=== PATIENT | male | born 1955 | race Caucasian/White ===

== ENCOUNTER 2024-09-02 16:43 | Inpatient (IN) | payer MEDICARE, BC, SELFPAY ==
[2024-09-02] VITALS (10 sets, daily range): BP systolic 105–130; BP diastolic 60–80; BMI 22.7
--- NOTE | 2024-09-02 12:03 | ED.MUSCINJ ---
HPI-Injury
General
Chief Complaint: Fall
Source: patient
Exam Limitations: none
Time Seen by Provider: 09/02/24 11:57
History of Present Illness-Injury
Initial Injury comments:
68-year-old male presents via EMS from independent living facility after a fall. He states he tried to get out of bed and slipped and fell. He complains of right knee pain and upper leg pain. He is on Coumadin. No known head strike. He has been
falling frequently recently. He denies any preceding lightheadedness dizziness or chest pain. He feels as though at times his legs do not support his weight.
Phy Exam
Physical Exam
Physical Exam:
General: Well-appearing male no acute respiratory distress
HEENT: Normocephalic atraumatic no obvious scalp abrasion or hematoma
Heart: Regular rate and rhythm
Lungs: Clear no wheeze
Musculoskeletal exam: Right knee is tender anteriorly the right distal thigh is tender. Patient prefers to hold his hip in flexed position with his knee flexed.
Extremities: Edema noted to bilateral lower extremities
Skin: Evidence of breakdown over the right heel
Injury Course
Orders/Labs/Results
Orders:
Orders
09/02/24 12:02
CR Femur - Right Min 2 Vw Urgent
Comment:
Reason For Exam: fall, pain
CR Knee- Right 4 Or More View* Urgent
Comment:
Reason For Exam: fall, pain
09/02/24 12:03
CT Head W/o Iv Contrast Urgent
Comment:
Reason For Exam: fall
09/02/24 12:32
Complete Blood Count/With Diff Urgent
Comprehensive Metabolic Panel Urgent
Prothrombin Time Urgent
09/02/24 14:06
Urinalysis Reflex To Culture Urgent
Date Specimen was Collected: 09/02/24
Time Specimen was Collected: 13:52
09/02/24 14:19
CR Chest Portable - 1 View Urgent
Comment:
Reason For Exam: hypoxia
Reason Study Needs to be Portable: Unable to Transport
09/02/24 14:31
ABG [Arterial Blood Gas] Urgent
%Oxygen/Room Air: 70
Abnormal Lab Results
09/02/24
12:32
RBC 3.49 L 10^6/uL
(4.70-6.10)
Hgb 9.7 L g/dL
(13.0-18.0)
Hct 30.1 L %
(39.0-52.0)
MCHC 32.2 L g/dL
(33.0-37.0)
RDW 15.6 H %
(11.5-14.5)
Absolute Neuts (auto) 7.3 H 10^3/uL
(1.4-6.5)
Absolute Lymphs (auto) 0.5 L 10^3/uL
(1.2-3.4)
Absolute Monos (auto) 0.7 H 10^3/uL
(0.1-0.6)
Neutrophils % 84.3 H %
(42.2-75.2)
Lymphocytes % 6.2 L %
(20.5-51.1)
PT 72.7 H Sec
(11.4-14.6)
INR > 8.0 H*
Chloride 113 H mmol/L
(98-107)
Carbon Dioxide 18 L mmol/L
(22-30)
BUN 53 H mg/dl
(9-20)
Creatinine 1.8 H mg/dL
(0.7-1.3)
Total Bilirubin 1.9 H mg/dl
(0.2-1.3)
Alkaline Phosphatase 203 H U/L
(38-126)
09/02/24 12:32
09/02/24 12:32
MDM/Problems Addressed
Differential Diagnosis Includes:
Fall with frequent falls recently. Patient has right knee and leg pain. He is anticoagulated. CT of the head pending x-ray right femur and knee pending.
Will check labs including INR
*Critical Care Note
Total Time (30-74mins, 75-104mins- exclusive of procedures): Not Applicable
Update Note
Update Note:
Head CT negative x-ray right femur and knee negative. Called back into the room as there was measurable hypoxia noted. Patient was in no respiratory distress upon reassessment. After changing the oximeters this seemed to improve. Stat portable
x-ray was ordered which is negative. Discussed with emergency room attending saw the patient as well. INR is 8 creatinine is 1.8. Patient is generally weak and has been falling. Will admit to hospital for further evaluation
ED Attending Note
-
Portions of this chart may have been created with voice recognition software.� Occasional wrong word or��sound alike� substitutions may have occurred due to the inherent limitations of voice recognition software.
Discharge Plan
Departure
Patient Disposition: Admit
Date of Disposition: 09/02/24
Time of Disposition: 14:40
Presentation/result/management discussed w/ accepting MD/DO: Hospitalist
Discharge Problem:
Falls, BEBA (acute kidney injury)
Referrals:
UNKNOWN - PT DOES,NOT KNOW [Family Provider] -
Interventions
Interventions:
*Risk Screen - Suicide Last Done: 09/02/24 11:50
*General Assessment Last Done: 09/02/24 11:50
*Neglect/Abuse Screening Last Done: 09/02/24 11:50
*ED COVID-19 Vaccine History Last Done: 09/02/24 11:50
ED-Musculoskeletal Assessment Last Done: 09/02/24 12:39
ED- Neurological Assessment Last Done: 09/02/24 12:39
ED-Skin Assessment Last Done: 09/02/24 12:39
Discharge Date and Time
Print Language: ROMANIAN
[2024-09-02 12:45] LABS: % Basophils 0.6 % (0-2); % Eosinophils 0.5 % (0-6); % Immature Granulocytes 0.3 % (0-0.5); % Lymphocytes 6.2 % (20.5-51.1); % Monocytes 8.1 % (1.7-9.3); % Neutrophils 84.3 % (42.2-75.2); Absolute Basophils 0.1 10^3/uL (0-0.2); Absolute Lymphocytes 0.5 10^3/uL (1.2-3.4); Absolute Monocytes 0.7 10^3/uL (0.1-0.6); Absolute Neutrophils 7.3 10^3/uL (1.4-6.5); Hematocrit 30.1 % (39.0-52.0); Hemoglobin 9.7 g/dL (13.0-18.0); Mean Corp Hgb Conc. 32.2 g/dL (33.0-37.0); Mean Corpuscular Hgb 27.8 pg (27.0-31.0); Mean Corpuscular Volume 86.2 fL (80.0-94.0); Mean Platelet Volume 10.4 fL (7.4-10.4); Nucleated Red Blood Cells % 0 % (-); Platelet Count 186 10^3/uL (130-400); Red Blood Cell Count 3.49 10^6/uL (4.70-6.10); Red Cell Dist. Width 15.6 % (11.5-14.5); White Blood Cell Count 8.6 10^3/uL (4.8-10.8)
[2024-09-02 13:03] LABS: PT 72.7 Sec (11.4-14.6)
[2024-09-02 13:18] LABS: ALT (SGPT) 31 U/L (0-50); AST (SGOT) 50 U/L (17-59); Albumin 3.5 g/dl (3.5-5.0); Alkaline Phosphatase 203 U/L (38-126); Blood Urea Nitrogen 53 mg/dl (9-20); Calcium 9.4 mg/dl (8.4-10.2); Carbon Dioxide 18 mmol/L (22-30); Chloride 113 mmol/L (98-107); Estimated Creatinine Clearance 44 ml/min; Glucose 96 mg/dl (70-99); Potassium 4.9 mmol/L (3.5-5.1); Sodium 140 mmol/L (135-145); Total Bilirubin 1.9 mg/dl (0.2-1.3); Total Protein 6.5 g/dl (6.3-8.2); eGFR 39.99
[2024-09-02 13:31] LABS: INR > 8.0
[2024-09-02 14:39] LABS: B.E. -9.4 mmol/L; PCO2 31 mmHg (35-48); PO2 170 mmHg (83-108); pH 7.31 (7.35-7.45)
[2024-09-02 14:43] LABS: HCO3 15.6 mmol/L (21-28)
[2024-09-02 14:54] LABS: Urine Albumin 1+ (Neg - Trace); Urine Bilirubin Negative (Negative); Urine Character Clear (Clear); Urine Color Yellow; Urine Glucose Negative (Negative); Urine Ketone Negative (Negative); Urine Leukocyte Negative (Negative); Urine Nitrite Negative (Negative); Urine Occult Blood Negative (Negative); Urine Specific Gravity 1.015 (<1.030); Urine Urobilinogen Negative (Neg - 1+)
[2024-09-02 15:12] LABS: Urine Red Blood Cell 0-2 /HPF (0-2); Urine Squamous Cell 0-2 /LPF (Few)
[2024-09-02 15:13] LABS: Urine Bacteria Few (Negative); Urine White Cell 0-2 /HPF (0-5)
--- NOTE | 2024-09-02 16:00 | HPS.HSE ---
Addendum entered and electronically signed by Jennifer Nixon PA-C 09/02/24 17:27:
Notified by nursing that bladder scan showed greater than 400cc of urine in the bladder. In the setting of elevated creatinine and possible acute kidney injury will place Hardy catheter for urinary retention and start on Flomax.
Original Note:
Family Physician
-
Family Physician: NOT KNOW UNKNOWN - PT DOES
Chief Complaint
-
Weakness and Frequent Falls
History of Present Illness
Patient is a 68 y/o male past medical history of mechanical aortic valve replacement, pacemaker, hypertension, hyperlipidemia and suspected chronic heart failure who presents with weakness and frequent falls. Patient resides in an independent
living apartment at [facility]. He reports worsening ambulatory dysfunction to the point he is now using a walker but notes its does hold his weight resulting in 'slip and fall'. He denies any dizziness associated with these events. He reports
appetite has not been as good over the past few days. He denies vomiting, diarrhea or abdominal pain. He reports urinary dribbling which he states is chronic. He denies any changes in urine output.
Medical History
Past Medical History
Past Medical History: Reports Other
Additional Past Medical History:
Aortic Stenosis
Atrial Fibrillation
Permanent Pacemaker
Chronic Heart Failure
Essential Hypertension
Hyperlipidemia
Past Surgical History: Reports Other
Additional Past Surgical History:
Aortic Valve Replacement
Social History
Tobacco: Non-smoker
Living: Other (Independent Apartment at [facility])
Family History
Family History: Not pertinent
Allergies / Home Medications
Allergies reflects when Allergies were last updated in [employer].
Home Medications with original date entered in [employer]
Allergy/Medication List:
Allergies
Allergy/AdvReac Type Severity Reaction Status Date / Time
No Known Allergies Allergy Unverified 09/02/24 14:20
Home Medications
aspirin 81 mg tablet,delayed release 81 mg PO DAILY 09/02/24
atorvastatin 40 mg tablet 40 mg PO DAILY 09/02/24
digoxin 250 mcg (0.25 mg) tablet 250 mcg PO DAILY 09/02/24
furosemide 20 mg tablet 20 mg PO DAILY 09/02/24
ibuprofen 200 mg tablet 200 mg PO Q6HPRN PRN mild pain 09/02/24
lisinopril 40 mg tablet 40 mg PO DAILY 09/02/24
metoprolol succinate 100 mg tablet,extended release 24 hr 100 mg PO TID 09/02/24
spironolactone 25 mg tablet 25 mg PO DAILY 09/02/24
warfarin 5 mg tablet 2.5 mg PO MOFR 09/02/24
warfarin 5 mg tablet 5 mg PO SUTUWETHSA 09/02/24
Review of Systems
-
A 12 point ROS was completed and negative except as noted: Yes
Constitutional: Denies Fever or Chills
Respiratory: Denies Trouble Breathing
Cardiac: Denies Chest Pain or Palpitations
Abdomen/GI: Denies Abdominal Pain, Nausea, Vomiting or Diarrhea
: Denies Dysuria or Frequency
Physical Exam
Vital Signs
Vital Signs
Temp Pulse Resp BP Pulse Ox
98.4 F 60 14 114/70 99
09/02/24 11:50 09/02/24 14:15 09/02/24 14:15 09/02/24 14:11 09/02/24 12:45
Physical Exam
General: Comfortable and Conversant
HEENT: Anicteric and Moist mucous membranes
Respiratory: Clear and Non Labored Respirations
Cardiac: S1/S2, Regular Rhythm and Murmur (Mechanical Click)
GI: Soft and Non Tender
Rectal: Deferred by Provider
Genito-urinary: Clear Urine
Musculoskeletal: No Clubbing, No Cyanosis and Other (+1 pitting edema bilateral lower extremities)
Skin: Warm, Dry and Other (Posterior Right Ankle Wound which appears quite deep with visible tendon, appears clean without evidence of infection)
Neuro: Awake, Alert and Nonfocal/grossly intact
Psych: Calm
Laboratory Results
-
09/02/24 12:32
09/02/24 12:32
Laboratory Results
PT 72.7 Sec (11.4-14.6) H 09/02/24 12:32
INR > 8.0 H* 09/02/24 12:32
pH 7.31 (7.35-7.45) L 09/02/24 14:31
pCO2 31 mmHg (35-48) L 09/02/24 14:31
pO2 170 mmHg (83-108) H 09/02/24 14:31
HCO3 15.6 mmol/L (21-28) L* 09/02/24 14:31
Total Bilirubin 1.9 mg/dl (0.2-1.3) H 09/02/24 12:32
AST 50 U/L (17-59) 09/02/24 12:32
ALT 31 U/L (0-50) 09/02/24 12:32
Alkaline Phosphatase 203 U/L (38-126) H 09/02/24 12:32
Data Reviewed
-
Diagnostic Radiology: Report Reviewed by me
CT Scan: Report Reviewed by me
Lab Data: Labs Reviewed by me
Impression/Plan
-
HPI: 68-year-old male [facility] A-fib on Coumadin, status post pacemaker, who is from an independent living facility, presented with weakness and mechanical fall.
He apparently tried to get out of bed and slipped.
He complains of right knee pain and upper leg pain. No known head strike.
He has been falling frequently recently. He denies any preceding lightheadedness dizziness or chest pain. He feels as though at times his legs do not support his weight.
A/P:
# Weakness and mechanical fall
CT head, right knee and femur x-ray on admission were unrevealing
UA was checked on admission, was largely unrevealing
PT OT eval
# Mechanical Aortic Valve
# Paroxysmal Atrial Fibrillation
# Supratherapeutic INR on admission
INR greater than 8
Will give Vit-K 5 mg x 1 now
Hold further Coumadin, check daily INR
Continue digoxin, check dig level
Continue metoprolol with hold parameters
# BEBA versus CKD unclear stage
# Metabolic acidosis
Creatinine 1.8 on admission, no known baseline
Hold prior to admission lisinopril, Lasix, ibuprofen, Aldactone
Continue to monitor serum creatinine
# h/o pacemaker
Will ask Cardiology to interrogate
# Suspect chronic heart failure, unknown type
For now, hold prior to admission lisinopril, Lasix, Aldactone
Check daily weight
#Essential Hypertension
Continue metoprolol with hold parameters
Lisinopril on hold due to BEBA
#Hyperlipidemia
Continue atorvastatin
#Normocytic Anemia
No prior blood work available for comparison
Check iron studies, vitamin b12 and folate
#Posterior Right Ankle Wound
-Consult Wound Care
DVT prophylaxis: Holding prior to admission Coumadin, use SCD for now
Full code
--- NOTE | 2024-09-02 16:10 | CON.CAR ---
Addendum entered and electronically signed by dEe Dean MD 09/02/24 18:21:
68 yo male with PMH of mechanical AVR on warfarin, permanent A fib, h/o MDT PPM, chronic HF (suspected reduced EF) is admitted with falls, and supratherapeutic INR. No chest pain. Exam with irregular rhythm, +mechanical valve click, no edema. Tele:
A fib, Vpaced. INR >8.
He sees a analytical sciences director at [place].
He already received PO Vit K. Trend INR.
Falls. No arrhythmia on device check. PT/OT eval recommended.
Original Note:
Consultation
Consultation Request
Date/Time Consultation Requested: 09/02/24 1603
Date/Time Consultation Performed: 09/02/24 1610
Requesting Provider: Jennifer MARIA
Performing Provider: Janet SOL for Dr. Dean
Reason for Consultation: falls, elevated INR, cardiac history
Medical History
-
Chief Complaint: falls, weakness
History of Present Illness:
68 y/o male (cardiology patient of Dr. Ponce, [facility]) with hx mechanical AVR on warfarin, as well as aortic intervention per patient - he thinks about 22 years ago, pacemaker (Medtronic), permanent AFIB on warfarin, hx stroke, his thinks
CHF with reduced EF, but not clear on that, who is here for evaluation of falls and weakness. He reports 3 falls recently. He denies any light-headedness or dizziness or syncope. There is no CP or SOB. He just feels his legs get weak and falls. He
also reports where he lives doesn't have carpet. In ER, his INR >8.0. Fortunately, he denies any bleeding. I see a right calf wound. He tells me that has been there for some time now and he has not had it medically evaluated. He lives at independent
living. He is in no distress at the time of my assessment. Renal dysfunction and anemia are noted, but unknown baseline.
Past Medical History
Past Medical History: Arrhythmias, CHF (unclear, but patient thinks he has this dx), CVA, HTN, Hypercholesterolemia and Valvular Disease
Past Surgical History: Cardiac
Social History
Living: Other (independent living )
Family History
Family History: Reviewed & Not Pertinent
Allergies / Home Medications
Allergy/AdvReac Type Severity Reaction Status Date / Time
No Known Allergies Allergy Unverified 09/02/24 14:20
�Medication �Instructions �Recorded �Confirmed �Type
aspirin 81 mg tablet,delayed 81 mg PO DAILY 09/02/24 09/02/24 History
release
atorvastatin 40 mg tablet 40 mg PO DAILY 09/02/24 09/02/24 History
digoxin 250 mcg (0.25 mg) tablet 250 mcg PO DAILY 09/02/24 09/02/24 History
furosemide 20 mg tablet 20 mg PO DAILY 09/02/24 09/02/24 History
ibuprofen 200 mg tablet 200 mg PO Q6HPRN PRN mild pain 09/02/24 09/02/24 History
lisinopril 40 mg tablet 40 mg PO DAILY 09/02/24 09/02/24 History
metoprolol succinate 100 mg 100 mg PO TID 09/02/24 09/02/24 History
tablet,extended release 24 hr
spironolactone 25 mg tablet 25 mg PO DAILY 09/02/24 09/02/24 History
warfarin 5 mg tablet 2.5 mg PO MOFR 09/02/24 09/02/24 History
warfarin 5 mg tablet 5 mg PO SUTUWETHSA 09/02/24 09/02/24 History
Review of Systems
-
History Source: Patient and Other (and chart )
Skin: Other (wound)
Neurological: Weakness (and falls)
Physical Exam
Vital Signs
Temp Pulse Resp BP Pulse Ox
98.4 F 60 14 114/70 99
09/02/24 11:50 09/02/24 14:15 09/02/24 14:15 09/02/24 14:11 09/02/24 12:45
Lab Results
09/02/24 12:32
09/02/24 12:32
Physical Exam
General: Well Developed, Well Nourished and No Apparent Distress
HEENT: Normocephalic and Anicteric
Respiratory: Clear and Non Labored Respirations
Cardiac: Regular Rhythm and Other (mechanical heart sounds present)
Skin: Other (right calf wound)
Neuro: Awake, Alert and Oriented
Psych: Calm
Impression / Plan
-
Weakness, severe in that he has had falls:
-PT/OT
-management per primary
Mechanical Aortic Valve:
-on warfarin
-records requested from analytical sciences director
-echo is ordered
Supratherapeutic INR: significantly elevated
-does not appear to be actively bleeding
-follow INR
-tells me analytical sciences director follows INR/warfarin
-given vit K in ER
Right calf wound:
-severe
-management per primary
Pacemaker, Medtronic:
-interrogated in ER- per rep- permanent AFIB and 2 very short NSVT most recent July
-follow telemetry
Likely hx HFrEF:
-request records
-echo to be done
-not volume overloaded
Permanent AFIB:
-on rate control meds
-follow telemetry
-warfarin as above
Renal dysfunction:
-unknown baseline
Anemia:
-unknown baseline
Data Reviewed
-
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
Radiology: Report Reviewed by me (CXR: There is marked cardiomegaly but no evidence of decompensation)
Medical Tests (Nuc Med, Echo etc): Report Reviewed by me
Labs: Labs Reviewed by me
[2024-09-02 16:36] LABS: Iron 35 ug/dl (49-181)
[2024-09-02 16:46] LABS: Percent Saturation 11 % (20-50); Total Iron Binding Capacity 312 ug/dl (261-462)
[2024-09-02] MEDS: MEPHYTON 5 MG PO (16:47)
--- NOTE | 2024-09-02 16:50 | W.PN.UPDATE ---
Update Note
Progress Note Update
HPI: 68 y/o male past medical history of mechanical aortic valve replacement, pacemaker, hypertension, hyperlipidemia and suspected chronic heart failure who presented with weakness and frequent falls. Patient resides in an independent living
apartment at [facility]. He reports worsening ambulatory dysfunction to the point he is now using a walker but notes its does hold his weight resulting in 'slip and fall'. He denies any dizziness associated with these events. He reports appetite has
not been as good over the past few days. He denies vomiting, diarrhea or abdominal pain. He reports urinary dribbling which he states is chronic. He denies any changes in urine output.
A/P:
# Weakness and mechanical fall
CT head, right knee and femur x-ray on admission were unrevealing
UA was checked on admission, was largely unrevealing
PT OT eval
# Mechanical Aortic Valve
# Paroxysmal Atrial Fibrillation
# Supratherapeutic INR on admission
INR greater than 8
Vit-K 5 mg x 1 now
Hold further Coumadin, check daily INR
Continue digoxin, check dig level
Continue metoprolol with hold parameters
# BEBA versus CKD unclear stage
# Metabolic acidosis
Creatinine 1.8 on admission, no known baseline
Hold prior to admission lisinopril, Lasix, ibuprofen, Aldactone
Continue to monitor serum creatinine
# h/o pacemaker
Will ask Cardiology to interrogate
# Suspect chronic heart failure, unknown type
For now, hold prior to admission lisinopril, Lasix, Aldactone
Check daily weight
# Essential Hypertension
Continue metoprolol with hold parameters
Lisinopril on hold due to BEBA
# Hyperlipidemia
Continue atorvastatin
# Normocytic Anemia
No prior blood work available for comparison
Check iron studies, vitamin b12 and folate
# Posterior Right Ankle Wound
Consult Wound Care
DVT prophylaxis: Holding prior to admission Coumadin, use SCD for now
Full code
[2024-09-02 17:03] LABS: Digoxin 0.7 ng/ml (0.8-2.0)
[2024-09-02] MEDS: FLOMAX 0.4 MG PO (18:41)
[2024-09-02] MEDS: LIPITOR 40 MG PO (18:41)
[2024-09-02 19:01] LABS: Folate > 20.0 ng/ml (2.76-20); Vitamin B12 757 pg/ml (239-931)
[2024-09-02] MEDS: DESENEX/MITRAZOL/ZEASORB 1 APPLIC TOPICAL (20:26)
[2024-09-02] MEDS: FLUSH (NSS) 1 FLUSH IV (20:28)
[2024-09-02] MEDS: TOPROL XL PO (22:40)
[2024-09-02] MEDS: TYLENOL 650 MG PO (23:52)
[2024-09-03 03:32] VITALS: BP 111/51
[2024-09-03 05:25] VITALS: BMI 22.1
[2024-09-03 07:06] VITALS: BP 103/57
[2024-09-03] MEDS: DESENEX/MITRAZOL/ZEASORB 1 APPLIC TOPICAL ×2 (08:32→20:03)
[2024-09-03] MEDS: FLOMAX 0.4 MG PO (08:32)
[2024-09-03] MEDS: TOPROL XL PO ×2 (08:33→15:54)
[2024-09-03 08:57] LABS: Hematocrit 28.9 % (39.0-52.0); Hemoglobin 9.2 g/dL (13.0-18.0); Mean Corp Hgb Conc. 31.8 g/dL (33.0-37.0); Mean Corpuscular Hgb 27.4 pg (27.0-31.0); Mean Platelet Volume 10.8 fL (7.4-10.4); Platelet Count 165 10^3/uL (130-400); Red Blood Cell Count 3.36 10^6/uL (4.70-6.10); Red Cell Dist. Width 15.5 % (11.5-14.5); White Blood Cell Count 6.2 10^3/uL (4.8-10.8)
[2024-09-03 09:09] LABS: PT 28.6 Sec (11.4-14.6)
[2024-09-03 09:14] LABS: Blood Urea Nitrogen 47 mg/dl (9-20); Calcium 9.1 mg/dl (8.4-10.2); Carbon Dioxide 16 mmol/L (22-30); Chloride 114 mmol/L (98-107); Estimated Creatinine Clearance 51 ml/min; Glucose 96 mg/dl (70-99); Magnesium 1.9 mg/dl (1.6-2.3); Potassium 4.4 mmol/L (3.5-5.1); Sodium 141 mmol/L (135-145); eGFR 49.77
[2024-09-03] MEDS: LASIX 20 MG PO (09:18)
[2024-09-03] MEDS: ASPIR LOW (ENTERIC COATED) 81 MG PO (09:18)
--- NOTE | 2024-09-03 09:20 | W.PN.HOSP.TC ---
Addendum entered and electronically signed by Geri Griffiths MD 09/03/24 09:31:
INR today down to 2.7, will restart home Coumadin
Original Note:
Today's Communication/Plan
-
see A/P
Assessment / Plan
Assessment / Plan
HPI: 68 y/o male past medical history of mechanical aortic valve replacement, pacemaker, hypertension, hyperlipidemia and suspected chronic heart failure who presented with weakness and frequent falls. Patient resides in an independent living
apartment at [facility]. He reports worsening ambulatory dysfunction to the point he is now using a walker but notes its does hold his weight resulting in 'slip and fall'. He denies any dizziness associated with these events. He reports appetite has
not been as good over the past few days. He denies vomiting, diarrhea or abdominal pain. He reports urinary dribbling which he states is chronic. He denies any changes in urine output.
A/P:
# Weakness and mechanical fall
CT head, right knee and femur x-ray on admission were unrevealing
UA was checked on admission, was largely unrevealing
PT OT eval
# Mechanical Aortic Valve
# Paroxysmal Atrial Fibrillation
# Supratherapeutic INR on admission
INR greater than 8 on admission, s/p Vit-K 5 mg x 1
Hold further Coumadin, check daily INR
Continue digoxin, dig level 0.7
Continue metoprolol with hold parameters
# BEBA versus CKD unclear stage
# Metabolic acidosis
Creatinine 1.8 on admission -> 1.5 today; unknown baseline
Hold prior to admission lisinopril, Lasix, ibuprofen, Aldactone
Continue to monitor serum creatinine
# h/o pacemaker
Will ask Cardiology to interrogate
# Suspect chronic heart failure, unknown type
For now, hold prior to admission lisinopril, Lasix, Aldactone, lasix
Check echo
Check daily weight
# Essential Hypertension
Continue metoprolol with hold parameters
Lisinopril on hold due to BEBA
# Hyperlipidemia
Continue atorvastatin
# Normocytic Anemia
No prior blood work available for comparison
Check iron studies, vitamin b12 and folate
# Posterior Right Ankle Wound
Consult Wound Care
DVT prophylaxis: Holding prior to admission Coumadin, use SCD for now
Full code
PT Eval
DW RN
Anticipated Discharge: 24 - 48 hours
Subjective/Interval History
-
Date of Service: September 03, 2024
Objective Data
-
Labs:
Laboratory Results
09/03/24
08:14
WBC 6.2
Hgb 9.2 L
Hct 28.9 L
Plt Count 165
PT Pending
INR Pending
Sodium 141
Potassium 4.4
Chloride 114 H
Carbon Dioxide 16 L
BUN 47 H
Creatinine 1.5 H
Glucose 96
Calcium 9.1
Vital Signs:
Vital Signs
Temp Pulse Resp BP Pulse Ox
37.1 C 61 20 103/57 99
09/03/24 07:06 09/03/24 08:33 09/03/24 07:06 09/03/24 08:33 09/03/24 07:06
I&O
09/02/24 09/03/24 09/04/24
06:59 06:59 06:59
Intake Total 240 / 240
Output Total 625 / 625
Balance -385 / -385
Review of Systems
-
History Source: Patient
All other systems: Reviewed and negative
Physical Exam
-
General: Well Developed, Well Nourished, No Apparent Distress, Comfortable and Conversant; Negative Respiratory Distress
HEENT: Normocephalic, Atraumatic, Nose Appears Normal and Ears Appear Normal; Negative Oxygen
Respiratory: Clear to Auscultation and Non Labored Respirations; Negative Accessory Resp Muscle Use
Cardiac: Regular Rhythm and S1/S2
GI: Soft, Nontender, Nondistended and Normal Bowel Sounds
Skin: Other (see wound care note)
Neuro: Awake, Alert and Oriented
Psych: Calm and Intact Judgement/Insight
Data Reviewed
-
Labs: Labs Reviewed by me
--- NOTE | 2024-09-03 09:25 | W.PN.CD ---
Today's Communication / Plan
-
continue current medications
await op medical records for review
Impression / Plan
-
Presentation:
68 y/o male (cardiology patient of [facility]/[place]) with hx mechanical AVR on warfarin, as well as aortic intervention per patient - he thinks about 22 years ago, pacemaker (Medtronic), permanent AFIB on warfarin, hx stroke, his thinks
CHF with reduced EF, but not clear on that, who is here for evaluation of falls and weakness.
Weakness, severe in that he has had falls:
-PT/OT
-management per primary
Mechanical Aortic Valve:
-on warfarin, INR >8 on admission, received Vit K in ED
-now INR 2.7, resume warfarin
-goal INR is 2.5-3.5 (AVR and fib)
-records requested from heel breaster
Pacemaker, Medtronic:
-interrogated in ER- per rep- permanent AFIB and 2 very short NSVT most recent July
-follow telemetry
HFrEF:
-chronic
-Echo today showed DCM with an EF 35-30%, severe pHTN.
-unclear if this is worse from his baseline, request records
-BP limits further GDMT at this time
-he is diuresing gently on current po dose of diuretic, unclear if compliant
-will continue current medications(BB, MRA, ACEI)
-will review records to assess prior intolerances to Entresto or [id number] given this is a chronic issue.
-follow up with typical heel breaster
Permanent AFIB:
-on rate control meds
-follow telemetry
-warfarin as above
Renal dysfunction:
-improved 1.8-->1.5
-unknown baseline
Anemia:
-unknown baseline
Right calf wound:
-severe
-management per primary
TTE 4/1/25:
CONCLUSIONS
Left ventricle is mildly dilated. Left ventricular ejection fraction is 35-40%.
Hypokinesis of mid to apical inferior wall and mid to apical septal wall.
Stage II diastolic dysfunction suggestive of abnormal relaxation and increased
filling pressures.
Mechanical aortic valve replacement seen with a peak/mean gradient of
38/20mmHg.
Severe pulmonary hypertension.
No prior study available for comparison.
Physical Exam
Vital Signs/Labs
Vital Signs
Temp Pulse Resp BP Pulse Ox
98.7 F 60 20 121/57 99
09/03/24 07:06 09/03/24 09:18 09/03/24 07:06 09/03/24 09:18 09/03/24 07:06
09/02/24 09/03/24 09/04/24
06:59 06:59 06:59
Actual Weight 78.199 kg
09/03/24 08:14
09/03/24 08:14
PT 72.7 Sec (11.4-14.6) H 09/02/24 12:32
INR > 8.0 H* 09/02/24 12:32
Magnesium 1.9 mg/dl (1.6-2.3) 09/03/24 08:14
Digoxin 0.7 ng/ml (0.8-2.0) L 09/02/24 12:32
Physical Exam
Constitutional: No acute distress
Cardiovascular: Rhythm & rate is regular, Pedal edema is absent, Systolic murmur absent and Diastolic murmur absent
Respiratory: Respiratory effort normal, Lungs clear to auscul., Wheeze Absent, Crackles Absent and Rhonchi Absent
Neuro/Psych: AO x 3
Data Reviewed
-
Date of Service: September 03, 2024
Echo: Tracing Personally Visualized and interpreted (see note), Report Reviewed by me and Other
[2024-09-03 09:53] LABS: Hepatitis C Antibody Reactive (Negative)
[2024-09-03] MEDS: MIRALAX 17 GRAMS PO (10:32)
[2024-09-03] MEDS: SENOKOT-S 1 TABLET PO (10:32)
[2024-09-03] MEDS: COUMADIN 5 MG PO (10:33)
[2024-09-03 11:53] VITALS: BP 102/56
--- NOTE | 2024-09-03 12:16 | WOUNDNOTE ---
R ACHILLES WITH TENDON EXPOSED
--- NOTE | 2024-09-03 12:17 | WOUNDNOTE ---
L 2ND PLANTAR TOE
--- NOTE | 2024-09-03 12:20 | WOUNDNOTE ---
[facility] RN note: Patient admitted with acute kidney injury, recent falls.
See H&P for complete history.
PMH: Patient is a 68 y/o male past medical history of mechanical aortic valve replacement, pacemaker, hypertension, hyperlipidemia and suspected chronic heart failure who presents with weakness and frequent falls. Patient resides in an independent
living apartment at [facility].
Wound Location and type/assessment: Patient admitted with: weakness in legs and pain, s/p fall. Bruising on R hip, x rays of R leg negative for fracture. Patient confirmed he had been independent with walking using a cane up until recent fall. R
Achilles with full thickness ulcer, hudson dry slough and tendon exposed. Patient has difficulty moving R leg by self, he said its because of his past stroke. He does not recall how he got the wound on R Achilles, states was a small ulcer few days ago
and now much worse. Patient turned with minimal assist, sacrum and heels blanchable red.
Appetite: Good.
Pressure redistribution devices in place: On Accumax, encouraged turning while in bed. Pillow placed under calves. Air cushion placed under R lower leg and foot. Patient keeps leg bent in frog position, no pressure on Achilles.
Plan: Will order Santyl with local wound care. Discussed wound with Dr. Griffiths and aware that tendon is exposed, recommended surgical consult. Deferred to Dr. Griffiths appropriate surgical consult for R Achilles. Confirmed wound care with hospitalist and
updated nurse Lexi. Updated care plan and will follow as needed.
Note to case management of equipment requested for discharge: VN if home
Recommend follow up at wound care center upon discharge.
[2024-09-03 15:01] VITALS: BP 116/58
--- NOTE | 2024-09-03 16:20 | CM ---
Met with patient to obtain information for assessment. Patient stated that he lives alone at [facility] in Independent Living. He stated that he has been independent with his ADLs, personal care, dressing and bathing. He was using a walker however now
he mainly has been using his w/c as he does not feel sturdy standing up. Patient stated that he has very minimal family left. He stated that his main support is his aunt as she is the only living remaining relative. Patient denied that he has ever
had VN or been to a SNF. He stated that he does not feel that he currently is at the level of independence that he had. \\
Patient has a prescription plan and uses, the pharmacy at [facility].
His PCP is, not listed.
Plan: Case management will continue to follow and assist with discharge planning. Most likely SNF. Will f/u with patient for options.
[2024-09-03] MEDS: LIPITOR 40 MG PO (17:53)
[2024-09-03 19:27] VITALS: BP 100/51
[2024-09-03] MEDS: FLUSH (NSS) 1 FLUSH IV (20:03)
[2024-09-03] MEDS: TOPROL XL 100 MG PO (22:09)
--- NOTE | 2024-09-03 22:27 | CON.SURG ---
Surgical Consultation
-
Chief Complaint
-
Right Achilles wound
History of Present Illness
Patient is a 68 y/o male past medical history of mechanical aortic valve replacement, pacemaker, hypertension, hyperlipidemia and suspected chronic heart failure who presents with weakness and frequent falls. Patient resides in an independent
living apartment at [facility]. He reports worsening ambulatory dysfunction to the point he is now using a walker but notes its does hold his weight resulting in 'slip and fall'. He denies any dizziness associated with these events. He reports
appetite has not been as good over the past few days. He denies vomiting, diarrhea or abdominal pain. Podiatry has been consulted for a 4 week history of right posterior ankle wound with possible exposed Achilles tendon.
Medical History
Past Medical History
Past Medical History: Reports Other
Additional Past Medical History:
Aortic Stenosis
Atrial Fibrillation
Permanent Pacemaker
Chronic Heart Failure
Essential Hypertension
Hyperlipidemia
Past Surgical History: Reports Other
Additional Past Surgical History:
Aortic Valve Replacement
Social History
Tobacco: Non-smoker
Living: Other (Independent Apartment at [facility])
Family History
Family History: Not pertinent
Allergies / Home Medications
Allergies reflects when Allergies were last updated in [employer].
Home Medications with original date entered in [employer]
Allergy/Medication List:
Allergies
Allergy/AdvReac Type Severity Reaction Status Date / Time
No Known Allergies Allergy Unverified 09/02/24 14:20
Home Medications
aspirin 81 mg tablet,delayed release 81 mg PO DAILY 09/02/24
atorvastatin 40 mg tablet 40 mg PO DAILY 09/02/24
digoxin 250 mcg (0.25 mg) tablet 250 mcg PO DAILY 09/02/24
furosemide 20 mg tablet 20 mg PO DAILY 09/02/24
ibuprofen 200 mg tablet 200 mg PO Q6HPRN PRN mild pain 09/02/24
lisinopril 40 mg tablet 40 mg PO DAILY 09/02/24
metoprolol succinate 100 mg tablet,extended release 24 hr 100 mg PO TID 09/02/24
spironolactone 25 mg tablet 25 mg PO DAILY 09/02/24
warfarin 5 mg tablet 2.5 mg PO MOFR 09/02/24
warfarin 5 mg tablet 5 mg PO SUTUWETHSA 09/02/24
Review of Systems
-
A 12 point ROS was completed and negative except as noted: Yes
Constitutional: Denies Fever or Chills
Respiratory: Denies Trouble Breathing
Cardiac: Denies Chest Pain or Palpitations
Abdomen/GI: Denies Abdominal Pain, Nausea, Vomiting or Diarrhea
: Denies Dysuria or Frequency
Physical Exam
Vital Signs
Vital Signs
Temp Pulse Resp BP Pulse Ox
98.4 F 60 14 114/70 99
09/02/24 11:50 09/02/24 14:15 09/02/24 14:15 09/02/24 14:11 09/02/24 12:45
Physical Exam
General: Comfortable and Conversant
HEENT: Anicteric and Moist mucous membranes
Respiratory: Clear and Non Labored Respirations
Cardiac: S1/S2, Regular Rhythm and Murmur (Mechanical Click)
GI: Soft and Non Tender
Rectal: Deferred by Provider
Genito-urinary: Clear Urine
Musculoskeletal: No Clubbing, No Cyanosis and Other (+1 pitting edema bilateral lower extremities)
Skin: Warm, Dry and Other (Posterior Right Ankle Wound which appears quite deep with visible tendon, appears clean without evidence of infection)
Neuro: Awake, Alert and Nonfocal/grossly intact
Psych: Calm
RLE Exam
DP/PT pules nonpalpable, capillary refill > 3 seconds, sluggish
Right posterior ankle wound with exposed Achilles tendon and fibronecrotic wound base. No purulence, crepitus, or fluctuance
Laboratory Results
-
09/02/24 12:32
09/02/24 12:32
Laboratory Results
PT 72.7 Sec (11.4-14.6) H 09/02/24 12:32
INR > 8.0 H* 09/02/24 12:32
pH 7.31 (7.35-7.45) L 09/02/24 14:31
pCO2 31 mmHg (35-48) L 09/02/24 14:31
pO2 170 mmHg (83-108) H 09/02/24 14:31
HCO3 15.6 mmol/L (21-28) L* 09/02/24 14:31
Total Bilirubin 1.9 mg/dl (0.2-1.3) H 09/02/24 12:32
AST 50 U/L (17-59) 09/02/24 12:32
ALT 31 U/L (0-50) 09/02/24 12:32
Alkaline Phosphatase 203 U/L (38-126) H 09/02/24 12:32
Data Reviewed
-
Diagnostic Radiology: Report Reviewed by me
CT Scan: Report Reviewed by me
Lab Data: Labs Reviewed by me
Impression/Plan
68-year-old male presents with 4 week history of right posterior ankle wound with exposed Achilles tendon
-Patient seen and evaluated at bedside. Applied betadine DSD to right ankle
-Please obtain FLAKITA/PVR due to poor clinical vascular exam
-Please obtain MRI of right ankle to assess for deep infection
-Recommend nursing wound care daily with application of betadine, ABD, gauze, and lightly wrapped jolene wrap
-Strict right posterior heel offloading recommended
-Will continue to follow
[2024-09-03 23:55] VITALS: BP 119/58
--- NOTE | 2024-09-04 02:38 | PTCARENOTE ---
Patient with 8 beat run of V tach. Pt asymptomatic. VSS Mg added to am labs.
[2024-09-04 03:33] VITALS: BP 129/67
[2024-09-04 05:34] VITALS: BMI 22.1
[2024-09-04 06:00] VITALS: BMI 22.1
[2024-09-04 07:35] VITALS: BP 97/49
[2024-09-04 08:23] LABS: Hematocrit 30.5 % (39.0-52.0); Hemoglobin 9.7 g/dL (13.0-18.0); Mean Corp Hgb Conc. 31.8 g/dL (33.0-37.0); Mean Corpuscular Hgb 27.6 pg (27.0-31.0); Mean Corpuscular Volume 86.6 fL (80.0-94.0); Mean Platelet Volume 11.5 fL (7.4-10.4); Platelet Count 191 10^3/uL (130-400); Red Blood Cell Count 3.52 10^6/uL (4.70-6.10); Red Cell Dist. Width 15.4 % (11.5-14.5)
[2024-09-04 08:29] LABS: INR 1.85; PT 21.8 Sec (11.4-14.6)
--- NOTE | 2024-09-04 08:48 | W.PN.CD ---
Today's Communication / Plan
-
coumadin resumed
aldactone resumed
lisinopril resumed at 20mg (prior 40mg; can increase if Cr stable)
cont Toprol XL
he can follow up with his customer service representative teacher
please call us with additional questions
Impression / Plan
-
Presentation:
68 y/o male (cardiology patient of Farhat Arreguin/Dakota) with hx mechanical AVR on warfarin, as well as aortic intervention per patient - he thinks about 22 years ago, pacemaker (Medtronic), permanent AFIB on warfarin, hx stroke, his thinks
CHF with reduced EF, but not clear on that, who is here for evaluation of falls and weakness.
Weakness, severe in that he has had falls:
-PT/OT
-management per primary
Mechanical Aortic Valve:
-on warfarin, INR >8 on admission, received Vit K in ED
-coumadin has been resumed
-goal INR is 2.5-3.5 (AVR and fib)
-records requested from customer service representative teacher
Pacemaker, Medtronic:
-interrogated in ER- per rep- permanent AFIB and 2 very short NSVT most recent July
-follow telemetry
HFrEF:
-chronic
-Echo 09/03 showed DCM with an EF 35-30%, severe pHTN.
-unclear if this is worse from his baseline, requested records
-BP limits further GDMT at this time
-he is diuresing gently on current po dose of diuretic, unclear if compliant
-will continue current medications(BB, MRA, ACEI): lisinopril resumed at lower dose 20mg, so can trend BP
-follow up with typical customer service representative teacher
Permanent AFIB:
-on rate control meds
-follow telemetry
-warfarin as above
Renal dysfunction:
-improved 1.8-->1.5
-unknown baseline
Anemia:
-unknown baseline
Right calf wound:
-severe
-management per primary
TTE 09/03/24:
CONCLUSIONS
Left ventricle is mildly dilated. Left ventricular ejection fraction is 35-40%.
Hypokinesis of mid to apical inferior wall and mid to apical septal wall.
Stage II diastolic dysfunction suggestive of abnormal relaxation and increased
filling pressures.
Mechanical aortic valve replacement seen with a peak/mean gradient of
38/20mmHg.
Severe pulmonary hypertension.
No prior study available for comparison.
Physical Exam
Vital Signs/Labs
Vital Signs
Temp Pulse Resp BP Pulse Ox
98.9 F 61 20 129/67 94
09/04/24 03:33 09/04/24 03:33 09/04/24 03:33 09/04/24 03:33 09/04/24 03:33
09/03/24 09/04/24 09/05/24
06:59 06:59 06:59
Actual Weight 78.199 kg 78.16 kg
09/04/24 07:46
PT 21.8 Sec (11.4-14.6) H 09/04/24 07:46
INR 1.85 09/04/24 07:46
Magnesium 1.9 mg/dl (1.6-2.3) 09/03/24 08:14
Digoxin 0.7 ng/ml (0.8-2.0) L 09/02/24 12:32
Physical Exam
Constitutional: No acute distress and Comfortable
EENT: Moist mucous membranes
Cardiovascular: Pedal edema is absent, JVD pressure is normal, Rhythm/rate is irregular and Other (+mechanical valve click)
Respiratory: Respiratory effort normal
Neuro/Psych: AO x 3
Data Reviewed
-
Date of Service: September 04, 2024
EKG: Other (Tele: A fib, V paced, brief NSVT)
Echo: Report Reviewed by me
Labs: Labs Reviewed by me
[2024-09-04] MEDS: TOPROL XL PO ×3 (09:14→21:50)
[2024-09-04] MEDS: LANOXIN 250 MCG PO (09:18)
[2024-09-04] MEDS: FLOMAX 0.4 MG PO (09:18)
[2024-09-04] MEDS: SANTYL OINTMENT 1 APPLIC TOPICAL (09:18)
[2024-09-04] MEDS: ASPIR LOW (ENTERIC COATED) 81 MG PO (09:19)
[2024-09-04] MEDS: ZESTRIL 20 MG PO (09:25)
[2024-09-04] MEDS: ALDACTONE 25 MG PO (09:25)
[2024-09-04 09:26] LABS: Blood Urea Nitrogen 49 mg/dl (9-20); Calcium 9.1 mg/dl (8.4-10.2); Carbon Dioxide 20 mmol/L (22-30); Chloride 112 mmol/L (98-107); Estimated Creatinine Clearance 47 ml/min; Glucose 96 mg/dl (70-99); Magnesium 1.8 mg/dl (1.6-2.3); Potassium 4.7 mmol/L (3.5-5.1); Sodium 141 mmol/L (135-145); eGFR 46.06
[2024-09-04] MEDS: DESENEX/MITRAZOL/ZEASORB 1 APPLIC TOPICAL ×2 (09:27→20:47)
--- NOTE | 2024-09-04 09:28 | CM ---
Reviewed therapy notes, patient will need rehab prior to discharge. Placed a call to patient's aunt, Stephanie (per assessment yesterday, patient was having difficulty engaging and was not a good historian). Reviewed indication on behalf of therapy for
SNF. Patient's aunt stated that she would like referrals sent to: [facility] and [facility] as they are close to [facility]. Will send referrals. Patient's aunt understood that she can add facilities or change plans but referrals need to be made
early to confirm a bed for him to go when discharged. She expressed understanding.
Plan: Case management will continue to follow and assist with discharge planning. Patient will need SNF when stable.
--- NOTE | 2024-09-04 10:52 | W.PN.HOSP.TC ---
Addendum entered and electronically signed by Geri Griffiths MD 09/04/24 13:47:
# Permanent atrial fibrillation
Original Note:
Today's Communication/Plan
-
see A/P
Assessment / Plan
Assessment / Plan
HPI: 68 y/o male past medical history of mechanical aortic valve replacement, pacemaker, hypertension, hyperlipidemia and suspected chronic heart failure who presented with weakness and frequent falls. Patient resides in an independent living
apartment at [facility]. He reports worsening ambulatory dysfunction to the point he is now using a walker but notes its does hold his weight resulting in 'slip and fall'. He denies any dizziness associated with these events. He reports appetite has
not been as good over the past few days. He denies vomiting, diarrhea or abdominal pain. He reports urinary dribbling which he states is chronic. He denies any changes in urine output.
A/P:
# Weakness and mechanical fall
CT head, right knee and femur x-ray on admission were unrevealing
UA was checked on admission, was largely unrevealing
PT OT recc SNF
# Incidental finding of exposed R Achilles tendon
R ankle XR noted soft tissue defect posterior to the distal aspect of the Achilles tendon measuring 3.5 cm in craniocaudal dimension. No evidence of acute fracture, dislocation or osteomyelitis.
Appreciate surgery input
Check Arterial US and MRI R ankle
# h/o Mechanical Aortic Valve
# Paroxysmal Atrial Fibrillation
# Supratherapeutic INR on admission
INR greater than 8 on admission, s/p Vit-K 5 mg x 1
resumed Coumadin,
check daily INR
Continue digoxin, dig level 0.7
Continue metoprolol with hold parameters
# BEBA versus CKD unclear stage
# Metabolic acidosis
Creatinine 1.8 on admission -> 1.6 today; unknown baseline
Continue to monitor serum creatinine
# h/o pacemaker
PPM interrogation no arrhythmia noted
# Chronic systolic and diastolic heart failure
# Essential Hypertension
resumed home metoprolol, aldactone and Lasix (20mg, prior 40mg)
Echo: EF 35-40%. Hypokinesis of mid to apical inferior wall and mid to apical septal wall. Stage II diastolic dysfunction. Mechanical aortic valve replacement
Check daily weight
# Hyperlipidemia
Continue atorvastatin
# Normocytic Anemia
No prior blood work available for comparison
iron level low, although ferritin WNL at 173, can suggest mild iron def
vitamin b12 and folate WNL
# Posterior Right Ankle Wound
Consult Wound Care
DVT prophylaxis: resume GLASS WASHER Coumadin
Full code
PT recc SNF
Anticipated Discharge: 24 - 48 hours
Subjective/Interval History
-
Date of Service: September 04, 2024
Objective Data
-
Labs:
Laboratory Results
09/04/24
07:46
WBC 13.0 H
Hgb 9.7 L
Hct 30.5 L
Plt Count 191
PT 21.8 H
INR 1.85
Sodium 141
Potassium 4.7
Chloride 112 H
Carbon Dioxide 20 L
BUN 49 H
Creatinine 1.6 H
Glucose 96
Calcium 9.1
Vital Signs:
Vital Signs
Temp Pulse Resp BP Pulse Ox
36.8 C 61 20 100/45 97
09/04/24 07:35 09/04/24 09:18 09/04/24 07:35 09/04/24 09:14 09/04/24 07:35
I&O
09/03/24 09/04/24 09/05/24
06:59 06:59 06:59
Intake Total 240 / 240 840 / 840
Output Total 625 / 625 950 / 950
Balance -385 / -385 -110 / -110
Review of Systems
-
History Source: Patient
All other systems: Reviewed and negative
Physical Exam
-
General: Well Developed, Well Nourished, No Apparent Distress, Comfortable and Conversant; Negative Respiratory Distress
HEENT: Normocephalic, Atraumatic, Nose Appears Normal and Ears Appear Normal; Negative Oxygen
Respiratory: Clear to Auscultation and Non Labored Respirations; Negative Accessory Resp Muscle Use
Cardiac: Regular Rhythm and S1/S2
GI: Soft, Nontender, Nondistended and Normal Bowel Sounds
Skin: Other (see wound care note)
Neuro: Awake, Alert and Oriented
Psych: Calm and Intact Judgement/Insight (somewhat)
Data Reviewed
-
Diagnostic Radiology: Report Reviewed by me
Labs: Labs Reviewed by me
[2024-09-04 11:25] VITALS: BP 106/50
[2024-09-04] MEDS: COUMADIN 5 MG PO (11:30)
[2024-09-04] MEDS: COUMADIN 3 MG PO (11:31)
--- NOTE | 2024-09-04 12:48 | PN.CDI ---
CDI
- -
CDI:
Physician Documentation Request
Admit Date: 09/02/24 16:43
Dear Doctor Aye,
Clinical Indicators:
Patient admitted with weakness/mechanical fall.
Telemetry/EKG: Vpaced/Atrial Fibrillation
09/02 Cardiology consult,'Pacemaker, Medtronic:-interrogated in ER- per rep- permanent AFIB'
09/03 PN, 'Paroxysmal Atrial Fibrillation'
Due to potentially conflicting documentation, please clarify the type of atrial fibrillation:
Permanent atrial fibrillation - when a decision has been made to accept the presence of AF and there is no further attempt to restore or maintain sinus rhythm
Paroxysmal atrial fibrillation - terminates spontaneously or with intervention within 7 days of onset
Other - please specify
Use of terms such as suspected, likely, concern for, or probable (associated with a specific diagnosis that is being evaluated, monitored, or treated as if it exists) are acceptable and can be coded in the inpatient setting, when documented at the
time of discharge.
Thank you,
Isabel Calles RN BSN
CDI Specialist
available via tiger text
Please use your independent medical judgment in providing your response.
[2024-09-04 15:35] VITALS: BP 101/47
[2024-09-04] MEDS: LIPITOR 40 MG PO (17:33)
[2024-09-04 19:20] VITALS: BP 107/53
[2024-09-04] MEDS: TYLENOL 650 MG PO (20:44)
[2024-09-04 23:41] VITALS: BP 95/53
[2024-09-05] MEDS: TYLENOL 650 MG PO (03:28)
[2024-09-05 03:30] VITALS: BP 112/47
[2024-09-05 06:00] VITALS: BMI 22.1
[2024-09-05 06:07] LABS: INR 2.36; PT 26.3 Sec (11.4-14.6)
[2024-09-05 06:21] LABS: Blood Urea Nitrogen 49 mg/dl (9-20); Carbon Dioxide 16 mmol/L (22-30); Chloride 115 mmol/L (98-107); Estimated Creatinine Clearance 47 ml/min; Glucose 93 mg/dl (70-99); Sodium 140 mmol/L (135-145); eGFR 46.06
[2024-09-05 07:35] VITALS: BP 107/56
[2024-09-05] MEDS: ASPIR LOW (ENTERIC COATED) 81 MG PO (08:27)
[2024-09-05] MEDS: FLOMAX 0.4 MG PO (08:27)
[2024-09-05] MEDS: LASIX 20 MG PO (08:27)
[2024-09-05] MEDS: COUMADIN 5 MG PO (08:27)
[2024-09-05] MEDS: ALDACTONE 25 MG PO (08:27)
[2024-09-05] MEDS: ZESTRIL 20 MG PO (08:27)
[2024-09-05] MEDS: LANOXIN 250 MCG PO (08:27)
[2024-09-05] MEDS: TOPROL XL PO ×3 (08:29→21:13)
[2024-09-05] MEDS: DESENEX/MITRAZOL/ZEASORB 1 APPLIC TOPICAL ×2 (08:31→20:43)
--- NOTE | 2024-09-05 09:37 | CM ---
Addendum entered by JENELLE Guillermo 09/05/24 16:22:
Spoke with Stephanie (aunt) who came in to see patient. She expressed that [facility] is even closer and she would rather patient go there. She declined [facility] and [facility] as they are too far.
Placed a call to Teresa in admissions at [facility]. She stated that CM should call in the morning for bed availability. Patient is accepted but she is not sure of her discharges yet.
Spoke with Claudine in admissions at [facility] who stated that she does not have any bed availability right now and is unsure of when she will.
If Teresa unable to offer bed at [facility], CM will need to make additional referrals or discuss transfer to one of the accepting facilities.
No auth needed for transfer.
Spoke with patient's aunt about a w/c van as she stated that she would be unable to take patient to facility. She is agreeable to estimated cost.
Original Note:
Received confirmation from Claudine in admissions at [facility] that she can accept patient upon discharge. Placed a call to patient's Aunt, Stephanie, to update. She is agreeable as that facility is close. She stated that she will talk to patient today.
She stated that ideally she would like for him to be able to return home with VN when stable but understands that right now the indication is for SNF.
Plan: Case management will continue to follow and assist with discharge planning.
--- NOTE | 2024-09-05 09:50 | W.PN.HOSP.TC ---
Addendum entered and electronically signed by Geri Griffiths MD 09/05/24 14:00:
updated family (aunt Stephanie) on the phone
Original Note:
Today's Communication/Plan
-
see A/P
Assessment / Plan
Assessment / Plan
HPI: 68 y/o male past medical history of mechanical aortic valve replacement, pacemaker, hypertension, hyperlipidemia and suspected chronic heart failure who presented with weakness and frequent falls. Patient resides in an independent living
apartment at [facility]. He reports worsening ambulatory dysfunction to the point he is now using a walker but notes its does hold his weight resulting in 'slip and fall'. He denies any dizziness associated with these events. He reports appetite has
not been as good over the past few days. He denies vomiting, diarrhea or abdominal pain. He reports urinary dribbling which he states is chronic. He denies any changes in urine output.
A/P:
# Weakness and mechanical fall
CT head, right knee and femur x-ray on admission were unrevealing
UA was checked on admission, was largely unrevealing
PT OT recc SNF
# Incidental finding of exposed R Achilles tendon
R ankle XR noted soft tissue defect posterior to the distal aspect of the Achilles tendon measuring 3.5 cm in craniocaudal dimension. No evidence of acute fracture, dislocation or osteomyelitis.
Appreciate surgery input
MRI R ankle noted
Check Arterial US, and depending on result, may need vascular CS
# h/o Mechanical Aortic Valve
# Paroxysmal Atrial Fibrillation
# Supratherapeutic INR on admission
INR > 8 on admission, s/p Vit-K 5 mg x 1
resumed Coumadin,
check daily INR
Continue digoxin, dig level 0.7
Continue metoprolol with hold parameters
# Acute urinary retention on admission
Hardy removed 09/05, start TOV with continued bladder scan
# Likely CKD stage 3
# Metabolic acidosis
Creatinine 1.8 on admission -> 1.6 today; unknown baseline
Continue to monitor serum creatinine
# h/o pacemaker
PPM interrogation no arrhythmia noted
# Chronic systolic and diastolic heart failure
# Essential Hypertension
resumed home metoprolol, aldactone and Lasix (20mg, prior 40mg)
Echo: EF 35-40%. Hypokinesis of mid to apical inferior wall and mid to apical septal wall. Stage II diastolic dysfunction. Mechanical aortic valve replacement
Check daily weight
# Hyperlipidemia
Continue atorvastatin
# Normocytic Anemia
No prior blood work available for comparison
iron level low, although ferritin WNL at 173, can suggest mild iron def
vitamin b12 and folate WNL
DVT prophylaxis: QUALITY ASSURANCE ADVISOR Coumadin
Full code
PT recc SNF
DW RN
Anticipated Discharge: 24 - 48 hours
Subjective/Interval History
-
Date of Service: September 05, 2024
Objective Data
-
Labs:
Laboratory Results
09/05/24
05:48
PT 26.3 H
INR 2.36
Sodium 140
Potassium 5.0
Chloride 115 H
Carbon Dioxide 16 L
BUN 49 H
Creatinine 1.6 H
Glucose 93
Calcium 9.0
Vital Signs:
Vital Signs
Temp Pulse Resp BP Pulse Ox
36.8 C 63 20 107/56 98
09/05/24 07:35 09/05/24 08:27 09/05/24 07:35 09/05/24 07:35 09/05/24 07:35
I&O
09/04/24 09/05/24 09/06/24
06:59 06:59 06:59
Intake Total 840 / 840 480 / 480
Output Total 950 / 950 975 / 975
Balance -110 / -110 -495 / -495
Review of Systems
-
History Source: Patient
All other systems: Reviewed and negative
Physical Exam
-
General: Well Developed, Well Nourished, No Apparent Distress, Comfortable, Conversant and Appears Chronically Ill; Negative Respiratory Distress
HEENT: Normocephalic, Atraumatic, Nose Appears Normal and Ears Appear Normal; Negative Oxygen
Respiratory: Clear to Auscultation and Non Labored Respirations; Negative Accessory Resp Muscle Use
Cardiac: Regular Rhythm and S1/S2
GI: Soft, Nontender, Nondistended and Normal Bowel Sounds
Skin: Other (see wound care note)
Neuro: Awake, Alert and Oriented
Psych: Calm and Intact Judgement/Insight (somewhat)
Data Reviewed
-
Diagnostic Radiology: Report Reviewed by me
Labs: Labs Reviewed by me
[2024-09-05] MEDS: SANTYL OINTMENT 1 APPLIC TOPICAL (10:30)
--- NOTE | 2024-09-05 12:41 | PTCARENOTE ---
Patient voided 200ml of susie urine after mahoney was pulled this am.
[2024-09-05 15:51] VITALS: BP 103/56
[2024-09-05] MEDS: LIPITOR 40 MG PO (17:29)
[2024-09-05 21:12] VITALS: BP 88/50
[2024-09-05] MEDS: NSS 250 IV (22:04)
[2024-09-05 23:37] VITALS: BP 123/78
[2024-09-06] VITALS (7 sets, daily range): BP systolic 82–111; BP diastolic 41–81; PULSE 62–64; O2SAT 100; BMI 22.3
[2024-09-06] MEDS: TYLENOL 650 MG PO (02:54)
[2024-09-06 06:28] LABS: INR 3.57
[2024-09-06 06:48] LABS: Blood Urea Nitrogen 60 mg/dl (9-20); Calcium 8.7 mg/dl (8.4-10.2); Carbon Dioxide 15 mmol/L (22-30); Chloride 112 mmol/L (98-107); Estimated Creatinine Clearance 40 ml/min; Glucose 102 mg/dl (70-99); Potassium 4.6 mmol/L (3.5-5.1); Sodium 137 mmol/L (135-145); eGFR 37.48
[2024-09-06] MEDS: SANTYL OINTMENT 1 APPLIC TOPICAL (09:07)
[2024-09-06] MEDS: DESENEX/MITRAZOL/ZEASORB 1 APPLIC TOPICAL ×2 (09:10→20:51)
[2024-09-06] MEDS: ALDACTONE PO (09:21)
[2024-09-06] MEDS: LANOXIN 250 MCG PO (09:23)
[2024-09-06] MEDS: FLOMAX 0.4 MG PO (09:24)
--- NOTE | 2024-09-06 09:24 | W.PN.HOSP.TC ---
Addendum entered and electronically signed by Geri Griffiths MD 09/06/24 13:55:
# CKD 3 with rise creatinine only
Original Note:
Today's Communication/Plan
-
see A/P
Assessment / Plan
Assessment / Plan
HPI: 68 y/o male past medical history of mechanical aortic valve replacement, pacemaker, hypertension, hyperlipidemia and suspected chronic heart failure who presented with weakness and frequent falls. Patient resides in an independent living
apartment at [facility]. He reports worsening ambulatory dysfunction to the point he is now using a walker but notes its does hold his weight resulting in 'slip and fall'. He denies any dizziness associated with these events. He reports appetite has
not been as good over the past few days. He denies vomiting, diarrhea or abdominal pain. He reports urinary dribbling which he states is chronic. He denies any changes in urine output.
A/P:
# Weakness and mechanical fall
CT head, right knee and femur x-ray on admission were unrevealing
UA was checked on admission, was largely unrevealing
Check orthostatic VS
PT OT recc SNF
# Incidental finding of exposed R Achilles tendon
R ankle XR noted soft tissue defect posterior to the distal aspect of the Achilles tendon measuring 3.5 cm in craniocaudal dimension. No evidence of acute fracture, dislocation or osteomyelitis.
Appreciate surgery input. No indication for surgery currnetly.
MRI R ankle noted. BL Arterial US within normal limits.
# h/o Mechanical Aortic Valve
# Paroxysmal Atrial Fibrillation
# Supratherapeutic INR on admission
INR > 8 on admission, s/p Vit-K 5 mg x 1
resumed Coumadin,
check daily INR, goal 2.5 to 3.5
Continue digoxin, dig level 0.7
Continue metoprolol with hold parameters
# Acute urinary retention on admission
Hardy removed 09/05, started TOV with continued bladder scan
# Likely CKD stage 3
# Metabolic acidosis
Continue to monitor serum creatinine
# h/o pacemaker
PPM interrogation no arrhythmia noted
# Chronic systolic and diastolic heart failure
# Essential Hypertension
resumed home metoprolol, aldactone and Lasix (20mg, prior 40mg) with holding paramters
Echo: EF 35-40%. Hypokinesis of mid to apical inferior wall and mid to apical septal wall. Stage II diastolic dysfunction. Mechanical aortic valve replacement
Check daily weight
# hypotension noted 09/06
?overmedication with BP meds
Will give small NSS bolus 500 cc and check orthostatic VS
May need to readjust ALARM SIGNALER BP meds based on BP to avoid hypotension
# Hyperlipidemia
Continue atorvastatin
# Normocytic Anemia
No prior blood work available for comparison
iron level low, although ferritin WNL at 173, can suggest mild iron def
vitamin b12 and folate WNL
DVT prophylaxis: ALARM SIGNALER Coumadin
Full code
Dispo: PT recc SNF
DW RN
updated aunt Stephanie on the phone
total time spent 51 min
Anticipated Discharge: 24 - 48 hours
Subjective/Interval History
-
Date of Service: September 06, 2024
Objective Data
-
Labs:
Laboratory Results
09/06/24
05:59
PT 36.0 H
INR 3.57
Sodium 137
Potassium 4.6
Chloride 112 H
Carbon Dioxide 15 L
BUN 60 H
Creatinine 1.9 H
Glucose 102 H
Calcium 8.7
Vital Signs:
Vital Signs
Temp Pulse Resp BP Pulse Ox
36.8 C 61 18 82/44 94
09/06/24 07:40 09/06/24 07:40 09/06/24 07:40 09/06/24 07:40 09/06/24 07:40
I&O
09/05/24 09/06/24 09/07/24
06:59 06:59 06:59
Intake Total 480 / 480 1690 / 1690
Output Total 975 / 975 875 / 875
Balance -495 / -495 815 / 815
[2024-09-06] MEDS: ZESTRIL PO (09:25)
[2024-09-06] MEDS: ASPIR LOW (ENTERIC COATED) 81 MG PO (09:25)
[2024-09-06] MEDS: LASIX PO (09:25)
[2024-09-06] MEDS: TOPROL XL PO ×3 (09:26→22:00)
[2024-09-06] MEDS: NSS 250 IV (09:51)
[2024-09-06] MEDS: COUMADIN 2.5 MG PO (09:52)
--- NOTE | 2024-09-06 10:32 | CM ---
Addendum entered by Francisca Bautista 09/06/24 13:10:
Per Teresa, there will not be any available beds tomorrow.
[facility], may have a bed over the weekend. CM will call to check bed availability
Original Note:
Chart reviewed. Patient is being recommended for skilled rehab.
Spoke w/ patient's aunt, Stephanie, who shared she prefers [facility] instead of [facility]
Spoke w/ [facility] admissions. No bed today, poss bed tomorrow but will confirm w/ CM
Discussed w/ hospitalist, patient will remain today to stabilize blood pressure. Anticipate another day or 2 for d/c
Patient will transport via van at d/c
Plan: SNF when stable. CM to follow up w/ [facility] about bed tomorrow
--- NOTE | 2024-09-06 13:28 | PN.CDI ---
CDI
- -
CDI:
Physician Documentation Request
Admit Date: 09/02/24 16:43
Dear Doctor Aye,
Clinical Indicators:
Patient admitted with weakness/mechanical fall.
4/2 PN, 'BEBA versus CKD unclear stage'
4/4 PN, 'Likely CKD stage 3'
Cr/GFR trend:
09/05/24 09/06/24
05:48 05:59
Creatinine 1.6 H 1.9 H
eGFR 46.06 37.48
Please clarify which of the following accurately represents the patient's renal status:
BEBA on CKD 3
CKD 3 with rise creatinine only
Other, please specify
Criteria for BEBA*
1 Increase in serum creatinine by > or = to 0.3 mg/dL (> or = to 26.5 micromol/L) within 48 hours, OR
2 Increase in serum creatinine to > or = to 1.5 times baseline, which is known or presumed to have occurred within 7 days, OR
3 Urine volume < 0.5 nL/kg/hour for six hours
Stages of Chronic Kidney Disease*
Level Description GFR
G1 Normal or High >90
G2 Mildly decreased 60-89
G3a Mildly to moderately decreased 45-59
G3b Moderately to severely decreased 30-44
G4 Severely decreased 15-29
G5 Kidney failure <15
Use of terms such as suspected, likely, concern for, or probable (associated with a specific diagnosis that is being evaluated, monitored, or treated as if it exists) are acceptable and can be coded in the inpatient setting, when documented at the
time of discharge.
Thank you,
Isabel Calles RN BSN
CDI Specialist
available via tiger text
Please use your independent medical judgment in providing your response.
[2024-09-06] MEDS: LIPITOR 40 MG PO (18:09)
--- NOTE | 2024-09-07 05:36 | W.PN.UPDATE ---
Update Note
Progress Note Update
RN reports hemetest was ordered and this am was positive (last 2 neg). No actual blood visualized by nurse.
test was original ordered back on 09/02 when INr was >8. last INR 3.5. For repeat INR this am
[2024-09-07 06:00] VITALS: BMI 22.4
--- NOTE | 2024-09-07 06:09 | PTCARENOTE ---
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
[2024-09-07 06:20] LABS: % Basophils 0.3 % (0-2); % Eosinophils 0.4 % (0-6); % Immature Granulocytes 0.4 % (0-0.5); % Lymphocytes 3.8 % (20.5-51.1); % Monocytes 8.8 % (1.7-9.3); % Neutrophils 86.3 % (42.2-75.2); Absolute Eosinophils 0.1 10^3/uL (0-0.7); Absolute Immature Granulocytes 0.1 10^3/uL (0-0.05); Absolute Lymphocytes 0.5 10^3/uL (1.2-3.4); Absolute Monocytes 1.2 10^3/uL (0.1-0.6); Absolute Neutrophils 12.2 10^3/uL (1.4-6.5); Hematocrit 27.6 % (39.0-52.0); Hemoglobin 9.1 g/dL (13.0-18.0); Mean Corpuscular Hgb 27.3 pg (27.0-31.0); Mean Corpuscular Volume 82.9 fL (80.0-94.0); Mean Platelet Volume 10.9 fL (7.4-10.4); Nucleated Red Blood Cells % 0 % (-); Platelet Count 177 10^3/uL (130-400); Red Blood Cell Count 3.33 10^6/uL (4.70-6.10); Red Cell Dist. Width 15.7 % (11.5-14.5); White Blood Cell Count 14.1 10^3/uL (4.8-10.8)
[2024-09-07 06:28] LABS: INR 4.28; PT 40.6 Sec (11.4-14.6)
[2024-09-07 06:41] LABS: ALT (SGPT) 44 U/L (0-50); AST (SGOT) 81 U/L (17-59); Albumin 3.3 g/dl (3.5-5.0); Alkaline Phosphatase 204 U/L (38-126); Blood Urea Nitrogen 64 mg/dl (9-20); Calcium 8.9 mg/dl (8.4-10.2); Carbon Dioxide 15 mmol/L (22-30); Chloride 110 mmol/L (98-107); Direct Bilirubin 0.6 mg/dl (0.0-0.4); Estimated Creatinine Clearance 41 ml/min; Glucose 90 mg/dl (70-99); Potassium 4.6 mmol/L (3.5-5.1); Sodium 138 mmol/L (135-145); Total Bilirubin 1.7 mg/dl (0.2-1.3); Total Protein 6.1 g/dl (6.3-8.2); eGFR 37.48
[2024-09-07 07:20] VITALS: BP 109/59
[2024-09-07] MEDS: SANTYL OINTMENT TOPICAL (08:22)
[2024-09-07] MEDS: DESENEX/MITRAZOL/ZEASORB 1 APPLIC TOPICAL ×2 (08:23→20:49)
[2024-09-07] MEDS: FLOMAX 0.4 MG PO (08:23)
[2024-09-07] MEDS: TOPROL XL PO ×3 (08:28→22:00)
[2024-09-07] MEDS: LANOXIN 250 MCG PO (09:57)
[2024-09-07] MEDS: ZESTRIL 20 MG PO (10:01)
[2024-09-07] MEDS: ALDACTONE 25 MG PO (10:02)
--- NOTE | 2024-09-07 12:26 | CM ---
Addendum entered by JENELLE Guillermo 09/07/24 16:32:
Received return call from Deedee who stated that [facility] will have a bed for patient tomorrow. # For report [phone] # For fax [phone]
Will update family.
Original Note:
Spoke with attending who stated that patient will most likely be ready for discharge tomorrow. No beds are available over the weekend at either, [facility] or [facility] where patient's aunt stated would be the closest to his community.
[facility] and [facility] also offered acceptance. Placed a call to Deedee in admissions of both facilities. She stated that she will check to determine which facility may be able to take patient on a Monday.
Plan: Case management will continue to follow and assist with discharge planning. SNF on Monday if bed offered and medically cleared.
--- NOTE | 2024-09-07 13:52 | W.PN.HOSP.TC ---
Today's Communication/Plan
-
Awaiting SNF bed
Assessment / Plan
Assessment / Plan
68 y/o male past medical history of mechanical aortic valve replacement, pacemaker, hypertension, hyperlipidemia and suspected chronic heart failure who presented with weakness and frequent falls. Patient resides in an independent living apartment
at [facility]. He reports worsening ambulatory dysfunction to the point he is now using a walker but notes its does hold his weight resulting in 'slip and fall'. He denies any dizziness associated with these events. He reports appetite has not been
as good over the past few days. He denies vomiting, diarrhea or abdominal pain. He reports urinary dribbling which he states is chronic. He denies any changes in urine output.
A/P:
1. Weakness and mechanical fall
CT head, right knee and femur x-ray on admission were unrevealing
UA was checked on admission, was largely unrevealing
PT OT recc SNF
SNF bed pending
2. Incidental finding of exposed R Achilles tendon
R ankle XR noted soft tissue defect posterior to the distal aspect of the Achilles tendon measuring 3.5 cm in craniocaudal dimension.
No evidence of acute fracture, dislocation or osteomyelitis.
Appreciate surgery input. No indication for surgery currnetly.
MRI R ankle noted. BL Arterial US within normal limits.
3. h/o Mechanical Aortic Valve
4. Paroxysmal Atrial Fibrillation
5. Supratherapeutic INR on admission
INR > 8 on admission, s/p Vit-K 5 mg x 1
resumed Coumadin once INR < 4.0, today 4.28
check daily INR, goal 2.5 to 3.5
Continue digoxin, dig level 0.7
Continue metoprolol with hold parameters
6. Acute urinary retention on admission
Hardy removed /,
started TOV with continued bladder scan
7. Likely CKD stage 3
8. Metabolic acidosis
Continue to monitor serum creatinine
9. h/o pacemaker
PPM interrogation no arrhythmia noted
10. Chronic systolic and diastolic heart failure
11. Essential Hypertension
resumed home metoprolol, aldactone and Lasix (20mg, prior 40mg) with holding paramters
Echo:
EF 35-40%.
Hypokinesis of mid to apical inferior wall and mid to apical septal wall.
Stage II diastolic dysfunction.
Mechanical aortic valve replacement
Check daily weight
12. hypotension noted 09/06 - may have been from overmedication with BP meds
Gave small NSS bolus 500 cc
May need to readjust SHIRT TRIMMER BP meds based on BP to avoid hypotension
13. Hyperlipidemia
Continue atorvastatin
14. Normocytic Anemia
No prior blood work available for comparison
iron level low, although ferritin WNL at 173, can suggest mild iron def
vitamin b12 and folate WNL
DVT prophylaxis: SHIRT TRIMMER Coumadin
Full code
Dispo: PT recc SNF
Anticipated Discharge: 24 - 48 hours
Subjective/Interval History
-
Date of Service: September 07, 2024
No new complaints, but WBC is higher.
Objective Data
-
Labs:
Laboratory Results
09/07/24
05:43
WBC 14.1 H
Hgb 9.1 L
Hct 27.6 L
Plt Count 177
PT 40.6 H
INR 4.28
Sodium 138
Potassium 4.6
Chloride 110 H
Carbon Dioxide 15 L
BUN 64 H
Creatinine 1.9 H
Glucose 90
Calcium 8.9
Total Bilirubin 1.7 H
AST 81 H
ALT 44
Alkaline Phosphatase 204 H
Vital Signs:
Vital Signs
Temp Pulse Resp BP Pulse Ox
98.4 F 61 16 120/43 98
09/07/24 07:20 09/07/24 10:02 09/07/24 07:20 09/07/24 10:02 09/07/24 11:00
I&O
09/06/24 09/07/24 09/08/24
06:59 06:59 06:59
Intake Total 1690 / 1690 1020 / 1020
Output Total 875 / 875 375 / 375
Balance 815 / 815 645 / 645
Review of Systems
-
History Source: Patient
All other systems: Reviewed and negative
Physical Exam
-
General: Well Developed, Well Nourished, No Apparent Distress and Comfortable
HEENT: Normocephalic, Nose Appears Normal and Ears Appear Normal
Respiratory: Clear to Auscultation
Cardiac: Regular Rhythm and S1/S2
GI: Soft
Skin: Warm and Dry
Neuro: Awake and Alert
Psych: Calm
Data Reviewed
-
Labs: Labs Reviewed by me
[2024-09-07] MEDS: LASIX 20 MG PO (14:01)
[2024-09-07] MEDS: ASPIR LOW (ENTERIC COATED) 81 MG PO (14:01)
[2024-09-07 15:30] VITALS: BP 92/44
[2024-09-07] MEDS: LIPITOR 40 MG PO (18:44)
[2024-09-07 23:36] VITALS: BP 107/46
[2024-09-08 05:26] VITALS: BMI 22.1
[2024-09-08 06:09] LABS: Hematocrit 27.4 % (39.0-52.0); Hemoglobin 8.9 g/dL (13.0-18.0); Mean Corp Hgb Conc. 32.5 g/dL (33.0-37.0); Mean Corpuscular Hgb 27.1 pg (27.0-31.0); Mean Corpuscular Volume 83.3 fL (80.0-94.0); Platelet Count 195 10^3/uL (130-400); Red Blood Cell Count 3.29 10^6/uL (4.70-6.10); Red Cell Dist. Width 15.3 % (11.5-14.5); White Blood Cell Count 11.5 10^3/uL (4.8-10.8)
[2024-09-08 06:14] LABS: INR 4.65; PT 43.2 Sec (11.4-14.6)
[2024-09-08 06:44] LABS: Blood Urea Nitrogen 71 mg/dl (9-20); Calcium 8.9 mg/dl (8.4-10.2); Carbon Dioxide 17 mmol/L (22-30); Chloride 112 mmol/L (98-107); Estimated Creatinine Clearance 40 ml/min; Glucose 88 mg/dl (70-99); Potassium 4.6 mmol/L (3.5-5.1); Sodium 139 mmol/L (135-145); eGFR 37.48
[2024-09-08 07:15] VITALS: BP 110/54
[2024-09-08 07:40] VITALS: BP 110/54
[2024-09-08] MEDS: TOPROL XL PO ×3 (09:27→23:52)
[2024-09-08] MEDS: LASIX 20 MG PO (09:28)
[2024-09-08] MEDS: ZESTRIL 20 MG PO (09:28)
[2024-09-08] MEDS: FLOMAX 0.4 MG PO (09:28)
[2024-09-08] MEDS: ASPIR LOW (ENTERIC COATED) 81 MG PO (09:28)
[2024-09-08] MEDS: LANOXIN 250 MCG PO (09:29)
[2024-09-08] MEDS: ALDACTONE 25 MG PO (09:29)
[2024-09-08] MEDS: DESENEX/MITRAZOL/ZEASORB 1 APPLIC TOPICAL ×2 (09:29→20:48)
[2024-09-08] MEDS: SANTYL OINTMENT 1 APPLIC TOPICAL (09:30)
--- NOTE | 2024-09-08 11:16 | W.PN.HOSP.TC ---
Today's Communication/Plan
-
Doing well. Awaiting for SNF bed.
Assessment / Plan
Assessment / Plan
68 y/o male past medical history of:
mechanical aortic valve replacement,
pacemaker,
hypertension,
hyperlipidemia
suspected chronic heart failure
who presented with weakness and frequent falls. Patient resides in an independent living apartment at [facility]. He reports worsening ambulatory dysfunction to the point he is now using a walker but notes its does hold his weight resulting in 'slip
and fall'. He denies any dizziness associated with these events. He reports appetite has not been as good over the past few days. He denies vomiting, diarrhea or abdominal pain. He reports urinary dribbling which he states is chronic. He denies
any changes in urine output.
A/P:
1. Weakness and mechanical fall
CT head, right knee and femur x-ray on admission were unrevealing
UA was checked on admission, was largely unrevealing
PT OT recc SNF
SNF bed pending
2. Incidental finding of exposed R Achilles tendon
R ankle XR noted soft tissue defect posterior to the distal aspect of the Achilles tendon
measuring 3.5 cm in craniocaudal dimension.
No evidence of acute fracture, dislocation or osteomyelitis.
Appreciate surgery input. No indication for surgery currnetly.
MRI R ankle noted. BL Arterial US within normal limits.
3. h/o Mechanical Aortic Valve
4. Paroxysmal Atrial Fibrillation
5. Supratherapeutic INR on admission
INR > 8 on admission, s/p Vit-K 5 mg x 1
resumed Coumadin once INR < 4.0, today 4.65
check daily INR, goal 2.5 to 3.5
Continue digoxin, dig level 0.7
Continue metoprolol with hold parameters
6. Acute urinary retention on admission
Hardy removed /,
started TOV with continued bladder scan
7. Likely CKD stage 3
8. Metabolic acidosis
Continue to monitor serum creatinine
9. h/o pacemaker
PPM interrogation no arrhythmia noted
10. Chronic systolic and diastolic heart failure
11. Essential Hypertension
resumed home metoprolol, aldactone and Lasix (20mg, prior 40mg) with holding paramters
Echo:
EF 35-40%.
Hypokinesis of mid to apical inferior wall and mid to apical septal wall.
Stage II diastolic dysfunction.
Mechanical aortic valve replacement
Check daily weight
12. hypotension noted 09/06 - may have been from overmedication with BP meds
Gave small NSS bolus 500 cc
May need to readjust RECORDS MANAGEMENT SPECIALIST BP meds based on BP to avoid hypotension
13. Hyperlipidemia
Continue atorvastatin
14. Normocytic Anemia
No prior blood work available for comparison
iron level low, although ferritin WNL at 173, can suggest mild iron def
vitamin b12 and folate WNL
DVT prophylaxis: RECORDS MANAGEMENT SPECIALIST Coumadin
Full code
Dispo: PT recc SNF
Anticipated Discharge: 24 - 48 hours
Subjective/Interval History
-
Date of Service: September 08, 2024
Feels well. No complaints.
Objective Data
-
Labs:
Laboratory Results
09/08/24
04:47
WBC 11.5 H
Hgb 8.9 L
Hct 27.4 L
Plt Count 195
PT 43.2 H
INR 4.65
Sodium 139
Potassium 4.6
Chloride 112 H
Carbon Dioxide 17 L
BUN 71 H
Creatinine 1.9 H
Glucose 88
Calcium 8.9
Vital Signs:
Vital Signs
Temp Pulse Resp BP Pulse Ox
98.4 F 64 18 110/54 98
09/08/24 07:15 09/08/24 09:29 09/08/24 07:15 09/08/24 09:29 09/08/24 07:23
I&O
09/07/24 09/08/24 09/09/24
06:59 06:59 06:59
Intake Total 1020 / 1020 240 / 240
Output Total 375 / 375 500 / 500
Balance 645 / 645 -260 / -260
Review of Systems
-
History Source: Patient
All other systems: Reviewed and negative
Physical Exam
-
General: Well Developed, Well Nourished and No Apparent Distress
HEENT: Normocephalic, Nose Appears Normal and Ears Appear Normal
Respiratory: Clear to Auscultation
Cardiac: Regular Rhythm, S1/S2 and Murmur
GI: Soft, Nontender and Nondistended
Musculoskeletal: No Clubbing and No Cyanosis
Skin: Warm and Dry
Neuro: Awake, Alert and Oriented
Psych: Calm
Data Reviewed
-
Labs: Labs Reviewed by me
[2024-09-08 15:35] VITALS: BP 99/50
[2024-09-08] MEDS: LIPITOR 40 MG PO (16:58)
[2024-09-08 23:34] VITALS: BP 123/48
[2024-09-09 06:00] VITALS: BMI 22.0
[2024-09-09 06:05] LABS: Hematocrit 27.5 % (39.0-52.0); Hemoglobin 9.1 g/dL (13.0-18.0); Mean Corp Hgb Conc. 33.1 g/dL (33.0-37.0); Mean Corpuscular Hgb 27.2 pg (27.0-31.0); Mean Corpuscular Volume 82.3 fL (80.0-94.0); Mean Platelet Volume 10.6 fL (7.4-10.4); Platelet Count 197 10^3/uL (130-400); Red Blood Cell Count 3.34 10^6/uL (4.70-6.10); Red Cell Dist. Width 15.6 % (11.5-14.5); White Blood Cell Count 9.6 10^3/uL (4.8-10.8)
[2024-09-09 06:12] LABS: INR 4.58; PT 42.7 Sec (11.4-14.6)
[2024-09-09 06:33] LABS: Blood Urea Nitrogen 75 mg/dl (9-20); Carbon Dioxide 14 mmol/L (22-30); Chloride 113 mmol/L (98-107); Estimated Creatinine Clearance 40 ml/min; Glucose 110 mg/dl (70-99); Potassium 4.4 mmol/L (3.5-5.1); Sodium 140 mmol/L (135-145); eGFR 37.48
[2024-09-09 07:25] VITALS: BP 106/52
[2024-09-09] MEDS: LASIX 20 MG PO (08:56)
[2024-09-09] MEDS: ZESTRIL 20 MG PO (08:59)
[2024-09-09] MEDS: ASPIR LOW (ENTERIC COATED) 81 MG PO (08:59)
[2024-09-09] MEDS: ALDACTONE 25 MG PO (09:00)
[2024-09-09] MEDS: LANOXIN 250 MCG PO (09:00)
[2024-09-09] MEDS: TOPROL XL 100 MG PO (09:00)
[2024-09-09] MEDS: FLOMAX 0.4 MG PO (09:00)
[2024-09-09] MEDS: SANTYL OINTMENT 1 APPLIC TOPICAL (09:00)
[2024-09-09] MEDS: DESENEX/MITRAZOL/ZEASORB 1 APPLIC TOPICAL (09:01)
--- NOTE | 2024-09-09 09:23 | W.PN.HOSP.TC ---
Today's Communication/Plan
-
Discharge to SNF today
Assessment / Plan
Assessment / Plan
68 y/o male past medical history of:
mechanical aortic valve replacement,
pacemaker,
hypertension,
hyperlipidemia
suspected chronic heart failure
who presented with weakness and frequent falls. Patient resides in an independent living apartment at [facility]. He reports worsening ambulatory dysfunction to the point he is now using a walker but notes its does hold his weight resulting in 'slip
and fall'. He denies any dizziness associated with these events. He reports appetite has not been as good over the past few days. He denies vomiting, diarrhea or abdominal pain. He reports urinary dribbling which he states is chronic. He denies
any changes in urine output.
A/P:
1. Weakness and mechanical fall
CT head, right knee and femur x-ray on admission were unrevealing
UA was checked on admission, was largely unrevealing
PT OT recc SNF
Stable for discharge to SNF
2. Incidental finding of exposed R Achilles tendon
R ankle XR noted soft tissue defect posterior to the distal aspect of the Achilles tendon
measuring 3.5 cm in craniocaudal dimension.
No evidence of acute fracture, dislocation or osteomyelitis.
Appreciate surgery input. No indication for surgery currnetly.
MRI R ankle noted. BL Arterial US within normal limits.
Continue wound care
3. h/o Mechanical Aortic Valve
4. Paroxysmal Atrial Fibrillation
5. Supratherapeutic INR on admission
INR > 8 on admission, s/p Vit-K 5 mg x 1
resumed Coumadin once INR < 3.5, today 4.58
check daily INR, goal 2.5 to 3.5
Continue digoxin, dig level 0.7
Continue metoprolol with hold parameters
6. Acute urinary retention on admission
Hardy removed /,
TOV with continued bladder scan
Started on flomax - continue upon dc
7. Likely CKD stage 3
8. Metabolic acidosis
Continue to monitor serum creatinine
9. h/o pacemaker
PPM interrogation no arrhythmia noted
10. Chronic systolic and diastolic heart failure
11. Essential Hypertension
resumed home metoprolol, aldactone and Lasix (20mg, prior 40mg) with holding paramters
Echo:
EF 35-40%.
Hypokinesis of mid to apical inferior wall and mid to apical septal wall.
Stage II diastolic dysfunction.
Mechanical aortic valve replacement
Check daily weight
12. hypotension noted 09/06 - may have been from overmedication with BP meds
Gave small NSS bolus 500 cc
May need to readjust PATTERN CHANGER BP meds based on BP to avoid hypotension -lisinopril reduced to 20 mg daily
13. Hyperlipidemia
Continue atorvastatin
14. Normocytic Anemia
No prior blood work available for comparison
iron level low, although ferritin WNL at 173, can suggest mild iron def
vitamin b12 and folate WNL
15. Moderate ascites
Abd Ultrasound showing moderate ascites, unable to receive paracentesis secondary to INR of 4.58
Patient reports his abdomen is less distended today, he is not hypoxic, he is not short of breath
His weight's are downtrending
Recommend continuing Lasix, Aldactone, fluid restriction, and low-sodium diet upon discharge
DVT prophylaxis: PATTERN CHANGER Coumadin
Full code
Dispo: PT recc SNF
Physical Exam
General: No acute distress
HEENT: Normocephalic, Atraumatic, EOMI, MMM
Respiratory: Clear to Auscultation bilaterally
Cardiac: Normal S1/S2, Regular Rate and Rhythm
GI: Soft, Nontender, distended, Normal Bowel Sounds
Extremities: No Clubbing, Cyanosis, or Edema
Neuro: Nonfocal/Grossly Intact
Psych: Calm, Cooperative
Derm: No Visible lesions
Anticipated Discharge: Today
Subjective/Interval History
-
Date of Service: September 09, 2024
Denies shortness of breath. Reports his abdomen is less distended today. No fever, no vomiting.
Objective Data
-
Labs:
Laboratory Results
09/09/24
05:54
WBC 9.6
Hgb 9.1 L
Hct 27.5 L
Plt Count 197
PT 42.7 H
INR 4.58
Sodium 140
Potassium 4.4
Chloride 113 H
Carbon Dioxide 14 L*
BUN 75 H
Creatinine 1.9 H
Glucose 110 H
Calcium 9.0
Vital Signs:
Vital Signs
Temp Pulse Resp BP Pulse Ox
98.7 F 70 18 121/66 99
09/09/24 07:25 09/09/24 09:00 09/09/24 07:25 09/09/24 09:00 09/09/24 07:25
I&O
09/08/24 09/09/24 09/10/24
06:59 06:59 06:59
Intake Total 240 / 240 960 / 960
Output Total 500 / 500 1400 / 1400
Balance -260 / -260 -440 / -440
--- NOTE | 2024-09-09 09:30 | WOUNDNOTE ---
TOSHIA RN NOTE: Followed up with patient via nurse Gomez who just did wound care. [place], nurse asking for clarification regarding wound care. Discussed with Dr. Hubbard who had ordered Betadine and dry dressing, confirmed can
discontinue Betadine and continue Santyl and local wound care. Will update wound care orders and care plan. Will follow as needed.
[2024-09-09] MEDS: SODIUM BICARBONATE 1300 MG PO (10:11)
--- NOTE | 2024-09-09 10:59 | CM ---
Addendum entered by JENELLE Guillermo 09/09/24 11:58:
Placed a call to patient's aunt, Stephanie, who had multiple concerns regarding patient's discharge. Attending updated. She will reach out to her.
Original Note:
Spoke with Claudine in admissions at [facility] who confirmed bed availability for patient today. # For report [phone] and [phone]
Attending updated. Will await medical clearance and then will set up transportation. Admissions stated preference for 14:00 transport if possible.
Plan: Case management will continue to follow and assist with discharge planning. [facility] when cleared for discharge. Will update family.
[2024-09-09 11:22] VITALS: BP 101/51; PULSE 61; O2SAT 91
[2024-09-09 11:53] VITALS: BP 101/51; PULSE 61; O2SAT 91
--- NOTE | 2024-09-09 12:26 | W.DCSUMMARY ---
Discharge Summary
Discharge Data
Date of Admission: 09/02/24
Date of Discharge: 09/09/24
-
Pending Results: No
Hospital Course
Discharge diagnosis:
Weakness with mechanical fall
Subacute right Achilles wound
Supratherapeutic INR on admission
Mechanical aortic valve replacement
Permanent atrial fibrillation
Acute urinary retention on admission
Moderate hepatic cirrhosis with moderate abdominal ascites
History of hypertension, with soft blood pressure in the hospital
Stage III chronic kidney disease
Non-anion gap metabolic acidosis
Consults: Cardiology, podiatry
R ankle MRI:
Soft tissue wound involving the posterior region of the heel, extending to the Achilles tendon and resulting in thinning of the Achilles tendon. There is no evidence for rupture of the Achilles tendon.
Tendinosis of the distal Achilles tendon. Edema of the fat anterior to the Achilles tendon compatible with peritendinitis.
No evidence of a focal collection, with no findings to suggest an abscess.
Osteochondral defect involving the lateral talar dome.
Abd US:
1. MODERATE HEPATIC CIRRHOSIS.
2. Moderate abdominal ascites.
3. Cholelithiasis.
4. Mild splenomegaly.
5. Mild chronic bilateral renal disease.
Hospital course:
68-year-old male with a past medical history of mechanical aortic valve replacement, atrial fibrillation, hypertension, cirrhosis, and ascites who was admitted for weakness with mechanical fall. During his evaluation, he was noted to have a 4-week
history of right posterior ankle wound with exposed Achilles tendon. Patient was seen in conjunction with podiatry. Podiatry recommends strict right posterior heel offloading, and nursing wound care daily with application of betadine, ABD, gauze,
and lightly wrapped jolene wrap.
Patient is on Coumadin for his mechanical aortic valve and permanent atrial fibrillation. His INR was 8.0 upon admission. He received vitamin K in the ED. He was seen in conjunction with cardiology. Patient's pacemaker was interrogated, he has
permanent atrial fibrillation with 2 very short non-SVT most recently in July 2024. Patient was resumed on his Coumadin, and his INR was 4.58 on the day of discharge. He is to hold his Coumadin upon discharge. He can resume his Coumadin when
his INR is less than 3.5.
Patient has cirrhosis with ascites. He is maintained on furosemide 20 mg daily, as well as Aldactone 25 mg daily. Ultrasound does show moderate ascites. However, paracentesis cannot be performed unless his INR is less than 3.0. He denies
shortness of breath, denies dyspnea with activity. He was not hypoxic. He states that his abdominal distention is actually less on the day of discharge than previously. His weight was also downtrending. He can be discharged on his diuretics,
low-sodium diet, and fluid restriction.
Patient was also noted to have soft blood pressures in the hospital. His lisinopril was reduced from 40 mg daily to 20 mg daily.
Patient also had acute urinary retention, requiring Hardy placement. He was started on Flomax. His Hardy was removed, and he was able to void. He can continue Flomax upon discharge.
He also has stage III chronic kidney disease, and non-anion gap metabolic acidosis. He was started on sodium bicarb 1300 mg 3 times a day. He needs repeat BMP at the rehab. He can stop sodium bicarb once his CO2 is greater than 20.
Patient's multiple medical conditions have been optimized. He is discharged to short-term rehab. He needs daily INR checks, and BMP on 09/12/24 and 09/16/24. He can resume his Coumadin when his INR is less than 3.5. He can stop sodium bicarb once
his CO2 is greater than 20. He needs to follow-up with his primary care doctor 1 week after he leaves rehab.
Disposition: Short-term rehab
Discharge planning: Required 43 minutes
Discharge Plan
-
Patient Disposition: Skilled Nursing/SNF
Discharge Diagnosis/Procedures: Weakness, mechanical fall, mechanical aortic valve, supra-therapeutic INR, atrial fibrillation, ascites, urinary retention, chronic right foot wound
Condition: Fair
Diet: 2 Gram Sodium and Restrict fluids to 48 oz
Activity: As tolerated
Driving Restrictions: As prior to admission
Blood Work: Daily INR, BMP on 09/12/24, 09/16/24
Activity Restrictions/Additional Instructions:
Although you do have ascites/fluid in your belly, paracentesis was not able to be performed due to your elevated INR.
Continue taking your spironolactone, furosemide.
Please follow up with your PCP for your positive hepatitis C antibody finding.
Lisinopril was decreased to 20 mg daily.
Resume Coumadin when INR is less than 3.5.
Stop sodium bicarb when CO2 > 20.
Please avoid all [id number] NSAID medications such as ibuprofen, naproxen, Aleve, Motrin, Advil.
These medications will worsen your kidney function.
Follow-up with your PCP 1 week after you leave rehab.
Referrals:
UNKNOWN - PT DOES,NOT KNOW [Family Provider] - in less than 1 week
Prescriptions:
New
Santyl 250 unit/gram Ointment
1 applic topical DAILY Qty: 0 0RF
sodium bicarbonate 650 mg Tablet
1,300 mg PO TID Qty: 0 0RF
miconazole nitrate [Miconazorb AF] 2 % Powder
1 applic topical BID Qty: 0 0RF
tamsulosin 0.4 mg Capsule
0.4 mg PO DAILY Qty: 0 0RF
Continued
atorvastatin 40 mg Tablet
40 mg PO DAILY
metoprolol succinate 100 mg Tablet Extended Release 24 Hr
100 mg PO TID
digoxin 250 mcg (0.25 mg) Tablet
250 mcg PO DAILY
aspirin 81 mg Tablet,Delayed Release (Dr/Ec)
81 mg PO DAILY
spironolactone 25 mg Tablet
25 mg PO DAILY
furosemide 20 mg Tablet
20 mg PO DAILY
Changed
lisinopril 40 mg Tablet
20 mg PO DAILY Qty: 0 0RF
Held
warfarin 5 mg Tablet
2.5 mg PO MOFR
Hold Instructions: Resume when INR < 3.5
warfarin 5 mg Tablet
5 mg PO SUTUWETHSA
Hold Instructions: Resume when INR < 3.5
Discontinued
ibuprofen 200 mg Tablet
200 mg PO Q6HPRN PRN (Reason: mild pain)
Discharge Orders:
Discharge Patient (As Directed); Ordered 09/09/24
Ordered By: Chucho Smith
Discharge Date and Time
Discharge Date/Time: 09/09/24 15:42
Print Language: ICELANDIC
[2024-09-09 15:15] VITALS: BP 108/90
--- NOTE | 2024-09-10 07:20 | PTCARENOTE ---
EBENEZER Taylor was made aware of pt critical lab result of CO2-14 on 09/09 at 6.40am . Pt resting comfortably & asymptomatic.No new orders at the time noted. Report was provided to Day shift RN.
== END 2024-09-09 15:42 | DRG 292 ==
LOC: 4 EAST ACU 16:43
PROVIDERS: Internal Medicine; Nurse Practitioner Family; Physician Assistant; Physician Assistant Medical; ADMITTING PHYSICIAN Internal Medicine; ATTENDING PHYSICIAN Family Medicine; CONSULT PHYSICIAN Internal Medicine; EMERGENCY PHYSICIAN Emergency Medicine; OTHER PHYSICIAN Student in an Organized Health Care Education/Training Program
DX: I13.0 Hypertensive heart and chronic kidney disease with heart failure and stage 1 through stage 4 chronic kidney disease, or unspecified chronic kidney disease (principal); E87.20 Acidosis, unspecified; I48.21 Permanent atrial fibrillation; I50.42 Chronic combined systolic (congestive) and diastolic (congestive) heart failure; L97.312 Non-pressure chronic ulcer of right ankle with fat layer exposed; R79.1 Abnormal coagulation profile; R29.6 Repeated falls; E78.5 Hyperlipidemia, unspecified; R33.8 Other retention of urine; N18.30 Chronic kidney disease, stage 3 unspecified; D64.9 Anemia, unspecified; I35.0 Nonrheumatic aortic (valve) stenosis; W01.0XXA Fall on same level from slipping, tripping and stumbling without subsequent striking against object, initial encounter; Z95.2 Presence of prosthetic heart valve; Z95.0 Presence of cardiac pacemaker; Z79.82 Long term (current) use of aspirin; Z79.01 Long term (current) use of anticoagulants; Z79.899 Other long term (current) drug therapy
CPT/HCPCS: 51798; 70450; 71045; 73552; 73564; 73600; 73721; 76700; 76705; 80048; 80053; 80162; 81003; 81015; 82248; 82607; 82728; 82746; 82805; 83540; 83550; 83735; 85025; 85027; 85610; 86803; 87045; 87046; 87427; 93005; 93306; 93922; 93925; 97163; 97167; 97530; 97535; 99285

== ENCOUNTER 2024-09-13 13:33 | Inpatient (IN) | payer MEDICARE, BC, SELFPAY ==
[2024-09-13] VITALS (8 sets, daily range): BP systolic 85–100; BP diastolic 48–66; BMI 23.2
--- NOTE | 2024-09-13 10:53 | ED.GENMED ---
History of Present Illness
General
Chief Complaint: Abnormal Lab Value
Source: patient, records, ambulance crew and intermediate records
Exam Limitations: none
Time Seen by Provider: 09/13/24 10:45
Nursing documentation reviewed up to this point in time: agreed with
History of Present Illness
History of Present Illness:
68-year-old male with a past medical history of atrial fibrillation, pacemaker, aortic stenosis status post mechanical valve replacement on Coumadin, cirrhosis with chronic ascites who presents to the emergency room from [facility]
for evaluation of abnormal labs. Patient was notably admitted 09/02 until 09/09�was admitted for generalized weakness, was treated for right heel wound and seen by podiatry; he also had supratherapeutic INR that was treated with vitamin K�discharge
INR was 4.5. Patient says 'I do not know why I am here.' He says that he feels fine denies any pain including chest pain, abdominal pain, back pain. He denies feeling weak or dizzy. Denies feeling short of breath. Per EMS and intermediate
written report he had abnormal labs drawn 09/12/24�INR was supratherapeutic at 4.5 (this matches his discharge INR) and creatinine level was elevated at 2.5 (baseline 1.5). I reached out to intermediate staff to clarify history�they confirmed that
labs drawn today showed elevated creatinine level and he was sent for evaluation.
Review of Systems
Review of Systems
All Other Systems: ROS reviewed and negative except as documented in HPI and ROS
Constitutional: Denies fever
Respiratory: Denies trouble breathing
Cardiac: Denies chest pain
ABD/GI: Denies abdominal pain
: Denies flank pain
Musculoskeletal: Denies neck pain or back pain
Neurological: Denies dizzy or headache
Phy Exam
Physical Exam
Physical Exam:
General: Awake, alert, oriented x3; chronically ill-appearing
Head: Normocephalic, atraumatic
Eyes: Conjunctiva normal, sclera anicteric
Throat: Airway intact, handling secretions
Neck: Trachea midline, supple without meningismus
Lungs: Clear to auscultation bilaterally, no wheezing, rales, rhonchi
Heart: Regular rate and rhythm, loud systolic murmur
Abd: Soft, mildly distended with positive fluid wave; no tenderness to deep palpation
Neuro: No gross deficits
Extremities: He has right slightly greater than left edema in the legs; wound right heel with dressing in place
Scores
Heart Failure Risk
Heart Failure Risk Score: Not Applicable
Heart Score for Chest Pain Patients
STEMI patient?: Not applicable
Withdrawal Assessment of Alcohol
Withdrawal Assessment Completed?: Not applicable
Course
Orders/Labs/Results
Orders:
Orders
09/13/24 10:44
Electrocardiogram (*1) Urgent
Reason for Study: Other
Other Reason for Exam: Possible Sepsis
EKG- Treatment ONCE
09/13/24 10:48
Complete Blood Count/With Diff Urgent
Comprehensive Metabolic Panel Urgent
INR [Prothrombin Time] Urgent
09/13/24 11:45
0.9% Sodium Chloride 1000 ml [Nss] 1,000 ml IV 100 mls/hr
09/13/24 12:01
Urinalysis Reflex To Culture Urgent
Date Specimen was Collected: 09/13/24
Time Specimen was Collected: 11:32
Abnormal Lab Results
09/13/24
10:48
RBC 3.16 L 10^6/uL
(4.70-6.10)
Hgb 8.7 L g/dL
(13.0-18.0)
Hct 26.6 L %
(39.0-52.0)
MCHC 32.7 L g/dL
(33.0-37.0)
RDW 16.0 H %
(11.5-14.5)
MPV 10.6 H fL
(7.4-10.4)
Abs Immat Gran (auto) 0.1 H 10^3/uL
(0-0.05)
Absolute Neuts (auto) 7.1 H 10^3/uL
(1.4-6.5)
Absolute Lymphs (auto) 0.7 L 10^3/uL
(1.2-3.4)
Absolute Monos (auto) 0.7 H 10^3/uL
(0.1-0.6)
Immature Gran % 1.0 H %
(0-0.5)
Neutrophils % 80.4 H %
(42.2-75.2)
Lymphocytes % 8.1 L %
(20.5-51.1)
PT 40.4 H Sec
(11.4-14.6)
Chloride 116 H mmol/L
(98-107)
Carbon Dioxide 19 L mmol/L
(22-30)
BUN 110 H* mg/dl
(9-20)
Creatinine 2.4 H mg/dL
(0.7-1.3)
Glucose 102 H mg/dl
(70-99)
Alkaline Phosphatase 238 H U/L
(38-126)
Total Protein 5.6 L g/dl
(6.3-8.2)
Albumin 2.7 L g/dl
(3.5-5.0)
09/13/24 10:48
09/13/24 10:48
Vital Signs
Initial and Last Documented VS:
Initial Vital Signs
Temp Pulse Resp Pulse Ox
36.6 C 63 18 95
09/13/24 10:50 09/13/24 10:50 09/13/24 10:50 09/13/24 10:50
Last Documented Vital Signs
Temp Pulse Resp BP Pulse Ox
36.6 C 60 18 95/48 97
09/13/24 10:50 09/13/24 11:00 09/13/24 10:50 09/13/24 11:00 09/13/24 11:00
MDM/Problems Addressed
Differential Diagnosis Includes:
BEBA�differential can include dehydration/hypovolemia, ATN, interstitial nephritis, urinary retention with post renal injury
MDM/Problems Addressed:
68-year-old male presents for evaluation of abnormal labs�had recent admission, repeat blood work drawn yesterday showed BEBA. Vitals and exam as above. Send repeat lab work today. Check INR. Check EKG. Reassess after the above.
Labs reviewed: CBC shows stable anemia. CMP shows elevated BUN/creatinine to 110/2.4. Discharge values were 72/1.9 respectively. Will discuss with nephrology.
Discussed with nephrology: Reasonable to provide fluids and trend labs outpatient however on clinical reassessment patient mildly hypotensive. Going into the weekend, we will plan to admit for fluids and monitoring of vital signs, trend renal
function. Discussed case with hospitalist.
Chronic conditions affecting care:
A-fib and mechanical valve requiring Coumadin
*Pulse Oximetry
Patient hypoxic: no
*EKG
Interpreted by ED Provider?: Yes
Heart Rate: 61
Rhythm: ventricular paced
*Critical Care Note
Total Time (30-74mins, 75-104mins- exclusive of procedures): Not Applicable
Data Reviewed
Source: patient, records, ambulance crew, intermediate and intermediate records
Patient Management
Discussion with other providers: Hospitalist (Discussed with hospitalist), Uniform Maker (Discussed with nephrology) and [facility] staff (Spoke directly with intermediate staff)
Escalation/DeEscalation of care consider admission/obs:
Admission indicated
ED Attending Note
-
Portions of this chart may have been created with voice recognition software.� Occasional wrong word or��sound alike� substitutions may have occurred due to the inherent limitations of voice recognition software.
Discharge Plan
Departure
Patient Disposition: Admit
Date of Disposition: 09/13/24
Time of Disposition: 12:11
Admit to doctor: Aditya
Presentation/result/management discussed w/ accepting MD/DO: Hospitalist
Discharge Problem:
BEBA (acute kidney injury)
Prescriptions:
No Action
atorvastatin 40 mg Tablet
40 mg PO DAILY
metoprolol succinate 100 mg Tablet Extended Release 24 Hr
100 mg PO TID
digoxin 250 mcg (0.25 mg) Tablet
250 mcg PO DAILY
aspirin 81 mg Tablet,Delayed Release (Dr/Ec)
81 mg PO DAILY
spironolactone 25 mg Tablet
25 mg PO DAILY
warfarin 5 mg Tablet
2.5 mg PO MOFR
warfarin 5 mg Tablet
5 mg PO SUTUWETHSA
furosemide 20 mg Tablet
20 mg PO DAILY
Santyl 250 unit/gram Ointment
1 applic topical DAILY Qty: 0 0RF
sodium bicarbonate 650 mg Tablet
1,300 mg PO TID Qty: 0 0RF
miconazole nitrate [Miconazorb AF] 2 % Powder
1 applic topical BID Qty: 0 0RF
tamsulosin 0.4 mg Capsule
0.4 mg PO DAILY Qty: 0 0RF
lisinopril 40 mg Tablet
20 mg PO DAILY Qty: 0 0RF
Referrals:
Chele Hooper MD [Family Provider] -
Interventions
Interventions:
*Risk Screen - Suicide Last Done: 09/13/24 10:57
*General Assessment Last Done: 09/13/24 10:56
*Neglect/Abuse Screening Last Done: 09/13/24 10:57
Discharge Date and Time
Print Language: NEPALESE
[2024-09-13 11:08] LABS: % Basophils 0.8 % (0-2); % Eosinophils 1.6 % (0-6); % Lymphocytes 8.1 % (20.5-51.1); % Monocytes 8.1 % (1.7-9.3); % Neutrophils 80.4 % (42.2-75.2); Absolute Basophils 0.1 10^3/uL (0-0.2); Absolute Eosinophils 0.1 10^3/uL (0-0.7); Absolute Immature Granulocytes 0.1 10^3/uL (0-0.05); Absolute Lymphocytes 0.7 10^3/uL (1.2-3.4); Absolute Monocytes 0.7 10^3/uL (0.1-0.6); Absolute Neutrophils 7.1 10^3/uL (1.4-6.5); Hematocrit 26.6 % (39.0-52.0); Hemoglobin 8.7 g/dL (13.0-18.0); Mean Corp Hgb Conc. 32.7 g/dL (33.0-37.0); Mean Corpuscular Hgb 27.5 pg (27.0-31.0); Mean Corpuscular Volume 84.2 fL (80.0-94.0); Mean Platelet Volume 10.6 fL (7.4-10.4); Nucleated Red Blood Cells % 0 % (-); Platelet Count 252 10^3/uL (130-400); Red Blood Cell Count 3.16 10^6/uL (4.70-6.10); White Blood Cell Count 8.9 10^3/uL (4.8-10.8)
[2024-09-13 11:18] LABS: INR 4.24; PT 40.4 Sec (11.4-14.6)
[2024-09-13 11:23] LABS: ALT (SGPT) 40 U/L (0-50); AST (SGOT) 53 U/L (17-59); Albumin 2.7 g/dl (3.5-5.0); Alkaline Phosphatase 238 U/L (38-126); Blood Urea Nitrogen 110 mg/dl (9-20); Calcium 8.5 mg/dl (8.4-10.2); Carbon Dioxide 19 mmol/L (22-30); Chloride 116 mmol/L (98-107); Glucose 102 mg/dl (70-99); Potassium 5.1 mmol/L (3.5-5.1); Sodium 144 mmol/L (135-145); Total Bilirubin 1.1 mg/dl (0.2-1.3); Total Protein 5.6 g/dl (6.3-8.2); eGFR 28.32
[2024-09-13] MEDS: NSS 1000 IV (11:55)
[2024-09-13 12:13] LABS: Urine Albumin 1+ (Neg - Trace); Urine Bilirubin Negative (Negative); Urine Character Clear (Clear); Urine Color Yellow; Urine Glucose Negative (Negative); Urine Ketone Negative (Negative); Urine Leukocyte Negative (Negative); Urine Nitrite Negative (Negative); Urine Occult Blood 1+ (Negative); Urine Specific Gravity 1.015 (<1.030); Urine Urobilinogen Negative (Neg - 1+)
--- NOTE | 2024-09-13 12:14 | HPS.HSE ---
Family Physician
-
Family Physician: Chele Hooper
Chief Complaint
-
abn labs drawn as og 09/12/24
History of Present Illness
68M Res of [facility] HX Perm atrial fibrillation, pacemaker, aortic stenosis status post mechanical valve replacement on Coumadin, cirrhosis with chronic ascites who presents to the emergency room
- for evaluation of abnormal labs.
- was admitted 09/02 until 09/09 for generalized weakness, was treated for right heel wound and seen by podiatry and supratherapeutic INR that was treated with vitamin K�discharge INR was 4.5.
- Patient says 'I do not know why I am here.'
- denies any pain including chest pain, abdominal pain, back pain.
- denies feeling weak or dizzy. Denies feeling short of breath.
Per EMS and fpc written report he had abnormal labs drawn 09/12/24�INR was supratherapeutic at 4.5 (this matches his discharge INR) and creatinine level was elevated at 2.5 (baseline 1.5).
Medical History
Past Medical History
Past Medical History: Reports Other
Additional Past Medical History:
Aortic Stenosis
Atrial Fibrillation
Permanent Pacemaker
Chronic Heart Failure
Essential Hypertension
Hyperlipidemia
Past Surgical History: Reports Other
Additional Past Surgical History:
Aortic Valve Replacement
Social History
Tobacco: Non-smoker
Living: Other (Independent Apartment at [facility])
Family History
Family History: Not pertinent
Allergies / Home Medications
Allergies reflects when Allergies were last updated in [employer].
Home Medications with original date entered in [employer]
Allergy/Medication List:
Allergies
Allergy/AdvReac Type Severity Reaction Status Date / Time
No Known Allergies Allergy Unverified 09/02/24 14:20
Home Medications
aspirin 81 mg tablet,delayed release 81 mg PO DAILY 09/02/24
atorvastatin 40 mg tablet 40 mg PO DAILY 09/02/24
digoxin 250 mcg (0.25 mg) tablet 250 mcg PO DAILY 09/02/24
furosemide 20 mg tablet 20 mg PO DAILY 09/02/24
ibuprofen 200 mg tablet 200 mg PO Q6HPRN PRN mild pain 09/02/24
lisinopril 40 mg tablet 40 mg PO DAILY 09/02/24
metoprolol succinate 100 mg tablet,extended release 24 hr 100 mg PO TID 09/02/24
spironolactone 25 mg tablet 25 mg PO DAILY 09/02/24
warfarin 5 mg tablet 2.5 mg PO MOFR 09/02/24
warfarin 5 mg tablet 5 mg PO SUTUWETHSA 09/02/24
Review of Systems
-
Constitutional: Reports No Symptoms
EENT: Reports No Symptoms
Respiratory: Reports No Symptoms
Cardiac: Reports No Symptoms
Abdomen/GI: Reports No Symptoms
: Reports No Symptoms
Musculoskeletal: Reports No Symptoms
Skin: Reports No Symptoms
Neurological: Reports No Symptoms
Endocrine: Reports No Symptoms
Hematologic/Lymphatic: Reports No Symptoms
Psych: Reports No Symptoms
Physical Exam
Vital Signs
Vital Signs
Temp Pulse Resp BP Pulse Ox
97.8 F 60 18 95/48 97
09/13/24 10:50 09/13/24 11:00 09/13/24 10:50 09/13/24 11:00 09/13/24 11:00
Physical Exam
General: Comfortable, Conversant and Other (not orthopnic )
HEENT: Anicteric, Moist mucous membranes and Other (prominent neck veins on lying flat )
Respiratory: Clear and Non Labored Respirations
Cardiac: S1/S2, Regular Rhythm and Murmur (Mechanical Click)
GI: Soft and Non Tender
Rectal: Deferred by Provider
Genito-urinary: Clear Urine
Musculoskeletal: No Clubbing, No Cyanosis and Other (+1 pitting edema bilateral lower extremities)
Skin: Warm, Dry and Other (Posterior Right Ankle Wound which appears quite deep with visible tendon, appears clean without evidence of infection)
Neuro: Awake, Alert and Nonfocal/grossly intact
Psych: Calm
Laboratory Results
-
09/13/24 10:48
09/13/24 10:48
Laboratory Results
PT 40.4 Sec (11.4-14.6) H 09/13/24 10:48
INR 4.24 09/13/24 10:48
Total Bilirubin 1.1 mg/dl (0.2-1.3) 09/13/24 10:48
AST 53 U/L (17-59) 09/13/24 10:48
ALT 40 U/L (0-50) 09/13/24 10:48
Alkaline Phosphatase 238 U/L (38-126) H 09/13/24 10:48
Data Reviewed
-
Medical Tests (Nuc Med, Echo, EKG etc): Report Reviewed by me
Lab Data: Labs Reviewed by me
Old Records: Reviewed
Impression/Plan
-
Selected Entries
09/09/24
06:00 09/13/24
10:45 09/13/24
Temp 97.8 F
Pulse 63
Resp Rate 18
Blood pressure
SaO2 95
Oxygen Mode of Delivery Room air
Actual Weight 77.655 kg 82.7 kg Gained 5kg
09/13/24
11:00 09/13/24
11:00
Temp
Pulse
Resp Rate
Blood pressure 95/48
SaO2 97
Oxygen Mode of Delivery
Actual Weight
Laboratory Tests
09/08/24 09/09/24 09/13/24
04:47 05:54 10:48
WBC 8.9
Hgb 8.9 L 9.1 L 8.7 L
MCV 84.2
Plt Count 252 D
INR 4.24
Sodium 144
Potassium 5.1
Chloride 116 H
Carbon Dioxide 14 L* 19 L
BUN 75 H 110 H*
Creatinine 1.9 H 2.4 H
eGFR 37.48 28.32
Alkaline Phosphatase 238 H
Total Protein 5.6 L
Albumin 2.7 L
Urine Ketones NEG
Urine Nitrite (Reflex) NEG
Leukocyte Esterase Rfl NEG
Urine RBC Pending
Urine WBC (Reflex) Pending
Urine Albumin (Reflex) 1+
EKG
Ventricular-paced rhythm
ABNORMAL ECG
WHEN COMPARED WITH ECG OF 02-SEP-2024 16:27,
ELECTRONIC VENTRICULAR PACEMAKER HAS REPLACED ATRIAL FIBRILLATION
Confirmed by MD SAMSON, TOMÁS Brito ([id number]) on 09/13/2024 12:13:19 PM
09/03/24 TTE:
Left ventricle is mildly dilated. Left ventricular ejection fraction is 35-40%. Hypokinesis of mid to apical inferior wall and mid to apical septal wall.
Stage II diastolic dysfunction suggestive of abnormal relaxation and increased filling pressures.
Mechanical aortic valve replacement seen with a peak/mean gradient of 38/20mmHg.
pulmonary hypertension. No prior study available for comparison.
Last hospitalist admission:
Date of Admission: 09/02/24 - Date of Discharge: 09/09/24
Discharge diagnosis:
Weakness with mechanical fall
Subacute right Achilles wound
Supratherapeutic INR on admission
Mechanical aortic valve replacement
Permanent atrial fibrillation
Acute urinary retention on admission
Moderate hepatic cirrhosis with moderate abdominal ascites
History of hypertension, with soft blood pressure in the hospital
Stage III chronic kidney disease
Non-anion gap metabolic acidosis
ASSESSMENT & PLAN
Mild hypotension but gained 5 kg over last 4 days - Vol. overload due to CHF vs Facticous with weighing ?
BEBA- DDX: Cardiorenal syndrome vs. Hypovolemia due to overdiuresis Giving fluids
HX CKD with baseline Cr 1.9, eGFR hi 30s c/w stage 3B
C hr metabolic acidosis [place] to CKD
- Hold spironolactone, Lisinopril, Frusemide
- Check Dig level, till then Hold Digoxin
- c/w CENTER CONSULTANT Na HCO3 1300 mg tid
- Renal and CBC Card consult
HX Ch HFrEF with LVEF35- 40%. with Stage II diastolic dysfunction and severe pulmonary hypertension.
- Suspect HX chr mixed CHF
- Mechanical aortic valve replacement seen with a peak/mean gradient of 38/20mmHg.
- HX pacemaker
- Hold spironolactone, Lisinopril, Frusemide
- Check Dig level, till then Hold Digoxin
- Daily Wt and IOS
- CBC Card to evaulate
Gained 5 kg over last 4 days: Vol. overload due to CHF vs Facticous
- Hold any diretics for now till seen by Card and Renal
HX moderate ascites on last admission but cannot do paracentesis to INR 4s
Current INR of 4.2s
- Patient reports his abdomen is less distended today, he is not hypoxic, he is not short of breath
Over therapeutic INR
- for Mechanical AoVR and perm AF
- Chr warfarin MoFr for blood clot prevention
- On hold CENTER CONSULTANT
- No emergent indication for reversal of INR
- cont. to hold Warfarin
- Daily INR
- Goal INR 2.5 - 3. 5
Anemia of chr dz: stable
- Current Hgb 8.7
- Baseline Hgb hi 8s
- No evidence of active bleed
Hyperlipidemia
- c/ CENTER CONSULTANT atorvastatin
DVT Px: INR 4 on Warfarin
Code: Full
IMU
[2024-09-13 13:03] LABS: Urine Bacteria Few (Negative); Urine Red Blood Cell 0-2 /HPF (0-2); Urine Squamous Cell 0-2 /LPF (Few)
--- NOTE | 2024-09-13 13:27 | W.CON.NEPH ---
Consultation
-
Date/Time Consultation Requested: 09/13/2024 11 AM
Date/Time Consultation Performed: 09/13/2024 1 PM
Requesting Provider: Dr. Burgess
Performing Provider: Dr. Donahue
Reason for Consultation: BEBA
Medical History
-
Chief Complaint: BEBA
History of Present Illness:
This is a 68-year-old gentleman who resides at [facility] who has atrial fibrillation on digoxin therapy rate controlled, pacemaker, mechanical aortic valve replacement on anticoagulation with Coumadin therapy, cirrhosis with chronic
ascites. You sent to the emergency room because of abnormal laboratory values. He was recently in the hospital and discharged only 4 days ago. Admission at that time was for generalized weakness. Patient currently has no specific complaints. He
has some mild suprapubic pain. He denies any issues with appetite. Creatinine was noted to be 2.4 at the time of admission up from his baseline of 1.5-1.9. BUN was high at 110 with metabolic acidosis.
Past Medical History
Aortic Stenosis
Atrial Fibrillation
Permanent Pacemaker
Chronic Heart Failure
Essential Hypertension
Hyperlipidemia
ESLD
CKD 3B
Aortic Valve Replacement
Social History
Tobacco: Non-Smoker
Alcohol: None
Family History
Family History: Not Pertinent
Allergies / Home Medications
Allergy/AdvReac Type Severity Reaction Status Date / Time
No Known Allergies Allergy Unverified 09/02/24 14:20
�Medication �Instructions �Recorded �Confirmed �Type
aspirin 81 mg tablet,delayed 81 mg PO DAILY Blood Clot 09/02/24 09/13/24 History
release Prevention/Tx
atorvastatin 40 mg tablet 40 mg PO QPM High Cholesterol 09/02/24 09/13/24 History
digoxin 250 mcg (0.25 mg) tablet 250 mcg PO DAILY Heart 09/02/24 09/13/24 History
Disease/Condition
furosemide 20 mg tablet 20 mg PO DAILY Fluid 09/02/24 09/13/24 History
Retention/Swelling
metoprolol succinate 100 mg 100 mg PO BID Blood Pressure 09/02/24 09/13/24 History
tablet,extended release 24 hr
spironolactone 25 mg tablet 25 mg PO DAILY Fluid 09/02/24 09/13/24 History
Retention/Swelling
warfarin 5 mg tablet 2.5 mg PO MOFR@1800 Blood Clot 09/02/24 09/13/24 History
Prevention/Tx
warfarin 5 mg tablet 5 mg PO SUTUWETH@1800 Blood Clot 09/02/24 09/13/24 History
Prevention/Tx
sodium bicarbonate 650 mg tablet 1,300 mg (2 x 650 mg) PO TID #0 09/09/24 09/13/24 Rx
tabs
tamsulosin 0.4 mg capsule 0.4 mg PO DAILY #0 caps 09/09/24 09/13/24 Rx
acetaminophen 325 mg tablet 650 mg PO Q4HPRN PRN mild 09/13/24 09/13/24 History
pain/temp>101
acetaminophen 325 mg tablet 650 mg PO TID 09/13/24 09/13/24 History
doxycycline monohydrate 100 mg 100 mg PO BID 09/13/24 09/13/24 History
capsule
gabapentin 100 mg capsule 100 mg PO TID 09/13/24 09/13/24 History
lisinopril 20 mg tablet 20 mg PO DAILY 09/13/24 09/13/24 History
magnesium hydroxide 400 mg/5 mL 30 ml PO DAILYPRN PRN if no bm in 09/13/24 09/13/24 History
oral suspension (Milk of Magnesia) 3 days
miconazole nitrate 2 % topical 1 applic topical BID groin 09/13/24 09/13/24 History
powder (Miconazorb AF)
Review of Systems
-
Suprapubic discomfort
All other systems: Negative unless noted
Physical Exam
Vital Signs
Vital Signs
Temp Pulse Resp BP Pulse Ox
97.8 F 60 13 95/48 97
09/13/24 10:50 09/13/24 12:00 09/13/24 12:00 09/13/24 11:00 09/13/24 12:00
Lab Results
WBC 8.9 10^3/uL (4.8-10.8) 09/13/24 10:48
RBC 3.16 10^6/uL (4.70-6.10) L 09/13/24 10:48
Hgb 8.7 g/dL (13.0-18.0) L 09/13/24 10:48
Hct 26.6 % (39.0-52.0) L 09/13/24 10:48
Plt Count 252 10^3/uL (130-400) D 09/13/24 10:48
Sodium 144 mmol/L (135-145) 09/13/24 10:48
Potassium 5.1 mmol/L (3.5-5.1) 09/13/24 10:48
Chloride 116 mmol/L (98-107) H 09/13/24 10:48
Carbon Dioxide 19 mmol/L (22-30) L 09/13/24 10:48
BUN 110 mg/dl (9-20) H* 09/13/24 10:48
Creatinine 2.4 mg/dL (0.7-1.3) H 09/13/24 10:48
eGFR 28.32 09/13/24 10:48
Glucose 102 mg/dl (70-99) H 09/13/24 10:48
Calcium 8.5 mg/dl (8.4-10.2) 09/13/24 10:48
Albumin 2.7 g/dl (3.5-5.0) L 09/13/24 10:48
Physical Exam
Patient is awake alert oriented and in no distress. Mood and affect were pleasant, insight and judgment were fair at best. Pupils are equal round and reactive to light, extraocular movements are intact, sclera were anicteric. Hearing was normal,
ears and nose are intact. Oropharynx was clear. Neck was supple with trachea midline and no thyromegaly. Heart was regular rate and rhythm without rubs. Lower extremities without edema. Lungs were clear to auscultation bilaterally and with normal
excursion. Abdomen was soft, nontender, with normal active bowel sounds, and no hepatosplenomegaly. Skin was without rash and with normal turgor.
Data Reviewed
-
Ultrasound: Report Reviewed by me (Abdominal ultrasound 09/07/2024 moderate ascites right kidney 8.7 cm left kidney 10.9 cm no hydronephrosis cirrhotic liver)
Medical Tests (Nuc Med, Echo etc): Image Personally Visualized and interpreted (EKG 09/13/2024 by reading V paced rhythm) and Report Reviewed by me (Echocardiogram 09/03/2024 35% ejection fraction diastolic dysfunction)
Labs: Labs Reviewed by me
Old Records: Reviewed
Assessment/Plan
-
Assessment
Aortic Stenosis, AVR
Atrial Fibrillation
Permanent Pacemaker
HFrEF 35%
Essential Hypertension
Hyperlipidemia
BEBA
Azotemia
Plan
He is somewhat more hypotensive prior admission
I suspect fractional excretion of sodium will be low
Trial of IV fluids is warranted at this time
He is not on high O2 requirements
Hold diuretic therapy
Hold bicarbonate therapy. He is on high-dose bicarbonate with high sodium load
Follow BMP
Add midodrine and albumin if pressures remain low
--- NOTE | 2024-09-13 14:30 | CON.CAR ---
Addendum entered and electronically signed by Arnie Raygoza MD 09/13/24 17:07:
I saw and examined the patient.
The CONFIGURATOR's note was reviewed and I agree with the note.
Comment: 68 yo male with PMH of mechanical AVR on warfarin, permanent A fib, h/o MDT PPM, HFrEF just discharge on 09/09 for fall sent in from [place] for abnormal cr. He reports he is fatigued, has some chest tightness when taking a deep breath. He denies
sob or cp. He is worried nothing will get better. ON exam he looks chronically ill with cachexia and protuberant but soft abdomen. lungs cta, rrr, He has no significant le edema. ECG vpaced. BUN/CR 116/19, INR4.24 labs and exam point to
hypovolemia but wt is up for discharge. Nephrology following and replacing volume. He is mildly hypotensive if no improvement with fluid I would consider levophed given low ef. Will hold warfarin tonight as has been persistently at >4 and he has a
element of cirrhosis. Trend INR. Would consider paracentesis as his abdominal distension seems be causing symptoms.
Will follow
He sees a golf caddy at [place].
Falls. No arrhythmia on device check. PT/OT eval recommended.
Original Note:
Consultation
Consultation Request
Date/Time Consultation Requested: 09/13/24 1:30p
Date/Time Consultation Performed: 09/13/24 2:15p
Requesting Provider: Dr. Burgess
Performing Provider: EBENEZER Maza for Dr. Raygoza
Reason for Consultation: BEBA and overdiuresed
Medical History
-
Chief Complaint: weakness
History of Present Illness:
Mr. Cazares is a 68 y/o male (cardiology patient of Dr. Ponce, [place]) with mechanical AVR on warfarin, pacemaker (Medtronic), permanent AFIB on warfarin, CVA, HFrEF 35-40%, who is here for weakness. He is admitted to the hospitalist
service for BEBA and hypotension receiving IVF. He c/o feeling like he has to urinate frequency. He denies any SOB or other cardiac symptoms. INR is supratherapeutic at 4.24, he denies bleeding.
Past Medical History
Past Medical History: Other (as above)
Past Surgical History: Cardiac (mechanical AVR )
Social History
Tobacco: Non-Smoker
Living: Assisted Living ([facility])
Family History
Family History: Reviewed & Not Pertinent
Allergies / Home Medications
Allergy/AdvReac Type Severity Reaction Status Date / Time
No Known Allergies Allergy Unverified 09/02/24 14:20
�Medication �Instructions �Recorded �Confirmed �Type
aspirin 81 mg tablet,delayed 81 mg PO DAILY Blood Clot 09/02/24 09/13/24 History
release Prevention/Tx
atorvastatin 40 mg tablet 40 mg PO QPM High Cholesterol 09/02/24 09/13/24 History
digoxin 250 mcg (0.25 mg) tablet 250 mcg PO DAILY Heart 09/02/24 09/13/24 History
Disease/Condition
furosemide 20 mg tablet 20 mg PO DAILY Fluid 09/02/24 09/13/24 History
Retention/Swelling
metoprolol succinate 100 mg 100 mg PO BID Blood Pressure 09/02/24 09/13/24 History
tablet,extended release 24 hr
spironolactone 25 mg tablet 25 mg PO DAILY Fluid 09/02/24 09/13/24 History
Retention/Swelling
warfarin 5 mg tablet 2.5 mg PO MOFR@1800 Blood Clot 09/02/24 09/13/24 History
Prevention/Tx
warfarin 5 mg tablet 5 mg PO SUTUWETH@1800 Blood Clot 09/02/24 09/13/24 History
Prevention/Tx
sodium bicarbonate 650 mg tablet 1,300 mg (2 x 650 mg) PO TID #0 09/09/24 09/13/24 Rx
tabs
tamsulosin 0.4 mg capsule 0.4 mg PO DAILY #0 caps 09/09/24 09/13/24 Rx
acetaminophen 325 mg tablet 650 mg PO Q4HPRN PRN mild 09/13/24 09/13/24 History
pain/temp>101
acetaminophen 325 mg tablet 650 mg PO TID 09/13/24 09/13/24 History
doxycycline monohydrate 100 mg 100 mg PO BID 09/13/24 09/13/24 History
capsule
gabapentin 100 mg capsule 100 mg PO TID 09/13/24 09/13/24 History
lisinopril 20 mg tablet 20 mg PO DAILY 09/13/24 09/13/24 History
magnesium hydroxide 400 mg/5 mL 30 ml PO DAILYPRN PRN if no bm in 09/13/24 09/13/24 History
oral suspension (Milk of Magnesia) 3 days
miconazole nitrate 2 % topical 1 applic topical BID groin 09/13/24 09/13/24 History
powder (Miconazorb AF)
Review of Systems
-
History Source: Patient
All other systems: Negative unless noted
Physical Exam
Vital Signs
Temp Pulse Resp BP Pulse Ox
97.8 F 63 16 85/51 96
09/13/24 10:50 09/13/24 14:05 09/13/24 14:05 09/13/24 14:05 09/13/24 13:00
Lab Results
09/13/24 10:48
09/13/24 10:48
Physical Exam
General: Other (exhausted/weak/frail )
HEENT: Normocephalic
Respiratory: Clear and Non Labored Respirations
Cardiac: S1/S2 and Regular Rhythm
Breast: Deferred by me
GI: Soft, Non Distended and Normal Bowel Sounds
Rectal: Deferred by Provider
Genito-urinary: No Costovertebral Tender
Musculoskeletal: No Clubbing
Skin: Warm and Dry
Neuro: AO x 3
Psych: Calm
Impression / Plan
-
BEBA/overdiuresis - acute.
- holding diuresis.
- IV fluids.
- nephrology following.
Mechanical Aortic Valve - chronic, stable on echo 09/03/24.
- on warfarin, INR 4.24 on admission.
- goal INR is 2.5-3.5 (AVR and Afib).
- monitor INR daily.
Pacemaker - Medtronic.
- stable with normal function.
HFrEF - chronic.
- Echo 09/03/24 showed DCM with an EF 35-30%, severe pHTN.
- overdiuresis with BEBA and holding diuresis, IVF now.
- monitor daily weights.
- holding Lisinopril due to BEBA.
Permanent Afib - stable, rate controlled on meds.
- follow telemetry.
- Warfarin as above.
Data Reviewed
-
EKG: Tracing Personally Visualized and interpreted (V paced 61 bpm)
Medical Tests (Nuc Med, Echo etc): Report Reviewed by me (echo 09/03/24: EF 35-40%, hypokinesis of mid to apical inferior wall and mid to apical septal wall, stage II DD, mechanical AVR with peak/mean gradient 38/20 mmHg, severe PHTN, PASP 70 mmHg)
Labs: Labs Reviewed by me
Old Records: Reviewed
[2024-09-13 15:41] LABS: Digoxin 2.4 ng/ml (0.8-2.0)
[2024-09-13] MEDS: NEURONTIN 100 MG PO ×2 (18:11→22:18)
[2024-09-13] MEDS: LIPITOR 40 MG PO (18:11)
--- NOTE | 2024-09-13 19:27 | PTCARENOTE ---
Patient arrived to unit via bed, he is alert answers orientation questions appropriately but appears inconsistent with answering questions. He is 100% v paced, lungs clear but diminished in bases. Pulse ox 96% on room air, difficult to obtain signal
on hands due to dusky cool nail beds. Abdomen grossly distended with hypoactive bowel tones. Pt using urinal for clear yellow urine. Pt denies pain when asked but is restless in bed. Frequent repositioning provided. Patient tolerated feeding self
50% of dinner.
[2024-09-13] MEDS: DESENEX/MITRAZOL/ZEASORB 1 APPLIC TOPICAL (22:17)
[2024-09-13] MEDS: VIBRAMYCIN 100 MG PO (22:18)
[2024-09-14] VITALS (13 sets, daily range): BP systolic 94–118; BP diastolic 40–73; BMI 23.0
--- NOTE | 2024-09-14 | PTCARENOTE ---
Pt received at beginning of shift resting in bed. Placed on bedpan and had mod soft brown BM. Sacral foam dressing replaced d/t movement. VSS. SBP's 90's. 100% VPaced on CM rate 60's. Using urinal in bed. IVF's finished infusing x 1 bag. Abdomen
ascitic, distended, tympanic. Pt denies pain but with any movement pt continues to deny pain. Rest of assessment as documented. Maintained on Q2hr turns. Call moore remains within reach. Will continue to monitor.
[2024-09-14] MEDS: VIBRAMYCIN 100 MG PO ×2 (07:35→20:06)
[2024-09-14] MEDS: ASPIR LOW (ENTERIC COATED) 81 MG PO (07:35)
[2024-09-14] MEDS: DESENEX/MITRAZOL/ZEASORB 1 APPLIC TOPICAL ×2 (07:35→20:20)
[2024-09-14] MEDS: NEURONTIN 100 MG PO ×3 (07:35→20:06)
[2024-09-14 08:00] LABS: Hematocrit 27.2 % (39.0-52.0); Hemoglobin 8.8 g/dL (13.0-18.0); Mean Corp Hgb Conc. 32.4 g/dL (33.0-37.0); Mean Corpuscular Hgb 27.2 pg (27.0-31.0); Platelet Count 282 10^3/uL (130-400); Red Blood Cell Count 3.24 10^6/uL (4.70-6.10); Red Cell Dist. Width 15.9 % (11.5-14.5); White Blood Cell Count 9.3 10^3/uL (4.8-10.8)
[2024-09-14 08:01] LABS: INR 3.72; PT 36.5 Sec (11.4-14.6)
[2024-09-14 08:48] LABS: Blood Urea Nitrogen 106 mg/dl (9-20); Carbon Dioxide 15 mmol/L (22-30); Chloride 117 mmol/L (98-107); Estimated Creatinine Clearance 36 ml/min; Glucose 79 mg/dl (70-99); Potassium 5.4 mmol/L (3.5-5.1); Sodium 144 mmol/L (135-145); eGFR 31.43
--- NOTE | 2024-09-14 08:59 | W.PN.CD ---
Today's Communication / Plan
-
can give 1/2 dose warfarin tonight
consider paracentesis
volume management per nephrology
Impression / Plan
-
BEBA/?overdiuresis - his weight was up on arrival, +ascites, now received IV fluids and le edema present
-nephrology directing diuretics.
-difficult exam b/c lower half c/w vol ol and uppe 1/2 of body c/w cachexia
Mechanical Aortic Valve - chronic, stable on echo 09/03/24.
- on warfarin, INR 4.24 on admission now 3.7---goal is 2.5-3.5
-will give 1/2 regular dose of warfarin today
- goal INR is 2.5-3.5 (AVR and Afib).
- monitor INR daily.
Pacemaker - Medtronic.
- stable with normal function.
HFrEF - chronic.
- Echo 09/03/24 showed DCM with an EF 35-30%, severe pHTN.
- overdiuresis with BEBA and holding diuresis, IVF now.
- monitor daily weights.
- holding Lisinopril due to BEBA and hypotension.
Cirrhosis with Ascites
-ascites seems symptomatic consider paracentesis.
Permanent Afib - stable, rate controlled on meds.
- follow telemetry.
- Warfarin as above.
Physical Exam
Vital Signs/Labs
Vital Signs
Temp Pulse Resp BP Pulse Ox
97.9 F 63 18 94/56 100
09/14/24 07:00 09/14/24 04:00 09/14/24 04:00 09/14/24 04:00 09/14/24 04:00
09/13/24 09/14/24 09/15/24
06:59 06:59 06:59
Actual Weight 178 lb 12.718 oz
09/14/24 07:33
09/14/24 07:33
PT 36.5 Sec (11.4-14.6) H 09/14/24 07:33
INR 3.72 09/14/24 07:33
Digoxin 2.4 ng/ml (0.8-2.0) H 09/13/24 14:53
Physical Exam
Constitutional: No acute distress
Cardiovascular: Rhythm & rate is regular, JVD pressure is normal, Systolic murmur absent, Diastolic murmur absent and Pedal edema present (1+ pitting bl)
Respiratory: Respiratory effort normal, Lungs clear to auscul., Wheeze Absent, Crackles Absent and Rhonchi Absent
GI: Non tender and Distention present
Neuro/Psych: AO x 3
Data Reviewed
-
Date of Service: September 14, 2024
Medical Decision Making: Review of Case with other Provider (Dr Donahue ?volume status, Dr Turner consider paracentesis)
EKG: Other (tele is v pace with pvcs)
--- NOTE | 2024-09-14 11:32 | W.PN.HOSP.TC ---
Today's Communication/Plan
-
Lokelma x 1
Hold Coumadin
Abdominal ultrasound
Restart Toprol at lower dose
Trend creatinine
Nephrology recs
Assessment / Plan
Assessment / Plan
Acute hypoxic respiratory failure likely secondary to volume overload
-Abdominal distention due to suspected ascites also playing a role
-Check chest x-ray
-Currently on mid flow. Wean oxygen as tolerated
Ascites likely secondary to cirrhosis
-Abdominal ultrasound limited to assess for ascites
-Discussed with [facility] goal INR needs to be less than 3.5 for paracentesis
-Hold Coumadin for tonight
Chronic HFrEF and HFpEF
HX pacemaker
- Hold spironolactone, Lisinopril, Frusemide
- Check Dig level, till then Hold Digoxin
- Daily Wt and IOS
- CBC Card to evaulate
BEBA on CKD stage IIIb
Metabolic acidosis
Mild hyperkalemia
-Creatinine improving slightly from yesterday
-Diuretics and lisinopril held
-May need sodium bicarbonate after eval risk of volume overload
-Nephrology following
Paroxysmal atrial fibrillation
-Digoxin level elevated at 2.4. Hold digoxin.
-INR 3.7. Monitor daily.
-On beta-clive. Patient with soft blood pressure unclear if patient will be able to tolerate Toprol 100 mg twice daily.
-Can restart at a lower dose
Supratherapeutic INR in setting of cirrhosis
Mechanical aortic valve and paroxysmal atrial fibrillation
Chronic coagulopathy with Coumadin
- On hold MANAGER FIBER
- No emergent indication for reversal of INR
- cont. to hold Warfarin
- Daily INR
- Goal INR 2.5 - 3. 5
Anemia of chr dz: stable
- Current Hgb 8.7
- Baseline Hgb hi 8s
- No evidence of active bleed
Hyperlipidemia
- c/ MANAGER FIBER atorvastatin
exposed R Achilles tendon
DVT Px: INR at 3.7
Code: Full
Anticipated Discharge: > 48 hours
Subjective/Interval History
-
Date of Service: September 14, 2024
requiring increasing amount of oxygen -currently on 10L midflow
states of abd discomfort
Objective Data
-
Labs:
Laboratory Results
09/14/24
07:33
WBC 9.3
Hgb 8.8 L
Hct 27.2 L
Plt Count 282
PT 36.5 H
INR 3.72
Sodium 144
Potassium 5.4 H
Chloride 117 H
Carbon Dioxide 15 L
BUN 106 H*
Creatinine 2.2 H
Glucose 79
Calcium 9.0
Vital Signs:
Vital Signs
Temp Pulse Resp BP Pulse Ox
97.9 F 63 18 94/56 100
09/14/24 07:00 09/14/24 04:00 09/14/24 04:00 09/14/24 04:00 09/14/24 04:00
I&O
09/13/24 09/14/24 09/15/24
06:59 06:59 06:59
Intake Total 1720 / 1720
Output Total 650 / 650 500 / 500
Balance 1070 / 1070 -500 / -500
Physical Exam
-
General: Well Developed, Well Nourished, No Apparent Distress and Appears Chronically Ill
HEENT: Normocephalic, Atraumatic, Moist Mucous Membranes, Nose Appears Normal, Ears Appear Normal and Oxygen (midflow )
Respiratory: Decreased Breath Sounds
Cardiac: Regular Rhythm, S1/S2 and Murmur
GI: Soft, Nontender and Distended
Musculoskeletal: No Clubbing, No Cyanosis and Edema, Right Lower Extrem (R ankle covered in dressing )
Skin: Warm and Dry
Neuro: Awake, Alert and Oriented
Psych: Calm
Data Reviewed
-
Total Time Spent with Patient (in minutes): 55
--- NOTE | 2024-09-14 11:49 | W.PN.NEPH.PH ---
Today's Communication / Plan
-
Follow BMP
Assessment/Plan
-
Assessment
Aortic Stenosis, AVR
Atrial Fibrillation
Permanent Pacemaker
HFrEF 35%
Essential Hypertension
Hyperlipidemia
BEBA
Azotemia
Plan
Check urine studies
Trial of IV fluids with bicarbonate today
Hold diuretic therapy
Hold oral bicarbonate therapy
Allow INR to drift down for eventual paracentesis
IV albumin
-
-
Date of Service: September 14, 2024
CC / HPI / ROS
-
Chief Complaint:
BEBA
History of Present Illness:
BEBA/Cr lower at 2.2
BUN slightly better at 106
Potassium up to 5.4
Acidosis worse at 15
Hemoglobin low stable 8.8
Blood pressure remains low but stable
Review of Systems:
No shortness of breath or chest pain
No issues with urination
Labs
-
Labs:
WBC 9.3 10^3/uL (4.8-10.8) 09/14/24 07:33
RBC 3.24 10^6/uL (4.70-6.10) L 09/14/24 07:33
Hgb 8.8 g/dL (13.0-18.0) L 09/14/24 07:33
Hct 27.2 % (39.0-52.0) L 09/14/24 07:33
Plt Count 282 10^3/uL (130-400) 09/14/24 07:33
Sodium 144 mmol/L (135-145) 09/14/24 07:33
Potassium 5.4 mmol/L (3.5-5.1) H 09/14/24 07:33
Chloride 117 mmol/L (98-107) H 09/14/24 07:33
Carbon Dioxide 15 mmol/L (22-30) L 09/14/24 07:33
BUN 106 mg/dl (9-20) H* 09/14/24 07:33
Creatinine 2.2 mg/dL (0.7-1.3) H 09/14/24 07:33
eGFR 31.43 09/14/24 07:33
Glucose 79 mg/dl (70-99) 09/14/24 07:33
Calcium 9.0 mg/dl (8.4-10.2) 09/14/24 07:33
Albumin 2.7 g/dl (3.5-5.0) L 09/13/24 10:48
Physical Exam
-
Vital Signs:
Vital Signs
Temp Pulse Resp BP Pulse Ox
98 F 63 18 94/56 100
09/14/24 11:00 09/14/24 04:00 09/14/24 04:00 09/14/24 04:00 09/14/24 04:00
Cardiovascular:: Regular rate and rhythm
Respiratory:: Bilateral: Coarse
Lung Excursion:: Normal
Abdomen:: Distended, Nontender and Soft
Bowel Sounds:: Normal
Extremity Edema:: +2: Bilateral:
[2024-09-14] MEDS: LOKELMA 10 GRAM PO (12:11)
[2024-09-14] MEDS: SODIUM BICARBONATE 1150 MEQ IV (13:02)
[2024-09-14] MEDS: FLEXBUMIN 50 IV ×2 (13:02→20:07)
[2024-09-14] MEDS: LIPITOR 40 MG PO (17:32)
[2024-09-14] MEDS: DILAUDID 0.25 MG IV (20:04)
[2024-09-14] MEDS: FLUSH (NSS) 2 FLUSH IV (20:06)
[2024-09-14] MEDS: TOPROL XL 12.5 MG PO (20:06)
--- NOTE | 2024-09-14 20:13 | PTCARENOTE ---
Pt c/o pain 'below the belt.' Unable to rate pain. Agreeable to pain med. Has voided 600mls on day shift and has had 2 bm's since start of this shift. Diana SOL TT'd and made aware of pain and order entered for Dilaudid 0.25mg IV. Pt received pain
med as ordered. Currently resting comfortably. Call moore remains within reach. Will continue to monitor.
[2024-09-15] VITALS (15 sets, daily range): BP systolic 66–130; BP diastolic 36–74; BMI 23.8
[2024-09-15 03:53] LABS: % Basophils 0.8 % (0-2); % Eosinophils 1.4 % (0-6); % Immature Granulocytes 1.1 % (0-0.5); % Lymphocytes 7.7 % (20.5-51.1); % Monocytes 7.4 % (1.7-9.3); % Neutrophils 81.6 % (42.2-75.2); Absolute Basophils 0.1 10^3/uL (0-0.2); Absolute Eosinophils 0.1 10^3/uL (0-0.7); Absolute Immature Granulocytes 0.1 10^3/uL (0-0.05); Absolute Lymphocytes 0.7 10^3/uL (1.2-3.4); Absolute Monocytes 0.7 10^3/uL (0.1-0.6); Absolute Neutrophils 7.4 10^3/uL (1.4-6.5); Hematocrit 26.2 % (39.0-52.0); Hemoglobin 8.4 g/dL (13.0-18.0); Mean Corp Hgb Conc. 32.1 g/dL (33.0-37.0); Mean Corpuscular Hgb 26.7 pg (27.0-31.0); Mean Corpuscular Volume 83.2 fL (80.0-94.0); Mean Platelet Volume 10.2 fL (7.4-10.4); Nucleated Red Blood Cells % 0 % (-); Platelet Count 279 10^3/uL (130-400); Red Blood Cell Count 3.15 10^6/uL (4.70-6.10); Red Cell Dist. Width 16.1 % (11.5-14.5); White Blood Cell Count 9.1 10^3/uL (4.8-10.8)
[2024-09-15 03:57] LABS: INR 3.83; PT 37.3 Sec (11.4-14.6)
[2024-09-15 04:17] LABS: ALT (SGPT) 35 U/L (0-50); AST (SGOT) 48 U/L (17-59); Albumin 2.9 g/dl (3.5-5.0); Alkaline Phosphatase 249 U/L (38-126); Blood Urea Nitrogen 106 mg/dl (9-20); Carbon Dioxide 17 mmol/L (22-30); Chloride 114 mmol/L (98-107); Estimated Creatinine Clearance 38 ml/min; Glucose 87 mg/dl (70-99); Potassium 5.2 mmol/L (3.5-5.1); Sodium 143 mmol/L (135-145); Total Bilirubin 1.3 mg/dl (0.2-1.3); Total Protein 5.7 g/dl (6.3-8.2); eGFR 33.24
[2024-09-15] MEDS: FLEXBUMIN 50 IV (04:19)
[2024-09-15] MEDS: TOPROL XL 12.5 MG PO ×2 (08:24→20:21)
[2024-09-15] MEDS: VIBRAMYCIN 100 MG PO ×2 (08:25→20:21)
[2024-09-15] MEDS: NEURONTIN 100 MG PO ×3 (08:25→20:22)
[2024-09-15] MEDS: DESENEX/MITRAZOL/ZEASORB 1 APPLIC TOPICAL ×2 (08:25→20:22)
[2024-09-15] MEDS: ASPIR LOW (ENTERIC COATED) 81 MG PO (08:25)
--- NOTE | 2024-09-15 08:34 | W.PN.CD ---
Today's Communication / Plan
-
care as per nephrology
resume warfarin when indicated for goal INR 2.5-3.5
op follow up with typical cardiology team at [facility]
will sign off
Impression / Plan
-
BEBA/?overdiuresis - his weight was up on arrival, +ascites, now received IV fluids and le edema present
-nephrology directing diuretics.
-difficult exam b/c lower half c/w vol ol and upper 1/2 of body c/w cachexia
Mechanical Aortic Valve - chronic, stable on echo 09/03/24.
- on warfarin, INR 4.24 on admission now 3.8---goal is 2.5-3.5
-holding scooby to allow for paracentesis
- goal INR is 2.5-3.5 (AVR and Afib).
- monitor INR daily, resume warfarin when able.
Pacemaker - Medtronic.
- stable with normal function.
HFrEF - chronic.
- Echo 09/03/24 showed DCM with an EF 35-30%, severe pHTN.
- overdiuresis with BEBA and holding diuresis, IVF now.
- monitor daily weights.
- holding Lisinopril due to BEBA and hypotension.
-resume when ok with nephrology
Cirrhosis with Ascites
-ascites seems symptomatic consider paracentesis.
Permanent Afib - stable, rate controlled on meds.
- follow telemetry.
- Warfarin as above.
Subjective;
he is without complaint today
Physical Exam
Vital Signs/Labs
Vital Signs
Temp Pulse Resp BP Pulse Ox
98.3 F 63 20 109/59 96
09/15/24 03:00 09/15/24 08:24 09/15/24 04:00 09/15/24 08:24 09/15/24 04:00
09/14/24 09/15/24 09/16/24
06:59 06:59 06:59
Actual Weight 178 lb 12.718 oz 185 lb 3.013 oz
09/15/24 03:31
09/15/24 03:31
PT 37.3 Sec (11.4-14.6) H 09/15/24 03:31
INR 3.83 09/15/24 03:31
Digoxin 2.4 ng/ml (0.8-2.0) H 09/13/24 14:53
Physical Exam
Constitutional: No acute distress
Cardiovascular: Rhythm & rate is regular, JVD pressure is normal, Systolic murmur absent and Pedal edema present (1+b/l)
Respiratory: Respiratory effort normal, Lungs clear to auscul., Wheeze Absent, Crackles Absent and Rhonchi Absent
GI: Distention present (nt)
Data Reviewed
-
Date of Service: September 15, 2024
Medical Decision Making: Review of Case with other Provider (Dr Turner will sign off, warfarin when able )
--- NOTE | 2024-09-15 08:47 | CM ---
Initial assessment completed with pts aunt via phone.
Upon arrival to the pts room, pt is confused and unable to participate in assessment.
Pt was recently admitted to and transferred to [facility] on 09/09. Pt returns to wth BEBA, weight gain and resp failure, and CHF.
At baseline, pt lives at [facility] alone. Apartment is currently being held. Prior to hospitalizations and confusion, Per previous admission note, pt was using a wheelchair and self propelling more due to weakness, but was independent with ADLs.
Pt also has RW.
Aunt plans on pt dc to SNF, but would prefer him dc to [facility]. Referral was sent.
PCP; Chele Hooper
Pharm; [facility]
Plan; dc to SNF, prefers [facility] if bed available.
--- NOTE | 2024-09-15 09:54 | W.PN.NEPH.PH ---
Today's Communication / Plan
-
follow BMP
Assessment/Plan
-
Assessment
Aortic Stenosis, AVR
Atrial Fibrillation
Permanent Pacemaker
HFrEF 35%
Essential Hypertension
Hyperlipidemia
BEBA
Azotemia
Plan
Check urine studies
no IVF today
BP is somewhat improved
Hold diuretic therapy
Hold oral bicarbonate therapy
INR remains elevated. may need to consider vitK
-
-
Date of Service: September 15, 2024
CC / HPI / ROS
-
Chief Complaint:
BEBA
History of Present Illness:
BEBA/Cr lower at 2.1
BUN stable at 106
Potassium stable 5.2
Acidosis stable 17
INR still high 3.83
Blood pressure remains low but stable
Review of Systems:
No shortness of breath or chest pain
No issues with urination
no NC but laying supine
Labs
-
Labs:
WBC 9.1 10^3/uL (4.8-10.8) 09/15/24 03:31
RBC 3.15 10^6/uL (4.70-6.10) L 09/15/24 03:31
Hgb 8.4 g/dL (13.0-18.0) L 09/15/24 03:31
Hct 26.2 % (39.0-52.0) L 09/15/24 03:31
Plt Count 279 10^3/uL (130-400) 09/15/24 03:31
Sodium 143 mmol/L (135-145) 09/15/24 03:31
Potassium 5.2 mmol/L (3.5-5.1) H 09/15/24 03:31
Chloride 114 mmol/L (98-107) H 09/15/24 03:31
Carbon Dioxide 17 mmol/L (22-30) L 09/15/24 03:31
BUN 106 mg/dl (9-20) H* 09/15/24 03:31
Creatinine 2.1 mg/dL (0.7-1.3) H 09/15/24 03:31
eGFR 33.24 09/15/24 03:31
Glucose 87 mg/dl (70-99) 09/15/24 03:31
Calcium 9.0 mg/dl (8.4-10.2) 09/15/24 03:31
Albumin 2.9 g/dl (3.5-5.0) L 09/15/24 03:31
Physical Exam
-
Vital Signs:
Vital Signs
Temp Pulse Resp BP Pulse Ox
98.3 F 63 20 109/59 96
09/15/24 07:55 09/15/24 08:24 09/15/24 04:00 09/15/24 08:24 09/15/24 04:00
Cardiovascular:: Regular rate and rhythm
Respiratory:: Bilateral: Coarse
Lung Excursion:: Normal
Abdomen:: Nontender and Soft
Bowel Sounds:: Normal
Extremity Edema:: +1: Bilateral:
--- NOTE | 2024-09-15 12:05 | W.PN.HOSP.TC ---
Today's Communication/Plan
-
Hold coumadin
Para once INR drifts down
IVF held
wean o2
Assessment / Plan
Assessment / Plan
Acute hypoxic respiratory failure likely secondary to volume overload
-Abdominal distention due to suspected ascites also playing a role
-Chest x-ray with cardiomegaly. Pulmonary vascular rate top normal.
-Oxygen requirement downtrending to 2 L currently.
Ascites likely secondary to cirrhosis
-Abdominal ultrasound with moderate ascites persistent
-Discussed with [facility] goal INR needs to be less than 3.5 for paracentesis
-Hold Coumadin for tonight
Chronic HFrEF and HFpEF
HX pacemaker
- Hold spironolactone, Lisinopril, Frusemide
- Check Dig level was 2.4 on admission. repeat labs in am, till then Hold Digoxin
- Daily Wt and IOS
- CBC Card signed off
BEBA on CKD stage IIIb
Metabolic acidosis
Mild hyperkalemia
-Creatinine improving slightly from yesterday
-Diuretics and lisinopril held
-acidosis improving
-s/p lokelma
-Nephrology following
Paroxysmal atrial fibrillation
-Digoxin level elevated at 2.4. Hold digoxin.
-INR 3.8 Monitor daily.
-On beta-clive. Patient with soft blood pressure unclear if patient will be able to tolerate Toprol 100 mg twice daily.
-Can restart at a lower dose
Supratherapeutic INR in setting of cirrhosis
Mechanical aortic valve and paroxysmal atrial fibrillation
Chronic coagulopathy with Coumadin
- On hold TOBACCO DRUMMER
- No emergent indication for reversal of INR
- cont. to hold Warfarin
- Daily INR
- Goal INR 2.5 - 3. 5
Anemia of chr dz: stable
- Current Hgb 8.7
- Baseline Hgb hi 8s
- No evidence of active bleed
Hyperlipidemia
- c/ TOBACCO DRUMMER atorvastatin
exposed R Achilles tendon
DVT Px:INR supratherapeutic
Code: Full
Anticipated Discharge: > 48 hours
Subjective/Interval History
-
Date of Service: September 15, 2024
O2 requirement downtrending
States of abd discomfort
Objective Data
-
Labs:
Laboratory Results
09/15/24
03:31
WBC 9.1
Hgb 8.4 L
Hct 26.2 L
Plt Count 279
PT 37.3 H
INR 3.83
Sodium 143
Potassium 5.2 H
Chloride 114 H
Carbon Dioxide 17 L
BUN 106 H*
Creatinine 2.1 H
Glucose 87
Calcium 9.0
Total Bilirubin 1.3
AST 48
ALT 35
Alkaline Phosphatase 249 H
Vital Signs:
Vital Signs
Temp Pulse Resp BP Pulse Ox
98.3 F 63 20 109/59 96
09/15/24 07:55 09/15/24 08:24 09/15/24 04:00 09/15/24 08:24 09/15/24 04:00
I&O
09/14/24 09/15/24 09/16/24
06:59 06:59 06:59
Intake Total 1720 / 1720 1060 / 1060
Output Total 650 / 650 680 / 680 250 / 250
Balance 1070 / 1070 380 / 380 -250 / -250
Physical Exam
-
General: Well Developed, Well Nourished, No Apparent Distress and Appears Chronically Ill
HEENT: Normocephalic, Atraumatic, Moist Mucous Membranes, Nose Appears Normal, Ears Appear Normal and Oxygen (2L)
Respiratory: Decreased Breath Sounds
Cardiac: Regular Rhythm, S1/S2 and Murmur
GI: Soft, Nontender and Distended
Musculoskeletal: No Clubbing, No Cyanosis and Edema, Right Lower Extrem (R ankle covered in dressing )
Skin: Warm and Dry
Neuro: Awake, Alert and Oriented
Psych: Calm
Data Reviewed
-
Total Time Spent with Patient (in minutes): 58
[2024-09-15] MEDS: LIPITOR 40 MG PO (17:18)
--- NOTE | 2024-09-15 17:32 | PTCARENOTE ---
Assisted Pt to BSC with 2 assist and rolling walker. Pt was unable to straighten legs or bear weight on lower extremities; Maximum assist to slide to BSC from bed. Moderate BM x 1; With 3 person assist, helped Pt to chair from BSC and was able
to place lift device; Nancy used to get Pt back to bed after ~ 3 hours in chair. Will continue to monitor and assess.
[2024-09-15] MEDS: MELATONIN 5 MG PO (20:21)
[2024-09-16] VITALS (14 sets, daily range): BP systolic 87–112; BP diastolic 50–77; BMI 22.7
--- NOTE | 2024-09-16 00:42 | PTCARENOTE ---
Patient AAOx2, disoriented to time. Pt V-paced w/ PVCs on the monitor. Pt on RA SpO2 97%. Pt contracted at the knees with knees bent. Pt denies any pain at this time except for minimal discomfort due to abdominal distention. Administered HS
melatonin order to assist with sleep. Pt voiding using the urinal. Pt refusing oral care despite education and encouragement. Pt appears to be sleeping at this time. Call moore is within reach with bed alarm on.
[2024-09-16 06:08] LABS: % Basophils 0.7 % (0-2); % Eosinophils 1.5 % (0-6); % Immature Granulocytes 1.3 % (0-0.5); % Monocytes 7.4 % (1.7-9.3); % Neutrophils 79.1 % (42.2-75.2); Absolute Basophils 0.1 10^3/uL (0-0.2); Absolute Eosinophils 0.1 10^3/uL (0-0.7); Absolute Immature Granulocytes 0.1 10^3/uL (0-0.05); Absolute Lymphocytes 0.8 10^3/uL (1.2-3.4); Absolute Monocytes 0.6 10^3/uL (0.1-0.6); Absolute Neutrophils 6.5 10^3/uL (1.4-6.5); Hematocrit 25.5 % (39.0-52.0); Hemoglobin 8.3 g/dL (13.0-18.0); Mean Corp Hgb Conc. 32.5 g/dL (33.0-37.0); Mean Corpuscular Hgb 27.1 pg (27.0-31.0); Mean Corpuscular Volume 83.3 fL (80.0-94.0); Mean Platelet Volume 10.9 fL (7.4-10.4); Nucleated Red Blood Cells % 0 % (-); Platelet Count 284 10^3/uL (130-400); Red Blood Cell Count 3.06 10^6/uL (4.70-6.10); White Blood Cell Count 8.3 10^3/uL (4.8-10.8)
[2024-09-16 06:16] LABS: PT 36.4 Sec (11.4-14.6)
[2024-09-16 06:41] LABS: ALT (SGPT) 34 U/L (0-50); AST (SGOT) 45 U/L (17-59); Blood Urea Nitrogen 104 mg/dl (9-20); Chloride 115 mmol/L (98-107); Digoxin 1.8 ng/ml (0.8-2.0); Estimated Creatinine Clearance 39 ml/min; Glucose 96 mg/dl (70-99); Potassium 5.2 mmol/L (3.5-5.1); Sodium 143 mmol/L (135-145); Total Bilirubin 1.2 mg/dl (0.2-1.3); Total Protein 5.7 g/dl (6.3-8.2); eGFR 35.24
[2024-09-16 07:00] LABS: Albumin 3.1 g/dl (3.5-5.0); Alkaline Phosphatase 246 U/L (38-126); Calcium 9.1 mg/dl (8.4-10.2); Carbon Dioxide 17 mmol/L (22-30)
[2024-09-16] MEDS: ASPIR LOW (ENTERIC COATED) 81 MG PO (08:48)
[2024-09-16] MEDS: DESENEX/MITRAZOL/ZEASORB 1 APPLIC TOPICAL ×2 (08:48→21:03)
[2024-09-16] MEDS: TOPROL XL PO (08:49)
[2024-09-16] MEDS: VIBRAMYCIN 100 MG PO ×2 (08:50→21:02)
[2024-09-16] MEDS: NEURONTIN 100 MG PO ×3 (08:50→21:02)
--- NOTE | 2024-09-16 09:31 | WOUNDNOTE ---
L 2ND TOE TIP
--- NOTE | 2024-09-16 09:31 | WOUNDNOTE ---
L 2ND TOE TIP
--- NOTE | 2024-09-16 09:37 | WOUNDNOTE ---
[facility] RN note: Patient admitted with BEBA, CHF. Patient admitted from [facility].
See H&P for complete history.
PMH: pacer, CKD3b, a fib (Coumadin), R Achilles wound with necrotic tendon, CVA, aortic valve replacement, falls, cirrhosis, ambulation dysfunction.
Wound Location and type/assessment: Patient admitted with: R Achilles necrotic Achilles tendon, L 2nd toe tip black scabbed ulcer, abraded sacral skin with persistent blanchable red skin, bruises R flank, L thigh, R hip, L anterior ankle, groin
MASD. Patient has a stage 1 R lateral foot pressure injury. R lateral 5th MTH and L heel blanchable red. Scrotal redness with small bruise. 09/05/24 Arterial Doppler R FLAKITA 1.05, L FLAKITA 1.07, unable to obtain TBI's, multiphasic. Patient was seen by
aluminizer Dr. Santi Hubbard during recent admission.
Appetite: good.
Pressure redistribution devices in place: Centrella Max air bed. Air chair cushion.
Plan: R Achilles wound dressing and protective sacral shaped silicone border foam changed. Protective foam applied to heels. Silicone border foam maintained on R hip. Fanny care given by DARRELL Amaro. Patient turned to L semi side lying position with
help with DARRELL Oconnor and PCT/DARRELL Amaro using foam turning wedge and pillow. Heels off bed with air chair cushion. TruVue lits obtained. DARRELL Oconnor applied.
Dr. Morales was in and evaluated R Achilles wound. Confirm orders with hospitalist and discussed with DARRELL Oconnor.
Care plan to be updated and will follow as needed.
Note to case management of equipment requested for discharge: Air mattress at SNF if not already in place.
Recommend follow up at wound care center upon discharge.
--- NOTE | 2024-09-16 09:40 | WOUNDNOTE ---
[facility] RN note: Patient admitted with BEBA, CHF. Patient admitted from [facility].
See H&P for complete history.
PMH: pacer, CKD3b, a fib (Coumadin), R Achilles wound with necrotic tendon, CVA, aortic valve replacement, falls, cirrhosis, ambulation dysfunction.
Wound Location and type/assessment: Patient admitted with: R Achilles necrotic Achilles tendon, L 2nd toe tip black scabbed ulcer, abraded sacral skin with persistent blanchable red skin, bruises R flank, L thigh, R hip, L anterior ankle, groin
MASD. Patient has a stage 1 R lateral foot pressure injury. R lateral 5th MTH and L heel blanchable red. Scrotal redness with small bruise. Pedal pulses heard via portable Doppler. 09/05/24 Arterial Doppler R FLAKITA 1.05, L FLAKITA 1.07, unable to obtain
TBI's, multiphasic. Patient was seen by rn private duty Dr. Santi Hubbard during recent admission.
Appetite: good.
Pressure redistribution devices in place: Centrella Max air bed. Air chair cushion.
Plan: R Achilles wound dressing and protective sacral shaped silicone border foam changed. Protective foam applied to heels. Silicone border foam maintained on R hip. Fanny care given by DARRELL Amaro. Patient turned to L semi side lying position with
help with DARRELL Oconnor and PCT/DARRELL Amaro using foam turning wedge and pillow. Heels off bed with air chair cushion. TruVue lits obtained. DARRELL Oconnor applied.
Dr. Morales was in and evaluated R Achilles wound. Confirm orders with hospitalist and discussed with DARRELL Oconnor.
Care plan to be updated and will follow as needed.
Note to case management of equipment requested for discharge: Air mattress at SNF if not already in place.
Recommend follow up at wound care center upon discharge.
--- NOTE | 2024-09-16 10:38 | W.PN.NEPH.PH ---
Today's Communication / Plan
-
BMP/holding diuretics
Assessment/Plan
-
Assessment
Aortic Stenosis, AVR
Atrial Fibrillation
Permanent Pacemaker
HFrEF 35%
Essential Hypertension
Hyperlipidemia
BEBA
Azotemia
Liver cirrhosis
Plan
Baseline creatinine 1.9
Hold diuretic therapy
Hold oral bicarbonate therapy
Pending paracentesis once INR less than 3.5
Creatinine stable at 2
-
-
Date of Service: September 16, 2024
CC / HPI / ROS
-
Chief Complaint:
BEBA
History of Present Illness:
BEBA/Cr lower at 2.1
BUN stable at 106
Potassium stable 5.2
Acidosis stable 17
INR still high 3.83
Blood pressure remains low but stable
Review of Systems:
No shortness of breath or chest pain
No issues with urination
no NC but laying supine
Labs
-
Labs:
WBC 8.3 10^3/uL (4.8-10.8) 09/16/24 05:48
RBC 3.06 10^6/uL (4.70-6.10) L 09/16/24 05:48
Hgb 8.3 g/dL (13.0-18.0) L 09/16/24 05:48
Hct 25.5 % (39.0-52.0) L 09/16/24 05:48
Plt Count 284 10^3/uL (130-400) 09/16/24 05:48
Sodium 143 mmol/L (135-145) 09/16/24 05:48
Potassium 5.2 mmol/L (3.5-5.1) H 09/16/24 05:48
Chloride 115 mmol/L (98-107) H 09/16/24 05:48
Carbon Dioxide 17 mmol/L (22-30) L 09/16/24 05:48
BUN 104 mg/dl (9-20) H* 09/16/24 05:48
Creatinine 2.0 mg/dL (0.7-1.3) H 09/16/24 05:48
eGFR 35.24 09/16/24 05:48
Glucose 96 mg/dl (70-99) 09/16/24 05:48
Calcium 9.1 mg/dl (8.4-10.2) 09/16/24 05:48
Albumin 3.1 g/dl (3.5-5.0) L 09/16/24 05:48
Physical Exam
-
Vital Signs:
Vital Signs
Temp Pulse Resp BP Pulse Ox
97.9 F 60 21 98/62 95
09/16/24 07:58 09/16/24 09:01 09/16/24 09:01 09/16/24 08:49 09/16/24 09:05
Cardiovascular:: Regular rate and rhythm
Respiratory:: Bilateral: Coarse
Lung Excursion:: Normal
Abdomen:: Nontender and Soft
Bowel Sounds:: Normal
Extremity Edema:: +1: Bilateral:
--- NOTE | 2024-09-16 11:19 | W.PN.HOSP.TC ---
Today's Communication/Plan
-
Hold warfarin and trend INR
Hold diuretics
Optimistic for paracentesis 09/17
Trend BMP
Assessment / Plan
Assessment / Plan
#BEBA on CKD stage IIIb
#Metabolic acidosis
#Mild hyperkalemia
-Likely prerenal secondary to overdiuresis versus HRS type II
-Home regimen includes spironolactone and Lasix for history of ascites
-Baseline creatinine previously near 1.5; peak near 2.4 here; diuretics held
-Creatinine has since plateaued near 2.0; soft BP though no hypotension
-Was previously on oral bicarbonate therapy; held at nephrology's recommendation
-Continue to hold diuretics and trend BMP daily; no IVF for now, MAP goal >65
-Strict avoidance of nephrotoxins such as NSAIDs and iodinated contrast
-Follow-up urine studies
#Ascites
#Liver cirrhosis
-Patient has history of ascites with home regimen of Lasix and spironolactone
-Diuretics held as above due to BEBA on CKD; creatinine stabilized near 2.0
-Planning for paracentesis and fluid analysis once INR not supratherapeutic
-Follow-up ascites fluid studies
#Supratherapeutic INR
#S/P Mechanical AVR
-Presented with INR >4; INR goal 2.5-3.5 with mechanical valve
-Home regimen includes warfarin 5 mg except on when he gets 2.5 mg
-Home warfarin regimen held due to supratherapeutic INR; most recently 3.7
-Trend daily INR, plan for paracentesis when <3.5
#Permanent AF
-Home regimen includes metoprolol succinate, digoxin, and warfarin (INR 2.5-3.5)
-No known history of electrophysiologic interventions
-Holding warfarin as above
-Heart rate WNL here
#Chronic HFrEF
-Unclear etiology though does have history of hypertensive heart and kidney disease
-Most recent echocardiogram showed LVEF 35% with severe pHTN
-Home medications include beta-clive, ACEi, MRA, furosemide 20 mg daily
-No signs of clinically decompensated heart failure off diuretics
#Anemia of chronic disease
-Likely multifactorial and related to heart failure and liver disease
-Hemoglobin baseline likely near 9.0; hemoglobin here in the range of 8.3-8.7
-No signs of active bleeding at this time
#Dyslipidemia
-Home medications include high intensity atorvastatin nightly
-No known ASCVD history
#S/p PPM
-Unclear indication; no signs of pacemaker dysfunction
#Necrotic right heel wound
-Chronic and stable, wound care following for offloading interventions
-No signs of superimposed infection
-Trend CBC and temperature curve, monitor clinically
DVT prophylaxis: Supratherapeutic INR
Diet: Cholesterol-lowering
CODE STATUS: Full code
Disposition: PT consulted
Anticipated Discharge: > 48 hours
Subjective/Interval History
-
Date of Service: September 16, 2024
Seen and examined at the bedside. No acute events reported overnight. AFVSS
Renal function slightly improved, recent trend of creatinine 2.4�2.2�2.1�2.0.
Patient denies any new complaints as of this morning.
Objective Data
-
Labs:
Laboratory Results
09/16/24
05:48
WBC 8.3
Hgb 8.3 L
Hct 25.5 L
Plt Count 284
PT 36.4 H
INR 3.70
Sodium 143
Potassium 5.2 H
Chloride 115 H
Carbon Dioxide 17 L
BUN 104 H*
Creatinine 2.0 H
Glucose 96
Calcium 9.1
Total Bilirubin 1.2
AST 45
ALT 34
Alkaline Phosphatase 246 H
Vital Signs:
Vital Signs
Temp Pulse Resp BP Pulse Ox
97.9 F 60 21 98/62 95
09/16/24 07:58 09/16/24 09:01 09/16/24 09:01 09/16/24 08:49 09/16/24 09:05
I&O
09/15/24 09/16/24 09/17/24
06:59 06:59 06:59
Intake Total 1060 / 1060 1140 / 1140
Output Total 680 / 680 1700 / 1700
Balance 380 / 380 -560 / -560
Review of Systems
-
History Source: Patient
All other systems: Reviewed and negative
Physical Exam
-
General: Well Developed, No Apparent Distress and Comfortable
HEENT: Normocephalic, Atraumatic and Moist Mucous Membranes
Respiratory: Clear to Auscultation and Non Labored Respirations
Cardiac: S1/S2, Irregular Rhythm and Murmur; Negative Rub, JVD, Gallop or Tachycardic
GI: Soft, Nontender, Normal Bowel Sounds and Distended (Fluid wave, dull percussion)
Musculoskeletal: No Clubbing, No Cyanosis, No Edema and Other (Chronic right necrotic heel ulcer with exposed Achilles tendon. No fluctuance or purulence, no erythema)
Skin: Warm, Dry and Normal Turgor; Negative Rash or Jaundice
Neuro: AO x 3, Nonfocal/Grossly Intact and Central Nerve's Intact; Negative Tremors
Psych: Calm
--- NOTE | 2024-09-16 16:04 | PTCARENOTE ---
Patients legs are contracted, patient requiring max assist for moving in bed and transfers. PT consulted, discussed concerns for safety in chair with PT staff. Patient to be evaluated tomorrow.
[2024-09-16] MEDS: LIPITOR 40 MG PO (17:25)
[2024-09-16] MEDS: MELATONIN 5 MG PO (21:02)
[2024-09-16] MEDS: TOPROL XL 12.5 MG PO (21:03)
[2024-09-16] MEDS: TYLENOL 650 MG PO (22:56)
[2024-09-17] VITALS (15 sets, daily range): BP systolic 84–111; BP diastolic 53–76; PULSE 60; O2SAT 97; BMI 23.2
--- NOTE | 2024-09-17 01:39 | PTCARENOTE ---
Patient AAOx3, drowsy tonight. V-paced on the monitor. Remains on RA SpO2 97%. Pt continent of bowel and had smear BM using the bedpan as well as flatus. Pt expressed some mild pain and discomfort but is unable to rate the pain pt states his pain is
'below the belt' and feels 'full'. PRN Tylenol administered. Checked all wound dressings and they remain clean, dry, and intact. Pt has fiber filled boots on as well as pillows under b/l knees. Pt contracted at the knees. Pt tolerating frequent
turning and repositioning but is very rigid. Discussed PT consult and pt is understanding. Pt able to make needs known, call moore within reach.
[2024-09-17 05:32] LABS: % Eosinophils 1.2 % (0-6); % Lymphocytes 10.1 % (20.5-51.1); % Monocytes 9.7 % (1.7-9.3); Absolute Basophils 0.1 10^3/uL (0-0.2); Absolute Eosinophils 0.1 10^3/uL (0-0.7); Absolute Immature Granulocytes 0.1 10^3/uL (0-0.05); Absolute Lymphocytes 0.8 10^3/uL (1.2-3.4); Absolute Monocytes 0.8 10^3/uL (0.1-0.6); Absolute Neutrophils 6.3 10^3/uL (1.4-6.5); Hematocrit 24.6 % (39.0-52.0); Mean Corp Hgb Conc. 32.5 g/dL (33.0-37.0); Mean Corpuscular Hgb 27.1 pg (27.0-31.0); Mean Corpuscular Volume 83.4 fL (80.0-94.0); Mean Platelet Volume 10.8 fL (7.4-10.4); Nucleated Red Blood Cells % 0 % (-); Platelet Count 288 10^3/uL (130-400); Red Blood Cell Count 2.95 10^6/uL (4.70-6.10); White Blood Cell Count 8.2 10^3/uL (4.8-10.8)
[2024-09-17 05:41] LABS: INR 3.49; PT 34.8 Sec (11.4-14.6)
[2024-09-17 05:54] LABS: Blood Urea Nitrogen 99 mg/dl (9-20); Calcium 8.9 mg/dl (8.4-10.2); Carbon Dioxide 18 mmol/L (22-30); Chloride 114 mmol/L (98-107); Estimated Creatinine Clearance 43 ml/min; Glucose 96 mg/dl (70-99); Potassium 5.2 mmol/L (3.5-5.1); Sodium 143 mmol/L (135-145); eGFR 39.99
[2024-09-17] MEDS: SANTYL OINTMENT 1 APPLIC TOPICAL (08:30)
[2024-09-17] MEDS: TOPROL XL PO (08:30)
[2024-09-17] MEDS: NEURONTIN 100 MG PO ×3 (08:31→21:14)
[2024-09-17] MEDS: VIBRAMYCIN 100 MG PO ×2 (08:31→21:14)
[2024-09-17] MEDS: ASPIR LOW (ENTERIC COATED) 81 MG PO (08:31)
[2024-09-17] MEDS: DESENEX/MITRAZOL/ZEASORB 1 APPLIC TOPICAL ×2 (08:31→21:14)
--- NOTE | 2024-09-17 10:47 | W.PN.HOSP.TC ---
Addendum entered and electronically signed by Dimitri Morales DO 09/17/24 14:09:
Debora CDI: Stage I right lateral foot pressure injury, [employer] SAL[employer]
Original Note:
Today's Communication/Plan
-
Hold diuretics
Start midodrine and IV albumin
Paracentesis today
Trend BMP and INR
Assessment / Plan
Assessment / Plan
#BEBA on CKD stage IIIb
#Metabolic acidosis
#Mild hyperkalemia
-Likely prerenal secondary to overdiuresis versus HRS type II
-Home regimen includes spironolactone and Lasix for history of ascites
-Baseline creatinine previously near 1.5; peak near 2.4 here; diuretics held
-Creatinine has since plateaued near 2.0; soft BP though no hypotension
-Was previously on oral bicarbonate therapy; held at nephrology's recommendation
-Continue to hold diuretics and trend BMP daily; no IVF for now, MAP goal >65
-Strict avoidance of nephrotoxins such as NSAIDs and iodinated contrast
-Start midodrine 2.5 mg 3 times daily and IV albumin every 8 hours
-Follow-up urine studies and culture
#Ascites
#Liver cirrhosis
-Patient has history of ascites with home regimen of Lasix and spironolactone
-Diuretics held as above due to BEBA on CKD; creatinine stabilized near 2.0
-Planning for paracentesis and fluid analysis once INR at goal
-Follow-up ascites fluid studies
#Supratherapeutic INR
#S/P Mechanical AVR
-Presented with INR >4; INR goal 2.5-3.5 with mechanical valve
-Home regimen includes warfarin 5 mg except on when he gets 2.5 mg
-Home warfarin regimen held due to supratherapeutic INR; most recently 3.7
-Trend daily INR, plan for paracentesis when <3.5
-INR 3.49 this morning, will hold warfarin today and consider resuming on 09/18
#Permanent AF
-Home regimen includes metoprolol succinate, digoxin, and warfarin (INR 2.5-3.5)
-No known history of electrophysiologic interventions
-Holding warfarin as above
-Heart rate WNL here
#Chronic HFrEF
-Unclear etiology though does have history of hypertensive heart and kidney disease
-Most recent echocardiogram showed LVEF 35% with severe pHTN
-Home medications include beta-clive, ACEi, MRA, furosemide 20 mg daily
-No signs of clinically decompensated heart failure off diuretics
#Anemia of chronic disease
-Likely multifactorial and related to heart failure and liver disease
-Hemoglobin baseline likely near 9.0; hemoglobin here in the range of 8.3-8.7
-No signs of active bleeding at this time
#Dyslipidemia
-Home medications include high intensity atorvastatin nightly
-No known ASCVD history
#S/p PPM
-Unclear indication; no signs of pacemaker dysfunction
#Necrotic right heel wound
-Chronic and stable, wound care following for offloading interventions
-No signs of superimposed infection
-Trend CBC and temperature curve, monitor clinically
DVT prophylaxis: Therapeutic INR
Diet: Cholesterol-lowering
CODE STATUS: Full code
Disposition: PT consulted
Anticipated Discharge: > 48 hours
Subjective/Interval History
-
Date of Service: September 17, 2024
Seen and examined at bedside. No acute events reported overnight. AFVSS this morning with soft BP
INR improved and now within goal. Renal function improving creatinine down to 1.8
Patient denies any new complaints today
Objective Data
-
Labs:
Laboratory Results
09/17/24
05:15
WBC 8.2
Hgb 8.0 L
Hct 24.6 L
Plt Count 288
PT 34.8 H
INR 3.49
Sodium 143
Potassium 5.2 H
Chloride 114 H
Carbon Dioxide 18 L
BUN 99 H
Creatinine 1.8 H
Glucose 96
Calcium 8.9
Vital Signs:
Vital Signs
Temp Pulse Resp BP Pulse Ox
97.9 F 61 18 90/56 96
09/17/24 07:50 09/17/24 06:00 09/17/24 06:00 09/17/24 06:00 09/17/24 06:00
I&O
09/16/24 09/17/24 09/18/24
06:59 06:59 06:59
Intake Total 1140 / 1140 1020 / 1020
Output Total 1700 / 1700 800 / 800 100 / 100
Balance -560 / -560 220 / 220 -100 / -100
Review of Systems
-
History Source: Patient
All other systems: Reviewed and negative
Physical Exam
-
General: Well Developed, No Apparent Distress, Comfortable and Appears Chronically Ill
HEENT: Normocephalic, Atraumatic, Moist Mucous Membranes and Anicteric
Respiratory: Clear to Auscultation and Non Labored Respirations
Cardiac: S1/S2, Irregular Rhythm and Murmur; Negative Rub, JVD or Gallop
GI: Soft, Nontender, Normal Bowel Sounds and Distended (Moderately distended)
Musculoskeletal: No Clubbing, No Cyanosis and No Edema
Skin: Warm, Dry and Normal Turgor; Negative Rash
Neuro: AO x 3 and Nonfocal/Grossly Intact; Negative Tremors
Psych: Calm
Data Reviewed
-
Labs: Labs Reviewed by me, Discussed with Physician (Csr) and Discussed with Patient
--- NOTE | 2024-09-17 11:23 | W.PN.NEPH.PH ---
Today's Communication / Plan
-
Albumin and midodrine
Assessment/Plan
-
Assessment
Aortic Stenosis, AVR
Atrial Fibrillation
Permanent Pacemaker
HFrEF 35%
Essential Hypertension
Hyperlipidemia
BEBA
Azotemia
Liver cirrhosis
Plan
Baseline creatinine 1.9
Hold diuretic therapy
Pending paracentesis once INR less than 3.5
Creatinine stable at 2
Agree with albumin and midodrine with pending paracentesis
-
-
Date of Service: September 17, 2024
CC / HPI / ROS
-
Chief Complaint:
BEBA
History of Present Illness:
BEBA/Cr lower at 2.1
BUN stable at 106
Potassium stable 5.2
Acidosis stable 17
INR still high 3.83
Blood pressure remains low but stable
Review of Systems:
No shortness of breath or chest pain
No issues with urination
no NC but laying supine
Labs
-
Labs:
WBC 8.2 10^3/uL (4.8-10.8) 09/17/24 05:15
RBC 2.95 10^6/uL (4.70-6.10) L 09/17/24 05:15
Hgb 8.0 g/dL (13.0-18.0) L 09/17/24 05:15
Hct 24.6 % (39.0-52.0) L 09/17/24 05:15
Plt Count 288 10^3/uL (130-400) 09/17/24 05:15
Sodium 143 mmol/L (135-145) 09/17/24 05:15
Potassium 5.2 mmol/L (3.5-5.1) H 09/17/24 05:15
Chloride 114 mmol/L (98-107) H 09/17/24 05:15
Carbon Dioxide 18 mmol/L (22-30) L 09/17/24 05:15
BUN 99 mg/dl (9-20) H 09/17/24 05:15
Creatinine 1.8 mg/dL (0.7-1.3) H 09/17/24 05:15
eGFR 39.99 09/17/24 05:15
Glucose 96 mg/dl (70-99) 09/17/24 05:15
Calcium 8.9 mg/dl (8.4-10.2) 09/17/24 05:15
Albumin 3.1 g/dl (3.5-5.0) L 09/16/24 05:48
Physical Exam
-
Vital Signs:
Vital Signs
Temp Pulse Resp BP Pulse Ox
97.9 F 61 18 90/56 98
09/17/24 07:50 09/17/24 06:00 09/17/24 06:00 09/17/24 06:00 09/17/24 10:48
Cardiovascular:: Regular rate and rhythm
Respiratory:: Bilateral: Coarse
Lung Excursion:: Normal
Abdomen:: Nontender and Soft
Bowel Sounds:: Normal
Extremity Edema:: +1: Bilateral:
[2024-09-17] MEDS: ALBUMIN 5% 250 IV ×2 (11:40→13:31)
[2024-09-17] MEDS: ProAmatine 2.5 MG PO ×2 (11:40→17:35)
--- NOTE | 2024-09-17 12:38 | CM ---
CM following re:discharge planning.
Reviewed pt's chart, met with pt.
Per CM note, a plan is for pt to go to [facility] for a short term rehab. A referral to [facility] noted. No decision of accepting the pt made yet. Requested PT and OT evaluations.
PT and OT will evaluate the pt to determine a level of care at discharge.
D/C plan: [facility] when medically stable and recommended by PT/OT.
CM will follow with discharge plan updates as hospitalization progresses
--- NOTE | 2024-09-17 13:49 | PN.CDI ---
CDI
- -
CDI:
Physician Documentation Request
Admit Date: 09/13/24 13:33
Dear Doctor Andrew,
Patient admitted for BEBA
09/16 Wound Care Note: 'Patient has a stage 1 R lateral foot pressure injury.'
Physician documentation of the type and location of wounds is required for compliant documentation. Based on the above clinical findings and your assessment, please provide the following in your progress note:
1. Location of the ulcer/wound, including laterality.
2. Type (etiology) of ulcer/wound:
- Diabetic ulcer
- Arterial (ischemic) ulcer
- Traumatic wound
- Venous stasis ulcer
- Pressure (decubitus) ulcer
- Non-healing surgical wound
- Other
- Unable to determine
3. For a non-pressure ulcer, please indicate the depth/severity:
- Limited to the breakdown of skin
- With fat layer exposed
- With necrosis of muscle
- With necrosis of bone
- Other
- Unable to determine
4. If a pressure ulcer, please also include the stage* of the ulcer:
- Stage 1 - Skin intact, non-blanchable redness
- Stage 2 - Partial thickness loss of dermis, includes intact or open blister
- Stage 3 - Full thickness tissue not including bone, tendon or muscle
- Stage 4 - Full thickness tissue loss, including exposed bone, tendon or muscle
- Unstageable - Full thickness loss in which the base of the ulcer is covered by slough (yellow, hudson, mtz, green or brown) and/or eschar (hudson, brown or black) in the wound bed.
- Unable to determine
Use of terms such as suspected, likely, concern for, or probable (associated with a specific diagnosis that is being evaluated, monitored, or treated as if it exists) are acceptable and can be coded in the inpatient setting, when documented at the
time of discharge.
Thank you,
Agnes Arthur RN, BSN
CDI Specialist
Available via [facility] text
Please use your independent medical judgment in providing your response.
*Source: National Pressure Ulcer Advisory Panel (NPUAP)
[2024-09-17] MEDS: LIPITOR 40 MG PO (17:35)
--- NOTE | 2024-09-17 17:41 | PTCARENOTE ---
Rec'd pt this AM. Requires a lot of education regarding wound prevention. Resistant to turning but will allow it with much encouragement. PT also encouraged pt to move his legs to avoid contractures. BP marginal but responds well to midodrine. For
poss paracentesis tomorrow.
[2024-09-17] MEDS: TOPROL XL 12.5 MG PO (21:14)
[2024-09-17] MEDS: MELATONIN 5 MG PO (21:14)
[2024-09-18] VITALS (12 sets, daily range): BP systolic 94–116; BP diastolic 52–74; BMI 23.0
--- NOTE | 2024-09-18 00:18 | PTCARENOTE ---
Pt AAOx3, forgetful at times. V-paced on the monitor. Pt had a short period of apnea while sleeping SpO2 85%. Pt quickly recovered and remains on RA SpO2 97%. Full CHG bath and oral care done. Pt having frequent flatus and had 2 loose BM using the
bedpan. Pt slightly agitated when being turned but reeducated on the importance due to pressure ulcer prevention. Pt agreeable. Call moore within reach.
[2024-09-18 05:09] LABS: INR 3.12
[2024-09-18 05:10] LABS: % Basophils 0.7 % (0-2); % Eosinophils 2.2 % (0-6); % Immature Granulocytes 0.7 % (0-0.5); % Lymphocytes 9.1 % (20.5-51.1); % Monocytes 10.7 % (1.7-9.3); % Neutrophils 76.6 % (42.2-75.2); Absolute Basophils 0.1 10^3/uL (0-0.2); Absolute Eosinophils 0.2 10^3/uL (0-0.7); Absolute Immature Granulocytes 0.1 10^3/uL (0-0.05); Absolute Lymphocytes 0.8 10^3/uL (1.2-3.4); Absolute Monocytes 0.9 10^3/uL (0.1-0.6); Absolute Neutrophils 6.4 10^3/uL (1.4-6.5); Hematocrit 25.9 % (39.0-52.0); Hemoglobin 8.3 g/dL (13.0-18.0); Mean Corpuscular Hgb 26.9 pg (27.0-31.0); Mean Corpuscular Volume 83.8 fL (80.0-94.0); Mean Platelet Volume 10.3 fL (7.4-10.4); Nucleated Red Blood Cells % 0 % (-); Platelet Count 290 10^3/uL (130-400); Red Blood Cell Count 3.09 10^6/uL (4.70-6.10); Red Cell Dist. Width 16.1 % (11.5-14.5); White Blood Cell Count 8.3 10^3/uL (4.8-10.8)
[2024-09-18 05:13] LABS: ALT (SGPT) 38 U/L (0-50); AST (SGOT) 51 U/L (17-59); Albumin 2.9 g/dl (3.5-5.0); Alkaline Phosphatase 241 U/L (38-126); Blood Urea Nitrogen 88 mg/dl (9-20); Calcium 9.3 mg/dl (8.4-10.2); Carbon Dioxide 19 mmol/L (22-30); Chloride 115 mmol/L (98-107); Estimated Creatinine Clearance 46 ml/min; Glucose 94 mg/dl (70-99); Potassium 5.3 mmol/L (3.5-5.1); Sodium 144 mmol/L (135-145); Total Bilirubin 1.1 mg/dl (0.2-1.3); Total Protein 5.6 g/dl (6.3-8.2); eGFR 42.83
[2024-09-18] MEDS: SANTYL OINTMENT 1 APPLIC TOPICAL (09:25)
[2024-09-18] MEDS: NEURONTIN 100 MG PO ×3 (09:25→22:30)
[2024-09-18] MEDS: ProAmatine 2.5 MG PO (09:26)
[2024-09-18] MEDS: TOPROL XL PO (09:26)
[2024-09-18] MEDS: ASPIR LOW (ENTERIC COATED) 81 MG PO (09:27)
[2024-09-18] MEDS: DESENEX/MITRAZOL/ZEASORB 1 APPLIC TOPICAL ×2 (09:27→22:30)
[2024-09-18] MEDS: VIBRAMYCIN 100 MG PO ×2 (09:27→22:30)
[2024-09-18] MEDS: FLEXBUMIN 50 IV ×2 (09:29→17:08)
--- NOTE | 2024-09-18 10:10 | W.PN.NEPH.PH ---
Today's Communication / Plan
-
Increase midodrine to 5 mg
Assessment/Plan
-
Assessment
Aortic Stenosis, AVR
Atrial Fibrillation
Permanent Pacemaker
HFrEF 35%
Essential Hypertension
Hyperlipidemia
BEBA
Azotemia
Liver cirrhosis
Plan
Baseline creatinine 1.9
Hold diuretic therapy
Pending paracentesis once INR less than 3.5
Creatinine stable and improved
Agree with albumin and midodrine with pending paracentesis
Increase midodrine to 5 mg
-
-
Date of Service: September 18, 2024
CC / HPI / ROS
-
Chief Complaint:
BEBA
History of Present Illness:
BEBA/Cr improved
Potassium stable 5.2
Acidosis slight improvement
Review of Systems:
No shortness of breath or chest pain
No issues with urination
Labs
-
Labs:
WBC 8.3 10^3/uL (4.8-10.8) 09/18/24 04:32
RBC 3.09 10^6/uL (4.70-6.10) L 09/18/24 04:32
Hgb 8.3 g/dL (13.0-18.0) L 09/18/24 04:32
Hct 25.9 % (39.0-52.0) L 09/18/24 04:32
Plt Count 290 10^3/uL (130-400) 09/18/24 04:32
Sodium 144 mmol/L (135-145) 09/18/24 04:32
Potassium 5.3 mmol/L (3.5-5.1) H 09/18/24 04:32
Chloride 115 mmol/L (98-107) H 09/18/24 04:32
Carbon Dioxide 19 mmol/L (22-30) L 09/18/24 04:32
BUN 88 mg/dl (9-20) H 09/18/24 04:32
Creatinine 1.7 mg/dL (0.7-1.3) H 09/18/24 04:32
eGFR 42.83 09/18/24 04:32
Glucose 94 mg/dl (70-99) 09/18/24 04:32
Calcium 9.3 mg/dl (8.4-10.2) 09/18/24 04:32
Albumin 2.9 g/dl (3.5-5.0) L 09/18/24 04:32
Physical Exam
-
Vital Signs:
Vital Signs
Temp Pulse Resp BP Pulse Ox
98.5 F 55 21 102/52 97
09/18/24 08:03 09/18/24 09:26 09/18/24 06:00 09/18/24 09:26 09/18/24 06:00
Cardiovascular:: Regular rate and rhythm
Respiratory:: Bilateral: Coarse
Lung Excursion:: Normal
Abdomen:: Nontender and Soft
Bowel Sounds:: Normal
Extremity Edema:: +1: Bilateral:
--- NOTE | 2024-09-18 10:21 | W.PN.HOSP.TC ---
Today's Communication/Plan
-
Continue midodrine and albumin
Hold diuretics
Hold warfarin
Paracentesis when INR <3
Trend BMP and INR
Assessment / Plan
Assessment / Plan
#BEBA on CKD stage IIIb
#Metabolic acidosis
#Mild hyperkalemia
-Likely prerenal secondary to overdiuresis versus HRS-NAKI
-Home regimen includes spironolactone and Lasix for history of ascites
-Baseline creatinine previously near 1.5; peak near 2.4 here; diuretics held
-Creatinine has since plateaued near 2.0; soft BP though no hypotension
-Was previously on oral bicarbonate therapy; held at nephrology's recommendation
-As of morning 09/18 blood pressure 106/56 mmHg
Plan
-Continue to hold diuretics and trend BMP daily
-Encourage oral hydration, no IVF for now; MAP goal >65
-Strict avoidance of nephrotoxins such as NSAIDs and iodinated contrast
-Continue with midodrine 5 mg and IV albumin TID
#Ascites
#Liver cirrhosis
-Patient has history of ascites with home regimen of Lasix and spironolactone
-Diuretics held as above due to BEBA on CKD; creatinine stabilized near 2.0
-Planning for paracentesis and fluid analysis once INR at goal
-Continue doxycycline 100 mg twice daily for SBP prophylaxis
-Follow-up ascites fluid studies and cultures
#Supratherapeutic INR
#S/P Mechanical AVR
-Presented with INR >4; INR goal 2.5-3.5 with mechanical valve
-Home regimen includes warfarin 5 mg except on / when he gets 2.5 mg
-Home warfarin regimen held due to supratherapeutic INR; most recently 3.7
-Trend daily INR, plan for paracentesis when <3.5
-INR 3.12 this morning, will hold warfarin today
#Permanent AF
-Home regimen includes metoprolol succinate, digoxin, and warfarin (INR 2.5-3.5)
-No known history of electrophysiologic interventions
-Holding warfarin as above
-Heart rate WNL here
#Chronic HFrEF
-Unclear etiology though does have history of hypertensive heart and kidney disease
-Most recent echocardiogram showed LVEF 35% with severe pHTN
-Home medications include beta-clive, ACEi, MRA, furosemide 20 mg daily
-No signs of clinically decompensated heart failure off diuretics
#Anemia of chronic disease
-Likely multifactorial and related to heart failure and liver disease
-Hemoglobin baseline likely near 9.0; hemoglobin here in the range of 8.3-8.7
-No signs of active bleeding at this time
#Dyslipidemia
-Home medications include high intensity atorvastatin nightly
-No known ASCVD history
#S/p PPM
-Unclear indication; no signs of pacemaker dysfunction
#Necrotic right heel wound
-Chronic and stable, wound care following for offloading interventions
-No signs of superimposed infection
-Trend CBC and temperature curve, monitor clinically
DVT prophylaxis: Therapeutic INR
Diet: Cholesterol-lowering
CODE STATUS: Full code
Disposition: PT consulted
Anticipated Discharge: > 48 hours
Subjective/Interval History
-
Date of Service: September 18, 2024
Seen and examined at the bedside. No acute events reported overnight. AFVSS this morning. Blood pressure improved on midodrine and albumin
INR down to 3.15 today. Renal function slowly improving with creatinine down to 1.7. Hemoglobin stable, no leukocytosis
Denies any new complaints as of this morning
Objective Data
-
Labs:
Laboratory Results
09/18/24
04:32
WBC 8.3
Hgb 8.3 L
Hct 25.9 L
Plt Count 290
PT 32.0 H
INR 3.12
Sodium 144
Potassium 5.3 H
Chloride 115 H
Carbon Dioxide 19 L
BUN 88 H
Creatinine 1.7 H
Glucose 94
Calcium 9.3
Total Bilirubin 1.1
AST 51
ALT 38
Alkaline Phosphatase 241 H
Vital Signs:
Vital Signs
Temp Pulse Resp BP Pulse Ox
98.5 F 55 21 102/52 98
09/18/24 08:03 09/18/24 09:26 09/18/24 06:00 09/18/24 09:26 09/18/24 10:02
I&O
09/17/24 09/18/24 09/19/24
06:59 06:59 06:59
Intake Total 1020 / 1020 540 / 540
Output Total 800 / 800 600 / 600 200 / 200
Balance 220 / 220 -600 / -600 340 / 340
Review of Systems
-
History Source: Patient
All other systems: Reviewed and negative
Physical Exam
-
General: Well Developed, No Apparent Distress and Comfortable
HEENT: Normocephalic, Atraumatic, Moist Mucous Membranes and Anicteric
Respiratory: Clear to Auscultation and Non Labored Respirations
Cardiac: Regular Rhythm and S1/S2; Negative Murmur, Rub or Gallop
GI: Soft, Nontender, Normal Bowel Sounds and Distended (Mildly)
Musculoskeletal: No Clubbing, No Cyanosis and No Edema
Skin: Warm, Dry and Normal Turgor; Negative Rash
Neuro: AO x 3 and Nonfocal/Grossly Intact; Negative Tremors
Psych: Calm
Data Reviewed
-
Labs: Labs Reviewed by me, Discussed with Nurse and Discussed with Patient
[2024-09-18] MEDS: ProAmatine 5 MG PO ×2 (14:27→17:09)
[2024-09-18] MEDS: LIPITOR 40 MG PO (17:09)
[2024-09-18] MEDS: TOPROL XL 12.5 MG PO (22:30)
[2024-09-18] MEDS: MELATONIN 5 MG PO (22:30)
[2024-09-19] VITALS (29 sets, daily range): BP systolic 60–135; BP diastolic 46–79; PULSE 60; O2SAT 93; BMI 22.7
[2024-09-19] MEDS: FLEXBUMIN 50 IV ×3 (00:40→16:25)
[2024-09-19 05:50] LABS: INR 2.44
[2024-09-19 06:01] LABS: % Eosinophils 1.4 % (0-6); % Immature Granulocytes 0.7 % (0-0.5); % Lymphocytes 9.5 % (20.5-51.1); % Monocytes 10.8 % (1.7-9.3); % Neutrophils 76.6 % (42.2-75.2); Absolute Basophils 0.1 10^3/uL (0-0.2); Absolute Eosinophils 0.1 10^3/uL (0-0.7); Absolute Immature Granulocytes 0.1 10^3/uL (0-0.05); Absolute Lymphocytes 0.8 10^3/uL (1.2-3.4); Absolute Monocytes 0.9 10^3/uL (0.1-0.6); Absolute Neutrophils 6.7 10^3/uL (1.4-6.5); Hematocrit 24.9 % (39.0-52.0); Hemoglobin 7.9 g/dL (13.0-18.0); Mean Corp Hgb Conc. 31.7 g/dL (33.0-37.0); Mean Corpuscular Hgb 26.5 pg (27.0-31.0); Mean Corpuscular Volume 83.6 fL (80.0-94.0); Mean Platelet Volume 10.2 fL (7.4-10.4); Nucleated Red Blood Cells % 0 % (-); Platelet Count 299 10^3/uL (130-400); Red Blood Cell Count 2.98 10^6/uL (4.70-6.10); White Blood Cell Count 8.7 10^3/uL (4.8-10.8)
[2024-09-19 06:21] LABS: ALT (SGPT) 37 U/L (0-50); AST (SGOT) 54 U/L (17-59); Albumin 3.2 g/dl (3.5-5.0); Alkaline Phosphatase 242 U/L (38-126); Blood Urea Nitrogen 81 mg/dl (9-20); Calcium 9.3 mg/dl (8.4-10.2); Carbon Dioxide 18 mmol/L (22-30); Chloride 115 mmol/L (98-107); Estimated Creatinine Clearance 49 ml/min; Glucose 91 mg/dl (70-99); Potassium 5.2 mmol/L (3.5-5.1); Sodium 144 mmol/L (135-145); Total Bilirubin 1.5 mg/dl (0.2-1.3); eGFR 46.06
--- NOTE | 2024-09-19 06:36 | PTCARENOTE ---
Patient flat, withdrawn. RA- lungs slightly coarse at bases; desats to mid 80s briefly when asleep but able to recover on own. No BM; +flatus on bedpan. Voiding via urinal. Repositioned throughout the night as pt allowed. Sacral foam dressing &
right lateral foot dressing changed; refer to skin wound worklist. EHOB boots on w/ SCDs. Right Achilles wound dressing intact. V-paced on tele, BBB. Denies any pain. Swallowing w/o issues. Abd firm with ascites. Awaiting for INR to be < 3 for
paracentesis. Call moore and tray table within reach. Pt calls appropriately for assistance.
[2024-09-19] MEDS: ASPIR LOW (ENTERIC COATED) 81 MG PO (09:45)
[2024-09-19] MEDS: DESENEX/MITRAZOL/ZEASORB 1 APPLIC TOPICAL ×2 (09:46→20:34)
[2024-09-19] MEDS: NEURONTIN 100 MG PO ×3 (09:50→20:34)
[2024-09-19 09:51] LABS: Body Fluid Polymorphonuclear 63.3 %; Body Fluid WBC 518 /CUMM
[2024-09-19] MEDS: ProAmatine 5 MG PO ×3 (09:51→18:08)
[2024-09-19 09:52] LABS: Body Fluid Mononuclear 36.7 %; Body Fluid Second Tech CS
[2024-09-19] MEDS: SANTYL OINTMENT 1 APPLIC TOPICAL (09:53)
[2024-09-19] MEDS: TOPROL XL 12.5 MG PO ×2 (09:54→20:34)
[2024-09-19] MEDS: TYLENOL 650 MG PO (09:55)
[2024-09-19] MEDS: VIBRAMYCIN 100 MG PO ×2 (09:55→20:34)
[2024-09-19 10:04] LABS: Body Fluid Albumin 1.7 g/dl; Body Fluid Amylase 106 U/L; Body Fluid LDH 231 U/L; Body Fluid Protein 3.7 g/dl
--- NOTE | 2024-09-19 10:14 | W.PN.HOSP.TC ---
Today's Communication/Plan
-
Paracentesis, follow-up fluid studies
Resume warfarin this evening
Hold diuretics
Midodrine and IV albumin
Doxycycline SBP prophylaxis
Trend BMP and CBC
Assessment / Plan
Assessment / Plan
#BEBA on CKD stage IIIb
#Metabolic acidosis
#Mild hyperkalemia
-Likely prerenal secondary to overdiuresis versus HRS-NAKI
-Home regimen includes spironolactone and Lasix for history of ascites
-Baseline creatinine previously near 1.5; peak near 2.4 here; diuretics held
-Creatinine has since plateaued near 2.0; soft BP though no hypotension
-Was previously on oral bicarbonate therapy; held at nephrology's recommendation
-Blood pressure improved with albumin and midodrine; creatinine down to 1.6
Plan
-Continue to hold diuretics for now, trend BMP daily
-Encourage oral hydration, no IVF for now; MAP goal >65
-Strict avoidance of nephrotoxins such as NSAIDs and iodinated contrast
-Continue with midodrine 5 mg and IV albumin TID
#Ascites
#Liver cirrhosis
-Patient has history of ascites with home regimen of Lasix and spironolactone
-Diuretics held as above due to BEBA on CKD; creatinine stabilized near 2.0
-Planning for paracentesis and fluid analysis once INR at goal
-Continue doxycycline 100 mg twice daily for SBP prophylaxis
-Follow-up ascites fluid studies and cultures
#Supratherapeutic INR
#S/P Mechanical AVR
-Presented with INR >4; INR goal 2.5-3.5 with mechanical valve
-Home regimen includes warfarin 5 mg except on when he gets 2.5 mg
-Home warfarin regimen held due to supratherapeutic INR; most recently 3.7
-Trend daily INR, plan for paracentesis when <3.5; s/p paracentesis 09/19
-INR 2.44 this morning, resume 5 mg warfarin this evening
#Permanent AF
-Home regimen includes metoprolol succinate, digoxin, and warfarin (INR 2.5-3.5)
-No known history of electrophysiologic interventions
-Holding warfarin as above
-Heart rate WNL here
#Chronic HFrEF
-Unclear etiology though does have history of hypertensive heart and kidney disease
-Most recent echocardiogram showed LVEF 35% with severe pHTN
-Home medications include beta-clive, ACEi, MRA, furosemide 20 mg daily
-No signs of clinically decompensated heart failure off diuretics
#Anemia of chronic disease
-Likely multifactorial and related to heart failure and liver disease
-Hemoglobin baseline likely near 9.0; hemoglobin here in the range of 8.3-8.7
-No signs of active bleeding at this time
#Dyslipidemia
-Home medications include high intensity atorvastatin nightly
-No known ASCVD history
#S/p PPM
-Unclear indication; no signs of pacemaker dysfunction
#Necrotic right heel wound
-Chronic and stable, wound care following for offloading interventions
-No signs of superimposed infection
-Trend CBC and temperature curve, monitor clinically
DVT prophylaxis: Therapeutic INR
Diet: Cholesterol-lowering
CODE STATUS: Full code
Disposition: PT consulted
Anticipated Discharge: > 48 hours
Subjective/Interval History
-
Date of Service: September 19, 2024
Seen and examined at the bedside. No acute events reported overnight. AFVSS this morning
Renal function continues to improve with creatinine down to 1.6. Hemoglobin stable. INR 2.44
Denies any new complaints as of this morning
Objective Data
-
Labs:
Laboratory Results
09/19/24
05:14
WBC 8.7
Hgb 7.9 L
Hct 24.9 L
Plt Count 299
PT 27.0 H
INR 2.44
Sodium 144
Potassium 5.2 H
Chloride 115 H
Carbon Dioxide 18 L
BUN 81 H
Creatinine 1.6 H
Glucose 91
Calcium 9.3
Total Bilirubin 1.5 H
AST 54
ALT 37
Alkaline Phosphatase 242 H
Vital Signs:
Vital Signs
Temp Pulse Resp BP Pulse Ox
97.8 F 60 19 113/54 97
09/19/24 08:10 09/19/24 09:54 09/19/24 08:58 09/19/24 09:54 09/19/24 08:10
I&O
09/18/24 09/19/24 09/20/24
06:59 06:59 06:59
Intake Total 540 / 540
Output Total 600 / 600 1300 / 1300 100 / 100
Balance -600 / -600 -760 / -760 -100 / -100
Review of Systems
-
History Source: Patient
All other systems: Reviewed and negative
Physical Exam
-
General: Well Developed, No Apparent Distress and Comfortable
HEENT: Normocephalic, Atraumatic, Moist Mucous Membranes and Anicteric
Respiratory: Clear to Auscultation and Non Labored Respirations
Cardiac: Regular Rhythm, S1/S2 and Murmur; Negative Rub, JVD or Gallop
GI: Soft, Nontender, Normal Bowel Sounds and Distended (Mildly distended)
Musculoskeletal: No Clubbing, No Cyanosis and No Edema
Skin: Warm, Dry and Normal Turgor; Negative Rash
Neuro: AO x 3 and Nonfocal/Grossly Intact
Psych: Calm
Data Reviewed
-
Labs: Labs Reviewed by me, Discussed with Physician (IR) and Discussed with Patient
--- NOTE | 2024-09-19 11:04 | CM ---
CM following re:discharge planning.
Reviewed pt's chart, met with pt. CM met with pt's aunt and pt's cousin to update on discharge plan progress.
Per pt's aunt, a plan is for pt to go to [facility] for a short term rehab. A referral to [facility] noted. No decision of accepting the pt made yet.
PT and OT evaluations noted - SNF level of care recommended. CM faxed PT/OT notes to [facility] for a review.
D/C plan: [facility] when medically stable.
CM will follow to assist pt with discharge to [facility].
--- NOTE | 2024-09-19 12:32 | W.PN.NEPH.PH ---
Today's Communication / Plan
-
Albumin and midodrine continue
Assessment/Plan
-
Assessment
Aortic Stenosis, AVR
Atrial Fibrillation
Permanent Pacemaker
HFrEF 35%
Essential Hypertension
Hyperlipidemia
BEBA
Azotemia
Liver cirrhosis
Plan
Baseline creatinine 1.9
Hold diuretic therapy
Status post paracentesis 09/19= 3.3 L
Creatinine stable and improved
albumin and midodrine with pending paracentesis
-
-
Date of Service: September 19, 2024
CC / HPI / ROS
-
Chief Complaint:
BEBA
History of Present Illness:
BEBA/Cr improved
Status post paracentesis
Review of Systems:
No shortness of breath or chest pain
Nonoliguric
Labs
-
Labs:
WBC 8.7 10^3/uL (4.8-10.8) 09/19/24 05:14
RBC 2.98 10^6/uL (4.70-6.10) L 09/19/24 05:14
Hgb 7.9 g/dL (13.0-18.0) L 09/19/24 05:14
Hct 24.9 % (39.0-52.0) L 09/19/24 05:14
Plt Count 299 10^3/uL (130-400) 09/19/24 05:14
Sodium 144 mmol/L (135-145) 09/19/24 05:14
Potassium 5.2 mmol/L (3.5-5.1) H 09/19/24 05:14
Chloride 115 mmol/L (98-107) H 09/19/24 05:14
Carbon Dioxide 18 mmol/L (22-30) L 09/19/24 05:14
BUN 81 mg/dl (9-20) H 09/19/24 05:14
Creatinine 1.6 mg/dL (0.7-1.3) H 09/19/24 05:14
eGFR 46.06 09/19/24 05:14
Glucose 91 mg/dl (70-99) 09/19/24 05:14
Calcium 9.3 mg/dl (8.4-10.2) 09/19/24 05:14
Albumin 3.2 g/dl (3.5-5.0) L 09/19/24 05:14
Physical Exam
-
Vital Signs:
Vital Signs
Temp Pulse Resp BP Pulse Ox
97.7 F 60 19 113/54 97
09/19/24 11:24 09/19/24 09:54 09/19/24 08:58 09/19/24 09:54 09/19/24 08:10
Cardiovascular:: Regular rate and rhythm
Respiratory:: Bilateral: Coarse
Lung Excursion:: Normal
Abdomen:: Nontender and Soft
Bowel Sounds:: Normal
Extremity Edema:: +1: Bilateral:
--- NOTE | 2024-09-19 14:38 | WOUNDNOTE ---
WOC RN note: Aryan Roth re: recommend an air mattress at SNF. Patient is high risk for a pressure injury
[2024-09-19] MEDS: LR 500 IV (15:16)
--- NOTE | 2024-09-19 16:30 | PTCARENOTE ---
pt had paracentesis this am. pt c/o some abd discomfort upon return. abdome much less distended and softer. tylenol given with adequate pain relief. pt bp down to 70s systolic this afternoon as charted. hospitalist made aware. pt denies dizziness at
that time and is conversing appropriately. 500 ml lr bolus given with improvement in bp. most recent bp 107/64.
[2024-09-19] MEDS: LIPITOR 40 MG PO (18:08)
[2024-09-19] MEDS: COUMADIN 5 MG PO (18:08)
[2024-09-19] MEDS: MELATONIN 5 MG PO (20:34)
[2024-09-20] VITALS (13 sets, daily range): BP systolic 93–134; BP diastolic 55–67; BMI 21.9
[2024-09-20] MEDS: FLEXBUMIN 50 IV ×4 (00:42→23:11)
[2024-09-20 06:17] LABS: % Basophils 1.2 % (0-2); % Eosinophils 1.6 % (0-6); % Immature Granulocytes 0.5 % (0-0.5); % Monocytes 8.5 % (1.7-9.3); % Neutrophils 77.2 % (42.2-75.2); Absolute Basophils 0.1 10^3/uL (0-0.2); Absolute Eosinophils 0.2 10^3/uL (0-0.7); Absolute Immature Granulocytes 0.1 10^3/uL (0-0.05); Absolute Monocytes 0.8 10^3/uL (0.1-0.6); Absolute Neutrophils 7.3 10^3/uL (1.4-6.5); Hematocrit 25.9 % (39.0-52.0); Hemoglobin 8.2 g/dL (13.0-18.0); Mean Corp Hgb Conc. 31.7 g/dL (33.0-37.0); Mean Corpuscular Hgb 26.7 pg (27.0-31.0); Mean Corpuscular Volume 84.4 fL (80.0-94.0); Mean Platelet Volume 10.1 fL (7.4-10.4); Nucleated Red Blood Cells % 0 % (-); Platelet Count 290 10^3/uL (130-400); Red Blood Cell Count 3.07 10^6/uL (4.70-6.10); Red Cell Dist. Width 16.3 % (11.5-14.5); White Blood Cell Count 9.4 10^3/uL (4.8-10.8)
[2024-09-20 06:31] LABS: INR 2.39; PT 26.5 Sec (11.4-14.6)
[2024-09-20 06:57] LABS: ALT (SGPT) 32 U/L (0-50); AST (SGOT) 52 U/L (17-59); Albumin 3.3 g/dl (3.5-5.0); Alkaline Phosphatase 231 U/L (38-126); Blood Urea Nitrogen 73 mg/dl (9-20); Calcium 9.3 mg/dl (8.4-10.2); Carbon Dioxide 16 mmol/L (22-30); Chloride 116 mmol/L (98-107); Estimated Creatinine Clearance 50 ml/min; Glucose 85 mg/dl (70-99); Potassium 5.3 mmol/L (3.5-5.1); Sodium 142 mmol/L (135-145); Total Bilirubin 1.7 mg/dl (0.2-1.3); Total Protein 5.9 g/dl (6.3-8.2); eGFR 49.77
[2024-09-20] MEDS: ASPIR LOW (ENTERIC COATED) 81 MG PO (09:25)
[2024-09-20] MEDS: NEURONTIN 100 MG PO ×3 (09:25→21:31)
[2024-09-20] MEDS: VIBRAMYCIN 100 MG PO ×2 (09:25→21:31)
[2024-09-20] MEDS: ProAmatine 5 MG PO ×3 (09:25→17:53)
[2024-09-20] MEDS: TOPROL XL 12.5 MG PO ×2 (09:25→21:31)
[2024-09-20] MEDS: DESENEX/MITRAZOL/ZEASORB 1 APPLIC TOPICAL ×2 (09:25→21:30)
[2024-09-20] MEDS: SANTYL OINTMENT 1 APPLIC TOPICAL (09:26)
--- NOTE | 2024-09-20 11:28 | W.PN.HOSP.TC ---
Today's Communication/Plan
-
Hold diuretics -- appreciate nephrology recommendations in regard to resuming diuretics
Continue with midodrine and IV albumin
100 mg doxycycline twice daily
Follow ascites cultures
Warfarin 2.5 mg this evening
Trend INR
Trend BMP
Assessment / Plan
Assessment / Plan
#BEBA on CKD stage IIIb
#Metabolic acidosis
#Mild hyperkalemia
-Likely prerenal secondary to overdiuresis versus HRS-NAKI
-Home regimen includes spironolactone and Lasix for history of ascites
-Baseline creatinine previously near 1.5; peak near 2.4 here; diuretics held
-Creatinine has since plateaued near 2.0; soft BP though no hypotension
-Was previously on oral bicarbonate therapy; held at nephrology's recommendation
-Blood pressure improved with albumin and midodrine; creatinine down to 1.6
Plan
-Continue to hold diuretics for now, trend BMP daily
-Encourage oral hydration, no IVF for now; MAP goal >65
-Strict avoidance of nephrotoxins such as NSAIDs and iodinated contrast
-Continue with midodrine 5 mg and IV albumin TID
#Ascites with SBP
#Liver cirrhosis
-Patient has history of ascites with home regimen of Lasix and spironolactone
-Diuretics held as above due to BEBA on CKD; creatinine stabilized near 2.0
-Paracentesis with PMN count 328 consistent with SBP; culture pending
-Continue doxycycline 100 mg twice daily for SBP treatment
-Follow-up ascites cultures
-Trend CBC and temperature curve
#Supratherapeutic INR
#S/P Mechanical AVR
-Presented with INR >4; INR goal 2.5-3.5 with mechanical valve
-Home regimen includes warfarin 5 mg except on / when he gets 2.5 mg
-Home warfarin regimen held due to supratherapeutic INR; most recently 3.7
-Trend daily INR, plan for paracentesis when <3.5; s/p paracentesis 09/19
-INR 2.39 this morning, 2.5 mg warfarin for this evening
#Permanent AF
-Home regimen includes metoprolol succinate, digoxin, and warfarin (INR 2.5-3.5)
-No known history of electrophysiologic interventions
-Holding warfarin as above
-Heart rate WNL here
#Chronic HFrEF
-Unclear etiology though does have history of hypertensive heart and kidney disease
-Most recent echocardiogram showed LVEF 35% with severe pHTN
-Home medications include beta-clive, ACEi, MRA, furosemide 20 mg daily
-No signs of clinically decompensated heart failure off diuretics
#Anemia of chronic disease
-Likely multifactorial and related to heart failure and liver disease
-Hemoglobin baseline likely near 9.0; hemoglobin here in the range of 8.3-8.7
-No signs of active bleeding at this time
#Dyslipidemia
-Home medications include high intensity atorvastatin nightly
-No known ASCVD history
#S/p PPM
-Unclear indication; no signs of pacemaker dysfunction
#Necrotic right heel wound
-Chronic and stable, wound care following for offloading interventions
-No signs of superimposed infection
-Trend CBC and temperature curve, monitor clinically
DVT prophylaxis: Warfarin
Diet: Cholesterol-lowering
CODE STATUS: Full code
Disposition: [facility] when medically stable
Anticipated Discharge: > 48 hours
Subjective/Interval History
-
Date of Service: September 20, 2024
Seen and examined at the bedside. No acute events reported overnight. AFVSS this morning, systolic blood pressure mid 90s
Paracentesis yesterday with PMN count >250 consistent with SBP. Denies any abdomen pain or fevers today. States he feels tired
Denies any other new complaints as of this morning
Objective Data
-
Labs:
Laboratory Results
09/20/24
06:07
WBC 9.4
Hgb 8.2 L
Hct 25.9 L
Plt Count 290
PT 26.5 H
INR 2.39
Sodium 142
Potassium 5.3 H
Chloride 116 H
Carbon Dioxide 16 L
BUN 73 H
Creatinine 1.5 H
Glucose 85
Calcium 9.3
Total Bilirubin 1.7 H
AST 52
ALT 32
Alkaline Phosphatase 231 H
Vital Signs:
Vital Signs
Temp Pulse Resp BP Pulse Ox
97.7 F 60 18 109/65 96
09/20/24 07:35 09/20/24 08:00 09/20/24 08:00 09/20/24 08:00 09/20/24 08:00
I&O
09/19/24 09/20/24 09/21/24
06:59 06:59 06:59
Intake Total 540 / 540 1140 / 1140
Output Total 1300 / 1300 1225 / 1225 400 / 400
Balance -760 / -760 -85 / -85 -400 / -400
Review of Systems
-
History Source: Patient
All other systems: Reviewed and negative
Physical Exam
-
General: Well Developed, No Apparent Distress, Comfortable and Appears Chronically Ill
HEENT: Normocephalic, Atraumatic, Moist Mucous Membranes and Anicteric
Respiratory: Clear to Auscultation and Non Labored Respirations; Negative Accessory Resp Muscle Use
Cardiac: Regular Rhythm, S1/S2 and Murmur; Negative Rub or Gallop
GI: Soft, Nontender, Nondistended and Normal Bowel Sounds
Musculoskeletal: No Clubbing, No Cyanosis and No Edema
Skin: Warm, Dry and Normal Turgor; Negative Rash
Neuro: AO x 3 and Nonfocal/Grossly Intact; Negative Tremors
Psych: Calm
Data Reviewed
-
Labs: Labs Reviewed by me and Discussed with Physician (Gastroenterology)
--- NOTE | 2024-09-20 11:53 | W.PN.NEPH.PH ---
Today's Communication / Plan
-
resume po bicarb
Assessment/Plan
-
Assessment
Aortic Stenosis, AVR
Atrial Fibrillation
Permanent Pacemaker
HFrEF 35%
Essential Hypertension
Hyperlipidemia
BEBA
Azotemia
Liver cirrhosis
Status post paracentesis 09/19= 3.3 L
Plan
improving cr to 1.5
persistent mild hyperkalemia with met acidosis -resume po bicarb
on alb course
bps table on midodrine
Holding diuretic therapy-wts stable
d/w nursing
-
-
Date of Service: September 20, 2024
CC / HPI / ROS
-
Chief Complaint:
BEBA
History of Present Illness:
BEBA/Cr improved, cr down to 1.5
k 5.3, bicarb 16, hb 8.2 stable
Status post paracentesis 09/19
bp soft but stable
wt stable
Review of Systems:
No shortness of breath or chest pain
Nonoliguric
Labs
-
Labs:
WBC 9.4 10^3/uL (4.8-10.8) 09/20/24 06:07
RBC 3.07 10^6/uL (4.70-6.10) L 09/20/24 06:07
Hgb 8.2 g/dL (13.0-18.0) L 09/20/24 06:07
Hct 25.9 % (39.0-52.0) L 09/20/24 06:07
Plt Count 290 10^3/uL (130-400) 09/20/24 06:07
Sodium 142 mmol/L (135-145) 09/20/24 06:07
Potassium 5.3 mmol/L (3.5-5.1) H 09/20/24 06:07
Chloride 116 mmol/L (98-107) H 09/20/24 06:07
Carbon Dioxide 16 mmol/L (22-30) L 09/20/24 06:07
BUN 73 mg/dl (9-20) H 09/20/24 06:07
Creatinine 1.5 mg/dL (0.7-1.3) H 09/20/24 06:07
eGFR 49.77 09/20/24 06:07
Glucose 85 mg/dl (70-99) 09/20/24 06:07
Calcium 9.3 mg/dl (8.4-10.2) 09/20/24 06:07
Albumin 3.3 g/dl (3.5-5.0) L 09/20/24 06:07
Physical Exam
-
Vital Signs:
Vital Signs
Temp Pulse Resp BP Pulse Ox
97.7 F 60 18 109/65 96
09/20/24 07:35 09/20/24 08:00 09/20/24 08:00 09/20/24 08:00 09/20/24 08:00
Cardiovascular:: Regular rate and rhythm
Respiratory:: Bilateral: Wheeze (upper airway)
Lung Excursion:: Normal
Abdomen:: Distended, Nontender and Soft
Extremity Edema:: None: Bilateral: (right trace ankle)
Hardy Catheter: No
--- NOTE | 2024-09-20 14:18 | CM ---
Addendum entered by Mick Roth 09/20/24 15:49:
CM spoke to [facility] RN Kristel regarding pt's request and requested pt's clinical faxed to [facility] at [phone]. per Krisetl they will coordinate pt's care plan with pt's aunt.
Original Note:
CM following re:discharge planning.
Reviewed pt's chart, met with pt. CM met with pt's aunt and pt's cousin to update on discharge plan progress.
Per pt's aunt, a plan is for pt to go to [facility] for a short term rehab. A referral to [facility] noted. No decision of accepting the pt made yet.
Both pt and his family are aware that [facility] director dietetics department called this CM and pt's family to offer a bed.
Pt stated he does not want to go to either of those SNF and pt stated he wants to return back to [facility] independent apartment
PT and OT recommend use of mechanical lift for transfers, pt has bilateral knee flexion contractures.
CM discussed it in details with pt and his family. Pt insisted to return back to his apartment at [facility]. pt's aunt stated she spoke to [facility] sales training representative Franko [phone] regarding moving the pt to a personal care. CM left a message
to [facility] rep Abdul to discuss discharge plan options.
D/C plan: uncertain at this time: [facility] SNF/[facility] vs return back to [facility] personal care with / caregiver services.
CM will follow to assist pt with discharge plan updates as hospitalization progresses
[2024-09-20] MEDS: SODIUM BICARBONATE 1300 MG PO ×2 (16:35→21:33)
[2024-09-20] MEDS: LIPITOR 40 MG PO (17:53)
[2024-09-20] MEDS: COUMADIN 2.5 MG PO (17:53)
[2024-09-20] MEDS: MELATONIN 5 MG PO (21:30)
[2024-09-21] VITALS (12 sets, daily range): BP systolic 100–120; BP diastolic 62–71; BMI 22.0
--- NOTE | 2024-09-21 04:14 | PTCARENOTE ---
Assumed care of pt from [facility] RN. Pt aaox3, flat and withdrawn. Pt denies pain or discomfort. Pt is 95% on RA. V paced on monitor. CONNOR medications administered (see MAR). Vitals and assessment as documented. Pt resting in bed with call moore in
reach.
[2024-09-21 05:10] LABS: % Basophils 1.1 % (0-2); % Eosinophils 2.2 % (0-6); % Immature Granulocytes 0.4 % (0-0.5); % Lymphocytes 11.4 % (20.5-51.1); % Neutrophils 75.9 % (42.2-75.2); Absolute Basophils 0.1 10^3/uL (0-0.2); Absolute Eosinophils 0.2 10^3/uL (0-0.7); Absolute Lymphocytes 0.9 10^3/uL (1.2-3.4); Absolute Monocytes 0.7 10^3/uL (0.1-0.6); Absolute Neutrophils 6.2 10^3/uL (1.4-6.5); Hematocrit 23.7 % (39.0-52.0); Hemoglobin 7.6 g/dL (13.0-18.0); Mean Corp Hgb Conc. 32.1 g/dL (33.0-37.0); Mean Corpuscular Hgb 26.7 pg (27.0-31.0); Mean Corpuscular Volume 83.2 fL (80.0-94.0); Mean Platelet Volume 10.7 fL (7.4-10.4); Nucleated Red Blood Cells % 0 % (-); Platelet Count 279 10^3/uL (130-400); Red Blood Cell Count 2.85 10^6/uL (4.70-6.10); White Blood Cell Count 8.1 10^3/uL (4.8-10.8)
[2024-09-21 05:19] LABS: INR 2.56; PT 27.5 Sec (11.4-14.6)
[2024-09-21 05:41] LABS: ALT (SGPT) 29 U/L (0-50); AST (SGOT) 48 U/L (17-59); Albumin 3.5 g/dl (3.5-5.0); Alkaline Phosphatase 207 U/L (38-126); Blood Urea Nitrogen 67 mg/dl (9-20); Calcium 9.2 mg/dl (8.4-10.2); Carbon Dioxide 15 mmol/L (22-30); Chloride 114 mmol/L (98-107); Estimated Creatinine Clearance 54 ml/min; Glucose 97 mg/dl (70-99); Potassium 5.1 mmol/L (3.5-5.1); Sodium 141 mmol/L (135-145); Total Bilirubin 1.6 mg/dl (0.2-1.3); Total Protein 6.1 g/dl (6.3-8.2); eGFR 54.07
[2024-09-21] MEDS: STERILE WATER FOR INJECTION 10 ML IV (09:17)
[2024-09-21] MEDS: SANTYL OINTMENT 1 APPLIC TOPICAL (09:17)
[2024-09-21] MEDS: ROCEPHIN 1000 MG IV (09:17)
[2024-09-21] MEDS: ProAmatine 5 MG PO ×3 (09:17→17:22)
[2024-09-21] MEDS: SODIUM BICARBONATE 1300 MG PO ×3 (09:18→22:25)
[2024-09-21] MEDS: ASPIR LOW (ENTERIC COATED) 81 MG PO (09:18)
[2024-09-21] MEDS: NEURONTIN 100 MG PO ×3 (09:18→22:25)
[2024-09-21] MEDS: TOPROL XL 12.5 MG PO ×2 (09:18→22:26)
[2024-09-21] MEDS: DESENEX/MITRAZOL/ZEASORB 1 APPLIC TOPICAL ×2 (09:21→22:25)
[2024-09-21] MEDS: FLEXBUMIN 50 IV ×2 (09:27→17:20)
[2024-09-21] MEDS: VIBRAMYCIN PO (09:30)
--- NOTE | 2024-09-21 10:35 | W.PN.NEPH.PH ---
Today's Communication / Plan
-
resume lasix at d/c
Assessment/Plan
-
Assessment
Aortic Stenosis, AVR
Atrial Fibrillation
Permanent Pacemaker
HFrEF 35%
Essential Hypertension
Hyperlipidemia
BEBA
Azotemia
Liver cirrhosis
Status post paracentesis 09/19= 3.3 L
Plan
improving cr to 1.4
persistent mild hyperkalemia-better
met acidosis -back on po bicarb
on alb course per primary
bp stable on midodrine
Holding diuretic therapy-wts stable, resume at d/c
d/w pt
-
-
Date of Service: September 21, 2024
CC / HPI / ROS
-
Chief Complaint:
BEBA
History of Present Illness:
BEBA/Cr improved, cr down to 1.4
k 5.1 better, bicarb 15, hb7.6 low
Status post paracentesis 09/19
bp soft but stable
wt stable
Review of Systems:
No shortness of breath or chest pain
Nonoliguric
Labs
-
Labs:
WBC 8.1 10^3/uL (4.8-10.8) 09/21/24 04:42
RBC 2.85 10^6/uL (4.70-6.10) L 09/21/24 04:42
Hgb 7.6 g/dL (13.0-18.0) L 09/21/24 04:42
Hct 23.7 % (39.0-52.0) L 09/21/24 04:42
Plt Count 279 10^3/uL (130-400) 09/21/24 04:42
Sodium 141 mmol/L (135-145) 09/21/24 04:42
Potassium 5.1 mmol/L (3.5-5.1) 09/21/24 04:42
Chloride 114 mmol/L (98-107) H 09/21/24 04:42
Carbon Dioxide 15 mmol/L (22-30) L 09/21/24 04:42
BUN 67 mg/dl (9-20) H 09/21/24 04:42
Creatinine 1.4 mg/dL (0.7-1.3) H 09/21/24 04:42
eGFR 54.07 09/21/24 04:42
Glucose 97 mg/dl (70-99) 09/21/24 04:42
Calcium 9.2 mg/dl (8.4-10.2) 09/21/24 04:42
Albumin 3.5 g/dl (3.5-5.0) 09/21/24 04:42
Physical Exam
-
Vital Signs:
Vital Signs
Temp Pulse Resp BP Pulse Ox
97.8 F 60 20 102/66 96
09/21/24 07:35 09/21/24 09:18 09/21/24 04:00 09/21/24 09:18 09/21/24 04:07
Cardiovascular:: Regular rate and rhythm
Respiratory:: Bilateral: CTA (decreased)
Lung Excursion:: Normal
Abdomen:: Distended, Nontender and Soft
Extremity Edema:: None: Bilateral: (right trace ankle)
Hardy Catheter: No
--- NOTE | 2024-09-21 10:53 | W.PN.HOSP.TC ---
Today's Communication/Plan
-
Continue albumin and midodrine
Hold diuretics (resume Lasix at DC)
Hold KASIE inhibitor (hold until seen by OP cardiology)
Continue warfarin and trend INR
IV ceftriaxone for SBP
CBC and BMP daily
Assessment / Plan
Assessment / Plan
#BEBA on CKD stage IIIb
#Metabolic acidosis
#Mild hyperkalemia
-Likely prerenal secondary to overdiuresis versus HRS-NAKI
-Home regimen includes spironolactone and Lasix for history of ascites
-Baseline creatinine previously near 1.5; peak near 2.4 here; diuretics held
-Creatinine has since plateaued near 2.0; soft BP though no hypotension
-Was previously on oral bicarbonate therapy; held at nephrology's recommendation
-Blood pressure improved with albumin and midodrine; creatinine down to 1.6
Plan
-Continue to hold diuretics for now, trend BMP daily
-Plan to resume Lasix at discharge and hold Aldactone
-Encourage oral hydration, no IVF for now; MAP goal >65
-Strict avoidance of nephrotoxins such as NSAIDs and iodinated contrast
-Continue with midodrine 5 mg and IV albumin TID
-Continue with oral bicarbonate replacement
#Ascites with SBP
#Liver cirrhosis
-Patient has history of ascites with home regimen of Lasix and spironolactone
-Diuretics held as above due to BEBA on CKD; creatinine stabilized near 2.0
-Paracentesis with PMN count 328 consistent with SBP; culture pending
-Was on doxycycline; transition to IV ceftriaxone while inpatient
-Follow-up ascites cultures
-Trend CBC and temperature curve
#Supratherapeutic INR
#S/P Mechanical AVR
-Presented with INR >4; INR goal 2.5-3.5 with mechanical valve
-Home regimen includes warfarin 5 mg except on / when he gets 2.5 mg
-Home warfarin regimen held due to supratherapeutic INR; most recently 3.7
-Trend daily INR, plan for paracentesis when <3.5; s/p paracentesis 09/19
-INR 2.56 this morning, 2.5 mg warfarin for this evening
#Permanent AF
-Home regimen includes metoprolol succinate, digoxin, and warfarin (INR 2.5-3.5)
-No known history of electrophysiologic interventions
-Holding warfarin as above
-Heart rate WNL here
#Chronic HFrEF
-Unclear etiology though does have history of hypertensive heart and kidney disease
-Most recent echocardiogram showed LVEF 35% with severe pHTN
-Home medications include beta-clive, ACEi, MRA, furosemide 20 mg daily
-No signs of clinically decompensated heart failure off diuretics
#Anemia of chronic disease
-Likely multifactorial and related to heart failure and liver disease
-Hemoglobin baseline likely near 9.0; hemoglobin here in the range of 8.3-8.7
-No signs of active bleeding at this time
#Dyslipidemia
-Home medications include high intensity atorvastatin nightly
-No known ASCVD history
#S/p PPM
-Unclear indication; no signs of pacemaker dysfunction
#Necrotic right heel wound
-Chronic and stable, wound care following for offloading interventions
-No signs of superimposed infection
-Trend CBC and temperature curve, monitor clinically
DVT prophylaxis: Warfarin
Diet: Cholesterol-lowering
CODE STATUS: Full code
Disposition: [facility] when medically stable
Anticipated Discharge: 24 - 48 hours
Subjective/Interval History
-
Date of Service: September 21, 2024
Seen and examined at the bedside. No acute events reported overnight. AFVSS this morning
INR therapeutic at 2.56. Hemoglobin slightly down trended though patient denies bleeding. Renal function continuing to improve with creatinine 1.4
He denies any new complaints today. Questions when he can go to rehab
Objective Data
-
Labs:
Laboratory Results
04/19/25
04:42
WBC 8.1
Hgb 7.6 L
Hct 23.7 L
Plt Count 279
PT 27.5 H
INR 2.56
Sodium 141
Potassium 5.1
Chloride 114 H
Carbon Dioxide 15 L
BUN 67 H
Creatinine 1.4 H
Glucose 97
Calcium 9.2
Total Bilirubin 1.6 H
AST 48
ALT 29
Alkaline Phosphatase 207 H
Vital Signs:
Vital Signs
Temp Pulse Resp BP Pulse Ox
97.8 F 60 20 102/66 96
09/21/24 07:35 09/21/24 09:18 09/21/24 04:00 09/21/24 09:18 09/21/24 04:07
I&O
09/20/24 09/21/24 09/22/24
06:59 06:59 06:59
Intake Total 1140 / 1140 970 / 970
Output Total 1225 / 1225 1400 / 1400
Balance -85 / -85 -430 / -430
Review of Systems
-
History Source: Patient
All other systems: Reviewed and negative
Physical Exam
-
General: Well Developed, No Apparent Distress, Comfortable and Appears Chronically Ill
HEENT: Normocephalic, Atraumatic, Moist Mucous Membranes and Anicteric
Respiratory: Clear to Auscultation and Non Labored Respirations
Cardiac: S1/S2, Irregular Rhythm and Murmur; Negative Rub, JVD, Gallop or Tachycardic
GI: Soft, Nontender, Nondistended and Normal Bowel Sounds
Musculoskeletal: No Clubbing, No Cyanosis and No Edema
Skin: Warm, Dry and Normal Turgor; Negative Rash or Jaundice
Neuro: AO x 3 and Nonfocal/Grossly Intact; Negative Tremors
Psych: Calm
Data Reviewed
-
Labs: Labs Reviewed by me, Discussed with Physician (Nephrology) and Discussed with Patient
--- NOTE | 2024-09-21 13:51 | PTCARENOTE ---
Pt's assessment as documented. Aox3, flat and withdrawn. 100% vpaced on tele monitor. Medications administered as ordered. Vitals and care as documented. Ringing appropriately, call moore within reach.
[2024-09-21] MEDS: LIPITOR 40 MG PO (17:22)
[2024-09-21] MEDS: COUMADIN 2.5 MG PO (17:22)
[2024-09-21] MEDS: MELATONIN 5 MG PO (22:26)
[2024-09-22] VITALS (13 sets, daily range): BP systolic 101–137; BP diastolic 64–96; BMI 21.8
[2024-09-22] MEDS: FLEXBUMIN 50 IV ×4 (00:56→23:52)
[2024-09-22] MEDS: MELATONIN 3 MG PO (02:30)
--- NOTE | 2024-09-22 04:58 | PTCARENOTE ---
Assumed care of pt from carolina RAMÍREZ. Pt aaox3 and flat. V paced on monitor. 96% on RA. Pt c/o trouble sleeping. Notified TAM Stiles and received Rx for melatonin (see MAR). Pt resting in bed with call moore in reach.
[2024-09-22 06:19] LABS: % Basophils 1.3 % (0-2); % Eosinophils 1.7 % (0-6); % Immature Granulocytes 0.4 % (0-0.5); % Lymphocytes 11.8 % (20.5-51.1); % Monocytes 9.4 % (1.7-9.3); % Neutrophils 75.4 % (42.2-75.2); Absolute Basophils 0.1 10^3/uL (0-0.2); Absolute Eosinophils 0.1 10^3/uL (0-0.7); Absolute Lymphocytes 0.9 10^3/uL (1.2-3.4); Absolute Monocytes 0.7 10^3/uL (0.1-0.6); Absolute Neutrophils 5.7 10^3/uL (1.4-6.5); Hemoglobin 7.7 g/dL (13.0-18.0); Mean Corp Hgb Conc. 32.1 g/dL (33.0-37.0); Mean Corpuscular Hgb 26.6 pg (27.0-31.0); Mean Platelet Volume 10.8 fL (7.4-10.4); Nucleated Red Blood Cells % 0 % (-); Platelet Count 273 10^3/uL (130-400); Red Blood Cell Count 2.89 10^6/uL (4.70-6.10); Red Cell Dist. Width 16.3 % (11.5-14.5); White Blood Cell Count 7.6 10^3/uL (4.8-10.8)
[2024-09-22 06:24] LABS: INR 2.69; PT 28.6 Sec (11.4-14.6)
[2024-09-22 06:35] LABS: Blood Urea Nitrogen 65 mg/dl (9-20); Calcium 9.4 mg/dl (8.4-10.2); Carbon Dioxide 19 mmol/L (22-30); Chloride 114 mmol/L (98-107); Estimated Creatinine Clearance 53 ml/min; Glucose 90 mg/dl (70-99); Potassium 5.1 mmol/L (3.5-5.1); Sodium 142 mmol/L (135-145); eGFR 54.07
[2024-09-22] MEDS: ASPIR LOW (ENTERIC COATED) 81 MG PO (07:49)
[2024-09-22] MEDS: NEURONTIN 100 MG PO ×3 (07:50→20:12)
[2024-09-22] MEDS: ProAmatine 5 MG PO ×3 (07:50→17:19)
[2024-09-22] MEDS: TOPROL XL 12.5 MG PO ×2 (07:50→20:12)
[2024-09-22] MEDS: SODIUM BICARBONATE 1300 MG PO ×3 (07:52→20:12)
[2024-09-22] MEDS: SANTYL OINTMENT 1 APPLIC TOPICAL (07:52)
[2024-09-22] MEDS: DESENEX/MITRAZOL/ZEASORB 1 APPLIC TOPICAL ×2 (07:52→20:13)
--- NOTE | 2024-09-22 10:13 | W.PN.HOSP.TC ---
Today's Communication/Plan
-
Continue albumin and midodrine for today
Discontinue MRA and KASIE inhibitor
Resume Lasix at discharge
Trend INR on home warfarin
IV ceftriaxone -> ciprofloxacin at DC
Assessment / Plan
Assessment / Plan
#BEBA on CKD stage IIIb
#Metabolic acidosis
#Mild hyperkalemia
-Likely prerenal secondary to overdiuresis versus HRS-NAKI
-Home regimen includes spironolactone and Lasix for history of ascites
-Baseline creatinine previously near 1.5; peak near 2.4 here; diuretics held
-Creatinine has since plateaued near 2.0; soft BP though no hypotension
-Was previously on oral bicarbonate therapy; held at nephrology's recommendation
-Blood pressure improved with albumin and midodrine; creatinine down to 1.6
Plan
-Continue to hold diuretics for now, trend BMP daily
-Plan to resume Lasix at discharge and hold Aldactone/ACEi
-Encourage oral hydration, no IVF for now; MAP goal >65
-Strict avoidance of nephrotoxins such as NSAIDs and iodinated contrast
-Continue with midodrine 5 mg and IV albumin TID
-Continue with oral bicarbonate replacement
#Ascites with SBP
#Liver cirrhosis
-Patient has history of ascites with home regimen of Lasix and spironolactone
-Diuretics held as above due to BEBA on CKD; creatinine stabilized near 2.0
-Paracentesis with PMN count 328 consistent with SBP; culture pending
-Was on doxycycline; transition to IV ceftriaxone while inpatient
-Ascites fluid cultures negative; CBC and temperature curve stable
-Will transition to ciprofloxacin at discharge to complete 10 days of antibiotic
#Supratherapeutic INR
#S/P Mechanical AVR
-Presented with INR >4; INR goal 2.5-3.5 with mechanical valve
-Home regimen includes warfarin 5 mg except on / when he gets 2.5 mg
-Home warfarin regimen held due to supratherapeutic INR; most recently 3.7
-Trend daily INR, plan for paracentesis when <3.5; s/p paracentesis 09/19
-INR 2.56 this morning, 2.5 mg warfarin for this evening
#Permanent AF
-Home regimen includes metoprolol succinate, digoxin, and warfarin (INR 2.5-3.5)
-No known history of electrophysiologic interventions
-Holding warfarin as above
-Heart rate WNL here
#Chronic HFrEF
-Unclear etiology though does have history of hypertensive heart and kidney disease
-Most recent echocardiogram showed LVEF 35% with severe pHTN
-Home medications include beta-clive, ACEi, MRA, furosemide 20 mg daily
-No signs of clinically decompensated heart failure off diuretics
-Planning to resume Lasix, hold ACEi and MRA at discharge
#Anemia of chronic disease
-Likely multifactorial and related to heart failure and liver disease
-Hemoglobin baseline likely near 9.0; hemoglobin here in the range of 8.3-8.7
-No signs of active bleeding at this time
#Dyslipidemia
-Home medications include high intensity atorvastatin nightly
-No known ASCVD history
#S/p PPM
-Unclear indication; no signs of pacemaker dysfunction
#Necrotic right heel wound
-Chronic and stable, wound care following for offloading interventions
-No signs of superimposed infection
-Trend CBC and temperature curve, monitor clinically
DVT prophylaxis: Warfarin
Diet: Cholesterol-lowering
CODE STATUS: Full code
Disposition: [facility]
Anticipated Discharge: Within 24 hours
Subjective/Interval History
-
Date of Service: September 22, 2024
Seen and examined at the bedside. No acute events reported overnight. AFVSS this morning
Hemoglobin stable as is renal function. Denies any bleeding or other symptoms
States he feels well and would like to be discharged possible
Objective Data
-
Labs:
Laboratory Results
09/22/24
05:40
WBC 7.6
Hgb 7.7 L
Hct 24.0 L
Plt Count 273
PT 28.6 H
INR 2.69
Sodium 142
Potassium 5.1
Chloride 114 H
Carbon Dioxide 19 L
BUN 65 H
Creatinine 1.4 H
Glucose 90
Calcium 9.4
Vital Signs:
Vital Signs
Temp Pulse Resp BP Pulse Ox
98.0 F 61 15 103/66 93
09/22/24 02:12 09/22/24 07:50 09/22/24 06:00 09/22/24 07:50 09/22/24 08:26
I&O
09/21/24 09/22/24 09/23/24
06:59 06:59 06:59
Intake Total 970 / 970 720 / 720
Output Total 1400 / 1400 850 / 850
Balance -430 / -430 -130 / -130
Review of Systems
-
History Source: Patient
All other systems: Reviewed and negative
Physical Exam
-
General: Well Developed, No Apparent Distress and Appears Chronically Ill
HEENT: Normocephalic, Atraumatic and Moist Mucous Membranes
Respiratory: Clear to Auscultation and Non Labored Respirations
Cardiac: Regular Rhythm, S1/S2 and Murmur; Negative Rub or Gallop
GI: Soft, Nontender, Nondistended and Normal Bowel Sounds
Musculoskeletal: No Clubbing, No Cyanosis and No Edema
Skin: Warm, Dry and Normal Turgor; Negative Rash or Jaundice
Neuro: AO x 3, Nonfocal/Grossly Intact and Central Nerve's Intact; Negative Tremors
Psych: Calm
Data Reviewed
-
Labs: Labs Reviewed by me and Discussed with Patient
[2024-09-22] MEDS: STERILE WATER FOR INJECTION 10 ML IV (11:00)
[2024-09-22] MEDS: ROCEPHIN 1000 MG IV (11:00)
--- NOTE | 2024-09-22 11:07 | CM ---
Updated clinicals sent to [facility]
Plan: discharge to SNF pending bed availability
--- NOTE | 2024-09-22 12:12 | W.PN.NEPH.PH ---
Today's Communication / Plan
-
observe and follow labs
Assessment/Plan
-
Assessment
Aortic Stenosis, AVR
Atrial Fibrillation
Permanent Pacemaker
HFrEF 35%
Essential Hypertension
Hyperlipidemia
BEBA
Azotemia
Liver cirrhosis
Status post paracentesis 09/19= 3.3 L
Plan
stable cr at 1.4
met acidosis improving on po bicarb
on alb course per primary
bp stable on midodrine
Holding diuretic therapy-wts stable, resume lasix at d/c
cont to hold ACEI and ALdactone
d/w pt
-
-
Date of Service: September 22, 2024
CC / HPI / ROS
-
Chief Complaint:
BEBA
History of Present Illness:
BEBA/Cr improved, cr stable at 1.4
k 5.1 , bicarb 19 improving, hb7.7 stable
Status post paracentesis 09/19
bp soft but stable
wt stable
Review of Systems:
No shortness of breath or chest pain
Nonoliguric
Labs
-
Labs:
WBC 7.6 10^3/uL (4.8-10.8) 09/22/24 05:40
RBC 2.89 10^6/uL (4.70-6.10) L 09/22/24 05:40
Hgb 7.7 g/dL (13.0-18.0) L 09/22/24 05:40
Hct 24.0 % (39.0-52.0) L 09/22/24 05:40
Plt Count 273 10^3/uL (130-400) 09/22/24 05:40
Sodium 142 mmol/L (135-145) 09/22/24 05:40
Potassium 5.1 mmol/L (3.5-5.1) 09/22/24 05:40
Chloride 114 mmol/L (98-107) H 09/22/24 05:40
Carbon Dioxide 19 mmol/L (22-30) L 09/22/24 05:40
BUN 65 mg/dl (9-20) H 09/22/24 05:40
Creatinine 1.4 mg/dL (0.7-1.3) H 09/22/24 05:40
eGFR 54.07 09/22/24 05:40
Glucose 90 mg/dl (70-99) 09/22/24 05:40
Calcium 9.4 mg/dl (8.4-10.2) 09/22/24 05:40
Albumin 3.5 g/dl (3.5-5.0) 09/21/24 04:42
Physical Exam
-
Vital Signs:
Vital Signs
Temp Pulse Resp BP Pulse Ox
97.9 F 60 25 114/71 95
09/22/24 07:55 09/22/24 08:00 09/22/24 10:00 09/22/24 10:00 09/22/24 10:56
Cardiovascular:: Regular rate and rhythm
Respiratory:: Bilateral: CTA (decreased)
Lung Excursion:: Normal
Abdomen:: Distended, Nontender and Soft
Extremity Edema:: None: Bilateral: (right trace ankle)
Hardy Catheter: No
[2024-09-22] MEDS: LIPITOR 40 MG PO (17:19)
[2024-09-22] MEDS: COUMADIN 2.5 MG PO (17:19)
[2024-09-22] MEDS: MELATONIN 5 MG PO (20:12)
[2024-09-23] VITALS (18 sets, daily range): BP systolic 60–127; BP diastolic 55–97; PULSE 60–61; O2SAT 95; BMI 22.2
[2024-09-23 05:04] LABS: % Eosinophils 1.6 % (0-6); % Immature Granulocytes 0.4 % (0-0.5); % Lymphocytes 11.5 % (20.5-51.1); % Monocytes 8.9 % (1.7-9.3); % Neutrophils 76.6 % (42.2-75.2); Absolute Basophils 0.1 10^3/uL (0-0.2); Absolute Eosinophils 0.1 10^3/uL (0-0.7); Absolute Lymphocytes 0.9 10^3/uL (1.2-3.4); Absolute Monocytes 0.7 10^3/uL (0.1-0.6); Absolute Neutrophils 6.2 10^3/uL (1.4-6.5); Hematocrit 23.8 % (39.0-52.0); Hemoglobin 7.6 g/dL (13.0-18.0); Mean Corp Hgb Conc. 31.9 g/dL (33.0-37.0); Mean Corpuscular Hgb 26.7 pg (27.0-31.0); Mean Corpuscular Volume 83.5 fL (80.0-94.0); Nucleated Red Blood Cells % 0 % (-); Platelet Count 253 10^3/uL (130-400); Red Blood Cell Count 2.85 10^6/uL (4.70-6.10); Red Cell Dist. Width 16.3 % (11.5-14.5); White Blood Cell Count 8.1 10^3/uL (4.8-10.8)
--- NOTE | 2024-09-23 05:14 | PTCARENOTE ---
No acute events overnight. Patient withdrawn and flat. VSS.
[2024-09-23 05:26] LABS: INR 2.68; PT 28.5 Sec (11.4-14.6)
[2024-09-23 05:27] LABS: Blood Urea Nitrogen 64 mg/dl (9-20); Calcium 9.3 mg/dl (8.4-10.2); Carbon Dioxide 17 mmol/L (22-30); Chloride 112 mmol/L (98-107); Estimated Creatinine Clearance 50 ml/min; Glucose 90 mg/dl (70-99); Potassium 5.2 mmol/L (3.5-5.1); Sodium 142 mmol/L (135-145); eGFR 49.77
[2024-09-23] MEDS: ProAmatine 5 MG PO ×3 (09:17→16:41)
[2024-09-23] MEDS: SODIUM BICARBONATE 1300 MG PO ×3 (09:17→21:02)
[2024-09-23] MEDS: NEURONTIN 100 MG PO ×3 (09:18→21:02)
[2024-09-23] MEDS: STERILE WATER FOR INJECTION 10 ML IV (09:18)
[2024-09-23] MEDS: ASPIR LOW (ENTERIC COATED) 81 MG PO (09:18)
[2024-09-23] MEDS: TOPROL XL 12.5 MG PO ×2 (09:18→19:59)
[2024-09-23] MEDS: ROCEPHIN 1000 MG IV (09:18)
[2024-09-23] MEDS: SANTYL OINTMENT 1 APPLIC TOPICAL (09:18)
--- NOTE | 2024-09-23 09:22 | PTCARENOTE ---
Patient received from assistant casino shift manager. Patient resting comfortably in bed. AAO, VSS. No events noted overnight. No complaints of pain at this time. Continues on Room Air. No fluids through IV. Wound care done overnight. Patient for possible
discharge today to SNF if not tomorrow. Will be downgraded if not discharge. No testing scheduled at this time. Call moore in reach.
[2024-09-23] MEDS: DESENEX/MITRAZOL/ZEASORB 1 APPLIC TOPICAL ×2 (10:08→19:53)
--- NOTE | 2024-09-23 14:02 | W.PN.HOSP.TC ---
Today's Communication/Plan
-
IRAD for repeat para
coumadin
hold diuretics-restart lasix on dc
tx to tele
Assessment / Plan
Assessment / Plan
#BEBA on CKD stage IIIb
#Metabolic acidosis
#Mild hyperkalemia
-Likely prerenal secondary to overdiuresis versus HRS-NAKI
-Home regimen includes spironolactone and Lasix for history of ascites
-Baseline creatinine previously near 1.5; peak near 2.4 here; diuretics held
-soft BP though no hypotension
-Blood pressure improved with albumin and midodrine; creatinine down to 1.5
-Continue to hold diuretics for now, trend BMP daily
-Plan to resume Lasix at discharge and hold Aldactone/ACEi
-Encourage oral hydration, no IVF for now; MAP goal >65
-Strict avoidance of nephrotoxins such as NSAIDs and iodinated contrast
-Continue with midodrine 5 mg
-Continue with oral bicarbonate replacement
#Ascites with culture negative neutrocystic SBP
#Liver cirrhosis
-Patient has history of ascites with home regimen of Lasix and spironolactone
-Diuretics held as above due to BEBA on CKD; creatinine stabilized
-Paracentesis with PMN count 328 consistent with SBP; culture are negative
-Was on doxycycline; transition to IV ceftriaxone while inpatient
-Ascites fluid cultures negative; CBC and temperature curve stable
-Repeat tap if enough fluid to assess for resolution of SBP. Last para on 09/19.
#Supratherapeutic INR with home regimen
#S/P Mechanical AVR
-Presented with INR >4; INR goal 2.5-3.5 with mechanical valve
-Home regimen includes warfarin 5 mg except on / when he gets 2.5 mg
-Home warfarin regimen held due to supratherapeutic INR; most recently 3.7
-Trend daily INR, plan for paracentesis when <3.5; s/p paracentesis 09/19
-INR 2.68 this morning, 2.5 mg warfarin for this evening
#Permanent AF
-Home regimen includes metoprolol succinate, digoxin, and warfarin (INR 2.5-3.5)
-No known history of electrophysiologic interventions
-Heart rate WNL here-can Dc digoxin as was held since admission and HR well controlled so far.
#Chronic HFrEF
-Unclear etiology though does have history of hypertensive heart and kidney disease
-Most recent echocardiogram showed LVEF 35% with severe pHTN
-Home medications include beta-clive, ACEi, MRA, furosemide 20 mg daily
-No signs of clinically decompensated heart failure off diuretics
-Planning to resume Lasix, hold ACEi and MRA at discharge
#Anemia of chronic disease
-Likely multifactorial and related to heart failure and liver disease
-Hemoglobin baseline likely near 9.0; hemoglobin here in the range of 8.3-8.7
-No signs of active bleeding at this time
#Dyslipidemia
-Home medications include high intensity atorvastatin nightly
-No known ASCVD history
#S/p PPM
-Unclear indication; no signs of pacemaker dysfunction
#Necrotic right heel wound
-Chronic and stable, wound care following for offloading interventions
-No signs of superimposed infection
-Trend CBC and temperature curve, monitor clinically
DVT prophylaxis: Warfarin
Diet: Cholesterol-lowering
CODE STATUS: Full code
Disposition: [facility]
Anticipated Discharge: Within 24 hours
Subjective/Interval History
-
Date of Service: September 23, 2024
states feeling tired sitting in bed
Objective Data
-
Labs:
Laboratory Results
09/23/24
04:17
WBC 8.1
Hgb 7.6 L
Hct 23.8 L
Plt Count 253
PT 28.5 H
INR 2.68
Sodium 142
Potassium 5.2 H
Chloride 112 H
Carbon Dioxide 17 L
BUN 64 H
Creatinine 1.5 H
Glucose 90
Calcium 9.3
Vital Signs:
Vital Signs
Temp Pulse Resp BP Pulse Ox
98.3 F 60 19 125/63 96
09/23/24 11:24 09/23/24 13:37 09/23/24 12:06 09/23/24 13:37 09/23/24 11:34
I&O
09/22/24 09/23/24 09/24/24
06:59 06:59 06:59
Intake Total 720 / 720 1420 / 1420
Output Total 850 / 850 625 / 625
Balance -130 / -130 795 / 795
Physical Exam
-
General: Well Developed, No Apparent Distress and Appears Chronically Ill
HEENT: Normocephalic, Atraumatic and Moist Mucous Membranes
Respiratory: Clear to Auscultation and Non Labored Respirations
Cardiac: Regular Rhythm, S1/S2 and Murmur; Negative Rub or Gallop
GI: Soft, Nontender, Normal Bowel Sounds and Distended (chronic)
Musculoskeletal: No Clubbing, No Cyanosis and No Edema
Skin: Warm, Dry and Normal Turgor; Negative Rash or Jaundice
Neuro: Awake, AO x 3, Nonfocal/Grossly Intact and Central Nerve's Intact; Negative Tremors
Psych: Calm
Data Reviewed
-
Total Time Spent with Patient (in minutes): 55
--- NOTE | 2024-09-23 14:03 | W.PN.NEPH.PH ---
Today's Communication / Plan
-
ok for d/c
Assessment/Plan
-
Assessment
Aortic Stenosis, AVR
Atrial Fibrillation
Permanent Pacemaker
HFrEF 35%
Essential Hypertension
Hyperlipidemia
BEBA
Azotemia
Liver cirrhosis
Status post paracentesis 09/19= 3.3 L
Plan
cr slightly up at 1.5
met acidosis persists onhigh dose of po bicarb
on alb course per primary
bp stable on midodrine
resume lasix , no aldactone with high k
cont to hold ACEI
d/w pt
-
-
Date of Service: September 23, 2024
CC / HPI / ROS
-
Chief Complaint:
BEBA
History of Present Illness:
BEBA/Cr cr slightly up at 1.5
k 5.2 , bicarb 17 , hb7.6 stable
Status post paracentesis 09/19
bp soft but stable
wt stable
Review of Systems:
No shortness of breath or chest pain
Nonoliguric
Labs
-
Labs:
WBC 8.1 10^3/uL (4.8-10.8) 09/23/24 04:17
RBC 2.85 10^6/uL (4.70-6.10) L 09/23/24 04:17
Hgb 7.6 g/dL (13.0-18.0) L 09/23/24 04:17
Hct 23.8 % (39.0-52.0) L 09/23/24 04:17
Plt Count 253 10^3/uL (130-400) 09/23/24 04:17
Sodium 142 mmol/L (135-145) 09/23/24 04:17
Potassium 5.2 mmol/L (3.5-5.1) H 09/23/24 04:17
Chloride 112 mmol/L (98-107) H 09/23/24 04:17
Carbon Dioxide 17 mmol/L (22-30) L 09/23/24 04:17
BUN 64 mg/dl (9-20) H 09/23/24 04:17
Creatinine 1.5 mg/dL (0.7-1.3) H 09/23/24 04:17
eGFR 49.77 09/23/24 04:17
Glucose 90 mg/dl (70-99) 09/23/24 04:17
Calcium 9.3 mg/dl (8.4-10.2) 09/23/24 04:17
Albumin 3.5 g/dl (3.5-5.0) 09/21/24 04:42
Physical Exam
-
Vital Signs:
Vital Signs
Temp Pulse Resp BP Pulse Ox
98.3 F 60 19 125/63 96
09/23/24 11:24 09/23/24 13:37 09/23/24 12:06 09/23/24 13:37 09/23/24 11:34
Cardiovascular:: Regular rate and rhythm
Respiratory:: Bilateral: CTA (decreased)
Lung Excursion:: Normal
Abdomen:: Distended, Nontender and Soft
Extremity Edema:: None: Bilateral: (right trace ankle)
Hardy Catheter: No
--- NOTE | 2024-09-23 15:18 | CM ---
Addendum entered by Cande Guzman RN 09/23/24 15:46:
Seen by wound care nurse.
Original Note:
Patient from [facility] with Dx BEBA. Room air. Receiving IV Abx. PT/OT recommend skilled rehab. Per nurse assessment; forgetful.
Spoke with Teresa, [facility]; they are able to accept the patient tomorrow. Teresa wants to speak with CM tomorrow about the time of day they will be ready to receive the patient. The for report [phone], fax [phone].
Met with patient, patient's Aunt Stephanie and his cousin; patient and aunt agree to [facility] SNF tomorrow by ambulance. IMM completed.
Plan contact [facility] tomorrow about timing of d/c.
Plan [facility] SN[facility] tomorrow by ambulance.
[2024-09-23] MEDS: FLEXBUMIN 100 IV ×2 (16:36→18:03)
[2024-09-23] MEDS: LASIX 20 MG PO (16:40)
[2024-09-23] MEDS: LIPITOR 40 MG PO (16:40)
[2024-09-23] MEDS: COUMADIN 2.5 MG PO (16:42)
[2024-09-23 17:05] LABS: Body Fluid LDH 191 U/L; Body Fluid Protein 3.9 g/dl
[2024-09-23 17:57] LABS: Body Fluid Polymorphonuclear 56.9 %; Body Fluid WBC 558 /CUMM
[2024-09-23 17:58] LABS: Body Fluid Mononuclear 43.1 %
[2024-09-23 17:59] LABS: Body Fluid Second Tech CMC
[2024-09-23] MEDS: TOPROL XL PO (19:53)
[2024-09-23] MEDS: MELATONIN 5 MG PO (21:02)
[2024-09-24] VITALS (11 sets, daily range): BP systolic 93–121; BP diastolic 53–68
--- NOTE | 2024-09-24 04:02 | PTCARENOTE ---
Presents with flat affect. Reports urge to have BM, attempted on BPx2 but unable. Denies new complaints at this time. Call moore within reach.
[2024-09-24] MEDS: SANTYL OINTMENT 1 APPLIC TOPICAL (04:55)
[2024-09-24 05:21] LABS: % Basophils 1.2 % (0-2); % Eosinophils 1.4 % (0-6); % Immature Granulocytes 0.3 % (0-0.5); % Monocytes 10.3 % (1.7-9.3); % Neutrophils 76.8 % (42.2-75.2); Absolute Basophils 0.1 10^3/uL (0-0.2); Absolute Eosinophils 0.1 10^3/uL (0-0.7); Absolute Lymphocytes 0.9 10^3/uL (1.2-3.4); Absolute Monocytes 0.9 10^3/uL (0.1-0.6); Absolute Neutrophils 6.6 10^3/uL (1.4-6.5); Hematocrit 23.3 % (39.0-52.0); Hemoglobin 7.6 g/dL (13.0-18.0); Mean Corp Hgb Conc. 32.6 g/dL (33.0-37.0); Mean Corpuscular Hgb 27.1 pg (27.0-31.0); Mean Corpuscular Volume 83.2 fL (80.0-94.0); Mean Platelet Volume 11.1 fL (7.4-10.4); Nucleated Red Blood Cells % 0 % (-); Platelet Count 241 10^3/uL (130-400); Red Cell Dist. Width 16.3 % (11.5-14.5); White Blood Cell Count 8.6 10^3/uL (4.8-10.8)
[2024-09-24 05:35] LABS: INR 2.68; PT 28.5 Sec (11.4-14.6)
[2024-09-24 05:50] LABS: Blood Urea Nitrogen 61 mg/dl (9-20); Calcium 8.9 mg/dl (8.4-10.2); Carbon Dioxide 18 mmol/L (22-30); Chloride 111 mmol/L (98-107); Estimated Creatinine Clearance 46 ml/min; Glucose 93 mg/dl (70-99); Potassium 4.8 mmol/L (3.5-5.1); Sodium 141 mmol/L (135-145); eGFR 49.77
[2024-09-24] MEDS: SODIUM BICARBONATE 1300 MG PO ×3 (09:48→22:16)
[2024-09-24] MEDS: TOPROL XL PO (09:48)
[2024-09-24] MEDS: LASIX 20 MG PO (09:49)
[2024-09-24] MEDS: ROCEPHIN 1000 MG IV (09:49)
[2024-09-24] MEDS: ProAmatine 5 MG PO ×3 (09:49→17:09)
[2024-09-24] MEDS: NEURONTIN 100 MG PO ×3 (09:49→22:16)
[2024-09-24] MEDS: ASPIR LOW (ENTERIC COATED) 81 MG PO (09:49)
[2024-09-24] MEDS: STERILE WATER FOR INJECTION 10 ML IV (09:49)
[2024-09-24] MEDS: DESENEX/MITRAZOL/ZEASORB 1 APPLIC TOPICAL ×2 (09:49→19:57)
--- NOTE | 2024-09-24 10:03 | CON.ID ---
Consultation
-
Date/Time Consultation Requested: September 24, 2024 0807
Date/Time Consultation Performed: September 24, 2024 1000
Requesting Provider: Dr. Roderick Turner
Performing Provider: Dr. Paula Hankins
Reason for Consultation: SBP
Chief Complaint / Past History
Chief Complaint
Abnormal lab
History of Present Illness
68-year-old male with history of atrial fibrillation, mechanical aortic valve replacement, pacemaker placement, heart failure with reduced EF, CKD 3, right posterior ankle wound who presented to the hospital from rehab on September 13 due to BEBA on CKD.
He was recent hospitalized September 02 -September 09 after mechanical fall, INR 8, noted to 4-week history of right posterior ankle wound with exposed Achilles tendon, MRI negative for osteo/abscess, evaluated by podiatry who recommended conservative
management/wound care. He was then discharged to rehab, where he was was started on doxycycline for the ankle wound. Patient was sent back to the ER September 13 for abnormal labs with BEBA on CKD. Patient noted to be in acute hypoxic respiratory
failure due to CHF. Patient with enlarging ascites. Paracentesis delayed due to need for INR less than 3.5 for paracentesis. September 19, he underwent 3.35 L paracentesis, ascites fluid with 518 white blood cells, 63.3% polys, culture negative. on
September 21, the doxycycline was replaced with ceftriaxone. September 23 he had repeat paracentesis of 5.6 L yellow fluid, white count 558, 57% polys, culture pending. Today patient reports his abdominal discomfort has improved after paracentesis. He is
unsure about what caused the cirrhosis possibly alcohol. He denies IV drug use. Of note, hepatitis C antibody is reactive. 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 No history of paracentesis in the past until this admission. He denies
cough or shortness of breath. No fevers or chills. No recent weight loss. No nausea vomiting or diarrhea. No urinary symptoms. Positive lower extremity edema. Regarding the right posterior ankle wound, he states he noted a pinch on the back of
his ankle for which he wrapped his ankle with a bandage. However he used the wrong bandage and the skin came off. The wound never healed. It is getting better however.
Past History
Additional Past Medical History:
Hypertension
HLD
Cirrhosis
Ascites
Hep C Ab positive
Vinco fibrillation
Pacemaker placement
Aortic stenosis s/p mechanical aortic valve replacement
HFrEF
CKD 3
Chronic right posterior ankle wound
Allergy History:
No Known Allergies Allergy (Unverified 09/02/24 14:20)
Medications Reviewed: Yes
Current Antibiotics:
Doxycycline (September 13 -September 20)
Ceftriaxone day 3
Social History
Tobacco: Non-Smoker
Alcohol: Former
Drug: None
Personal:
Employment: Not Employed
Family History
Family History: Not Pertinent
Review of Systems
Review of Systems
General: Change in Appetite; Negative Fever or Chills
HEENT: Negative Sinus Problems, Headache or Pharyngitis
Cardiovascular: Edema; Negative Chest Pain or Dyspnea
Respiratory: Negative Dyspnea or Cough
Gasteroenterology: Negative Nausea, Vomiting or Diarrhea
Genital / Urological: Negative Dysuria or Flank Pain
Endocrine: Weakness
Skin / Hair / Nails: Negative Rash
Neurological: Negative Dizziness
All systems: All other systems were reviewed and were negative
Vital Signs
Temp Pulse Resp BP Pulse Ox
97.6 F 68 16 93/57 94
09/24/24 07:55 09/24/24 09:48 09/23/24 16:15 09/24/24 09:48 09/23/24 20:38
Physical Exam
Physical Exam
Constitutional: Chronically Ill and Cachetic
Head: Other (No frontal or max or sinus tenderness)
Eyes: No Conjunctival Hemorrhage and Sclera Anicteric
Oral: Poor Dentition
Cardiovascular: Irregular Rate, S1/S2, Murmur (Mechanical clicking) and Other (Left chest wall pacemaker pocket site no induration/erythema)
Pulmonary: Clear
Gastrointestinal: Soft, Non Tender, Distended (Mild) and Normal Bowel Sounds
Genito-Urinary: Negative CVA Tenderness
Extremities: Edema (Bilateral lower extremity)
Wound: Other (Right posterior ankle: 3.5 cm oval wound with light yellow brown base, no drainage, no surrounding erythema)
Neurological: AO x 3
Lab / Diagnostic Study Results
09/24/24 04:53
09/24/24 04:53
Abs Immat Gran (auto) 0.0 10^3/uL (0-0.05) 09/24/24 04:53
Absolute Neuts (auto) 6.6 10^3/uL (1.4-6.5) H 09/24/24 04:53
Absolute Lymphs (auto) 0.9 10^3/uL (1.2-3.4) L 09/24/24 04:53
Absolute Monos (auto) 0.9 10^3/uL (0.1-0.6) H 09/24/24 04:53
Absolute Basos (auto) 0.1 10^3/uL (0-0.2) 09/24/24 04:53
Immature Gran % 0.3 % (0-0.5) 09/24/24 04:53
Neutrophils % 76.8 % (42.2-75.2) H 09/24/24 04:53
Lymphocytes % 10.0 % (20.5-51.1) L 09/24/24 04:53
Monocytes % 10.3 % (1.7-9.3) H 09/24/24 04:53
Eosinophils % 1.4 % (0-6) 09/24/24 04:53
Basophils % 1.2 % (0-2) 09/24/24 04:53
PT 28.5 Sec (11.4-14.6) H 09/24/24 04:53
INR 2.68 09/24/24 04:53
Ur Squamous Epith Cells 0-2 /LPF (Few) 09/13/24 12:01
Microbiology Results
Micro:
09/23/24 15:44 Body Fluid Culture - Pending
Peritoneal Fluid Gram Stain - Preliminary
09/19/24 08:50 Body Fluid Culture - Final
Peritoneal Fluid No Growth After 72 Hours
Gram Stain - Final
09/13/24 18:00 MRSA Screen - Final
Nose No Methicillin Resistant Staphylococcus aureus isolated.
09/14/24 CXR: Cardiomegaly, unchanged. Pulmonary vascularity at least top normal.
09/14/24 ABD US: At least moderate volume ascites is seen as was noted on recent prior study. Small bilateral pleural effusions are apparently noted on real-time imaging, right greater than left.
09/04/24 Ankle ZAKIYA: Soft tissue wound involving the posterior region of the heel, extending to the Achilles tendon and resulting in thinning of the Achilles tendon. There is no evidence for rupture of the Achilles tendon. Tendinosis of the distal
Achilles tendon. Edema of the fat anterior to the Achilles tendon compatible with peritendinitis.
Assessment / Plan
# SBP
# cirrhosis
# HCV Ab reactive
- 09/19 ascites 327 polys, cx negative (pt on doxycycline at the time)
- 09/23 ascites 09/23 : 318 polys, cx pending
- The repeat ascites suggestive of SBP despite being on ceftriaxone (d3)
- Await ascites cx.
- Replace ceftriaxone with Zosyn for now.
- Check HCV PCR in am.
# Chronic right posterior ankle wound
- No signs of infection
-Continue wound care, off loading.
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
Hypertension
HLD
Cirrhosis
Ascites
Hep C Ab positive
Vinco fibrillation
Pacemaker placement
Aortic stenosis s/p mechanical aortic valve replacement
HFrEF
CKD 3
Chronic right posterior ankle wound
Care Review
Plan reviewed with: Physician (Dr. Turner)
--- NOTE | 2024-09-24 11:19 | PTCARENOTE ---
Patient received from weight shifter. Patient resting comfortably in bed. AAO, VSS. No events noted overnight. No complaints of pain at this time. Continues on Room Air. No fluids through IV. Wound care done overnight. Patient was supposed to
be discharged to SNF today but was cancelled and ID consulted, Mickyn started. No testing scheduled at this time. Call moore in reach.
--- NOTE | 2024-09-24 11:34 | W.PN.NEPH.PH ---
Today's Communication / Plan
-
observe
maintain lasix 20mg daily
Assessment/Plan
-
Assessment
Aortic Stenosis, AVR
Atrial Fibrillation
Permanent Pacemaker
HFrEF 35%
Essential Hypertension
Hyperlipidemia
BEBA
Azotemia
Liver cirrhosis
Status post paracentesis 09/19= 3.3 L
Plan
cr unchanged at 1.5, nonoliguric
hemodynamically labile
met acidosis persists on high dose of po bicarb
on alb course per primary
bp stable on midodrine
maintain lasix , no aldactone with high k
cont to hold ACEI
d/w pt
-
-
Date of Service: September 24, 2024
CC / HPI / ROS
-
Chief Complaint:
BEBA
History of Present Illness:
BEBA/Cr cr slightly up at 1.5
k 5.2 , bicarb 17 , hb7.6 stable
Status post paracentesis 09/19
bp soft but stable
wt stable
Review of Systems:
No shortness of breath or chest pain
Nonoliguric
Labs
-
Labs:
WBC 8.6 10^3/uL (4.8-10.8) 09/24/24 04:53
RBC 2.80 10^6/uL (4.70-6.10) L 09/24/24 04:53
Hgb 7.6 g/dL (13.0-18.0) L 09/24/24 04:53
Hct 23.3 % (39.0-52.0) L 09/24/24 04:53
Plt Count 241 10^3/uL (130-400) 09/24/24 04:53
Sodium 141 mmol/L (135-145) 09/24/24 04:53
Potassium 4.8 mmol/L (3.5-5.1) 09/24/24 04:53
Chloride 111 mmol/L (98-107) H 09/24/24 04:53
Carbon Dioxide 18 mmol/L (22-30) L 09/24/24 04:53
BUN 61 mg/dl (9-20) H 09/24/24 04:53
Creatinine 1.5 mg/dL (0.7-1.3) H 09/24/24 04:53
eGFR 49.77 09/24/24 04:53
Glucose 93 mg/dl (70-99) 09/24/24 04:53
Calcium 8.9 mg/dl (8.4-10.2) 09/24/24 04:53
Albumin 3.5 g/dl (3.5-5.0) 09/21/24 04:42
Physical Exam
-
Vital Signs:
Vital Signs
Temp Pulse Resp BP Pulse Ox
97.6 F 68 16 93/57 94
09/24/24 07:55 09/24/24 09:48 09/23/24 16:15 09/24/24 09:48 09/23/24 20:38
Cardiovascular:: Regular rate and rhythm
Respiratory:: Bilateral: CTA (decreased)
Lung Excursion:: Normal
Abdomen:: Distended, Nontender and Soft
Extremity Edema:: None: Bilateral: (right trace ankle)
Hardy Catheter: No
--- NOTE | 2024-09-24 11:56 | CM ---
Patient from [facility] with Dx BEBA, Ascites s/p paracentesis. Room air. Receiving IV Abx. PT/OT; requires assist of 2, recommend skilled rehab. Per nurse assessment; forgetful.
Message from Dr Turner; discharge cancelled today due to a finding after paracentesis yesterday of persistent SBP, with probable need for additional 48 hrs here. It is not determined when next paracentesis will be needed.
Spoke with Teresa, [facility]; provided update that discharge is cancelled for today, and patient may be ready for d/c in a few days. Teresa is aware that patient has had a paracentesis yesterday and it is not determined when next
paracentesis will be needed. Per Teresa, CM will need to call for bed availability when closer to d/c. The for report [phone], fax [phone].
Met with patient and spoke with patient's Aunt Stephanie by phone; provided update that discharge was cancelled today due to need to treat infection found on paracentesis and for observation. Patient did not seem to remember that nurse had already
explained this to him, and asked why he could not be treated at SNF. The patient's aunt understood and she is aware that CM will need to contact [facility] for an available bed when patient is ready for d/c. Stephanie shared that she is 87 yrs old
and still planning on coming in today to see the patient.
Plan [facility] SNF when medically ready and bed available.
[2024-09-24] MEDS: ZOSYN 50 IV ×3 (12:31→23:56)
[2024-09-24] MEDS: TOPROL XL 12.5 MG PO ×2 (12:50→20:00)
[2024-09-24] MEDS: MIRALAX 17 GRAMS PO (12:52)
--- NOTE | 2024-09-24 13:20 | W.PN.HOSP.TC ---
Today's Communication/Plan
-
Discharge canceled
Antibiotics broadened to Zosyn
Okay for telemetry
Status post albumin
Continue with Lasix 20 mg
Assessment / Plan
Assessment / Plan
#BEBA on CKD stage IIIb
#Metabolic acidosis
#Mild hyperkalemia
-Likely prerenal secondary to overdiuresis versus HRS-NAKI
-Baseline creatinine previously near 1.5; peak near 2.4 here;
-soft BP though no hypotension
-Blood pressure improved with albumin and midodrine; creatinine down to 1.5
-Restart on low-dose of Lasix 20 mg.
-Plan to hold Aldactone/ACEi
-Encourage oral hydration, no IVF for now;
-Strict avoidance of nephrotoxins such as NSAIDs and iodinated contrast
-Continue with midodrine 5 mg
-Continue with oral bicarbonate replacement
#Ascites with culture negative neutrocystic SBP
#Liver cirrhosis
-Patient has history of ascites with home regimen of Lasix and spironolactone
-Diuretics held as above due to BEBA on CKD; creatinine stabilized
-Was on doxycycline; transition to IV ceftriaxone after paracentesis on 09/19
-Ascites fluid cultures negative however patient was on doxycycline prior to paracentesis on 09/19
-Repeat abdominal paracentesis with 5600 cc fluid removed status post 50 Of albumin on 09/23. Cell count persistently elevated and positive for SBP. Fluid cultures in lab.
-Infectious disease consulted for persistent SBP. IV ceftriaxone discontinued and started on Zosyn.
#Supratherapeutic INR with home regimen
#S/P Mechanical AVR
-Presented with INR >4; INR goal 2.5-3.5 with mechanical valve
-Home regimen includes warfarin 5 mg except on / when he gets 2.5 mg
-Home warfarin regimen held due to supratherapeutic INR; most recently 3.7
-Trend daily INR, plan for paracentesis when <3.5; s/p paracentesis 09/19
-INR 2.68 this morning, 2.5 mg warfarin for this evening
#Permanent AF
-Home regimen includes metoprolol succinate, digoxin, and warfarin (INR 2.5-3.5)
-No known history of electrophysiologic interventions
- Continue to monitor on telemetry.
#Chronic HFrEF
-Unclear etiology though does have history of hypertensive heart and kidney disease
-Most recent echocardiogram showed LVEF 35% with severe pHTN
-Home medications include beta-clive, ACEi, MRA, furosemide 20 mg daily
-No signs of clinically decompensated heart failure off diuretics
-Planning to resume Lasix, hold ACEi and MRA at discharge
#Anemia of chronic disease
-Likely multifactorial and related to heart failure and liver disease
-Hemoglobin baseline likely near 9.0; hemoglobin here in the range of 8.3-8.7
-No signs of active bleeding at this time
#Dyslipidemia
-Home medications include high intensity atorvastatin nightly
-No known ASCVD history
#S/p PPM
-Unclear indication; no signs of pacemaker dysfunction
#Necrotic right heel wound
-Chronic and stable, wound care following for offloading interventions
-No signs of superimposed infection
-Trend CBC and temperature curve, monitor clinically
DVT prophylaxis: Warfarin
Diet: Cholesterol-lowering
CODE STATUS: Full code
Disposition: SNF once ready.
Discussed with infectious disease
Anticipated Discharge: > 48 hours
Subjective/Interval History
-
Date of Service: September 24, 2024
States of decreased abdominal distention
Objective Data
-
Labs:
Laboratory Results
09/24/24
04:53
WBC 8.6
Hgb 7.6 L
Hct 23.3 L
Plt Count 241
PT 28.5 H
INR 2.68
Sodium 141
Potassium 4.8
Chloride 111 H
Carbon Dioxide 18 L
BUN 61 H
Creatinine 1.5 H
Glucose 93
Calcium 8.9
Vital Signs:
Vital Signs
Temp Pulse Resp BP Pulse Ox
97.6 F 61 16 109/61 94
09/24/24 07:55 09/24/24 12:50 09/23/24 16:15 09/24/24 12:50 09/23/24 20:38
I&O
09/23/24 09/24/24 09/25/24
06:59 06:59 06:59
Intake Total 1420 / 1420
Output Total 625 / 625 470 / 470 250 / 250
Balance 795 / 795 -470 / -470 -250 / -250
Physical Exam
-
General: Well Developed, No Apparent Distress and Appears Chronically Ill
HEENT: Normocephalic, Atraumatic and Moist Mucous Membranes
Respiratory: Clear to Auscultation and Non Labored Respirations
Cardiac: Regular Rhythm, S1/S2 and Murmur; Negative Rub or Gallop
GI: Soft, Nontender, Nondistended and Normal Bowel Sounds
Musculoskeletal: No Clubbing, No Cyanosis and No Edema
Skin: Warm, Dry and Normal Turgor; Negative Rash or Jaundice
Neuro: Awake, AO x 3, Nonfocal/Grossly Intact and Central Nerve's Intact; Negative Tremors
Psych: Calm
[2024-09-24 13:34] LABS: Magnesium 1.8 mg/dl (1.6-2.3); Phosphorus 3.7 mg/dl (2.5-4.5)
--- NOTE | 2024-09-24 14:39 | PTCARENOTE ---
Attempted to call report, receiving RN just stepped off the floor. Waiting for return phone call.
--- NOTE | 2024-09-24 15:45 | PTCARENOTE ---
Report called to [facility].
[2024-09-24] MEDS: MAGNESIUM SULFATE 50 IV (15:59)
--- NOTE | 2024-09-24 16:36 | PTCARENOTE ---
Patient transported to . Magnesium repletion on standby for duration of transfer.
[2024-09-24] MEDS: COUMADIN 2.5 MG PO (17:09)
[2024-09-24] MEDS: LIPITOR 40 MG PO (17:10)
[2024-09-24] MEDS: SENOKOT-S 1 TABLET PO (20:00)
[2024-09-24] MEDS: FLUSH (NSS) 1 FLUSH IV (20:03)
[2024-09-24] MEDS: MELATONIN 5 MG PO (22:17)
[2024-09-24] MEDS: FLUSH (NSS) 2 FLUSH IV (23:57)
[2024-09-25] VITALS (8 sets, daily range): BP systolic 93–108; BP diastolic 45–59; PULSE 61; BMI 20.8
[2024-09-25] MEDS: TYLENOL 650 MG PO (00:57)
[2024-09-25] MEDS: FLUSH (NSS) 2 FLUSH IV (05:54)
[2024-09-25] MEDS: ZOSYN 50 IV ×4 (05:54→23:14)
[2024-09-25 06:44] LABS: % Basophils 1.4 % (0-2); % Eosinophils 0.9 % (0-6); % Immature Granulocytes 0.4 % (0-0.5); % Lymphocytes 11.6 % (20.5-51.1); % Neutrophils 73.7 % (42.2-75.2); Absolute Basophils 0.1 10^3/uL (0-0.2); Absolute Eosinophils 0.1 10^3/uL (0-0.7); Absolute Lymphocytes 0.9 10^3/uL (1.2-3.4); Absolute Monocytes 0.9 10^3/uL (0.1-0.6); Absolute Neutrophils 5.8 10^3/uL (1.4-6.5); Hematocrit 23.6 % (39.0-52.0); Hemoglobin 7.7 g/dL (13.0-18.0); Mean Corp Hgb Conc. 32.6 g/dL (33.0-37.0); Mean Corpuscular Hgb 27.1 pg (27.0-31.0); Mean Corpuscular Volume 83.1 fL (80.0-94.0); Mean Platelet Volume 10.9 fL (7.4-10.4); Nucleated Red Blood Cells % 0 % (-); Platelet Count 225 10^3/uL (130-400); Red Blood Cell Count 2.84 10^6/uL (4.70-6.10); Red Cell Dist. Width 16.1 % (11.5-14.5); White Blood Cell Count 7.8 10^3/uL (4.8-10.8)
[2024-09-25 06:47] LABS: INR 2.77; PT 29.2 Sec (11.4-14.6)
[2024-09-25 08:06] LABS: Blood Urea Nitrogen 56 mg/dl (9-20); Calcium 9.1 mg/dl (8.4-10.2); Carbon Dioxide 21 mmol/L (22-30); Chloride 108 mmol/L (98-107); Estimated Creatinine Clearance 45 ml/min; Glucose 98 mg/dl (70-99); Potassium 4.8 mmol/L (3.5-5.1); Sodium 140 mmol/L (135-145); eGFR 46.06
[2024-09-25] MEDS: LASIX 20 MG PO (08:42)
[2024-09-25] MEDS: ProAmatine 5 MG PO ×3 (08:42→17:40)
[2024-09-25] MEDS: TOPROL XL 12.5 MG PO (08:42)
[2024-09-25] MEDS: ASPIR LOW (ENTERIC COATED) 81 MG PO (08:42)
[2024-09-25] MEDS: NEURONTIN 100 MG PO ×3 (08:43→20:49)
[2024-09-25] MEDS: SANTYL OINTMENT 1 APPLIC TOPICAL (08:48)
[2024-09-25] MEDS: SODIUM BICARBONATE 1300 MG PO ×3 (08:51→20:50)
[2024-09-25] MEDS: DESENEX/MITRAZOL/ZEASORB 1 APPLIC TOPICAL ×2 (08:52→20:49)
--- NOTE | 2024-09-25 11:48 | W.PN.HOSP.TC ---
Today's Communication/Plan
-
IV zosyn
await ID recs
PT/OT
SNF on discharge
Assessment / Plan
Assessment / Plan
#Ascites with culture negative neutrocystic SBP
#Liver cirrhosis
-Patient has history of ascites with home regimen of Lasix and spironolactone
-Was on doxycycline; transition to IV ceftriaxone after paracentesis on 09/19
-Ascites fluid cultures negative however patient was on doxycycline prior to paracentesis on 09/19
-Repeat abdominal paracentesis with 5600 cc fluid removed status post 50g Of albumin on 09/23. Cell count persistently elevated and positive for SBP. Fluid cultures in lab and negative x 48h.
- IV ceftriaxone discontinued and started on Zosyn.
-Infectious disease following
#BEBA on CKD stage IIIb
#Metabolic acidosis
#Mild hyperkalemia
-Likely prerenal secondary to overdiuresis versus HRS-NAKI
-Baseline creatinine previously near 1.5; peak near 2.4 here;
-soft BP though no hypotension
-Blood pressure improved with albumin and midodrine; creatinine down to 1.6
-Restart on low-dose of Lasix 20 mg.
-Plan to hold Aldactone/ACEi
-Encourage oral hydration, no IVF for now;
-Strict avoidance of nephrotoxins such as NSAIDs and iodinated contrast
-Continue with midodrine 5 mg
-Continue with oral bicarbonate replacement
#Supratherapeutic INR with home regimen
#S/P Mechanical AVR
-Presented with INR >4; INR goal 2.5-3.5 with mechanical valve
-Home regimen includes warfarin 5 mg except on when he gets 2.5 mg
-Home warfarin regimen held due to supratherapeutic INR; most recently 3.7
-Trend daily INR, plan for paracentesis when <3.5; s/p paracentesis 09/19
-INR 2.77 this morning, 2.5 mg warfarin for this evening PROBABLY new dose regimen.
#Permanent AF
-Home regimen includes metoprolol succinate, digoxin, and warfarin (INR 2.5-3.5)
-No known history of electrophysiologic interventions
- Continue to monitor on telemetry.
#Chronic HFrEF
-Unclear etiology though does have history of hypertensive heart and kidney disease
-Most recent echocardiogram showed LVEF 35% with severe pHTN
-Home medications include beta-clive, ACEi, MRA, furosemide 20 mg daily
-No signs of clinically decompensated heart failure off diuretics
-Planning to resume Lasix, hold ACEi and MRA at discharge
#Anemia of chronic disease
-Likely multifactorial and related to heart failure and liver disease
-Hemoglobin baseline likely near 9.0; hemoglobin here in the range of 8.3-8.7
-No signs of active bleeding at this time
#Dyslipidemia
-Home medications include high intensity atorvastatin nightly
-No known ASCVD history
#S/p PPM
-Unclear indication; no signs of pacemaker dysfunction
#Necrotic right heel wound
-Chronic and stable, wound care following for offloading interventions
-No signs of superimposed infection
-Trend CBC and temperature curve, monitor clinically
DVT prophylaxis: Warfarin
Diet: Cholesterol-lowering
CODE STATUS: Full code
Disposition: SNF once ready.
Anticipated Discharge: 24 - 48 hours
Subjective/Interval History
-
Date of Service: September 25, 2024
states he is bored
denies abd pain
Objective Data
-
Labs:
Laboratory Results
09/25/24
06:17
WBC 7.8
Hgb 7.7 L
Hct 23.6 L
Plt Count 225
PT 29.2 H
INR 2.77
Sodium 140
Potassium 4.8
Chloride 108 H
Carbon Dioxide 21 L
BUN 56 H
Creatinine 1.6 H
Glucose 98
Calcium 9.1
Vital Signs:
Vital Signs
Temp Pulse Resp BP Pulse Ox
97.4 F 61 18 102/55 96
09/25/24 07:30 09/25/24 08:42 09/25/24 07:30 09/25/24 08:42 09/25/24 07:30
I&O
09/24/24 09/25/24 09/26/24
06:59 06:59 06:59
Intake Total 400 / 400
Output Total 470 / 470 1250 / 1250
Balance -470 / -470 -850 / -850
Physical Exam
-
General: Well Developed, No Apparent Distress and Appears Chronically Ill
HEENT: Normocephalic, Atraumatic and Moist Mucous Membranes
Respiratory: Clear to Auscultation and Non Labored Respirations
Cardiac: Regular Rhythm, S1/S2 and Murmur; Negative Rub or Gallop
GI: Soft, Nontender, Nondistended and Normal Bowel Sounds
Musculoskeletal: No Clubbing, No Cyanosis and No Edema
Skin: Warm, Dry and Normal Turgor; Negative Rash or Jaundice
Neuro: Awake, AO x 3, Nonfocal/Grossly Intact and Central Nerve's Intact; Negative Tremors
Psych: Calm
--- NOTE | 2024-09-25 13:31 | W.PN.ID1 ---
Date of Service
Date of Service: September 25, 2024
Today's Communication
At time of dc, transition to Augmentin 875mg po bid through 09/30.
Assessment / Plan
# SBP
# cirrhosis
- 09/19 ascites 327 polys, cx negative (pt on doxycycline at the time)
- 09/23 ascites 09/23 : 318 polys, cx pending
- The repeat ascites suggestive of SBP despite being on ceftriaxone (d3)
- Repeat ascites cx neg x 48h
- Continue Zosyn (d2)
- At time of dc, transition to Augmentin 875mg po bid through 09/30.
# HCV Ab reactive
- HCV PCR pending
# Chronic right posterior ankle wound
- No signs of infection
-Continue wound care, off loading.
# Conditions [employer]
Hypertension
HLD
Cirrhosis
Ascites
Hep C Ab positive
[place] fibrillation
Pacemaker placement
Aortic stenosis s/p mechanical aortic valve replacement
HFrEF
CKD 3
Chronic right posterior ankle wound
Chief Complaint
-: Other (SBP)
Subjective / Review of Systems
No complaints. No abd pain.
Vital Signs / Physical Exam
Vital Signs
Vital Signs
Temp Pulse Resp BP Pulse Ox
98.7 F 61 20 97/45 96
09/25/24 11:55 09/25/24 11:55 09/25/24 11:55 09/25/24 11:55 09/25/24 11:55
Physical Exam
Constitutional: No Acute Distress and Comfortable
Cardiovascular: Irregular Rate and S1/S2
Gastrointestinal: Soft, Non Tender and Distended (mild)
Extremities: Negative Edema
Neurological: AO x 3
Objective Data
Lab Data
Lab Results
09/25/24 06:17
09/25/24 06:17
PT 29.2 Sec (11.4-14.6) H 09/25/24 06:17
INR 2.77 09/25/24 06:17
Estimated Creat Clear 45 ml/min 09/25/24 06:17
Total Bilirubin 1.6 mg/dl (0.2-1.3) H 09/21/24 04:42
AST 48 U/L (17-59) 09/21/24 04:42
ALT 29 U/L (0-50) 09/21/24 04:42
Alkaline Phosphatase 207 U/L (38-126) H 09/21/24 04:42
Most recent labs reviewed.
Micro Results:
09/23/24 15:44 Body Fluid Culture - Preliminary
Peritoneal Fluid No Growth After 48 Hours
Gram Stain - Preliminary
09/19/24 08:50 Body Fluid Culture - Final
Peritoneal Fluid No Growth After 72 Hours
Gram Stain - Final
09/13/24 18:00 MRSA Screen - Final
Nose No Methicillin Resistant Staphylococcus aureus isolated.
09/14/24 CXR: Cardiomegaly, unchanged. Pulmonary vascularity at least top normal.
09/14/24 ABD US: At least moderate volume ascites is seen as was noted on recent prior study. Small bilateral pleural effusions are apparently noted on real-time imaging, right greater than left.
09/04/24 Ankle ZAKIYA: Soft tissue wound involving the posterior region of the heel, extending to the Achilles tendon and resulting in thinning of the Achilles tendon. There is no evidence for rupture of the Achilles tendon. Tendinosis of the distal
Achilles tendon. Edema of the fat anterior to the Achilles tendon compatible with peritendinitis.
Care Review
Plan reviewed with: Physician (Dr. Turner)
--- NOTE | 2024-09-25 14:14 | CM ---
Spoke with attending who stated that patient is not medically cleared for transfer today. Placed a call to Teresa at [facility] to determine if bed will be available tomorrow. Teresa stated that this morning, patient's caregivers came to tour and
stated that patient intends to be jail not SNF. She stated that she does not have any exterminator care beds available and they would also have to go through the application process. Attending updated. Will get more SNF options from patient and
discuss SNF vrs LTC.
Plan: Case management will continue to follow and assist with discharge planning. Patient needs SNF but may not be able to discharge. Will need to get facility options that can accomodate LTC.
--- NOTE | 2024-09-25 14:40 | WOUNDNOTE ---
L 2ND TOE TIP
--- NOTE | 2024-09-25 15:06 | W.PN.NEPH.PH ---
Today's Communication / Plan
-
Signed off
Assessment/Plan
-
Assessment
Aortic Stenosis, AVR
Atrial Fibrillation
Permanent Pacemaker
HFrEF 35%
Essential Hypertension
Hyperlipidemia
BEBA
Azotemia
Liver cirrhosis
Status post paracentesis 09/19= 3.3 L
Plan
cr unchanged at 1.5, nonoliguric
hemodynamically labile
met acidosis persists on high dose of po bicarb
on alb course per primary
bp stable on midodrine
maintain lasix , potassium stable Aldactone as indicated
cont to hold ACEI
Renal function has been stable I will sign off please call if needed
-
-
Date of Service: September 25, 2024
CC / HPI / ROS
-
Chief Complaint:
BEBA
History of Present Illness:
BEBA/Cr cr slightly up at 1.5
Stable renal function
bp soft but stable
wt stable
Review of Systems:
No shortness of breath or chest pain
Nonoliguric
Labs
-
Labs:
WBC 7.8 10^3/uL (4.8-10.8) 09/25/24 06:17
RBC 2.84 10^6/uL (4.70-6.10) L 09/25/24 06:17
Hgb 7.7 g/dL (13.0-18.0) L 09/25/24 06:17
Hct 23.6 % (39.0-52.0) L 09/25/24 06:17
Plt Count 225 10^3/uL (130-400) 09/25/24 06:17
Sodium 140 mmol/L (135-145) 09/25/24 06:17
Potassium 4.8 mmol/L (3.5-5.1) 09/25/24 06:17
Chloride 108 mmol/L (98-107) H 09/25/24 06:17
Carbon Dioxide 21 mmol/L (22-30) L 09/25/24 06:17
BUN 56 mg/dl (9-20) H 09/25/24 06:17
Creatinine 1.6 mg/dL (0.7-1.3) H 09/25/24 06:17
eGFR 46.06 09/25/24 06:17
Glucose 98 mg/dl (70-99) 09/25/24 06:17
Calcium 9.1 mg/dl (8.4-10.2) 09/25/24 06:17
Phosphorus 3.7 mg/dl (2.5-4.5) 09/24/24 04:53
Albumin 3.5 g/dl (3.5-5.0) 09/21/24 04:42
Physical Exam
-
Vital Signs:
Vital Signs
Temp Pulse Resp BP Pulse Ox
98.7 F 61 20 97/45 96
09/25/24 11:55 09/25/24 11:55 09/25/24 11:55 09/25/24 11:55 09/25/24 11:55
Cardiovascular:: Regular rate and rhythm
Respiratory:: Bilateral: CTA (decreased)
Lung Excursion:: Normal
Abdomen:: Distended, Nontender and Soft
Extremity Edema:: None: Bilateral: (right trace ankle)
Hardy Catheter: No
--- NOTE | 2024-09-25 15:26 | WOUNDNOTE ---
[facility] RN note: Patient's sacrum dull red and intact. Skin on heels intact. R Achilles wound appears the same, dry necrotic. Scant yellow drainage. R Achilles dressing changed. Protective foam applied to heels. Sacral foam applied. Waffle air overlay
and patient turned to L semi side lying position with help from PCT Aimee. TruVue lite boot reapplied to LLE and reapplied open to RLE per patient request. Bariatric air chair cushion applied under heels/boots. [place] texted update including R
Achilles wound picture to Dr. Turner re: R Achilles tendon remain dry necrotic; defer to hospitalist if podiatry and/or vascular consult indicted if he's a candidate for more aggressive care. Hospitalist approved minor changes in wound care. Care
plan and discharge instructions updated. Discussed with DARRELL Rosales.
[2024-09-25] MEDS: LIPITOR 40 MG PO (17:41)
[2024-09-25] MEDS: COUMADIN 2.5 MG PO (17:41)
[2024-09-25] MEDS: MELATONIN 5 MG PO (20:50)
[2024-09-25] MEDS: TOPROL XL PO (20:53)
[2024-09-26] VITALS (7 sets, daily range): BP systolic 89–110; BP diastolic 52–62; BMI 20.7
[2024-09-26] MEDS: ZOSYN 50 IV ×4 (05:19→23:11)
--- NOTE | 2024-09-26 06:27 | DOWNTIME ---
There was a [employer] Client Associate Account Manager Downtime on 09/26/2024 from 0200 to 09/27/2023 at 0318 . Downtime documentation of patient's care, including medication administrations, has been reconciled in the electronic record per guidelines. Refer to the
patient's paper chart under the miscellaneous tab to see printed paper medication records and downtime forms.
[2024-09-26 08:06] LABS: INR 3.14; PT 32.6 Sec (11.4-14.6)
[2024-09-26 08:19] LABS: Blood Urea Nitrogen 53 mg/dl (9-20); Carbon Dioxide 24 mmol/L (22-30); Chloride 106 mmol/L (98-107); Estimated Creatinine Clearance 40 ml/min; Glucose 77 mg/dl (70-99); Potassium 4.5 mmol/L (3.5-5.1); Sodium 139 mmol/L (135-145); eGFR 39.99
[2024-09-26 08:33] LABS: % Basophils 1.5 % (0-2); % Eosinophils 2.9 % (0-6); % Immature Granulocytes 0.4 % (0-0.5); % Lymphocytes 13.1 % (20.5-51.1); % Monocytes 10.2 % (1.7-9.3); % Neutrophils 71.9 % (42.2-75.2); Absolute Basophils 0.1 10^3/uL (0-0.2); Absolute Eosinophils 0.2 10^3/uL (0-0.7); Absolute Lymphocytes 0.9 10^3/uL (1.2-3.4); Absolute Monocytes 0.7 10^3/uL (0.1-0.6); Absolute Neutrophils 4.9 10^3/uL (1.4-6.5); Hematocrit 25.5 % (39.0-52.0); Mean Corp Hgb Conc. 31.4 g/dL (33.0-37.0); Mean Corpuscular Hgb 26.1 pg (27.0-31.0); Mean Corpuscular Volume 83.1 fL (80.0-94.0); Mean Platelet Volume 11.4 fL (7.4-10.4); Nucleated Red Blood Cells % 0 % (-); Platelet Count 253 10^3/uL (130-400); Red Blood Cell Count 3.07 10^6/uL (4.70-6.10); Red Cell Dist. Width 16.5 % (11.5-14.5); White Blood Cell Count 6.8 10^3/uL (4.8-10.8)
[2024-09-26] MEDS: SODIUM BICARBONATE 1300 MG PO ×3 (09:23→20:21)
[2024-09-26] MEDS: TOPROL XL PO (09:23)
[2024-09-26] MEDS: ASPIR LOW (ENTERIC COATED) 81 MG PO (09:23)
[2024-09-26] MEDS: ProAmatine 5 MG PO ×3 (09:24→17:42)
[2024-09-26] MEDS: SANTYL OINTMENT 1 APPLIC TOPICAL (09:24)
[2024-09-26] MEDS: LASIX 20 MG PO (09:24)
[2024-09-26] MEDS: NEURONTIN 100 MG PO ×3 (09:25→20:22)
[2024-09-26] MEDS: DESENEX/MITRAZOL/ZEASORB 1 APPLIC TOPICAL ×2 (09:28→20:21)
--- NOTE | 2024-09-26 09:43 | W.PN.ID1 ---
Date of Service
Date of Service: September 26, 2024
Today's Communication
- Continue Zosyn (d3)
- At time of dc, transition to Augmentin 875mg po bid through 09/30.
Assessment / Plan
# SBP
# cirrhosis
- 09/19 ascites 327 polys, cx negative (pt on doxycycline at the time)
- 09/23 ascites 09/23 : 318 polys, cx pending
- The repeat ascites suggestive of SBP despite being on ceftriaxone (d3)
- Repeat ascites cx neg x 48h
- Continue Zosyn (d3)
- At time of dc, transition to Augmentin 875mg po bid through 09/30.
# HCV Ab reactive
- HCV PCR pending
# Chronic right posterior ankle wound
- No signs of infection
-Continue wound care, off loading.
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
Hypertension
HLD
Cirrhosis
Ascites
Hep C Ab positive
[place] fibrillation
Pacemaker placement
Aortic stenosis s/p mechanical aortic valve replacement
HFrEF
CKD 3
Chronic right posterior ankle wound
Chief Complaint
-: Other (SBP)
Subjective / Review of Systems
No new complaints.
Vital Signs / Physical Exam
Vital Signs
Vital Signs
Temp Pulse Resp BP Pulse Ox
97.3 F 62 16 99/60 99
09/26/24 07:40 09/26/24 09:23 09/26/24 07:40 09/26/24 09:23 09/26/24 07:40
Physical Exam
Constitutional: No Acute Distress and Comfortable
Cardiovascular: Irregular Rate and S1/S2
Gastrointestinal: Soft, Non Tender and Distended (mild)
Extremities: Negative Edema
Neurological: AO x 3
Objective Data
Lab Data
Lab Results
09/26/24 06:36
09/26/24 06:36
PT 32.6 Sec (11.4-14.6) H 09/26/24 06:36
INR 3.14 09/26/24 06:36
Estimated Creat Clear 40 ml/min 09/26/24 06:36
Total Bilirubin 1.6 mg/dl (0.2-1.3) H 09/21/24 04:42
AST 48 U/L (17-59) 09/21/24 04:42
ALT 29 U/L (0-50) 09/21/24 04:42
Alkaline Phosphatase 207 U/L (38-126) H 09/21/24 04:42
Most recent labs reviewed.
Micro Results:
09/23/24 15:44 Body Fluid Culture - Preliminary
Peritoneal Fluid No Growth After 48 Hours
Gram Stain - Preliminary
09/19/24 08:50 Body Fluid Culture - Final
Peritoneal Fluid No Growth After 72 Hours
Gram Stain - Final
09/13/24 18:00 MRSA Screen - Final
Nose No Methicillin Resistant Staphylococcus aureus isolated.
09/14/24 CXR: Cardiomegaly, unchanged. Pulmonary vascularity at least top normal.
09/14/24 ABD US: At least moderate volume ascites is seen as was noted on recent prior study. Small bilateral pleural effusions are apparently noted on real-time imaging, right greater than left.
09/04/24 Ankle ZAKIYA: Soft tissue wound involving the posterior region of the heel, extending to the Achilles tendon and resulting in thinning of the Achilles tendon. There is no evidence for rupture of the Achilles tendon. Tendinosis of the distal
Achilles tendon. Edema of the fat anterior to the Achilles tendon compatible with peritendinitis.
--- NOTE | 2024-09-26 10:44 | CM ---
Late entry note) 09/26/23
Received a call from Teresa in admissions at [facility] who stated that earlier in the day, staff from [facility] came in to tour facility and advised Production Boring Machine Operator, per Teresa, that they felt that patient will most likely be half-way. As
this is the case, Admissions is denying bed. director strategic account management stated that prior to even considering admission at this time, patient's family would need to assist with a financial application prior to any consideration of offering a bed when they
have one.
This was relayed to patient's aunt Stephanie who denied that the family is working with [facility] and stated that the goal was always for short term rehab. Placed a call back to Teresa who stated that per the [facility] relayed that patient's family signed patient on with their services.
Spoke with Stephanie who stated that is not the case. Regardless, [facility] is no longer an option for family. Patient medically stable for discharge. Will need to look for alternate placement.
Plan: Case management will continue to follow and assist with discharge planning. SNF.
--- NOTE | 2024-09-26 12:05 | W.PN.HOSP.TC ---
Today's Communication/Plan
-
Await placement
Po antibiotics on discharge
Assessment / Plan
Assessment / Plan
# Spontaneous bacterial peritonitis
#Liver cirrhosis
-Patient has history of ascites with home regimen of Lasix and spironolactone
-Was on doxycycline; transition to IV ceftriaxone after paracentesis on 09/19
-Ascites fluid cultures negative however patient was on doxycycline prior to paracentesis on 09/19
-Repeat abdominal paracentesis with 5600 cc fluid removed status post 50g Of albumin on 09/23. Cell count persistently elevated and positive for SBP. Fluid cultures in lab and negative x 48h.
- IV ceftriaxone discontinued and started on Zosyn. Plan to switch to Augmentin on discharge
-Infectious disease following
#BEBA on CKD stage IIIb
#Metabolic acidosis
#Mild hyperkalemia
-Likely prerenal secondary to overdiuresis versus HRS-NAKI
-Baseline creatinine previously near 1.5; peak near 2.4 here;
-soft BP though no hypotension
-Blood pressure improved with albumin and midodrine;
-Restart on low-dose of Lasix 20 mg.
-Plan to hold Aldactone/ACEi
-Encourage oral hydration, no IVF for now;
-Strict avoidance of nephrotoxins such as NSAIDs and iodinated contrast
-Continue with midodrine 5 mg
-Continue with oral bicarbonate replacement
#Supratherapeutic INR with home regimen
#S/P Mechanical AVR
-Presented with INR >4; INR goal 2.5-3.5 with mechanical valve
-Home regimen includes warfarin 5 mg except on / when he gets 2.5 mg
-Home warfarin regimen held due to supratherapeutic INR; most recently 3.7
-Trend daily INR, plan for paracentesis when <3.5; s/p paracentesis 09/19
-INR 3.1 this morning, 2.5 mg warfarin for this evening PROBABLY new dose regimen.
#Permanent AF
-Home regimen includes metoprolol succinate, digoxin, and warfarin (INR 2.5-3.5)
- Continue with metoprolol with hold parameters
- Continue to monitor on telemetry.
#Chronic HFrEF
-Unclear etiology though does have history of hypertensive heart and kidney disease
-Most recent echocardiogram showed LVEF 35% with severe pHTN
-Home medications include beta-clive, ACEi, MRA, furosemide 20 mg daily
-No signs of clinically decompensated heart failure off diuretics
-Planning to resume Lasix, hold ACEi and MRA at discharge
#Anemia of chronic disease
-Likely multifactorial and related to heart failure and liver disease
-Hemoglobin baseline likely near 9.0; hemoglobin here in the range of 8.3-8.7
-No signs of active bleeding at this time
#Dyslipidemia
-Home medications include high intensity atorvastatin nightly
-No known ASCVD history
#S/p PPM
-Unclear indication; no signs of pacemaker dysfunction
#Necrotic right heel wound
-Chronic and stable, wound care following for offloading interventions
-No signs of superimposed infection
-Trend CBC and temperature curve, monitor clinically
DVT prophylaxis: Warfarin
Diet: Cholesterol-lowering
CODE STATUS: Full code
Disposition: Medically stable for discharge. Case management aware.
Anticipated Discharge: Today
Subjective/Interval History
-
Date of Service: September 26, 2024
denies abd pain
states he is bored
Objective Data
-
Labs:
Laboratory Results
09/26/24
06:36
WBC 6.8
Hgb 8.0 L
Hct 25.5 L
Plt Count 253
PT 32.6 H
INR 3.14
Sodium 139
Potassium 4.5
Chloride 106
Carbon Dioxide 24
BUN 53 H
Creatinine 1.8 H
Glucose 77
Calcium 9.0
Vital Signs:
Vital Signs
Temp Pulse Resp BP Pulse Ox
97.4 F 61 18 89/57 100
09/26/24 11:05 09/26/24 11:05 09/26/24 11:05 09/26/24 11:05 09/26/24 11:05
I&O
09/25/24 09/26/24 09/27/24
06:59 06:59 06:59
Intake Total 400 / 400 820 / 820
Output Total 1250 / 1250 1250 / 1250
Balance -850 / -850 -430 / -430
Physical Exam
-
General: Well Developed, No Apparent Distress and Appears Chronically Ill
HEENT: Normocephalic, Atraumatic and Moist Mucous Membranes
Respiratory: Clear to Auscultation and Non Labored Respirations
Cardiac: Regular Rhythm, S1/S2 and Murmur; Negative Rub or Gallop
GI: Soft, Nontender, Nondistended and Normal Bowel Sounds
Musculoskeletal: No Clubbing, No Cyanosis and No Edema
Skin: Warm, Dry and Normal Turgor; Negative Rash or Jaundice
Neuro: Awake, AO x 3, Nonfocal/Grossly Intact and Central Nerve's Intact; Negative Tremors
Psych: Calm
--- NOTE | 2024-09-26 14:09 | CM ---
Addendum entered by JENELLE Guillermo 09/26/24 16:44:
Received call back from Janet in admissions at [facility] who reviewed referral and stated that she will consider accepting patient, however, family needs to complete a financial application prior to admission. She emailed the application, will provide
this to family to complete.
Original Note:
Spoke with patient's aunt and cousin who were at bedside. They stated that as [facility] does not have a bed for patient they would like referrals sent to, [facility] and [facility] SNFs.
Referrals sent. Will await determinations.
Plan: Case management will continue to follow and assist with discharge planning. SNF when bed is found.
[2024-09-26] MEDS: COUMADIN 2.5 MG PO (17:41)
[2024-09-26] MEDS: LIPITOR 40 MG PO (17:42)
[2024-09-26 19:09] LABS: HCV Quant by NAAT IU/mL Not Detected; HCV Quant by NAAT Interp Not Detected (Not Detected); HCV Quant by NAAT Log IU/mL Not Detected log IU/mL
[2024-09-26] MEDS: MELATONIN 5 MG PO (20:22)
[2024-09-26] MEDS: TOPROL XL 12.5 MG PO (20:24)
[2024-09-27 03:38] VITALS: BP 116/60
[2024-09-27] MEDS: ZOSYN 50 IV ×3 (05:24→17:39)
[2024-09-27 05:29] VITALS: BMI 21.6
[2024-09-27] MEDS: SANTYL OINTMENT 1 APPLIC TOPICAL (05:33)
[2024-09-27 07:28] LABS: % Basophils 1.5 % (0-2); % Eosinophils 2.8 % (0-6); % Immature Granulocytes 0.4 % (0-0.5); % Lymphocytes 11.9 % (20.5-51.1); % Monocytes 10.9 % (1.7-9.3); % Neutrophils 72.5 % (42.2-75.2); Absolute Basophils 0.1 10^3/uL (0-0.2); Absolute Eosinophils 0.2 10^3/uL (0-0.7); Absolute Lymphocytes 0.9 10^3/uL (1.2-3.4); Absolute Monocytes 0.8 10^3/uL (0.1-0.6); Absolute Neutrophils 5.5 10^3/uL (1.4-6.5); Hematocrit 25.4 % (39.0-52.0); Hemoglobin 8.2 g/dL (13.0-18.0); Mean Corp Hgb Conc. 32.3 g/dL (33.0-37.0); Mean Corpuscular Hgb 26.8 pg (27.0-31.0); Mean Platelet Volume 11.1 fL (7.4-10.4); Nucleated Red Blood Cells % 0 % (-); Platelet Count 265 10^3/uL (130-400); Red Blood Cell Count 3.06 10^6/uL (4.70-6.10); Red Cell Dist. Width 16.2 % (11.5-14.5); White Blood Cell Count 7.5 10^3/uL (4.8-10.8)
[2024-09-27 07:37] LABS: INR 3.24; PT 33.4 Sec (11.4-14.6)
[2024-09-27 07:52] LABS: Blood Urea Nitrogen 50 mg/dl (9-20); Calcium 8.9 mg/dl (8.4-10.2); Carbon Dioxide 23 mmol/L (22-30); Chloride 106 mmol/L (98-107); Estimated Creatinine Clearance 39 ml/min; Glucose 85 mg/dl (70-99); Potassium 4.4 mmol/L (3.5-5.1); Sodium 139 mmol/L (135-145); eGFR 37.48
[2024-09-27 07:55] VITALS: BP 106/61
[2024-09-27] MEDS: TOPROL XL 12.5 MG PO (08:47)
[2024-09-27] MEDS: SODIUM BICARBONATE 1300 MG PO ×2 (08:47→17:36)
[2024-09-27] MEDS: NEURONTIN 100 MG PO ×2 (08:47→17:38)
[2024-09-27] MEDS: ProAmatine 5 MG PO ×3 (08:48→17:38)
[2024-09-27] MEDS: LASIX PO (08:48)
[2024-09-27] MEDS: ASPIR LOW (ENTERIC COATED) 81 MG PO (08:48)
[2024-09-27 11:05] VITALS: BP 118/47
[2024-09-27] MEDS: DESENEX/MITRAZOL/ZEASORB 1 APPLIC TOPICAL (11:26)
--- NOTE | 2024-09-27 12:25 | W.PN.HOSP.TC ---
Today's Communication/Plan
-
awaiting placement
trend cr/inr
oob/chair
pt/ot
Assessment / Plan
Assessment / Plan
# Spontaneous bacterial peritonitis
#Liver cirrhosis
-Patient has history of ascites with home regimen of Lasix and spironolactone
-Was on doxycycline; transition to IV ceftriaxone after paracentesis on 09/19
-Ascites fluid cultures negative however patient was on doxycycline prior to paracentesis on 09/19
-Repeat abdominal paracentesis with 5600 cc fluid removed status post 50g Of albumin on 09/23. Cell count persistently elevated and positive for SBP. Fluid cultures in lab and negative x 48h.
- IV ceftriaxone discontinued and started on Zosyn. Plan to switch to Augmentin on discharge through 09/30.
-Infectious disease following
#BEBA on CKD stage IIIb
#Metabolic acidosis
#Mild hyperkalemia
-Likely prerenal secondary to overdiuresis versus HRS-NAKI
-Baseline creatinine previously near 1.5; peak near 2.4 here;
-soft BP though no hypotension
-Blood pressure improved with albumin and midodrine;
-Restart on low-dose of Lasix 20 mg. Held for today.
-Plan to DC Aldactone/ACEi
-Encourage oral hydration, no IVF for now;
-Strict avoidance of nephrotoxins such as NSAIDs and iodinated contrast
-Continue with midodrine 5 mg
-Continue with oral bicarbonate replacement
#Supratherapeutic INR with home regimen
#S/P Mechanical AVR
-Presented with INR >4; INR goal 2.5-3.5 with mechanical valve
-Home regimen includes warfarin 5 mg except on when he gets 2.5 mg
-Home warfarin regimen held due to supratherapeutic INR; most recently 3.7
-Trend daily INR, plan for paracentesis when <3.5; s/p paracentesis 09/19
-INR 3.2 this morning, 2.5 mg warfarin for this evening PROBABLY new dose regimen.
#Permanent AF
-Home regimen includes metoprolol succinate, digoxin, and warfarin (INR 2.5-3.5)
- Continue with metoprolol with hold parameters
- Continue to monitor on telemetry.
#Chronic HFrEF
-Most recent echocardiogram showed LVEF 35% with severe pHTN
-Home medications include beta-clive, ACEi, MRA, furosemide 20 mg daily
-Planning to resume Lasix, hold ACEi and MRA at discharge
#Anemia of chronic disease
-Likely multifactorial and related to heart failure and liver disease
-Hemoglobin baseline likely near 9.0; hemoglobin here in the range of 8.3-8.7
-No signs of active bleeding at this time
#Dyslipidemia
-Home medications include high intensity atorvastatin nightly
#S/p PPM
-Unclear indication; no signs of pacemaker dysfunction
#Necrotic right heel wound
-Chronic and stable, wound care following for offloading interventions
-No signs of superimposed infection
-Trend CBC and temperature curve, monitor clinically
DVT prophylaxis: Warfarin
Diet: Cholesterol-lowering
CODE STATUS: Full code
Disposition: Medically stable for discharge. Case management aware. Possibility of [facility] placement
Anticipated Discharge: Today
Subjective/Interval History
-
Date of Service: September 27, 2024
wt in bed scale-unclear of accuracy on daily basis
denies abd pain
Objective Data
-
Labs:
Laboratory Results
09/27/24
06:34
WBC 7.5
Hgb 8.2 L
Hct 25.4 L
Plt Count 265
PT 33.4 H
INR 3.24
Sodium 139
Potassium 4.4
Chloride 106
Carbon Dioxide 23
BUN 50 H
Creatinine 1.9 H
Glucose 85
Calcium 8.9
Vital Signs:
Vital Signs
Temp Pulse Resp BP Pulse Ox
97.6 F 61 16 115/60 99
09/27/24 11:05 09/27/24 11:05 09/27/24 11:05 09/27/24 12:08 09/27/24 11:05
I&O
09/26/24 09/27/24 09/28/24
06:59 06:59 06:59
Intake Total 820 / 820 340 / 340 240 / 240
Output Total 1250 / 1250 600 / 600 125 / 125
Balance -430 / -430 -260 / -260 115 / 115
--- NOTE | 2024-09-27 13:28 | CM ---
Addendum entered by JENELLE Guillermo 09/27/24 16:37:
[facility] agreed to take patient. Attending updated.
Patient's aunt and cousin agreeable.
#For report [phone] fax# [phone]
IMM reviewed with aunt. She is agreeable. It is on chart.
Addendum entered by JENELLE Guillermo 09/27/24 14:01:
Spoke with Stephanie who reviewed application and declined to complete it. As this was the case, she was agreeable to referrals being made to [facility] and [facility] as long as they don't ask for application.
Deedee from admissions will review and provide determination.
Original Note:
Spoke with patient's aunt Stephanie who stated that she will be agreeable to completing the financial application. Called Janet in admissions at [facility] who confirmed bed availability upon completion of application.
Plan: Case management will continue to follow and assist with discharge planning. Patient's family hopeful for [facility].
[2024-09-27 15:05] VITALS: BP 116/54; PULSE 68
[2024-09-27 15:24] VITALS: BP 110/53
--- NOTE | 2024-09-27 16:54 | W.DCSUMMARY ---
Discharge Summary
Discharge Data
Date of Admission: 09/13/24
Date of Discharge: 09/27/24
-
Pending Results: No
Hospital Course
68-year-old male past medical history of decompensated liver cirrhosis, mechanical aortic valve, permanent atrial fibrillation, chronic HFrEF, anemia of chronic disease, CKD, hyperlipidemia, pacemaker implantation, necrotic right heel wound who is
presenting with shortness of breath. Patient was found to be in volume overload. Cardiology and nephrology was consulted. Patient with elevated creatinine. Patient also with abdominal distention however patient INR was elevated on admission.
Once INR downtrended less than 3.5 patient underwent paracentesis. Initial paracentesis was found to be SBP positive. Fluid culture was negative however patient was on doxycycline prior to arrival to the hospital. Infectious disease was
consulted. Patient underwent repeat paracentesis for 5600 cc of fluid was removed and patient was persistently having SBP even with while on ceftriaxone. ID switched antibiotics to Zosyn. Patient fluid culture remain negative. Plan to switch to
Augmentin on discharge. Patient creatinine stabilized to some extent. Patient metoprolol dose was decreased. Digoxin was discontinued. Patient INR down trended and was restarted on Coumadin with a new regimen of 2.5 mg daily which can further be
adjusted based on INR level. Goal INR 2.5-3.5. Patient was restarted on Lasix 20 mg daily. Aldactone was discontinued. Patient was also recommended to undergo blood work primary doctor. Patient was eval by physical and Occupational Therapy will
be discharged to residential facility.
Discharge Plan
-
Patient Disposition: Usp/SNF
Discharge Diagnosis/Procedures: BEBA on CKD 3
HRS�non-BEBA
Spontaneous bacterial peritonitis
Metabolic acidosis
Chronic HFrEF
Permanent AF on warfarin
Mechanical AVR on warfarin
Supratherapeutic INR
Condition: Fair
Diet: No added salt and Restrict fluids to 64 oz
Activity: As tolerated
Driving Restrictions: Not until seen by your Dr
Bathing Restrictions: None
Blood Work: Repeat BMP and CBC and INR 3 to 5 days after discharge from hospital
Other Services: PT and OT
Activity Restrictions/Additional Instructions:
Wound Care Instructions
R Achilles wound-clean with Vashe wound cleanser, Santyl ointment, Xeroform gauze, silicone border foam, change daily and prn drainage.
L 2nd toe tip-clean with saline, no sting barrier wipe daily, cover with gauze daily prn protection.
R lateral foot stage 1-silicone border foam dressing, change q 3 days and prn loosened dressing.
Elevate heels off bed with soft heel relief boots as tolerated (i.e. TruVue lite); bariatric air chair cushion under heels/feet, boots.
Air mattress
Turning schedule
Pressure redistributing chair cushion (i.e. Air chair cushion, Roho).
Follow up with wound critical care nurse specialist, care assistant (i.e. Dr. Tico Hubbard) or at wound care center call for an appointment.
Instructions: Diet for adults with cirrhosis
Referrals:
Chele Hooper MD [Family Provider] -
Chino Shane DO [Active] - (If GI referral needed)
Arnie Raygoza MD [Active] - in two to three weeks (If cardiology referral needed)
Additional Discharge Medication Instructions: Start metoprolol succinate 12.5 mg twice daily
Start midodrine 5 mg 3 times daily
Resume Lasix 20 mg daily
Stop lisinopril and spironolactone
Stop digoxin until follow-up with social work professor
Stop tamsulosin
Prescriptions:
New
midodrine 5 mg Tablet
5 mg PO TID@0800,1300,1800 30 Days Qty: 90 0RF
metoprolol succinate 25 mg Tablet Extended Release 24 Hr
12.5 mg PO BID 30 Days Qty: 30 0RF
amoxicillin-pot clavulanate 875-125 mg tablet
1 tab PO BID Qty: 7 0RF
Continued
atorvastatin 40 mg Tablet
40 mg PO QPM
aspirin 81 mg Tablet,Delayed Release (Dr/Ec)
81 mg PO DAILY
furosemide 20 mg Tablet
20 mg PO DAILY
sodium bicarbonate 650 mg Tablet
1,300 mg PO TID Qty: 0 0RF
acetaminophen 325 mg Tablet
650 mg PO Q4HPRN PRN (Reason: mild pain/temp>101)
magnesium hydroxide [Milk of Magnesia] 400 mg/5 mL Suspension
30 ml PO DAILYPRN PRN (Reason: if no bm in 3 days)
gabapentin 100 mg Capsule
100 mg PO TID
miconazole nitrate [Miconazorb AF] 2 % powder
1 applic topical BID
Changed
warfarin 5 mg Tablet
2.5 mg PO QPM Qty: 0 0RF
Discontinued
metoprolol succinate 100 mg Tablet Extended Release 24 Hr
100 mg PO BID
digoxin 250 mcg (0.25 mg) Tablet
250 mcg PO DAILY
spironolactone 25 mg Tablet
25 mg PO DAILY
warfarin 5 mg Tablet
5 mg PO SUTUWETH@1800
tamsulosin 0.4 mg Capsule
0.4 mg PO DAILY Qty: 0 0RF
acetaminophen 325 mg Tablet
650 mg PO TID
lisinopril 20 mg Tablet
20 mg PO DAILY
doxycycline monohydrate 100 mg Capsule
100 mg PO BID
Discharge Orders:
Discharge Patient (As Directed); Ordered 09/27/24
Ordered By: Roderick Turner
Discharge Date and Time
Print Language: ANGUILLAN
[2024-09-27] MEDS: LIPITOR 40 MG PO (17:38)
[2024-09-27] MEDS: COUMADIN 2.5 MG PO (17:38)
== END 2024-09-27 19:53 | DRG 682 ==
LOC: 4 EAST ACU 13:33
PROVIDERS: Internal Medicine; Nurse Practitioner Family; Radiology Vascular & Interventional Radiology; ADMITTING PHYSICIAN Internal Medicine; ATTENDING PHYSICIAN Hospitalist; CONSULT PHYSICIAN Internal Medicine Cardiovascular Disease; CONSULT PHYSICIAN Internal Medicine Infectious Disease; CONSULT PHYSICIAN Specialist; EMERGENCY PHYSICIAN Emergency Medicine; FAMILY PHYSICIAN Family Medicine
PROC: 0W9G3ZZ Drainage of Peritoneal Cavity, Percutaneous Approach (ICD-10-PCS; 2024-09-19)
DX: N17.9 Acute kidney failure, unspecified (principal); J96.01 Acute respiratory failure with hypoxia; K65.2 Spontaneous bacterial peritonitis; I13.0 Hypertensive heart and chronic kidney disease with heart failure and stage 1 through stage 4 chronic kidney disease, or unspecified chronic kidney disease; I50.22 Chronic systolic (congestive) heart failure; I48.21 Permanent atrial fibrillation; R18.8 Other ascites; E87.20 Acidosis, unspecified; R64 Cachexia; N18.32 Chronic kidney disease, stage 3b; K74.60 Unspecified cirrhosis of liver; I27.20 Pulmonary hypertension, unspecified; D63.1 Anemia in chronic kidney disease; E78.00 Pure hypercholesterolemia, unspecified; E87.5 Hyperkalemia; L89.891 Pressure ulcer of other site, stage 1; I35.0 Nonrheumatic aortic (valve) stenosis; Z95.0 Presence of cardiac pacemaker; Z95.2 Presence of prosthetic heart valve; Z79.899 Other long term (current) drug therapy; Z79.01 Long term (current) use of anticoagulants; Z79.82 Long term (current) use of aspirin; Z86.73 Personal history of transient ischemic attack (TIA), and cerebral infarction without residual deficits; Z68.20 Body mass index [BMI] 20.0-20.9, adult
CPT/HCPCS: 49083; 71045; 76705; 80048; 80053; 80162; 81003; 81015; 82042; 82150; 83615; 83735; 84100; 84157; 85025; 85027; 85610; 87015; 87070; 87205; 87522; 89051; 93005; 96360; 96361; 97163; 97167; 97530; 97535; 99284; P9045; P9047

== ENCOUNTER → 2024-10-07 12:13 | Outpatient (REF) | payer MEDICARE, BC, SELFPAY ==
[2024-10-07 12:44] VITALS: BP 120/90; BP_SYST 63
[2024-10-07 12:56] VITALS: BP 117/64
[2024-10-07 15:16] LABS: Body Fluid Mononuclear 61.9 %; Body Fluid Polymorphonuclear 38.1 %; Body Fluid WBC 197 /CUMM
[2024-10-07 15:32] LABS: Body Fluid Second Tech DW
== END ==
LOC: RADI 12:13
PROVIDERS: ATTENDING PHYSICIAN Internal Medicine
DX: R18.8 Other ascites (principal)
CPT/HCPCS: 49083; 89051

== ENCOUNTER 2024-10-29 20:13 | Inpatient (IN) | payer MEDICARE, BC, SELFPAY ==
[2024-10-29 16:32] VITALS: BP 118/79
[2024-10-29 16:35] VITALS: BP 118/79
[2024-10-29 16:40] VITALS: BMI 28.0
[2024-10-29 17:01] VITALS: BP 123/70
[2024-10-29 17:14] LABS: % Basophils 0.2 % (0-2); % Eosinophils 0.1 % (0-6); % Immature Granulocytes 0.5 % (0-0.5); % Lymphocytes 3.3 % (20.5-51.1); % Monocytes 6.3 % (1.7-9.3); % Neutrophils 89.6 % (42.2-75.2); Absolute Immature Granulocytes 0.1 10^3/uL (0-0.05); Absolute Lymphocytes 0.4 10^3/uL (1.2-3.4); Absolute Monocytes 0.7 10^3/uL (0.1-0.6); Absolute Neutrophils 10.6 10^3/uL (1.4-6.5); Hematocrit 29.6 % (39.0-52.0); Hemoglobin 9.5 g/dL (13.0-18.0); Mean Corp Hgb Conc. 32.1 g/dL (33.0-37.0); Mean Corpuscular Hgb 26.5 pg (27.0-31.0); Mean Corpuscular Volume 82.7 fL (80.0-94.0); Nucleated Red Blood Cells % 0 % (-); Platelet Count 240 10^3/uL (130-400); Red Blood Cell Count 3.58 10^6/uL (4.70-6.10); Red Cell Dist. Width 19.4 % (11.5-14.5); White Blood Cell Count 11.8 10^3/uL (4.8-10.8)
--- NOTE | 2024-10-29 17:22 | ED.GENMED ---
History of Present Illness
General
Chief Complaint: Abdominal Pain
Source: patient
Exam Limitations: none
Time Seen by Provider: 10/29/24 17:07
Nursing documentation reviewed up to this point in time: agreed with
History of Present Illness
History of Present Illness:
Patient with history of liver cirrhosis, recently treated for SBP along with paracentesis, presents to ED from rehab facility secondary to worsening lower leg weakness along with need for recurrent paracentesis. Patient denies fever or chills.
Denies abdominal pain. Denies nausea or vomiting. Denies change in bowel habits. Denies coughing. Denies loss of appetite. Patient does also report ongoing lower back pain, especially when trying to walk. Denies urinary or bowel incontinence.
Denies new trauma.
Review of Systems
Review of Systems
Allergies reviewed?: Yes
All Other Systems: ROS reviewed and negative except as documented in HPI and ROS
Constitutional: Reports no symptoms; Denies fever
Respiratory: Reports no symptoms; Denies trouble breathing
Cardiac: Reports no symptoms; Denies chest pain
ABD/GI: Reports other (abdominal distention); Denies vomiting or diarrhea
Musculoskeletal: Reports back pain
Skin: Reports no symptoms
Neurological: Reports no symptoms
Phy Exam
Physical Exam
Physical Exam:
Physical Exam
General: no apparent distress, not acutely ill. afebrile
Head: nc/at. eomi
Neck: supple. no meningeal signs.
Heart: s1/s2 regular rate and rhythm
Lungs: no acute respiratory distress.
Abdomen: normal bowel sounds. not tender. distention noted
Neuro: alert and oriented x 3. no focal neurological deficits
Skin: no rash
Psychiatric: well kept. interactive and cooperative
Extremities: no edema. no calf tenderness.
Course
Orders/Labs/Results
Orders:
Orders
10/29/24 Dinner
Potassium, 2 Gram
At Your Request: Limited Participation
Does patient need a safe tray?: No
Low Potassium: Sodium, 2 Gram
10/29/24 16:59
CMP [Comprehensive Metabolic Panel] Urgent
Complete Blood Count/With Diff Urgent
10/29/24 17:45
Bladder Scan- Treatment ONCE
10/29/24 17:48
Hardy Placement- Treatment ONCE
Reason for insertion: Acute Retention
10/29/24 18:22
Urinalysis Reflex To Culture Urgent
Date Specimen was Collected: 10/29/24
Time Specimen was Collected: 18:20
Urine Creatinine Urgent
Date Specimen was Collected: 10/29/24
Time Specimen was Collected: 18:20
Comment: ADD ON
Urine Microscopic Reflex Cult Urgent
Urine Sodium Urgent
Date Specimen was Collected: 10/29/24
Time Specimen was Collected: 18:20
Comment: ADD ON
Urine Culture Urgent
LYNN Source: U
Specimen Description:
Date Specimen was Collected: 10/29/24
Time Specimen was Collected: 18:20
10/29/24 19:09
CT Abd/pel Without Iv Or Oral Urgent
Comment:
Reason For Exam: lower abdominal pain with urinary retention
10/29/24 19:45
Sodium Zirconium Cyclosilicate [Lokelma] 10 gram PO NOW STA
10/29/24 19:46
NEPHROLOGY CONSULT Routine
Consulting Provider: Mike Antonio
Was physician already notified: Yes
Reason for consult: Renal failure
10/29/24 19:51
PT/INR [Prothrombin Time] Stat
PTT Stat
10/29/24 19:52
Cefepime HCl [Maxipime] 1,000 mg IV NOW STA
10/29/24 19:54
Admit/Transfer Patient As Directed
Co-Sign Provider:
Level of Care: Inpatient admission
Assign to:: Medical/Surgical
Physician / Group: eleazar
Diagnosis: acute renal failure
Reason for Hospitalization: acute renal failure
Expected length of stay greater than two midnights?: Yes
ELOS- Estimated Length of Stay in days: 2
I certify the patient meets the requirements for IP care: Yes
PRN Pain Medication Management As Directed
May give lesser potent ordered pain med per pt: Yes
preference::
Protocol:: Medication orders for pain may be administered in a
manner that supports deferring to patient preference
when the pt is:
- Requesting an ordered lesser potent pain medication.
Least to most potent pain medications are defined
as: acetaminophen < NSAID < tramadol < opioids
(morphine, oxycodone, hydromorphone).
- Requesting a lesser dose of the same medication IF
ORDERED.
- Requesting a less intrusive route of administration
if both routes are prescribed by the provider (PO <
IV).
10/29/24 19:55
Code Status As Directed
Resuscitation Status: Do not resuscitate
Reached after discussion with pt or family/Healthcare POA: Yes
DNR Bracelet Application ONCE
10/29/24 19:56
Sterile Water [Sterile Water For Injection] 10 ml IV NOW STA
10/29/24 21:16
Acetaminophen [Tylenol] 650 mg PO Q6HPRN PRN
Bisacodyl [Dulcolax] 10 mg RECTAL DAILYPRN PRN
HYDROmorphone [Dilaudid] 0.5 mg IV Q4HPRN PRN
Ondansetron Injectable [Zofran] 4 mg IV Q6HPRN PRN
Phosphate Enema [Fleet Phosphate Enema-Adult] 118 ml RECTAL DAILYPRN PRN
10/29/24 21:16
GASTROINTESTINAL CONSULT Routine
Consulting Provider: Karina Smith
Was physician already notified: Yes
Reason for consult: recurrent ascites, renal failure
IRAD CONSULT Routine
Consulting Provider: Ede Chandra
Was physician already notified: Yes
Procedure being ordered, including laterality if applicable: paracentesis
Acknowledgement that appropriate orders are entered: Yes
Body Fluid Albumin Routine
Fluid Source: Peritoneal (Ascites)
Date Specimen was Collected: 11/01/24
Time Specimen was Collected: 10:35
Body Fluid Cell Count Routine
What is the Body Fluid: peritoneal fluid
Date Specimen was Collected: 11/01/24
Time Specimen was Collected: 10:35
Comment: post procedure
Body Fluid LDH Routine
Fluid Source: Peritoneal (Ascites)
Date Specimen was Collected: 11/01/24
Time Specimen was Collected: 10:35
Body Fluid Protein Routine
Fluid Source: Peritoneal (Ascites)
Date Specimen was Collected: 11/01/24
Time Specimen was Collected: 10:35
Fluid Culture with Gram Stain Routine
LYNN Source: Peritoneal Fluid
Specimen Description:
Date Specimen was Collected: 11/01/24
Time Specimen was Collected: 10:35
Comment: Post Procedure
Activity As Directed
Activity Level: With Assistance
Pneumatic Compression Sleeves As Directed
Type: Knee high
Vital Signs As Directed
Frequency: Per unit guidelines
IRAD Cytology Routine
Date Specimen was Collected: 11/01/24
Time Specimen was Collected: 10:35
Source: Peritoneal Fluid
Clinical Impression: SBP
Submitting Physician: Aris Meraz
DX Deep Vein Thrombosis Video Routine
10/29/24 22:00
Sodium Bicarbonate 1,300 mg PO TID
10/30/24 06:37
Basic Metabolic Panel IN AM
Complete Blood Count/No Diff IN AM
Magnesium IN AM
Prothrombin Time IN AM
10/30/24 08:00
Aspirin Low Dose EC [Aspir Low (Enteric Coated)] 81 mg PO DAILY
Midodrine [ProAmatine] 5 mg PO TID@0800,1300,1800
10/30/24 18:00
Atorvastatin [Lipitor] 40 mg PO QPM
10/30/24 20:00
Cefepime HCl [Maxipime] 1,000 mg IV Q24H
Abnormal Lab Results
10/29/24 10/29/24
16:59 18:22
WBC 11.8 H 10^3/uL
(4.8-10.8)
RBC 3.58 L 10^6/uL
(4.70-6.10)
Hgb 9.5 L g/dL
(13.0-18.0)
Hct 29.6 L %
(39.0-52.0)
MCH 26.5 L pg
(27.0-31.0)
MCHC 32.1 L g/dL
(33.0-37.0)
RDW 19.4 H %
(11.5-14.5)
Abs Immat Gran (auto) 0.1 H 10^3/uL
(0-0.05)
Absolute Neuts (auto) 10.6 H 10^3/uL
(1.4-6.5)
Absolute Lymphs (auto) 0.4 L 10^3/uL
(1.2-3.4)
Absolute Monos (auto) 0.7 H 10^3/uL
(0.1-0.6)
Neutrophils % 89.6 H %
(42.2-75.2)
Lymphocytes % 3.3 L %
(20.5-51.1)
Sodium 133 L mmol/L
(135-145)
Potassium 5.8 H mmol/L
(3.5-5.1)
Carbon Dioxide 21 L mmol/L
(22-30)
BUN 127 H* mg/dl
(9-20)
Creatinine 5.6 H* mg/dL
(0.7-1.3)
Glucose 118 H mg/dl
(70-99)
Total Bilirubin 1.7 H mg/dl
(0.2-1.3)
Alkaline Phosphatase 197 H U/L
(38-126)
Albumin 3.4 L g/dl
(3.5-5.0)
Ur Occult Blood Reflex 4+ A
(Negative)
Urine Bilirubin 1+ A
(Negative)
Leukocyte Esterase Rfl 3+ A
(Negative)
Urine RBC 3-6 A /HPF
(0-2)
Urine WBC (Reflex) 80-90 A /HPF
(0-5)
Urine Bacteria (Reflex) Many A
(Negative)
Urine Sodium < 5 L mmol/L
(30-90)
Urine Albumin (Reflex) 2+ A
(Neg - Trace)
10/29/24 16:59
10/29/24 16:59
Vital Signs
Initial and Last Documented VS:
Initial Vital Signs
Temp Pulse Resp BP Pulse Ox
96.9 F L 70 16 118/79 92
10/29/24 16:32 10/29/24 16:32 10/29/24 16:32 10/29/24 16:32 10/29/24 16:32
Last Documented Vital Signs
Temp Pulse Resp BP Pulse Ox
97.8 F 62 25 118/69 91
11/01/24 10:59 11/01/24 10:59 11/01/24 10:59 11/01/24 10:59 11/01/24 10:59
MDM/Problems Addressed
MDM/Problems Addressed:
Acute renal failure on chronic renal insufficiency noted. Bladder scan reveals significant retention of urine, requiring Hardy catheter placement in ED. Urinalysis suggestive of UTI. Patient will be started on IV antibiotics and admitted for
further evaluation or treatment, including paracentesis, as there is significant abdominal distention, recurrent.
, urology, notified via [employer]. Requests CT abd/pel
*Critical Care Note
Total Time (30-74mins, 75-104mins- exclusive of procedures): Not Applicable
ED Attending Note
-
Portions of this chart may have been created with voice recognition software.� Occasional wrong word or��sound alike� substitutions may have occurred due to the inherent limitations of voice recognition software.
Discharge Plan
Departure
Patient Disposition: Admit
Date of Disposition: 10/29/24
Time of Disposition: 19:10
Presentation/result/management discussed w/ accepting MD/DO: Hospitalist
Discharge Problem:
Acute renal failure superimposed on chronic kidney disease, Urinary retention, Ascites
Interventions
Interventions:
*Risk Screen - Suicide Last Done: 10/29/24 16:46
*General Assessment Last Done: 10/29/24 16:46
*Neglect/Abuse Screening Last Done: 10/29/24 16:46
*ED- Fall Risk Assessment Last Done: 10/29/24 16:46
*ED COVID-19 Vaccine History Last Done: 10/29/24 16:46
*Nursing Disposition Last Done: 10/29/24 21:12
GP-Shelqi-Jjpqfcrcil Assessment Last Done: 10/29/24 16:46
Discharge Date and Time
Discharge Date/Time: 10/29/24 21:14
[2024-10-29 17:33] LABS: ALT (SGPT) 25 U/L (0-50); AST (SGOT) 47 U/L (17-59); Albumin 3.4 g/dl (3.5-5.0); Alkaline Phosphatase 197 U/L (38-126); Calcium 8.9 mg/dl (8.4-10.2); Carbon Dioxide 21 mmol/L (22-30); Chloride 99 mmol/L (98-107); Estimated Creatinine Clearance 14 ml/min; Glucose 118 mg/dl (70-99); Potassium 5.8 mmol/L (3.5-5.1); Sodium 133 mmol/L (135-145); Total Bilirubin 1.7 mg/dl (0.2-1.3); Total Protein 6.4 g/dl (6.3-8.2); eGFR 10.24
[2024-10-29 17:42] LABS: Blood Urea Nitrogen 127 mg/dl (9-20)
[2024-10-29 18:32] LABS: Urine Albumin 2+ (Neg - Trace); Urine Bilirubin 1+ (Negative); Urine Character Cloudy (Clear); Urine Color Yellow; Urine Glucose Negative (Negative); Urine Ketone Negative (Negative); Urine Leukocyte 3+ (Negative); Urine Nitrite Negative (Negative); Urine Occult Blood 4+ (Negative); Urine Urobilinogen 1+ (Neg - 1+)
[2024-10-29 18:38] LABS: Urine Squamous Cell 0-2 /LPF (Few)
[2024-10-29 18:39] LABS: Urine Bacteria Many (Negative); Urine White Cell 80-90 /HPF (0-5)
[2024-10-29 19:00] VITALS: BP 119/65
--- NOTE | 2024-10-29 19:30 | HPS.HSE ---
Family Physician
-
Family Physician: Miguel A Samuels
Chief Complaint
-
Abdominal discomfort
History of Present Illness
This is a 68-year-old male with past medical history significant for mechanical aortic valve replacement, atrial fibrillation, cirrhosis with 2 recurrent large-volume ascites and history of SBP, CHF with reduced EF, chronic anemia, CKD with baseline
creatinine of around 1.8, status post pacemaker placement and a necrotic right heel who presents to the emergency department for abdominal discomfort. Patient came in from [facility] with complaints of abdominal fullness. He has frequent
paracenteses with last paracentesis 8 days ago. He denies any fevers or chills. He reports increased weakness in his lower extremities. He denies any nausea or vomiting. Denies diarrhea. He denies any loss of appetite. Reports compliance with
his medications and denies constipation.
Patient was recently admitted to the hospital with decompensated liver cirrhosis and volume overload. He underwent diagnostic and therapeutic paracentesis after improvement in INR was found to have SBP. He was treated for SBP initially with
ceftriaxone but had persistently SBP positive ascites and was ultimately switched to Zosyn and completed a course of Augmentin after discharge. Medication changes where decreased dose of metoprolol, discontinuation of digoxin and discontinuation of
Aldactone. Patient was restarted on Lasix 20 mg daily prior to discharge.
On arrival in the ED he had a bladder scan that was showing this of 100 cc urinary retention. When a urinary catheter was placed only 300 cc came out and not much has been coming out since then.
He had a blood pressure of 183/78 pulse of 70 he was satting 95% on room air. Temperature was 96.9.
UA was markedly positive.
He had a white count of 11.8 hemoglobin and platelets were unchanged from prior. His potassium was 5.8. BUN/creatinine were 127 and 5.6 respectively with baseline creatinine of 1.9. LFTs were essentially normal and unchanged from prior.
Medical History
Past Medical History
Past Medical History: Reports Other
Additional Past Medical History:
Aortic Stenosis
Atrial Fibrillation
Permanent Pacemaker
Chronic Heart Failure
Essential Hypertension
Hyperlipidemia
Past Surgical History: Reports Other
Additional Past Surgical History:
Aortic Valve Replacement
Social History
Tobacco: Non-smoker
Living: Other (Independent Apartment at [facility])
Family History
Family History: Not pertinent
Allergies / Home Medications
Allergies reflects when Allergies were last updated in [employer].
Home Medications with original date entered in [employer]
Allergy/Medication List:
Allergies
Allergy/AdvReac Type Severity Reaction Status Date / Time
No Known Allergies Allergy Verified 10/29/24 16:40
Home Medications
aspirin 81 mg tablet,delayed release 81 mg PO DAILY Blood Clot Prevention/Tx 09/02/24
atorvastatin 40 mg tablet 40 mg PO QPM High Cholesterol 09/02/24
furosemide 20 mg tablet 20 mg PO DAILY Fluid Retention/Swelling 09/02/24
sodium bicarbonate 650 mg tablet 1,300 mg (2 x 650 mg) PO TID #0 tabs 09/09/24
acetaminophen 325 mg tablet 650 mg PO Q6HPRN PRN mild pain/temp>101 09/13/24
gabapentin 100 mg capsule 100 mg PO TID Pain 09/13/24
magnesium hydroxide 400 mg/5 mL oral suspension (Milk of Magnesia) 30 ml PO DAILYPRN PRN if no bm in 3 days 09/13/24
miconazole nitrate 2 % topical powder (Miconazorb AF) 1 applic topical BID groin 09/13/24
midodrine 5 mg tablet 5 mg PO TID@0800,1300,1800 hypotension 1 month #90 tabs 09/22/24
bisacodyl 10 mg rectal suppository (Dulcolax (bisacodyl)) 10 mg NM DAILYPRN PRN IF NO BM AFTR MOM 10/29/24
collagenase clostridium histo. 250 unit/gram topical ointment (Santyl) 1 applic topical DAILY RIGHT ACHILIES 10/29/24
metoprolol succinate 25 mg tablet,extended release 24 hr 12.5 mg PO DAILY Heart Failure 10/29/24
sodium phosphates 19 gram-7 gram/118 mL enema (Fleet Enema) 118 ml NM DAILYPRN PRN IF NO BM AFTR DULCOLAX 10/29/24
warfarin 5 mg tablet 5 mg PO HS Blood Clot Prevention/Tx 10/29/24
Review of Systems
-
Constitutional: Reports No Symptoms
EENT: Reports No Symptoms
Respiratory: Reports No Symptoms
Cardiac: Reports No Symptoms
Abdomen/GI: Reports Other (Abdominal distention and fullness)
: Reports No Symptoms
Musculoskeletal: Reports No Symptoms
Skin: Reports No Symptoms
Neurological: Reports No Symptoms
Endocrine: Reports No Symptoms
Hematologic/Lymphatic: Reports No Symptoms
Psych: Reports No Symptoms
Physical Exam
Vital Signs
Vital Signs
Temp Pulse Resp BP Pulse Ox
96.9 F L 70 16 123/70 94
10/29/24 16:32 10/29/24 16:32 10/29/24 16:32 10/29/24 17:01 10/29/24 17:16
Physical Exam
General: Conversant and Appears Chronically Ill
HEENT: Anicteric, Moist mucous membranes and Atraumatic
Respiratory: Clear and Non Labored Respirations
Cardiac: S1/S2, Regular Rhythm and Murmur (Mechanical Click)
GI: Soft, Non Tender, Distended and Other (NABS)
Rectal: Deferred by Provider
Genito-urinary: Turbid Urine
Musculoskeletal: No Clubbing, No Cyanosis and Other (+1 pitting edema bilateral lower extremities)
Skin: Warm, Dry and Other (Posterior Right Ankle Wound which appears quite deep with visible tendon, appears clean without evidence of infection)
Neuro: Awake, Alert and Nonfocal/grossly intact
Psych: Calm
Laboratory Results
-
10/29/24 16:59
10/29/24 16:59
Laboratory Results
Total Bilirubin 1.7 mg/dl (0.2-1.3) H 10/29/24 16:59
AST 47 U/L (17-59) 10/29/24 16:59
ALT 25 U/L (0-50) 10/29/24 16:59
Alkaline Phosphatase 197 U/L (38-126) H 10/29/24 16:59
Data Reviewed
-
Lab Data: Labs Reviewed by me
Impression/Plan
-
IMPRESSION:
Mr. Child is a 68-year-old with past medical history of decompensated cirrhosis with large volume ascites, CHF with preserved EF, mechanical aortic valve on anticoagulation, permanent atrial fibrillation comes into the emergency department with
abdominal fullness and found to have acute renal failure. Bladder scan showed 700 cc Mahoney catheter was placed with removal of 300 cc. Imaging is pending. Overall patient appears hypervolemic with edema and ascites however he may be
intravascularly dry. I do not think this is postrenal azotemia given the lack of significant output after Mahoney placement. Suspect either a ureteral obstruction, ATN or hepatorenal.
PLAN:
1. BEBA - HRS vs ATN or possible obstruction. Hemoglobing stable. No evidence of blood loss. No acute volume loss.
- admit to med/surg
- send for FENA
- will start cefepime for presumed SBP/UTI
- stop diuretics for now
- hold metoprolol
- if FENA positive, consider terlipressin
- i/o, weights
- acid base ok, K 5.8, given 1 dose lokelma
- avoid nephrotoxins
- nephrology consult
- possible retention, CT pending, urology consulted from ED. maintain mahoney for now
2. ASCITES - Recurrent large volume ascites, taps almost weekly. Likely will need another tap
- IR consult for diagnostic tap to rule out infection and sbp
- will need albumin repletion for large volume para
- IV cefepime for now given prior abx use
- continue midodrine
3. AFIB - rate controlled
- coumadin 5 hs, goal inr 2.5, holding coumadin tonight check inr in am
- holding metoprolol for possible acute HRS
4. CHF - total body volume o/d
- holding lasix
5. UTI - + u/a, recent hospitalizations and liver failure, high risk
- urine cultures sent
- cefepime now
DVT PPX - on coumadin
Code Status - DNR
[2024-10-29] MEDS: LOKELMA 10 GRAM PO (20:27)
[2024-10-29] MEDS: MAXIPIME 1000 MG IV (20:31)
[2024-10-29] MEDS: STERILE WATER FOR INJECTION 10 ML IV (20:31)
[2024-10-29 21:12] LABS: Urine Sodium < 5 mmol/L (30-90)
[2024-10-29 21:45] VITALS: BP 119/74; BMI 27.5
[2024-10-29] MEDS: FLEXBUMIN 100 IV (22:05)
[2024-10-29] MEDS: FLEXBUMIN 50 IV (22:07)
[2024-10-29] MEDS: SODIUM BICARBONATE 1300 MG PO (22:08)
[2024-10-29 22:31] VITALS: BMI 27.5
[2024-10-29 23:00] VITALS: BP 140/73
[2024-10-30 01:03] LABS: INR 4.55; PT 42.5 Sec (11.4-14.6)
[2024-10-30 01:04] LABS: APTT 59.3 Sec (23.4-35.0)
[2024-10-30 03:00] VITALS: BP 117/69
[2024-10-30 05:40] VITALS: BMI 27.4
[2024-10-30 07:25] LABS: INR 4.79; PT 44.2 Sec (11.4-14.6)
[2024-10-30 07:26] LABS: Hematocrit 26.6 % (39.0-52.0); Hemoglobin 8.6 g/dL (13.0-18.0); Mean Corp Hgb Conc. 32.3 g/dL (33.0-37.0); Mean Corpuscular Hgb 26.2 pg (27.0-31.0); Mean Corpuscular Volume 81.1 fL (80.0-94.0); Mean Platelet Volume 10.6 fL (7.4-10.4); Platelet Count 224 10^3/uL (130-400); Red Blood Cell Count 3.28 10^6/uL (4.70-6.10); White Blood Cell Count 11.1 10^3/uL (4.8-10.8)
[2024-10-30 08:00] VITALS: BP 141/82
[2024-10-30 08:25] LABS: Calcium 9.1 mg/dl (8.4-10.2); Carbon Dioxide 19 mmol/L (22-30); Chloride 100 mmol/L (98-107); Estimated Creatinine Clearance 14 ml/min; Glucose 96 mg/dl (70-99); Potassium 5.6 mmol/L (3.5-5.1); Sodium 133 mmol/L (135-145); eGFR 10.24
[2024-10-30 08:49] LABS: Blood Urea Nitrogen 129 mg/dl (9-20)
[2024-10-30] MEDS: DESENEX/MITRAZOL/ZEASORB 1 APPLIC TOPICAL ×2 (09:19→19:51)
[2024-10-30] MEDS: SODIUM BICARBONATE 1300 MG PO ×3 (09:19→21:01)
[2024-10-30] MEDS: ProAmatine 5 MG PO ×3 (09:19→17:48)
[2024-10-30] MEDS: ASPIR LOW (ENTERIC COATED) 81 MG PO (09:19)
[2024-10-30] MEDS: FLUSH (NSS) 1 FLUSH IV ×2 (09:20→17:51)
--- NOTE | 2024-10-30 10:00 | WOUNDNOTE ---
L PLANTAR FOOT/2ND TOE TIP
--- NOTE | 2024-10-30 10:01 | WOUNDNOTE ---
SACRAL/COCCYX/LOWER BACK
--- NOTE | 2024-10-30 10:05 | WOUNDNOTE ---
[facility] RN note: Patient admitted with acute renal failure. Patient admitted from [facility].
See H&P for complete history.
PMH: from H+P 'mechanical aortic valve replacement, atrial fibrillation, cirrhosis with 2 recurrent large-volume ascites and history of SBP, CHF with reduced EF, chronic anemia, CKD'
Wound Location and type/assessment: Patient admitted with: stage 2 sacral pressure injury along with MASD. Bruises on back. R Achilles full thickness wound to necrotic tendon with mild local erythema. +Pedal pulses heard via portable Doppler. R
heel blanchable red with small darker red area. R lateral foot stage 1 pressure injury vs DTI. 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 Perianal MASD. +Ascites.
Appetite: generally poor.
Pressure redistribution devices in place: [employer] Accumax. Foot Waffle boots. Patient immobile and knees bend, legs in frog like position.
Plan: R Achilles dressing changed. Silicone border foam dressing applied to sacrum after chrissy care (patient incontinent of soft brown stool). Waffle air overlay applied and patient turned with help from DARRELL Crow. Silicone border foam applied to R
lateral foot. Dr. Messina was in during visit and updated re: necrotic R Achilles wound, showed wound picture to hospitalist. Hospitalist approved local skin/wound care. Discussed with DARRELL Crow.
Care plan to be updated and will follow as needed.
Note to case management of equipment requested for discharge: Air mattress at SNF if not already in place.
Recommend follow up at wound care center upon discharge.
--- NOTE | 2024-10-30 10:18 | CON.GI ---
Addendum entered and electronically signed by Irma Schmitt DO 10/30/24 16:22:
The patient was seen and examined by me independently in collaboration with the nurse practitioner.
Past medical history/social history/medications/allergies/family history reviewed.
Lab data and imaging data reviewed.
Mike Cazares is a 68-year-old male with recent admission for SBP, imaging findings of cirrhosis, with fluid analysis most consistent with cardiac cirrhosis with course complicated by BEBA, Afib, HFrEF, anemia of chronic disease, who returns
with similar presentation of worsening lower extremity edema and abdominal distention. He is on Coumadin and awaiting on paracentesis due to elevated INR. Additionally, has findings of possible choledocholithiasis on CAT scan. Hx of Cirrhosis in
several aunts who were heavy drinkers. No prior EGD or Colonoscopy.
#Cirrhosis
#BEBA on CKD concern for HRS vs. cardiorenal syndrome
#Hx SBP w/ recurrent ascites
#HFrEF
#Dilated CBD, c/f choledocho
#Anemia
#Altered Mental Status
Prior fluid studies suspicious for cardiac ascites, though, some inconsistences on the various taps performed. Once able to perform Paracentesis, need to analyze fluid studies to determine etiology of ascites as well as r/o recurrent SBP. He was not
on prophylaxis following initial episode during recent hospitalization.
If recurrent SBP, needs 1.5 mg/kg albumim on day 1 and 1 mg/kg on day 2. Limit paracentesis to <3.5 L given c/f SBP and worsening kidney function. Antibiotics pending paracentesis.
Cirrhosis-- platelets normal. Per prior HCV studies, appears to have had exposure to HCV with spontaneous clearance. Recommend repeating and checking hepatitis B studies as well. Discuss need for ongoing surveillance for HCC q6 months with US or MRI
and AFP. Needs variceal screening, Hgb stable and no evidence of bleeding, chronically anemic, can be performed as outpatient if hgb remains stable. He has an appointment with Dr. Shane next week. I emphasized the importance of making this
appointment as well as follow-up with the other specialists he is seeing.
BEBA on CKD
Possible cardiorenal vs. HRS? Nephrology following. Hold nephrotoxic agents. Albumin given. He is on midodrine. Await AM labs, consider starting Octreotide in the AM. Will defer treatment to nephrology.
Dilated CBD-- possible choledocholithiasis. He has some tenderness on exam, no rebound or guarding. He is quite distended, nonperitonitic. Suspect discomfort is more from ascites rather than biliary obstruction. Recommend MRCP to further assess.
Altered Mental Status-- unclear baseline, he is somewhat altered but answers questions appropriately. Unclear if hepatic enpephalopathy as this could also be uremic vs. infection. Hold off on lactulose given c/f SBP, but low threshold to start if
SBP ruled out, kidney function improving and still appears altered.
Discussed at plan of care with patient and family at bedside.
Original Note:
Consultation
-
Date/Time Consultation Requested: 10/29/242114
Date/Time Consultation Performed: 10/30/24 1015
Requesting Provider: thierno Markham MD
Performing Provider: EBENEZER Titus, Karina Smith MD
Reason for Consultation: cirrhosis
Medical History
Chief Complaint / HPI
Chief Complaint: abdominal pain
History of Present Illness:
Pt is a 68yo with hx mechanical AVR on coumadin, afib, HFrEF(echo in September with EF 35-40%), , cirrhosis with ascites, anemia of chronic disease, CKD, hyperlipidemia, pacer, necrotic heal wound with admission in September with shortness of breath and
volume overload. He complete paracentesis with noted + SBP. SAAG on fluid noted with 1.5 and high protein more c/w congestive etiology. During admission patient was managed by cardiology, renal and ID and not seen by GI. Pt was due follow
up with GI in November but now presents for recurrent admission with abdominal pain. CT on admission with continued large volume ascites, small to moderate right and small left effusion, anasarca, hepatic cirrhosis, cholelithiasis and concern for
choledocholithiasis. Labs on return with WBC 11,800, hbg 9.5, platelets 240, INR 4.55(in setting of chronic Coumadin use), Na 133, K 5.8, BUN 127, creat 5.6, bili 1,7, AT 47, ALT 25, alk phos 197, albumin 3.4.
In review with patient he denies history of liver problems but admits to family hx cirrhosis in several aunts with prior ETOH use. He denies hx prior GI bleeding or encephalopathy in past. He admits to abdominal pain and pressures with
distention but denies dysphagia, GERD, nausea, vomiting, diarrhea, constipation or rectal bleeding. He denies history of EGD or colonoscopy in past.
Past Medical History
Past Medical History: Hypercholesterolemia and Other (decompensated cirrhosis with ascites, AOCD, necrotic heal wound )
Past Surgical History: Cardiac (pacer)
Social History
Tobacco: Non-Smoker
Alcohol: Occasional
Drug: None
Living: Alf
Employment: Retired
Family History
Family History: Other (family hx aunts with cirrhosis of liver with prior ETOH use )
Allergies / Home Medications
Allergy/AdvReac Type Severity Reaction Status Date / Time
No Known Allergies Allergy Verified 10/29/24 16:40
�Medication �Instructions �Recorded
aspirin 81 mg tablet,delayed 81 mg PO DAILY Blood Clot 09/02/24
release Prevention/Tx
atorvastatin 40 mg tablet 40 mg PO QPM High Cholesterol 09/02/24
furosemide 20 mg tablet 20 mg PO DAILY Fluid 09/02/24
Retention/Swelling
sodium bicarbonate 650 mg tablet 1,300 mg (2 x 650 mg) PO TID #0 09/09/24
tabs
acetaminophen 325 mg tablet 650 mg PO Q6HPRN PRN mild 09/13/24
pain/temp>101
gabapentin 100 mg capsule 100 mg PO TID Pain 09/13/24
magnesium hydroxide 400 mg/5 mL 30 ml PO DAILYPRN PRN if no bm in 09/13/24
oral suspension (Milk of Magnesia) 3 days
miconazole nitrate 2 % topical 1 applic topical BID groin 09/13/24
powder (Miconazorb AF)
midodrine 5 mg tablet 5 mg PO TID@0800,1300,1800 09/22/24
hypotension 1 month #90 tabs
bisacodyl 10 mg rectal suppository 10 mg [place] DAILYPRN PRN IF NO BM 10/29/24
(Dulcolax (bisacodyl)) AFTR MOM
collagenase clostridium histo. 250 1 applic topical DAILY RIGHT 10/29/24
unit/gram topical ointment (Santyl) ACHILIES
metoprolol succinate 25 mg 12.5 mg PO DAILY Heart Failure 10/29/24
tablet,extended release 24 hr
sodium phosphates 19 gram-7 118 ml [place] DAILYPRN PRN IF NO BM 10/29/24
gram/118 mL enema (Fleet Enema) AFTR DULCOLAX
warfarin 5 mg tablet 5 mg PO HS Blood Clot Prevention/Tx 10/29/24
Review of Systems
-
History Source: Patient
Constitutional: Reports Weight Gain (with fluid overload )
EENT: Reports No Symptoms
Respiratory: Reports No Symptoms
Cardiac: Reports No Symptoms
Abdomen/GI: Reports Abdominal Pain
: Reports Other (decreased urination)
Musculoskeletal: Reports No Symptoms
Skin: Reports No Symptoms
Neurological: Reports Weakness
Endocrine: Reports No Symptoms
Hematologic/Lymphatic: Reports No Symptoms
Vital Signs
Temp Pulse Resp BP Pulse Ox
97.9 F 89 18 141/82 95
10/30/24 08:00 10/30/24 09:19 10/30/24 08:00 10/30/24 09:19 10/30/24 09:11
Physical Exam
Exam
General: Other (chronic ill appearing )
HEENT: Normocephalic and Anicteric
Respiratory: Clear
Cardiac: Regular Rhythm
GI: Tender (mild with pressure ) and Distended
Musculoskeletal: No Clubbing and No Cyanosis
Skin: Warm and Dry
Neuro: Awake, Alert and AO x 3
Psych: Calm
Results
WBC 11.1 10^3/uL (4.8-10.8) H 10/30/24 06:37
Hgb 8.6 g/dL (13.0-18.0) L 10/30/24 06:37
Hct 26.6 % (39.0-52.0) L 10/30/24 06:37
MCV 81.1 fL (80.0-94.0) 10/30/24 06:37
Plt Count 224 10^3/uL (130-400) 10/30/24 06:37
Absolute Neuts (auto) 10.6 10^3/uL (1.4-6.5) H 10/29/24 16:59
PT 44.2 Sec (11.4-14.6) H 10/30/24 06:37
INR 4.79 10/30/24 06:37
APTT 59.3 Sec (23.4-35.0) H 10/30/24 00:19
Sodium 133 mmol/L (135-145) L 10/30/24 06:37
Potassium 5.6 mmol/L (3.5-5.1) H 10/30/24 06:37
Chloride 100 mmol/L (98-107) 10/30/24 06:37
Carbon Dioxide 19 mmol/L (22-30) L 10/30/24 06:37
BUN 129 mg/dl (9-20) H* 10/30/24 06:37
Creatinine 5.6 mg/dL (0.7-1.3) H* 10/30/24 06:37
Calcium 9.1 mg/dl (8.4-10.2) 10/30/24 06:37
Total Bilirubin 1.7 mg/dl (0.2-1.3) H 10/29/24 16:59
AST 47 U/L (17-59) 10/29/24 16:59
ALT 25 U/L (0-50) 10/29/24 16:59
Alkaline Phosphatase 197 U/L (38-126) H 10/29/24 16:59
Diagnostic Image Results:
10/29/24 CT Abd/pel Without Iv Or Oral
Large volume abdominopelvic ascites.
Small to moderate right and small left pleural effusions.
Diffuse anasarca.
Hepatic cirrhosis.
Cholelithiasis. Small calcification in the region of the distal common bile duct suspicious for choledocholithiasis. However, no significant bile duct dilatation.
Other chronic findings, as detailed above.
10/07/24- para 5000ml (WBC 197, PMN, 38.1), 09/23 para 5600ml (WBC 558, PMN 56.9), 09/19 para 3350(WBC 518, PMN63.3)
US abdomen
1. MODERATE HEPATIC CIRRHOSIS.
2. Moderate abdominal ascites.
3. Cholelithiasis.
4. Mild splenomegaly.
5. Mild chronic bilateral renal disease.
Prior GI Procedures:
EGD: none
Colonoscopy: none
Assessment / Plan
-
Pt is a 68yo with hx mechanical AVR on coumadin, afib, HFrEF(echo in September with EF 35-40%), cirrhosis with ascites, anemia of chronic disease, CKD, hyperlipidemia, pacer, necrotic heal wound with admission in September with shortness of breath and
volume overload. He complete paracentesis with noted + SBP. SAAG on fluid noted with 1.5 and high protein more c/w congestive etiology. During admission patient was managed by cardiology, renal and ID and not seen by GI. Pt was due follow
up with GI in November but now presents for recurrent admission with abdominal pain. CT on admission with continued large volume ascites, small to moderate right and small left effusion, anasarca, hepatic cirrhosis, cholelithiasis and concern for
choledocholithiasis. Labs on return with WBC 11,800, hbg 9.5, platelets 240, INR 4.55(in setting of chronic Coumadin use), Na 133, K 5.8, BUN 127, creat 5.6, bili 1,7, AT 47, ALT 25, alk phos 197, albumin 3.4.In review with patient he denies
history of liver problems but admits to family hx cirrhosis in several aunts with prior ETOH use. He denies hx prior GI bleeding or encephalopathy in past. He denies history of EGD or colonoscopy in past.
-ascites
-noted hepatic cirrhosis on imaging
-acute on chronic renal disease on admission
-gallstones with possible choledocholithiasis on CT
-admission in September with SBP, volume overload
-HFrEF echo September Ef 35-40%
-AVR/afib on Coumadin with elevated INR on admission
-anemia
-hyperkalemia
-+ UA on admission
other med problems:
-hep C + reactive with neg RNA
-AOCD
-hyperlipidemia
-pacer
-HTN with recent hypotension on Midodrine
-hyperlipidemia
-DNR
PLAN:
etiology of ascites related to congestive process with decreased EF, SAAG on fluid during prior admission noted with 1.5 and high protein on prior tap, vs multi factorial with noted cirrhosis on imaging
for paracentesis when INR improves - per IR unable to do today as INR 4.79
for repeat cell counts with protein, albumin, cytology etc to eval for recurrent SBP- pt was not on prophylaxis prior to admission
will review imaging with Dr. Smith with possible choledocholithiasis - may need MRCP if patient able to lay flat for testing - may need to wait til after para
appreciate renal input with worsening renal function to review with family as pt with some forgetfulness in exam
reviewed with Dr. Messina for card eval with hx congestive failure and management of coumadin
cont renal diet
consider eventual EGD for variceal screening and serology work up pending
limited with meld calculation with current BEBA and elevated INR with coumadin use
Pt is scheduled 11/[address] Shaen as new patient for GI eval
-
-
Thank you for consultation and allowing me to participate in the patient's care. Please call the flotation tender GI physician during the after hours with any questions or concerns.
--- NOTE | 2024-10-30 10:41 | W.CON.NEPH ---
Consultation
-
Date/Time Consultation Requested: 10/29/241945
Date/Time Consultation Performed: 10/30/24 1045
Requesting Provider: Lachelle Markham MD
Performing Provider: Anju Singleton
Reason for Consultation: BEBA and hyperkalemia
Medical History
-
Chief Complaint: Abd discomfort
History of Present Illness:
This is a 68-year-old gentleman who resides at [facility] who has atrial fibrillation on digoxin therapy rate controlled, pacemaker, mechanical aortic valve replacement on anticoagulation with Coumadin therapy, cirrhosis with chronic
ascites., CHF with reduced EF, chronic anemia, CKD3b baseline cr 1.4-1.9, who recurrent admits at , last one in September for sob with vol overload and noted SBP Received antibiotics. He was sent on Minitran, serum bicarbonate and Lasix 20 mg daily.
Since the discharge he had paracentesis on 07 October of 5 L. he was sent to the emergency room yesterday with abdominal discomfort with likely need of paracentesis. He is unable to get paracentesis scheduled quick enough and noted to have
generalized weakness mainly in his lower extremities. No nausea or vomiting. Reports compliance with his diet. Denies any dysuria. His creatinine was elevated at 5.6, BUN of 127, potassium 5.8 in ER. Received Lokelma potassium only down to 5.6
today without any change in the kidney function. Hardy catheter was placed in the ER record at 50 cc of urine output. Is a not very good historian, most of the history is obtained through the chart and the family at bedside.
Past Medical History
Aortic Stenosis
Atrial Fibrillation
Permanent Pacemaker
Chronic Heart Failure
Essential Hypertension
Hyperlipidemia
ESLD
CKD 3B
Aortic Valve Replacement
Past Surgical History: Other (Aortic Valve Replacement)
Social History
Tobacco: Non-Smoker
Alcohol: None
Living: Other ( Independent living)
Family History
Family History: Not Pertinent
Allergies / Home Medications
Allergy/AdvReac Type Severity Reaction Status Date / Time
No Known Allergies Allergy Verified 10/29/24 16:40
�Medication �Instructions �Recorded �Confirmed �Type
aspirin 81 mg tablet,delayed 81 mg PO DAILY Blood Clot 09/02/24 10/29/24 History
release Prevention/Tx
atorvastatin 40 mg tablet 40 mg PO QPM High Cholesterol 09/02/24 10/29/24 History
furosemide 20 mg tablet 20 mg PO DAILY Fluid 09/02/24 10/29/24 History
Retention/Swelling
sodium bicarbonate 650 mg tablet 1,300 mg (2 x 650 mg) PO TID #0 09/09/24 10/29/24 Rx
tabs
acetaminophen 325 mg tablet 650 mg PO Q6HPRN PRN mild 09/13/24 10/29/24 History
pain/temp>101
gabapentin 100 mg capsule 100 mg PO TID Pain 09/13/24 10/29/24 History
magnesium hydroxide 400 mg/5 mL 30 ml PO DAILYPRN PRN if no bm in 09/13/24 10/29/24 History
oral suspension (Milk of Magnesia) 3 days
miconazole nitrate 2 % topical 1 applic topical BID groin 09/13/24 10/29/24 History
powder (Miconazorb AF)
midodrine 5 mg tablet 5 mg PO TID@0800,1300,1800 09/22/24 10/29/24 Rx
hypotension 1 month #90 tabs
bisacodyl 10 mg rectal suppository 10 mg [place] DAILYPRN PRN IF NO BM 10/29/24 10/29/24 History
(Dulcolax (bisacodyl)) AFTR MOM
collagenase clostridium histo. 250 1 applic topical DAILY RIGHT 10/29/24 10/29/24 History
unit/gram topical ointment (Santyl) ACHILIES
metoprolol succinate 25 mg 12.5 mg PO DAILY Heart Failure 10/29/24 10/29/24 History
tablet,extended release 24 hr
sodium phosphates 19 gram-7 118 ml [place] DAILYPRN PRN IF NO BM 10/29/24 10/29/24 History
gram/118 mL enema (Fleet Enema) AFTR DULCOLAX
warfarin 5 mg tablet 5 mg PO HS Blood Clot Prevention/Tx 10/29/24 10/29/24 History
Review of Systems
-
All other systems: Negative unless noted
Physical Exam
Vital Signs
Vital Signs
Temp Pulse Resp BP Pulse Ox
97.9 F 89 18 141/82 95
10/30/24 08:00 10/30/24 09:19 10/30/24 08:00 10/30/24 09:19 10/30/24 09:11
Lab Results
WBC 11.1 10^3/uL (4.8-10.8) H 10/30/24 06:37
RBC 3.28 10^6/uL (4.70-6.10) L 10/30/24 06:37
Hgb 8.6 g/dL (13.0-18.0) L 10/30/24 06:37
Hct 26.6 % (39.0-52.0) L 10/30/24 06:37
Plt Count 224 10^3/uL (130-400) 10/30/24 06:37
Sodium 133 mmol/L (135-145) L 10/30/24 06:37
Potassium 5.6 mmol/L (3.5-5.1) H 10/30/24 06:37
Chloride 100 mmol/L (98-107) 10/30/24 06:37
Carbon Dioxide 19 mmol/L (22-30) L 10/30/24 06:37
BUN 129 mg/dl (9-20) H* 10/30/24 06:37
Creatinine 5.6 mg/dL (0.7-1.3) H* 10/30/24 06:37
eGFR 10.24 10/30/24 06:37
Glucose 96 mg/dl (70-99) 10/30/24 06:37
Calcium 9.1 mg/dl (8.4-10.2) 10/30/24 06:37
Albumin 3.4 g/dl (3.5-5.0) L 10/29/24 16:59
Physical Exam
General: Awake, Alert, No Distress and Nontoxic
HEENT: EOMI, Anicteric and Facial Symmetry
Respiratory: Normal Excursion, Nonlabored Respirations and Other ( decreased breath sounds at bases)
Cardiac: S1/S2 and Regular Rate/Rhythm
Breast: Deferred by me
Abdomen: Other ( firm, tense ascites)
Musculoskeletal: No Cyanosis and Edema (3+)
Skin: No Rash
Neuro: Nonfocal/Grossly Intact
Psych: Appropriate and Other ( poor insight and judgment )
Assessment/Plan
-
Assessment:
BEBA with [id number] cr 1.8
Azotemia
Hyperkalemia
Aortic Stenosis h/o AVR
Atrial Fibrillation
Permanent Pacemaker
HFrEF 35-40% and DD
Essential Hypertension
Hyperlipidemia
Liver cirrhosis
Status post paracentesis
Dilated CBD, c/f choledocho
Anemia
Plan:
A/w abd discomfort and has large ascites need to have para but INR high
BEBA-significantly worse from last admission
UA UTI sample, urine sodium is less than 5 suggest predominantly prerenal in the form of cardiorenal versus HRS, started albumin course
Noted from GI consider octreotide
No bleeding noted-has significant azotemia
Mild hyperkalemia continue lokelma course, low k diet, Holding diuretics
No emergent need of dialysis however at higher risk in next 24-48 hours
This was reviewed with the patient and the family, patient wants to proceed if needed
However I have concerns regarding his tolerability of dialysis especially with the low EF and cirrhosis And we will not be able to maintain his volume status, there will be further decrease in the quality of life
This was reviewed briefly with the family and patient-I'm not very sure they understand
Blood pressures are soft but stable on midodrine
met acidosis stable on on high dose of po bicarb
antibiotics for suspicion of SBP, await INR to improve to have paracentesis
Follow-up H&H
overall prognosis poor
DNR
Discussed with the patient and family at bedside
Discussed with the nursing and GI
[2024-10-30 11:15] VITALS: BMI 27.4
[2024-10-30 11:50] VITALS: BMI 27.4
[2024-10-30 16:09] VITALS: BP 119/66
--- NOTE | 2024-10-30 16:16 | DOWNTIME ---
There was a [employer] Downtime on 10/30/2024 from 1230 to 10/30/2024 at 1550. Downtime documentation of patient's care, including medication administrations, has been reconciled in the electronic record per guidelines. Refer to the
patient's paper chart under the miscellaneous tab to see printed paper medication records and downtime forms.
--- NOTE | 2024-10-30 16:33 | PTCARENOTE ---
Pt awake and alert; oriented x3 but forgetful; very weak; tires easily. KRISHNAMURTHY slowly; moves legs minimally d/t edema. Pt does not want q 2 hr turns- reinforced importance of frequent repositioninig. VSS. Pt has generalized anasarca. On room air-
pulse ox 94%, pt with (+) orthopnea. Abd obese/ascites; gaudencio PO; appetite poor. Hardy P/I small amts susie urine with sediment. Resting quietly at present. Will continue to monitor.
--- NOTE | 2024-10-30 17:44 | CM ---
Met with patient's aunt. Patient was recently discharged and went to [facility]. Patient's aunt stated that she is doing well there. They are not holding the bed. Family would like for patient to go to [facility] instead of back to [place]
as it is closer to their house. Will make referral.
Plan: Case management will continue to follow and assist with discharge planning. SNF family hopeful for [facility].
[2024-10-30] MEDS: FLEXBUMIN 50 IV (17:49)
[2024-10-30] MEDS: LIPITOR 40 MG PO (17:49)
[2024-10-30] MEDS: LOKELMA 10 GRAM PO (17:49)
--- NOTE | 2024-10-30 18:05 | W.PN.HOSP.TC ---
Today's Communication/Plan
-
hold coumadin
will need paracentesis once safe to proceed
Cardio consult
follow labs
Assessment / Plan
Assessment / Plan
1. BEBA - HRS vs ATN or possible obstruction. Hemoglobin stable. No evidence of blood loss. No acute volume loss.
- admit to med/surg
- send for FENA
- will start cefepime for presumed SBP/UTI
- stop diuretics for now
- hold metoprolol
- if FENA positive, consider terlipressin
- i/o, weights
- acid base ok, K 5.8, was given 1 dose lokelma
- avoid nephrotoxins
- nephrology consult
input from Dr. Richards appreciated, she is concerned about ability to tolerate dialysis
on 09/27 BUN/Creat was 50/1.9, on 10/29 was 127/5.6
- possible retention, CT: Large volume abdominopelvic ascites.
Small to moderate right and small left pleural effusions.
Diffuse anasarca.
Hepatic cirrhosis.
Cholelithiasis. Small calcification in the region of the distal common bile duct suspicious for choledocholithiasis. However, no significant bile duct dilatation.
Other chronic findings, as detailed above, urology consulted from ED. maintain mahoney for now
2. ASCITES - Recurrent large volume ascites, taps almost weekly. Likely will need another tap
- IR consult for diagnostic tap to rule out infection and sbp, unable to do today, due to elevated INR
- will need albumin repletion for large volume para
- IV cefepime for now given prior abx use
- continue midodrine
3. AFIB - rate controlled
- coumadin 5 hs, goal inr 2.5, holding coumadin tonight check inr in am
- holding metoprolol for possible acute HRS
4. CHF - total body volume o/d
- holding lasix
HFrEF EF 35-40%
5. UTI - + u/a, recent hospitalizations and liver failure, high risk
- urine cultures sent
- cefepime now
6. supratherapeutic INR
coumadin on hold. May need FFP if need to do paracentesis, await cardio input
7. Rt achilles wound
wound care consulted
DVT PPX - on coumadin
reviewed with Dr. Richards
Recent hospitalization 09/13- and prior to that 09/02-09/09/24
Code Status - DNR
Anticipated Discharge: > 48 hours
Subjective/Interval History
-
Date of Service: October 30, 2024
looks ill
Objective Data
-
Labs:
Laboratory Results
10/30/24
06:37
WBC 11.1 H
Hgb 8.6 L
Hct 26.6 L
Plt Count 224
PT 44.2 H
INR 4.79
Sodium 133 L
Potassium 5.6 H
Chloride 100
Carbon Dioxide 19 L
BUN 129 H*
Creatinine 5.6 H*
Glucose 96
Calcium 9.1
Vital Signs:
Vital Signs
Temp Pulse Resp BP Pulse Ox
98.1 F 65 20 119/66 94
10/30/24 16:09 10/30/24 17:48 10/30/24 16:09 10/30/24 17:48 10/30/24 16:09
I&O
10/29/24 10/30/24 10/31/24
06:59 06:59 06:59
Intake Total 240 / 240
Output Total 250 / 250
Balance -10 / -10
Review of Systems
-
History Source: Physician and Coordinated Provider
Constitutional: Denies Fever
Respiratory: Reports No Symptoms
Cardiac: Reports No Symptoms; Denies Chest Pain
Abdomen/GI: Reports Bloated
Musculoskeletal: Reports Edema
Physical Exam
-
General: Well Developed, Well Nourished and Appears Chronically Ill
HEENT: Normocephalic, Atraumatic and Moist Mucous Membranes
Respiratory: Rales (bibasilar rales on shallow respirations)
Cardiac: S1/S2, Irregular Rhythm, Murmur (/6 ) and Other (mechanical AV )
GI: Soft, Distended and Other (ascites); Negative Normal Bowel Sounds
Musculoskeletal: Other (posterior rt ankle wound with visible tendon)
[2024-10-30] MEDS: MAXIPIME 1000 MG IV (19:51)
[2024-10-30] MEDS: STERILE WATER FOR INJECTION 10 ML IV (19:51)
[2024-10-30] MEDS: DILAUDID 0.5 MG IV (21:39)
[2024-10-30 23:09] VITALS: BP 125/72
[2024-10-31] VITALS (9 sets, daily range): BP systolic 117–140; BP diastolic 63–78; PULSE 67; BMI 27.8
[2024-10-31] MEDS: FLEXBUMIN 50 IV ×2 (00:59→09:51)
[2024-10-31] MEDS: LOKELMA 10 GRAM PO ×3 (06:08→17:59)
[2024-10-31] MEDS: DILAUDID 0.5 MG IV (06:08)
[2024-10-31 07:51] LABS: % Basophils 0.1 % (0-2); % Eosinophils 0.1 % (0-6); % Immature Granulocytes 0.9 % (0-0.5); % Lymphocytes 5.1 % (20.5-51.1); % Monocytes 11.4 % (1.7-9.3); % Neutrophils 82.4 % (42.2-75.2); Absolute Immature Granulocytes 0.1 10^3/uL (0-0.05); Absolute Lymphocytes 0.8 10^3/uL (1.2-3.4); Absolute Monocytes 1.7 10^3/uL (0.1-0.6); Absolute Neutrophils 12.1 10^3/uL (1.4-6.5); Hematocrit 27.1 % (39.0-52.0); Hemoglobin 8.8 g/dL (13.0-18.0); Mean Corp Hgb Conc. 32.5 g/dL (33.0-37.0); Mean Corpuscular Hgb 26.4 pg (27.0-31.0); Mean Corpuscular Volume 81.4 fL (80.0-94.0); Mean Platelet Volume 10.5 fL (7.4-10.4); Nucleated Red Blood Cells % 0.1 % (-); Platelet Count 232 10^3/uL (130-400); Red Blood Cell Count 3.33 10^6/uL (4.70-6.10); Red Cell Dist. Width 18.7 % (11.5-14.5); White Blood Cell Count 14.7 10^3/uL (4.8-10.8)
[2024-10-31 07:56] LABS: Ammonia < 9 umol/L (9-30)
[2024-10-31 07:58] LABS: INR 4.91; PT 45.7 Sec (11.4-14.6)
[2024-10-31] MEDS: DESENEX/MITRAZOL/ZEASORB 1 APPLIC TOPICAL ×2 (08:10→20:14)
[2024-10-31] MEDS: ASPIR LOW (ENTERIC COATED) 81 MG PO (08:14)
[2024-10-31] MEDS: SODIUM BICARBONATE 1300 MG PO ×3 (08:15→21:30)
[2024-10-31] MEDS: ProAmatine 5 MG PO ×2 (08:15→18:03)
--- NOTE | 2024-10-31 08:42 | CON.CAR ---
Addendum entered and electronically signed by Arnie Raygoza MD 10/31/24 10:50:
68 yo male with PMH of mechanical AVR on warfarin, permanent A fib, h/o MDT PPM, HFrEF with recent hospitalization for BEBA and hypovolemia with BEBA and ascites in 09/27/24 with repeat paracentesis as op on 10/07/2024 for 5L who represents with
anasarca, ascitis and BEBA. We are asked to comment on anticoagulation management given INR is elevated and rising, but must be <3 for paracentesis. He is not able to participate in interview due to mental status. He is awake but doesn't answer
questions, he had increase respiratory effort, decreased bs b/l , rrr, s1s2, 1/6 myranda. He had a distended but soft abdomen and 1+ pitting edema bl. On labs, he has BUN 142 Cr 5.3 with k of 5.3. He has an INR of 4.91rising from 4.5 to 4.79 now
4.91.
Overall, he has multiorgan system failure. Last admission ascites present in the setting of hypovolemia, now it is present with BEBA and hypervolemia. CRS vs HRS all in consideration. Albumen given. Nephrology and GI following. UOP is low, he is
at high risk for need HD, but unclear he would tolerate it well. In regard to anticoagulation. I d/w PA from IR and will not do para with just FFP, so will need to given IV Vit K to get INR down to <3. Hopefully after paracentesis, INR will also
improve. There is no low risk scenarion given acute on chronic kidney liver and heart failure. Will hold BB to avoid hypotn. No other GDMT indicated at this time. His rate is controlled even off BB. Nephrology managing volume status.
Plans discussed with Dr Messina and Flores Camacho STRAW BALER from GI.
Overall prognosis is poor. High risk for frequent rehospitalization if care plan doesnt change given 3 inpatient stays in the last 3 months. He would be a candidate for Hospice.
He sees a branding specialist at [facility]
Original Note:
Consultation
Consultation Request
Date/Time Consultation Requested: 10/30/24 5:55p
Date/Time Consultation Performed: 10/31/24 8a
Requesting Provider: Dr. Messina
Performing Provider: EBENEZER Maza for Dr. Raygoza
Reason for Consultation: management of reversal of Warfarin
Medical History
-
Chief Complaint: ascites, leg weakness
History of Present Illness:
Mr. Cazares is a 68 y/o male (cardiology patient of [facility]) with mechanical AVR on Warfarin, pacemaker (Medtronic), permanent AFib on Warfarin, CVA, HFrEF 35-40%, and liver cirrhosis/ESLD with frequent paracentesis (h/o
SBP), who presents for ascites and leg weakness. He is admitted to the hospitalist service for BEBA, urinary retention, UTI and ESLD. We are consulted for management of reversal of Warfarin, in the setting of ESLD and rising INR despite holding
Warfarin.
Past Medical History
Past Medical History: Other (as above)
Past Surgical History: Cardiac (mechanical AVR)
Social History
Tobacco: Non-Smoker
Alcohol: None
Living: Assisted Living ([facility])
Family History
Family History: Reviewed & Not Pertinent
Allergies / Home Medications
Allergy/AdvReac Type Severity Reaction Status Date / Time
No Known Allergies Allergy Verified 10/29/24 16:40
�Medication �Instructions �Recorded �Confirmed �Type
aspirin 81 mg tablet,delayed 81 mg PO DAILY Blood Clot 09/02/24 10/29/24 History
release Prevention/Tx
atorvastatin 40 mg tablet 40 mg PO QPM High Cholesterol 09/02/24 10/29/24 History
furosemide 20 mg tablet 20 mg PO DAILY Fluid 09/02/24 10/29/24 History
Retention/Swelling
sodium bicarbonate 650 mg tablet 1,300 mg (2 x 650 mg) PO TID #0 09/09/24 10/29/24 Rx
tabs
acetaminophen 325 mg tablet 650 mg PO Q6HPRN PRN mild 09/13/24 10/29/24 History
pain/temp>101
gabapentin 100 mg capsule 100 mg PO TID Pain 09/13/24 10/29/24 History
magnesium hydroxide 400 mg/5 mL 30 ml PO DAILYPRN PRN if no bm in 09/13/24 10/29/24 History
oral suspension (Milk of Magnesia) 3 days
miconazole nitrate 2 % topical 1 applic topical BID groin 09/13/24 10/29/24 History
powder (Miconazorb AF)
midodrine 5 mg tablet 5 mg PO TID@0800,1300,1800 09/22/24 10/29/24 Rx
hypotension 1 month #90 tabs
bisacodyl 10 mg rectal suppository 10 mg VT DAILYPRN PRN IF NO BM 10/29/24 10/29/24 History
(Dulcolax (bisacodyl)) AFTR MOM
collagenase clostridium histo. 250 1 applic topical DAILY RIGHT 10/29/24 10/29/24 History
unit/gram topical ointment (Santyl) ACHILIES
metoprolol succinate 25 mg 12.5 mg PO DAILY Heart Failure 10/29/24 10/29/24 History
tablet,extended release 24 hr
sodium phosphates 19 gram-7 118 ml VT DAILYPRN PRN IF NO BM 10/29/24 10/29/24 History
gram/118 mL enema (Fleet Enema) AFTR DULCOLAX
warfarin 5 mg tablet 5 mg PO HS Blood Clot Prevention/Tx 10/29/24 10/29/24 History
Review of Systems
-
History Source: Patient
All other systems: Negative unless noted
Physical Exam
Vital Signs
Temp Pulse Resp BP Pulse Ox
98.0 F 62 16 122/63 98
10/31/24 08:00 10/31/24 08:15 10/31/24 08:00 10/31/24 08:15 10/31/24 08:00
Lab Results
10/31/24 06:58
Physical Exam
General: Other (chronically ill appearing)
HEENT: Normocephalic and Moist Mucous Membranes
Respiratory: Accessory Resp Muscle Use (mild with diminished bibasilar breath sounds)
Cardiac: S1/S2, Irregular Rhythm and Other (metallic click)
Breast: Deferred by me
GI: Non Tender and Distended
Rectal: Deferred by Provider
Genito-urinary: No Costovertebral Tender
Musculoskeletal: No Clubbing, No Cyanosis and No Edema
Skin: Warm and Dry
Neuro: Awake, Alert and Oriented (x2 (time, person))
Psych: Calm
Impression / Plan
-
Mechanical Aortic Valve - stable on echo 09/03/24.
- on chronic Warfarin, INR 4.55 on admission.
- goal INR is 2.5-3.5 (AVR and Afib).
- INR rising despite holding Warfarin in the setting of ESLD with ascites needing paracentesis.
- continue to hold Warfarin and give Vitamin K today since he requires paracentesis, monitor INR.
Permanent Afib - stable, rate controlled.
- agree with holding Metoprolol given concern for HRS.
- not on telemetry.
- Warfarin as above.
BEBA - acute.
- nephrology following.
- creatinine on admit 5.6.
- holding diuretics.
ESLD/ascites - recurrent ascites requiring paracentesis.
- unable to perform paracentesis with INR 4.91 today, given Vitamin K and monitor closely.
- per hospitalist, GI and IRAD.
Pacemaker - Medtronic.
- stable with normal function.
HFrEF - chronic.
- Echo 09/03/24 showed DCM with an EF 35-30%, severe pHTN.
- difficult situation with BEBA and ESLD with ascites, concern for HRS.
- nephrology following, consider HD.
Data Reviewed
-
EKG: Other (no EKG ordered)
Medical Tests (Nuc Med, Echo etc): Report Reviewed by me (Echo 09/03/24 showed DCM with an EF 35-30%, severe pHTN.)
Labs: Labs Reviewed by me
Old Records: Reviewed
--- NOTE | 2024-10-31 09:42 | CM ---
Patient seen at [facility] on . Patient stated that he was doing about the same and still living with the same people. Per chart review, referral to joana and [facility]. PRATIK will continue to follow for discharge planning needs.
Plan; return to snf; pending bed availability
[2024-10-31 09:44] LABS: ALT (SGPT) 29 U/L (0-50); AST (SGOT) 54 U/L (17-59); Albumin 3.5 g/dl (3.5-5.0); Alkaline Phosphatase 177 U/L (38-126); Carbon Dioxide 23 mmol/L (22-30); Chloride 98 mmol/L (98-107); Glucose 86 mg/dl (70-99); Potassium 5.3 mmol/L (3.5-5.1); Sodium 136 mmol/L (135-145); Total Bilirubin 1.9 mg/dl (0.2-1.3); Total Protein 6.2 g/dl (6.3-8.2)
[2024-10-31 10:22] LABS: Blood Urea Nitrogen 142 mg/dl (9-20); Estimated Creatinine Clearance 15 ml/min; eGFR 10.94
[2024-10-31] MEDS: AQUAMEPHYTON 50.5 MG IV (10:44)
--- NOTE | 2024-10-31 10:50 | W.PN.NEPH.PH ---
Today's Communication / Plan
-
await family to come at 1pm
Assessment/Plan
-
Assessment:
BEBA with [id number] cr 1.8
Azotemia
Hyperkalemia
Aortic Stenosis h/o AVR
Atrial Fibrillation
Permanent Pacemaker
HFrEF 35-40% and DD
Essential Hypertension
Hyperlipidemia
Liver cirrhosis
Status post paracentesis
Dilated CBD, c/f choledocho
Anemia
Plan:
A/w abd discomfort and has large ascites need to have para but INR high
BEBA-significantly worse from last admission and worsening azotemia too
UA UTI sample, urine sodium is less than 5 suggest predominantly prerenal in the form of cardiorenal versus HRS, cont albumin course
cr no sig change and oliguric with mahoney
Mild hyperkalemia continue lokelma course, low k diet, Holding diuretics
likely need HD however he is poor candidate with MODS and clinical fraility with high mortality risk
This was reviewed with Renay(listed on contacts) in detail
Specially concerns regarding his tolerability of dialysis with the low EF and cirrhosis and will not be successful in maintaining volume status
more over with burden of HD there will be further decrease in the quality of life
really think comfortcare is appropriate, family to come at 1pm today to visit him and make decision then
Blood pressures are soft but stable on midodrine
met acidosis improving on on high dose of po bicarb
antibiotics for suspicion of SBP, await INR to improve to have paracentesis
Follow-up H&H
DNR
Discussed with the nursing and GI
-
-
Date of Service: October 31, 2024
CC / HPI / ROS
-
Chief Complaint:
BEBA with CKD
History of Present Illness:
cr only slightly better at 5.3
k better at 5.3. met acidosis is better at 23
worsening azotemia 142
INR still high 4.9
Review of Systems:
confused and unable to provide history
oliguric with mahoney
Labs
-
Labs:
WBC 14.7 10^3/uL (4.8-10.8) H 10/31/24 06:58
RBC 3.33 10^6/uL (4.70-6.10) L 10/31/24 06:58
Hgb 8.8 g/dL (13.0-18.0) L 10/31/24 06:58
Hct 27.1 % (39.0-52.0) L 10/31/24 06:58
Plt Count 232 10^3/uL (130-400) 10/31/24 06:58
Sodium 136 mmol/L (135-145) 10/31/24 07:35
Potassium 5.3 mmol/L (3.5-5.1) H 10/31/24 07:35
Chloride 98 mmol/L (98-107) 10/31/24 07:35
Carbon Dioxide 23 mmol/L (22-30) 10/31/24 07:35
BUN 142 mg/dl (9-20) H* 10/31/24 07:35
Creatinine 5.3 mg/dL (0.7-1.3) H* 10/31/24 07:35
eGFR 10.94 10/31/24 07:35
Glucose 86 mg/dl (70-99) 10/31/24 07:35
Calcium 9.0 mg/dl (8.4-10.2) 10/31/24 07:35
Albumin 3.5 g/dl (3.5-5.0) 10/31/24 07:35
Physical Exam
-
Vital Signs:
Vital Signs
Temp Pulse Resp BP Pulse Ox
98.0 F 64 18 123/77 97
10/31/24 08:00 10/31/24 09:45 10/31/24 09:45 10/31/24 09:45 10/31/24 09:45
Cardiovascular:: Regular rate and rhythm
Respiratory:: Bilateral: CTA (decreased)
Lung Excursion:: Normal
Abdomen:: Distended, Nontender and Soft
Extremity Edema:: +3: Bilateral:
Mahoney Catheter: Yes
--- NOTE | 2024-10-31 11:00 | W.PN.GI.CBS2 ---
Addendum entered and electronically signed by Karina Gibbs Do, MD 10/31/24 14:13:
I saw and examined the patient.
The HEADRIG SAWYER's note was reviewed and I agree with the note.
Comment: Case d/w pt's family (aunt, cousin) and POA cousin via phone along with Dr Messina and Dr Rene. Patient's current status discussed with cirrhosis renal and heart failure. Recommend hospice which everyone was agreeable to. All questions
answered. Total time spent today over 55mins. Please call for questions. GI will sign off
Original Note:
Today's Communication / Plan
-
concern for multiple organ decompensation with Acute on chronic BEBA, underlying cirrhosis with ascites, HF etc.
Pt also noted with possible CBD stone and continued ascites
he also had rising INR 4.9 today
I discussed with Dr. Siddharth Richards and Dr Raygoza
IV vitamin K given this am per review with cardiology -- will repeat INR later today to see if any further vitamin K needed
Unable to do para with high INR- per review with IR and unable to do para with FFP infusion
pt currently with increased dyspnea at rest-- and with increased ascites limited with ability to do MRI
I also reviewed with Dr. Meza unable to EUS with high INR and multiple medical issues
I spoke with cousin Bruce on contact list- with concern for multiple medical issues-along with pt confusion and inability to make medical decisions today - family will be in later today and further review for goals of care
reviewed with nursing staff
cont abx for possible Stone and possible SBP with recent SBP
ok for clear diet
cont albumin/midodrine treatment per renal for worsening renal function
pending course -- OP follow up for continued cirrhosis work up
pt remains critically ill with multiple organ decompensation
currently remains DNR
Pt is scheduled 11/[address] Shane as new patient for GI eval
Assessment / Plan
-
Pt is a 68yo with hx mechanical AVR on coumadin, afib, HFrEF(echo in September with EF 35-40%), cirrhosis with ascites, anemia of chronic disease, CKD, hyperlipidemia, pacer, necrotic heal wound with admission in September with shortness of breath and
volume overload. He complete paracentesis with noted + SBP. SAAG on fluid noted with 1.5 and high protein more c/w congestive etiology. During admission patient was managed by cardiology, renal and ID and not seen by GI. Pt was due follow
up with GI in November but now presents for recurrent admission with abdominal pain. CT on admission with continued large volume ascites, small to moderate right and small left effusion, anasarca, hepatic cirrhosis, cholelithiasis and concern for
choledocholithiasis. Labs on return with WBC 11,800, hbg 9.5, platelets 240, INR 4.55(in setting of chronic Coumadin use), Na 133, K 5.8, BUN 127, creat 5.6, bili 1,7, AT 47, ALT 25, alk phos 197, albumin 3.4.In review with patient he denies
history of liver problems but admits to family hx cirrhosis in several aunts with prior ETOH use. He denies hx prior GI bleeding or encephalopathy in past. He denies history of EGD or colonoscopy in past.
-ascites
-noted hepatic cirrhosis on imaging
-acute on chronic renal disease on admission
-gallstones with possible choledocholithiasis on CT
-admission in September with SBP, volume overload
-HFrEF echo September Ef 35-40%
-AVR/afib on Coumadin with elevated INR on admission
-anemia
-alterned mental status
-hyperkalemia
-+ UA on admission
other med problems:
-hep C + reactive with neg RNA
-AOCD
-hyperlipidemia
-pacer
-HTN with recent hypotension on Midodrine
-hyperlipidemia
-+MRSA
-DNR
PLAN:
concern for multiple organ decompensation with Acute on chronic BEBA, underlying cirrhosis with ascites, HF etc.
Pt also noted with possible CBD stone and continued ascites
he also had rising INR 4.9 today
I discussed with Dr. Siddharth Richards and Dr Raygoza
IV vitamin K given this am per review with cardiology -- will repeat INR later today to see if any further vitamin K needed
Unable to do para with high INR- per review with IR and unable to do para with FFP infusion
pt currently with increased dyspnea at rest-- and with increased ascites limited with ability to do MRI
I also reviewed with Dr. Meza unable to EUS with high INR and multiple medical issues
I spoke with cousin Bruce on contact list- with concern for multiple medical issues-along with pt confusion and inability to make medical decisions today - family will be in later today and further review for goals of care
reviewed with nursing staff
cont abx for possible Stone and possible SBP with recent SBP
ok for clear diet
cont albumin/midodrine treatment per renal for worsening renal function
pending course -- OP follow up for continued cirrhosis work up
pt remains critically ill with multiple organ decompensation
currently remains DNR
Pt is scheduled 11/[address] Shane as new patient for GI eval
Subjective
Subjective
Date of Service: October 31, 2024
clear diet no stools
Objective
Data Reviewed
Laboratory Data:
Laboratory Results
10/31/24 06:58
10/31/24 07:35
Laboratory Results
PT 45.7 Sec (11.4-14.6) H 10/31/24 07:35
INR 4.91 10/31/24 07:35
APTT 59.3 Sec (23.4-35.0) H 10/30/24 00:19
Magnesium 2.0 mg/dl (1.6-2.3) 10/30/24 06:37
Total Bilirubin 1.9 mg/dl (0.2-1.3) H 10/31/24 07:35
AST 54 U/L (17-59) 10/31/24 07:35
ALT 29 U/L (0-50) 10/31/24 07:35
Alkaline Phosphatase 177 U/L (38-126) H 10/31/24 07:35
Vital Signs and I&O:
Vital Signs
Temp Pulse Resp BP Pulse Ox
98.0 F 64 18 123/77 97
10/31/24 08:00 10/31/24 09:45 10/31/24 09:45 10/31/24 09:45 10/31/24 09:45
I&O
10/30/24 10/31/24 11/01/24
06:59 06:59 06:59
Intake Total 240 / 240 760 / 760
Output Total 250 / 250 400 / 400
Balance -10 / -10 360 / 360
Physical Exam
Physical Exam
HEENT: Anicteric and Moist mucous membranes
Cardiology: Normal Sinus Rhythm
Pulmonary: Other (decreased bases with shortness of breath at rest )
GI: Soft, Distended and Tender
Extremities: No Edema
Neuro: Other (confused )
--- NOTE | 2024-10-31 12:06 | PN.CDI ---
CDI
- -
CDI:
Physician Documentation Request
Admit Date: 10/29/24 20:13
Dear Doctor Siddharth,
Please review the following and provide your response in the progress notes.
Clinical Indicators:
- Wound care note indicates:
- Stage 2 sacrum pressure injury, POA
- Stage 1 Right lateral foot pressure injury, POA
Physician documentation of the type and location of wounds is required for compliant documentation. Based on the above clinical findings and your assessment, please provide the following in your progress note:
1. Location of the ulcer/wound, including laterality.
2. Type (etiology) of ulcer/wound:
- Diabetic ulcer
- Arterial (ischemic) ulcer
- Venous stasis ulcer
- Pressure (decubitus) ulcer
- Other
Use of terms such as suspected, likely, concern for, or probable (associated with a specific diagnosis that is being evaluated, monitored, or treated as if it exists) are acceptable and can be coded in the inpatient setting, when documented at the
time of discharge.
Thank you,
Shweta Hodge RN
CDI Specialist
Please use your independent medical judgment in providing your response.
*Source: National Pressure Ulcer Advisory Panel (NPUAP)
[2024-10-31] MEDS: ProAmatine PO (13:49)
--- NOTE | 2024-10-31 14:55 | W.PN.UPDATE ---
Update Note
Progress Note Update
Family meeting held today with primary and GI team
d/w family about critical condition, aware of poor prognosis
decision made to keep him comfortable , hospice consulted
will s/o, call with ?s
--- NOTE | 2024-10-31 15:37 | HOSPNOTE ---
Met with patient and family to discuss hospice and the philosophy. The patient would like to think things over this evening and we will meet again in the am. Attending aware.
--- NOTE | 2024-10-31 15:53 | W.PN.HOSP.TC ---
Today's Communication/Plan
-
Vit K
repeat labs
poor prognosis
long discussion on GOC
Assessment / Plan
Assessment / Plan
1. BEBA - HRS vs ATN or possible obstruction. Hemoglobin stable. No evidence of blood loss. No acute volume loss.
- admit to med/surg
- send for FENA
- will start cefepime for presumed SBP/UTI
- stop diuretics for now
- hold metoprolol
- if FENA positive, consider terlipressin
- i/o, weights
- acid base ok, K 5.8, was given 1 dose lokelma-->5.6-->5.3
- avoid nephrotoxins
- nephrology consult
input from Dr. Richards appreciated, she is concerned about ability to tolerate dialysis
on 09/27 BUN/Creat was 50/1.9, on 10/29 was 127/5.6, 10/31 142/5.3
Hyperkalemia
will follow for now
- possible retention, CT: Large volume abdominopelvic ascites.
Small to moderate right and small left pleural effusions.
Diffuse anasarca.
Hepatic cirrhosis.
Cholelithiasis. Small calcification in the region of the distal common bile duct suspicious for choledocholithiasis. However, no significant bile duct dilatation.
Other chronic findings, as detailed above, urology consulted from ED. maintain mahoney for now
2. ASCITES - Recurrent large volume ascites, taps almost weekly. Likely will need another tap. 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
- IR consult for diagnostic tap to rule out infection and sbp, unable to do due to elevated INR. IV Vit K ordered by GI, will recheck INR in AM. Discussed giving FFP, IRAD requests reversal of supratherapeutic INR prior to paracentesis
- will need albumin repletion for large volume para
- IV cefepime for now given prior abx use
- continue midodrine
3. AFIB - rate controlled
- coumadin 5 hs, goal inr 2.5, holding coumadin follow inr in am
- holding metoprolol for possible acute HRS
3a. Hx of Mechanical aortic Valve Replacement
4. CHF - total body volume o/d
- holding lasix
HFrEF EF 35-40%
5. UTI - + u/a, recent hospitalizations and liver failure, high risk
- urine cultures sent
- cefepime now
6. supratherapeutic INR
coumadin on hold. May need FFP if need to do paracentesis, await cardio input
7. Rt achilles wound
wound care consulted
DVT PPX - on coumadin
reviewed with Dr. Richards
Recent hospitalization 09/13- and prior to that 09/02-09/09/24
Met with family for [facility] meeting today, Aunt Stephanie, cousin Terrance and on speaker phone Terrance High with Drs. Smith and Blanca in conference room. Explained situation extensively. They voiced their understanding, then went back and reviewed with patient,
he wants to think about it.
Unfortunately options are limited with massive ascites, acute on chronic renal failure
Code Status - DNR
time spent today 75 minutes
Anticipated Discharge: > 48 hours
Subjective/Interval History
-
Date of Service: October 31, 2024
Obviously weak
Objective Data
-
Labs:
Laboratory Results
10/31/24 10/31/24 10/31/24
06:58 07:35 16:00
WBC 14.7 H
Hgb 8.8 L
Hct 27.1 L
Plt Count 232
PT 45.7 H Cancelled
INR 4.91 Cancelled
Sodium 136
Potassium 5.3 H
Chloride 98
Carbon Dioxide 23
BUN 142 H*
Creatinine 5.3 H*
Glucose 86
Calcium 9.0
Total Bilirubin 1.9 H
AST 54
ALT 29
Alkaline Phosphatase 177 H
Vital Signs:
Vital Signs
Temp Pulse Resp BP Pulse Ox
97.8 F 70 16 142/76 92
10/31/24 11:37 10/31/24 13:49 10/31/24 11:37 10/31/24 13:49 10/31/24 11:37
I&O
10/30/24 10/31/24 11/01/24
06:59 06:59 06:59
Intake Total 240 / 240 760 / 760
Output Total 250 / 250 400 / 400
Balance -10 / -10 360 / 360
Review of Systems
-
History Source: Physician and Coordinated Provider
Constitutional: Denies Fever
Respiratory: Reports No Symptoms
Cardiac: Reports No Symptoms; Denies Chest Pain
Abdomen/GI: Reports Bloated
Musculoskeletal: Reports Edema
Physical Exam
-
General: Well Developed, Well Nourished and Appears Chronically Ill
HEENT: Normocephalic, Atraumatic and Moist Mucous Membranes
Respiratory: Rales (bibasilar rales on shallow respirations)
Cardiac: S1/S2, Irregular Rhythm, Murmur (3/6 ) and Other (mechanical AV )
GI: Soft, Distended and Other (ascites); Negative Normal Bowel Sounds
Musculoskeletal: Edema, Left Upper Extrem, Edema, Right Lower Extrem, Edema, Left Lower Extrem and Other (posterior rt ankle wound with visible tendon)
--- NOTE | 2024-10-31 16:25 | PTCARENOTE ---
Received Pt this am AAOx1-2. Pt with flat affect an confusion. NPO this am. Pt given Albumin infusion as order. PT 45.7 INR-4.91 Pt given IV infusion of Vitamin K as ordered. Positive MRSA in Nose. Made patient comfortable. Cont to assess patient
status. Report called to 4 Kyle RN and patient transferred to room 430.
[2024-10-31] MEDS: LIPITOR 40 MG PO (17:59)
[2024-10-31] MEDS: MAXIPIME 1000 MG IV (20:15)
[2024-10-31] MEDS: STERILE WATER FOR INJECTION 10 ML IV (20:17)
[2024-11-01] MEDS: LOKELMA 10 GRAM PO ×2 (05:03→14:15)
[2024-11-01 06:00] VITALS: BMI 27.6
[2024-11-01 07:00] VITALS: BP 151/69
[2024-11-01 07:08] LABS: Hematocrit 27.1 % (39.0-52.0); Hemoglobin 8.8 g/dL (13.0-18.0); Mean Corp Hgb Conc. 32.5 g/dL (33.0-37.0); Mean Corpuscular Hgb 26.2 pg (27.0-31.0); Mean Corpuscular Volume 80.7 fL (80.0-94.0); Mean Platelet Volume 10.2 fL (7.4-10.4); Platelet Count 233 10^3/uL (130-400); Red Blood Cell Count 3.36 10^6/uL (4.70-6.10)
[2024-11-01 07:16] LABS: INR 2.29; PT 25.7 Sec (11.4-14.6)
[2024-11-01 08:00] LABS: ALT (SGPT) 40 U/L (0-50); AST (SGOT) 73 U/L (17-59); Albumin 3.3 g/dl (3.5-5.0); Alkaline Phosphatase 192 U/L (38-126); Calcium 8.9 mg/dl (8.4-10.2); Carbon Dioxide 19 mmol/L (22-30); Chloride 101 mmol/L (98-107); Glucose 73 mg/dl (70-99); Potassium 4.9 mmol/L (3.5-5.1); Sodium 136 mmol/L (135-145); Total Bilirubin 2.6 mg/dl (0.2-1.3)
[2024-11-01 08:24] LABS: Blood Urea Nitrogen 154 mg/dl (9-20); Estimated Creatinine Clearance 15 ml/min
--- NOTE | 2024-11-01 09:13 | W.PN.GI.CBS2 ---
Addendum entered and electronically signed by Lana Mosley MD 11/01/24 15:43:
I saw and examined the patient.
The MITTEN SEWER's note was reviewed and I agree with the note.
Comment: He had paracentesis today and 10 L was drained and currently receiving albumin replacement therapy. Ascites likely multifactorial from acute on chronic BEBA, CHF and cirrhosis. Cirrhosis could be cardiogenic versus secondary to MASH/MAFLD.
Reviewed input from renal and agree that he is appropriate for hospice care and unclear if patient is able to make his own decision and may need his POA help. Continue to tap as needed and given his recent h/o SBP agree with antibiotics till the
cell count and cultures are back. CT shows gallstones and a questionable small CBD stone there is no evidence of ductal dilatation and his LFTs are only minimally elevated not consistent with biliary obstruction and he currently has no abdominal
pain. Will hold on EUS or ERCP since he is currently asymptomatic from it and doubt that it is causing obstruction. GI will sign off and will be available as needed
Addendum entered and electronically signed by EBENEZER Márquez 11/01/24 11:25:
para completed for 10 liter will give albumin replacement per protocol- sent message to renal to update
Original Note:
Today's Communication / Plan
-
concern for multiple organ decompensation with Acute on chronic BEBA, underlying cirrhosis with ascites, HF etc.
Pt also noted with possible CBD stone and continued ascites
family meeting noted-- pt was not ready for hospice/comfort per review with Dr. Messina and family 10/31
INR down to 2.29 today (s/p vitamin K 10/31)-- I reviewed with IR for proceeding with para
Pt will need MRCP to eval for stone-- can consider after para pending ability to lay flat
cont to follow INR and LFT's with some rise during admission
I reviewed with Dr. Meza 10/31 unable to EUS with high INR and multiple medical issues
cont abx for possible Stone and possible SBP with recent SBP
will allow renal diet
cont albumin dosing /midodrine treatment per renal for worsening renal function
pending course -- OP follow up for continued cirrhosis work up
pt remains critically ill with multiple organ decompensation
currently remains DNR
reviewed again with Dr. Messina and Dr. Raygoza this am
Pt is scheduled 11/[address] Shane as new patient for GI eval may need reschedule pending discharge date
Assessment / Plan
-
Pt is a 68yo with hx mechanical AVR on coumadin, afib, HFrEF(echo in September with EF 35-40%), cirrhosis with ascites, anemia of chronic disease, CKD, hyperlipidemia, pacer, necrotic heal wound with admission in September with shortness of breath and
volume overload. He complete paracentesis with noted + SBP. SAAG on fluid noted with 1.5 and high protein more c/w congestive etiology. During admission patient was managed by cardiology, renal and ID and not seen by GI. Pt was due follow
up with GI in November but now presents for recurrent admission with abdominal pain. CT on admission with continued large volume ascites, small to moderate right and small left effusion, anasarca, hepatic cirrhosis, cholelithiasis and concern for
choledocholithiasis. Labs on return with WBC 11,800, hbg 9.5, platelets 240, INR 4.55(in setting of chronic Coumadin use), Na 133, K 5.8, BUN 127, creat 5.6, bili 1,7, AT 47, ALT 25, alk phos 197, albumin 3.4.In review with patient he denies
history of liver problems but admits to family hx cirrhosis in several aunts with prior ETOH use. He denies hx prior GI bleeding or encephalopathy in past. He denies history of EGD or colonoscopy in past.
-ascites
-noted hepatic cirrhosis on imaging- rise in LFT's during admission
-acute on chronic renal disease on admission
-gallstones with possible choledocholithiasis on CT
-admission in September with SBP, volume overload
-HFrEF echo September Ef 35-40%
-AVR/afib on Coumadin with elevated INR on admission
-anemia
-altered mental status
-hyperkalemia-improving
-+ UA on admission
other med problems:
-hep C + reactive with neg RNA
-AOCD
-hyperlipidemia
-pacer
-HTN with recent hypotension on Midodrine
-hyperlipidemia
-+MRSA
-DNR
PLAN:
concern for multiple organ decompensation with Acute on chronic BEBA, underlying cirrhosis with ascites, HF etc.
Pt also noted with possible CBD stone and continued ascites
family meeting noted-- pt was not ready for hospice/comfort per review with Dr. Messina and family 10/31
INR down to 2.29 today (s/p vitamin K 10/31)-- I reviewed with IR for proceeding with para
Pt will need MRCP to eval for stone-- can consider after para pending ability to lay flat
cont to follow INR and LFT's with some rise during admission
I reviewed with Dr. Meza 10/31 unable to EUS with high INR and multiple medical issues
cont abx for possible Stone and possible SBP with recent SBP
will allow renal diet
cont albumin dosing /midodrine treatment per renal for worsening renal function
pending course -- OP follow up for continued cirrhosis work up
pt remains critically ill with multiple organ decompensation
currently remains DNR
Pt is scheduled 11/[address] Shane as new patient for GI eval may need reschedule pending discharge date
Subjective
Subjective
Date of Service: November 01, 2024
on clear diet, 10/30 stool, some one word responses but still with some forgetfulness flat affect
Objective
Data Reviewed
Laboratory Data:
Laboratory Results
11/01/24 06:40
11/01/24 06:40
Laboratory Results
PT 25.7 Sec (11.4-14.6) H 11/01/24 06:40
INR 2.29 D 11/01/24 06:40
APTT 59.3 Sec (23.4-35.0) H 10/30/24 00:19
Magnesium 2.0 mg/dl (1.6-2.3) 10/30/24 06:37
Total Bilirubin 2.6 mg/dl (0.2-1.3) H 11/01/24 06:40
AST 73 U/L (17-59) H 11/01/24 06:40
ALT 40 U/L (0-50) 11/01/24 06:40
Alkaline Phosphatase 192 U/L (38-126) H 11/01/24 06:40
Vital Signs and I&O:
Vital Signs
Temp Pulse Resp BP Pulse Ox
97.4 F 67 24 124/73 93
10/31/24 23:25 10/31/24 23:25 10/31/24 23:25 10/31/24 23:25 10/31/24 23:25
I&O
10/31/24 11/01/24 11/02/24
06:59 06:59 06:59
Intake Total 760 / 760 820 / 820
Output Total 400 / 400 675 / 675
Balance 360 / 360 145 / 145
Physical Exam
Physical Exam
HEENT: Anicteric and Moist mucous membranes
Cardiology: Normal Sinus Rhythm
Pulmonary: Clear
GI: Soft, Distended and Tender (minimal )
Extremities: Edema
Neuro: Other (forgetful, one word responses, flat affect )
[2024-11-01] MEDS: DESENEX/MITRAZOL/ZEASORB 1 APPLIC TOPICAL (09:45)
[2024-11-01] MEDS: SODIUM BICARBONATE 1300 MG PO ×2 (09:45→16:17)
[2024-11-01] MEDS: ASPIR LOW (ENTERIC COATED) 81 MG PO (09:45)
[2024-11-01] MEDS: ProAmatine 5 MG PO ×2 (09:45→14:15)
--- NOTE | 2024-11-01 10:22 | W.PN.CD ---
Today's Communication / Plan
-
hold warfarin
c discussions on going
Impression / Plan
-
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
Mechanical Aortic Valve - stable on echo 09/03/24.
- on chronic Warfarin, INR now down to 2.29 after 1 mg Vit K given need for paracentesis
- ultimate goal INR is 2.5-3.5 (AVR and Afib), but watch trend as may need additional procedures for GI evaluation
Permanent Afib - stable, rate controlled.
- agree with holding Metoprolol given concern for HRS.
- Warfarin as above.
BEBA - acute.
- nephrology following.
- he is not MATERIALS RECYCLER candidate
ESLD/ascites - recurrent ascites requiring paracentesis.
-GI following, now s/p paracentesis and CBD w/u
Pacemaker - [employer].
- stable with normal function.
HFrEF - chronic.
- Echo 09/03/24 showed DCM with an EF 35-30%, severe pHTN.
- difficult situation with BEBA and ESLD with ascites, concern for HRS.
- nephrology following, consider HD.
Overall prognosis is poor. High risk for frequent rehospitalization. He is a reasonable candidate for hopsitce
Subjective: awake but not really able to interact, states feel better after paracentesis
Physical Exam
Vital Signs/Labs
Vital Signs
Temp Pulse Resp BP Pulse Ox
97.4 F 61 18 151/69 95
11/01/24 07:00 11/01/24 07:00 11/01/24 07:00 11/01/24 07:00 11/01/24 07:00
10/31/24 11/01/24 11/02/24
06:59 06:59 06:59
Actual Weight 216 lb 4 oz 214 lb 8 oz
11/01/24 06:40
11/01/24 06:40
PT 25.7 Sec (11.4-14.6) H 11/01/24 06:40
INR 2.29 D 11/01/24 06:40
APTT 59.3 Sec (23.4-35.0) H 10/30/24 00:19
Magnesium 2.0 mg/dl (1.6-2.3) 10/30/24 06:37
Physical Exam
Constitutional: No acute distress
Cardiovascular: Rhythm & rate is regular and Pedal edema present
Respiratory: Respiratory effort normal, Lungs clear to auscul., Crackles Absent, Rhonchi Absent and Labored respirations
Neuro/Psych: Alert
Data Reviewed
-
Date of Service: November 01, 2024
[2024-11-01 10:59] VITALS: BP 118/69; BP_SYST 62
[2024-11-01 11:08] LABS: Body Fluid Mononuclear 24.7 %; Body Fluid Polymorphonuclear 75.3 %; Body Fluid WBC 130 /CUMM
[2024-11-01 11:17] LABS: Body Fluid Second Tech AMA
[2024-11-01 11:32] LABS: Body Fluid Albumin 1.7 g/dl; Body Fluid Amylase 110 U/L; Body Fluid LDH 152 U/L; Body Fluid Protein 3.5 g/dl
--- NOTE | 2024-11-01 13:09 | CM ---
Addendum entered by Deedee Randle 11/01/24 14:04:
Chart reviewed and patient and family possibly agreeable to hospice options referral and referral sent to [facility].
Original Note:
sr. social media & mobile manager reviewed patient's chart and met with patient and patient was admitted from [facility] and plan is for patient to return to [facility] when stable, patient's family asked about [facility] and case picker spoke
with admissions at [facility] however there are no beds available today, family asking for a referral to [facility]. Referral sent.
Plan; sr. social media & mobile manager reached out to [facility] for possible bed for patient at [facility] tomorrow.
[2024-11-01] MEDS: FLEXBUMIN 50 IV (13:27)
--- NOTE | 2024-11-01 13:53 | HOSPNOTE ---
Patient will be admitted inpatient hospice. Patient is agitated and will require inpatient hospice. Attending and CM aware. Admissions was called to begin hospice chart. Family is in agreement.
--- NOTE | 2024-11-01 14:03 | W.PN.NEPH.PH ---
Today's Communication / Plan
-
Hospice strongly recommended
Assessment/Plan
-
Assessment:
BEBA with [id number] cr 1.8
Azotemia
Hyperkalemia
Aortic Stenosis h/o AVR
Atrial Fibrillation
Permanent Pacemaker
HFrEF 35-40% and DD
Essential Hypertension
Hyperlipidemia
Liver cirrhosis
Status post paracentesis
Dilated CBD, c/f choledocho
Anemia
Plan:
A/w abd discomfort and has large ascites need to have para but INR high
BEBA-significantly worse from last admission and worsening azotemia too
UA UTI sample, urine sodium is less than 5 suggest predominantly prerenal in the form of cardiorenal versus HRS, cont albumin course
cr no sig change and oliguric with mahoney
I discussed with his aunt at bedside at length about classes being in the only option at this time as he was able to get his paracentesis today which removed 10 L.
In that setting dialysis would not be effective and this of fluid would continue to accumulate in the setting of both heart failure and Liver cirrhosis
Patient is anasarcic with 3+ pitting edema up to his thigh.
He is not a dialysis candidate
Unfortunately hospice is her only option at this time and this was discussed with the hospice team.
Based on my assessment the patient is unable to make his own decisions therefore needs a POA consent.
-
-
Date of Service: November 01, 2024
CC / HPI / ROS
-
Chief Complaint:
BEBA with CKD
History of Present Illness:
cr only slightly better at 5.3
k better at 5.3. met acidosis is better at 23
worsening azotemia 142
INR still high 4.9
Review of Systems:
confused and unable to provide history
oliguric with mahoney
Labs
-
Labs:
WBC 13.0 10^3/uL (4.8-10.8) H 11/01/24 06:40
RBC 3.36 10^6/uL (4.70-6.10) L 11/01/24 06:40
Hgb 8.8 g/dL (13.0-18.0) L 11/01/24 06:40
Hct 27.1 % (39.0-52.0) L 11/01/24 06:40
Plt Count 233 10^3/uL (130-400) 11/01/24 06:40
Sodium 136 mmol/L (135-145) 11/01/24 06:40
Potassium 4.9 mmol/L (3.5-5.1) 11/01/24 06:40
Chloride 101 mmol/L (98-107) 11/01/24 06:40
Carbon Dioxide 19 mmol/L (22-30) L 11/01/24 06:40
BUN 154 mg/dl (9-20) H* 11/01/24 06:40
Creatinine 5.2 mg/dL (0.7-1.3) H* 11/01/24 06:40
eGFR 11.20 11/01/24 06:40
Glucose 73 mg/dl (70-99) 11/01/24 06:40
Calcium 8.9 mg/dl (8.4-10.2) 11/01/24 06:40
Albumin 3.3 g/dl (3.5-5.0) L 11/01/24 06:40
Physical Exam
-
Vital Signs:
Vital Signs
Temp Pulse Resp BP Pulse Ox
97.8 F 62 25 118/69 91
11/01/24 10:59 11/01/24 10:59 11/01/24 10:59 11/01/24 10:59 11/01/24 10:59
Cardiovascular:: Regular rate and rhythm
Respiratory:: Bilateral: Coarse and Bilateral: Rales
Lung Excursion:: Normal
Abdomen:: Distended, Nontender and Soft
Extremity Edema:: +3: Bilateral:
Mahoney Catheter: Yes
Other Findings::
anasarca
[2024-11-01] MEDS: FLEXBUMIN 100 IV ×2 (14:16→16:18)
[2024-11-01 15:25] VITALS: BP 99/48
--- NOTE | 2024-11-01 16:29 | W.PN.HOSP.TC ---
Addendum entered and electronically signed by Francisco J Messina MD 11/01/24 17:01:
Pt with toxic metabolic encephalopathy from multiorgan failure
Original Note:
Today's Communication/Plan
-
dc to be admitted to Hospice
Assessment / Plan
Assessment / Plan
1. BEBA - HRS vs ATN or possible obstruction. Hemoglobin stable. No evidence of blood loss. No acute volume loss.
- admit to med/surg
- will start cefepime for presumed SBP/UTI
- stop diuretics for now
- hold metoprolol
- if FENA positive, consider terlipressin
- i/o, weights
- acid base ok, K 5.8, was given 1 dose lokelma-->5.6-->5.3
- avoid nephrotoxins
- nephrology consult
input from Dr. Richards appreciated, she is concerned about ability to tolerate dialysis
on 09/27 BUN/Creat was 50/1.9, on 10/29 was 127/5.6, 10/31 142/5.3
Pt is obviously failing. He is Hospice appropriate. Met with nephrology, Cardio today and both confirmed obvious decline and poor prognosis with recommendation to transition to Hospice. Then met with Tara ([employer]) who in turn met
with family. Family now in agreement, Tara will contact POA and he will now be transitioned to Hospice. Paracentesis performed today with drainage of 10 liters of fluid
Hyperkalemia
will follow for now
- possible retention, CT: Large volume abdominopelvic ascites.
Small to moderate right and small left pleural effusions.
Diffuse anasarca.
Hepatic cirrhosis.
Cholelithiasis. Small calcification in the region of the distal common bile duct suspicious for choledocholithiasis. However, no significant bile duct dilatation.
Other chronic findings, as detailed above, urology consulted from ED. maintain mahoney for now
2. ASCITES - Recurrent large volume ascites, taps almost weekly. Likely will need another tap. 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
- IR consult for diagnostic tap to rule out infection and sbp, unable to do due to elevated INR. IV Vit K ordered by GI, will recheck INR in AM. Discussed giving FFP, IRAD requests reversal of supratherapeutic INR prior to paracentesis
- will need albumin repletion for large volume para
- IV cefepime for now given prior abx use
- continue midodrine
3. AFIB - rate controlled
- coumadin 5 hs, goal inr 2.5, holding coumadin follow inr in am
- holding metoprolol for possible acute HRS
3a. Hx of Mechanical aortic Valve Replacement
4. CHF - total body volume o/d
- holding lasix
HFrEF EF 35-40%
5. UTI - + u/a, recent hospitalizations and liver failure, high risk
- urine cultures sent
- cefepime now
6. supratherapeutic INR
coumadin on hold. May need FFP if need to do paracentesis, await cardio input
7. Rt achilles wound
wound care consulted
8. multiple pressure wounds, present on admission
[facility] RN note: Patient admitted with acute renal failure. Patient admitted from [facility]
See H&P for complete history.
PMH: from H+P 'mechanical aortic valve replacement, atrial fibrillation, cirrhosis with 2 recurrent large-volume ascites and history of SBP, CHF with reduced EF, chronic anemia, CKD'
Wound Location and type/assessment: Patient admitted with: stage 2 sacral pressure injury along with MASD. Bruises on back. R Achilles full thickness wound to necrotic tendon with mild local erythema. +Pedal pulses heard via portable Doppler. R
heel blanchable red with small darker red area. R lateral foot stage 1 pressure injury vs DTI. 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 Perianal MASD. +Ascites.
Appetite: generally poor.
Pressure redistribution devices in place: rag & bone Accumax. Foot Waffle boots. Patient immobile and knees bend, legs in frog like position.
Plan: R Achilles dressing changed. Silicone border foam dressing applied to sacrum after chrissy care (patient incontinent of soft brown stool). Waffle air overlay applied and patient turned with help from DARRELL Crow. Silicone border foam applied to R
lateral foot. Dr. Messina was in during visit and updated re: necrotic R Achilles wound, showed wound picture to hospitalist. Hospitalist approved local skin/wound care. Discussed with DARRELL Crow.
Care plan to be updated and will follow as needed.
Note to case management of equipment requested for discharge: Air mattress at SNF if not already in place.
Recommend follow up at wound care center upon discharge.
DVT PPX - on coumadin
Recent hospitalization 09/13- and prior to that 09/02-09/09/24
Met with family for GO meeting 10/31, Aunt Stephanie, mark Carlos and on speaker phone Terrance High with Drs. Smith and Blanca in conference room. Explained situation extensively. They voiced their understanding, then went back and reviewed with patient,
he wants to think about it.
Unfortunately options are limited with massive ascites, acute on chronic renal failure. Met with Aunt Stephanie and mark Carlos again today and they are aware of planned transition to Hospice
Decision has been made to dc from acute care and proceed with Hospice
Code Status - DNR
More than 30 minutes spent in discharge including
Final examination of the patient
Summarizing hospital stay
Instructions for continuing care to all relevant caregivers
Preparation of discharge records, prescriptions, and referral forms
Total time spent (in minutes): 60
Anticipated Discharge: Today
Subjective/Interval History
-
Date of Service: November 01, 2024
Pt obviously very weak, poorly responsive
Objective Data
-
Labs:
Laboratory Results
11/01/24
06:40
WBC 13.0 H
Hgb 8.8 L
Hct 27.1 L
Plt Count 233
PT 25.7 H
INR 2.29 D
Sodium 136
Potassium 4.9
Chloride 101
Carbon Dioxide 19 L
BUN 154 H*
Creatinine 5.2 H*
Glucose 73
Calcium 8.9
Total Bilirubin 2.6 H
AST 73 H
ALT 40
Alkaline Phosphatase 192 H
Vital Signs:
Vital Signs
Temp Pulse Resp BP Pulse Ox
97.3 F 60 19 99/48 96
11/01/24 15:25 11/01/24 15:25 11/01/24 15:25 11/01/24 15:25 11/01/24 15:25
I&O
10/31/24 11/01/24 11/02/24
06:59 06:59 06:59
Intake Total 760 / 760 820 / 820
Output Total 400 / 400 675 / 675
Balance 360 / 360 145 / 145
Review of Systems
-
History Source: Physician and Coordinated Provider
Constitutional: Denies Fever
Respiratory: Reports No Symptoms
Cardiac: Reports No Symptoms; Denies Chest Pain
Abdomen/GI: Reports Bloated
Musculoskeletal: Reports Edema
Physical Exam
-
General: Well Developed, Well Nourished, Appears Chronically Ill and Other (poorly responsive)
HEENT: Normocephalic, Atraumatic and Moist Mucous Membranes
Respiratory: Clear to Auscultation
Cardiac: S1/S2, Irregular Rhythm and Murmur
GI: Soft, Distended and Other (ascites seen prior to paracentesis); Negative Normal Bowel Sounds
Musculoskeletal: Edema, Left Upper Extrem, Edema, Right Lower Extrem, Edema, Left Lower Extrem and Other (posterior rt ankle wound with visible tendon)
--- NOTE | 2024-11-01 16:53 | W.DS.TRANS ---
DC Summary - Dobie Worker
-
Discharge Instructions:
Discharge Diagnosis/Procedures End Stage Liver, Acute on chronic Renal Failure
Diet Grind all food
Additional Activity bedrest
Driving Restrictions No driving
Bathing Restrictions None
Other Services Hospice
Instructions:
Stand-Alone Forms:
Changes to Home Medications: Yes
Discharge Medications:
Home Medication Changes
all meds to be stopped and he will be placed on Hospice
Pending Results: No
--- NOTE | 2024-11-01 18:07 | PTCARENOTE ---
Albumin infusion completed. Dressing changed per MD order. Incontinence care provided. Hardy wipes completed. No pain or discomfort noted. Report given to DARRELL Rivers. Patient transferred to [facility] for in patient hospice
== END 2024-11-01 18:00 | disposition hospice, inpatient (51) | DRG 441 ==
LOC: 4 WEST ACU 20:13
PROVIDERS: Nurse Practitioner Adult Health; Radiology Vascular & Interventional Radiology; ADMITTING PHYSICIAN Internal Medicine; ATTENDING PHYSICIAN Internal Medicine; CONSULT PHYSICIAN Internal Medicine Gastroenterology; EMERGENCY PHYSICIAN Emergency Medicine; FAMILY PHYSICIAN Internal Medicine; OTHER PHYSICIAN Internal Medicine; OTHER PHYSICIAN Internal Medicine Cardiovascular Disease
PROC: 0W9G3ZZ Drainage of Peritoneal Cavity, Percutaneous Approach (ICD-10-PCS; 2024-11-01)
DX: K72.10 Chronic hepatic failure without coma (principal); G92.8 Other toxic encephalopathy; N17.9 Acute kidney failure, unspecified; I48.21 Permanent atrial fibrillation; N39.0 Urinary tract infection, site not specified; R18.8 Other ascites; I50.42 Chronic combined systolic (congestive) and diastolic (congestive) heart failure; Z66 Do not resuscitate; K74.60 Unspecified cirrhosis of liver; D63.1 Anemia in chronic kidney disease; N18.32 Chronic kidney disease, stage 3b; E87.5 Hyperkalemia; K80.20 Calculus of gallbladder without cholecystitis without obstruction; Z79.01 Long term (current) use of anticoagulants; Z95.2 Presence of prosthetic heart valve; I27.20 Pulmonary hypertension, unspecified
CPT/HCPCS: 88305; 49083; 51702; 51798; 74176; 80048; 80053; 81003; 81015; 82042; 82140; 82150; 82570; 83615; 83735; 84157; 84300; 85025; 85027; 85610; 85730; 87015; 87070; 87086; 87147; 87205; 88112; 89051; 96374; 97163; 97167; 97530; 99285; P9047

== ENCOUNTER 2024-11-01 18:00 | Inpatient (IN) | payer OTHER, SELFPAY ==
--- NOTE | 2024-11-01 17:09 | W.PN.HOSP.TC ---
Today's Communication/Plan
-
admit to Hospice
Assessment / Plan
Assessment / Plan
1. BEBA - HRS vs ATN or possible obstruction. Hemoglobin stable. No evidence of blood loss. No acute volume loss.
- admit to med/surg
- will start cefepime for presumed SBP/UTI
- stop diuretics for now
- hold metoprolol
- if FENA positive, consider terlipressin
- i/o, weights
- acid base ok, K 5.8, was given 1 dose lokelma-->5.6-->5.3
- avoid nephrotoxins
- nephrology consult
input from Dr. Richards appreciated, she is concerned about ability to tolerate dialysis
on 09/27 BUN/Creat was 50/1.9, on 10/29 was 127/5.6, 10/31 142/5.3
Pt is obviously failing. He is Hospice appropriate. Met with nephrology, Cardio today and both confirmed obvious decline and poor prognosis with recommendation to transition to Hospice. Then met with Tara (Police Investigator) who in turn met
with family. Family now in agreement, Tara will contact [facility] and he will now be transitioned to Hospice. Paracentesis performed today with drainage of 10 liters of fluid
Hyperkalemia
will follow for now
- possible retention, CT: Large volume abdominopelvic ascites.
Small to moderate right and small left pleural effusions.
Diffuse anasarca.
Hepatic cirrhosis.
Cholelithiasis. Small calcification in the region of the distal common bile duct suspicious for choledocholithiasis. However, no significant bile duct dilatation.
Other chronic findings, as detailed above, urology consulted from ED. maintain mahoney for now
2. ASCITES - Recurrent large volume ascites, taps almost weekly. Likely will need another tap. 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
- IR consult for diagnostic tap to rule out infection and sbp, unable to do due to elevated INR. IV Vit K ordered by GI, will recheck INR in AM. Discussed giving FFP, IRAD requests reversal of supratherapeutic INR prior to paracentesis
- will need albumin repletion for large volume para
- IV cefepime for now given prior abx use
- continue midodrine
3. AFIB - rate controlled
- coumadin 5 hs, goal inr 2.5, holding coumadin follow inr in am
- holding metoprolol for possible acute HRS
3a. Hx of Mechanical aortic Valve Replacement
4. CHF - total body volume o/d
- holding lasix
HFrEF EF 35-40%
5. UTI - + u/a, recent hospitalizations and liver failure, high risk
- urine cultures sent
- cefepime now
6. supratherapeutic INR
coumadin on hold. May need FFP if need to do paracentesis, await cardio input
7. Rt achilles wound
wound care consulted
8. multiple pressure wounds, present on admission
[facility] RN note: Patient admitted with acute renal failure. Patient admitted from [facility].
See H&P for complete history.
PMH: from H+P 'mechanical aortic valve replacement, atrial fibrillation, cirrhosis with 2 recurrent large-volume ascites and history of SBP, CHF with reduced EF, chronic anemia, CKD'
Wound Location and type/assessment: Patient admitted with: stage 2 sacral pressure injury along with MASD. Bruises on back. R Achilles full thickness wound to necrotic tendon with mild local erythema. +Pedal pulses heard via portable Doppler. R
heel blanchable red with small darker red area. R lateral foot stage 1 pressure injury vs DTI. 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 Perianal MASD. +Ascites.
Appetite: generally poor.
Pressure redistribution devices in place: Versacare Accumax. Foot Waffle boots. Patient immobile and knees bend, legs in frog like position.
Plan: R Achilles dressing changed. Silicone border foam dressing applied to sacrum after chrissy care (patient incontinent of soft brown stool). Waffle air overlay applied and patient turned with help from RN Mignon. Silicone border foam applied to R
lateral foot. Dr. Messina was in during visit and updated re: necrotic R Achilles wound, showed wound picture to hospitalist. Hospitalist approved local skin/wound care. Discussed with DARRELL Crow.
Care plan to be updated and will follow as needed.
9. Toxic Metabolic encephalopathy
DVT PPX - on coumadin
Recent hospitalization 09/13- and prior to that 09/02-09/09/24
Met with family for [facility] meeting 10/31, Aunt Stephanie, cousin Terrance and on speaker phone Terrance High with Drs. Smith and Blanca in conference room. Explained situation extensively. They voiced their understanding, then went back and reviewed with patient,
he wants to think about it.
Unfortunately options are limited with massive ascites, acute on chronic renal failure. Met with Aunt Stephanie and cousin Terrance again today and they are aware of planned transition to Hospice
Decision has been made to dc from acute care and proceed with Hospice
He is to be admitted to Hospice now
Anticipated Discharge: > 48 hours
Subjective/Interval History
-
Date of Service: November 01, 2024
Poorly responsive
Review of Systems
-
History Source: Family and Coordinated Provider
Constitutional: Denies Fever
EENT: Reports No Symptoms Reported
Respiratory: Reports Cough
Cardiac: Reports No Symptoms
Abdomen/GI: Reports No Symptoms
Physical Exam
-
General: Well Developed and Appears Chronically Ill
HEENT: Normocephalic and Atraumatic
Respiratory: Rhonchi (upper airway rhonchi)
Cardiac: S1/S2, Irregular Rhythm, Murmur and Other (Aortic Valve prosthetic heart sounds)
GI: Soft and Other (post paracentesis)
--- NOTE | 2024-11-01 18:29 | HOSPNOTE ---
Patient has been admitted to inpatient hospice level of care. Patient will be moving to 2130 this evening. Hospice will visit daily.
[2024-11-01 19:20] VITALS: BP 117/51
[2024-11-02] MEDS: MORPHINE SULFATE 1 MG IV ×3 (00:01→23:40)
[2024-11-02] MEDS: ATIVAN 1 MG PO (01:05)
[2024-11-02 07:15] VITALS: BP 97/47
--- NOTE | 2024-11-02 10:08 | W.PN.HOSP.TC ---
Today's Communication/Plan
-
appears comfortable
Assessment / Plan
Assessment / Plan
1. BEBA - HRS vs ATN or possible obstruction. Hemoglobin stable. No evidence of blood loss. No acute volume loss.
- admit to Hospice
- abx stopped
- stop diuretics for now
- hold metoprolol
- avoid nephrotoxins
input from Dr. Richards appreciated, she does not believe pt could tolerate dialysis
on 09/27 BUN/Creat was 50/1.9, on 10/29 was 127/5.6, 10/31 142/5.3
ESRD
Pt is obviously failing. He is Hospice appropriate. Met with nephrology, Cardio 10/31 and 11/01 and both confirmed obvious decline and poor prognosis with recommendation to transition to Hospice. Then met with Tara (Pharmacy Ancillary) who in
turn met with family. Family now in agreement, Tara contacted [facility] and he has been transitioned to Hospice. Paracentesis performed with drainage of 10 liters of fluid
Hyperkalemia
will follow for now
- possible retention, CT: Large volume abdominopelvic ascites.
Small to moderate right and small left pleural effusions.
Diffuse anasarca.
Hepatic cirrhosis.
Cholelithiasis. Small calcification in the region of the distal common bile duct suspicious for choledocholithiasis. However, no significant bile duct dilatation.
Other chronic findings, as detailed above, urology consulted from ED. maintain mahoney for now
2. ASCITES - Recurrent large volume ascites, taps almost weekly. 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
- IR consult for paracentesis which has made pt more comfortable
3. AFIB - rate controlled
- coumadin to be stopped
3a. Hx of Mechanical aortic Valve Replacement
4. CHF - total body volume o/d
- holding lasix
HFrEF EF 35-40%
5. UTI - + u/a, recent hospitalizations and liver failure, high risk
- urine cultures sent
- cefepime now
6. supratherapeutic INR on admission
7. Rt achilles wound
wound care consulted
8. multiple pressure wounds, present on admission
[facility] RN note: Patient admitted with acute renal failure. Patient admitted from [facility].
See H&P for complete history.
PMH: from H+P 'mechanical aortic valve replacement, atrial fibrillation, cirrhosis with 2 recurrent large-volume ascites and history of SBP, CHF with reduced EF, chronic anemia, CKD'
Wound Location and type/assessment: Patient admitted with: stage 2 sacral pressure injury along with MASD. Bruises on back. R Achilles full thickness wound to necrotic tendon with mild local erythema. +Pedal pulses heard via portable Doppler. R
heel blanchable red with small darker red area. R lateral foot stage 1 pressure injury vs DTI. 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 Perianal MASD. +Ascites.
Appetite: generally poor.
Pressure redistribution devices in place: Versacare Accumax. Foot Waffle boots. Patient immobile and knees bend, legs in frog like position.
Plan: R Achilles dressing changed. Silicone border foam dressing applied to sacrum after chrissy care (patient incontinent of soft brown stool). Waffle air overlay applied and patient turned with help from DARRELL Crow. Silicone border foam applied to R
lateral foot. Dr. Messina was in during visit and updated re: necrotic R Achilles wound, showed wound picture to hospitalist. Hospitalist approved local skin/wound care. Discussed with DARRELL Crow.
Care plan to be updated and will follow as needed.
9. Toxic Metabolic encephalopathy
Pt probably at baseline. Answers very basic questions. No insight
Recent hospitalization 09/13- and prior to that 09/02-09/09/24
Met with family for [facility] meeting 10/31, Aunt Stephanie, cousin Terrance and on speaker phone Terrance High with Drs. Smith and Blanca in conference room. Explained situation extensively. They voiced their understanding, then went back and reviewed with patient.
Currently pt is felt not to have capacity to make rational decision and as such family and POA decided for him that he should go on Hospice
Unfortunately options are limited with massive ascites, acute on chronic renal failure. Met with Aunt Stephanie and cousin Terrance again on 11/01 and they are agreeable with planned transition to Hospice
continue inpt Hospice
Reviewed with DARRELL Rivers
Anticipated Discharge: > 48 hours
Subjective/Interval History
-
Date of Service: November 02, 2024
Appears comfortable
Objective Data
-
Vital Signs:
Vital Signs
Temp Pulse Resp BP Pulse Ox
97.0 F 59 16 97/47 92
11/02/24 07:15 11/02/24 07:15 11/02/24 07:15 11/02/24 07:15 11/02/24 07:15
I&O
11/01/24 11/02/24 11/03/24
06:59 06:59 06:59
Intake Total 480 / 480
Output Total 540 / 540
Balance -60 / -60
Review of Systems
-
History Source: Patient and Coordinated Provider (discussed with DARRELL Rivers)
Constitutional: Denies Fever
EENT: Reports No Symptoms Reported
Respiratory: Reports No Symptoms
Cardiac: Denies Chest Pain
Abdomen/GI: Denies Abdominal Pain
Genitourinary: Reports Other (mahoney in place)
Physical Exam
-
General: Well Developed, No Apparent Distress, Appears Chronically Ill and Cachectic (post paracentesis apparent how cachectic he is)
HEENT: Normocephalic and Other (temporal muscle wasting)
Respiratory: Rales (bibasilar rales)
Cardiac: S1/S2, Irregular Rhythm, Murmur (3/6 KAELYN) and Other (mechanical heart valve sounds)
GI: Soft and Other (post paracentesis)
Musculoskeletal: No Clubbing, No Cyanosis, Edema, Left Upper Extrem (2+), Edema, Right Lower Extrem (1+) and Edema, Left Lower Extrem (1+)
--- NOTE | 2024-11-02 11:05 | HOSPNOTE ---
Received patient in bed lethargic, mumbles unable to understand. Blank stare. RR 12 nonlabored. Spoke with nurse Tita brunner last dose of Morphine 9:50 this am. Prn morphine effective at this time. Ativan dose this morning approx 1 am for
anxiety. Hands cyanotic, mottling to knees. Sn repositioned patient for comfort with aid Sarah. Remains GIP level appropriate.
--- NOTE | 2024-11-02 12:02 | CHAP ---
Addendum entered by Bobo Sherman 11/02/24 12:20:
Aunt Stephanie arrived, and confirmed that Mike has Mandaeism background, but is not practicing. Heel Cover Splitter located the nurse to answer Setphanie's questions about nutrition.
Original Note:
Mike was somewhat agitated, coughing, nonverbal. Emotional and spiritual support provided through presence, words of comfort, and prayer. Will continue support through weekly visits, remaining available as needed.
[2024-11-02] MEDS: ATIVAN 1 MG IV (18:29)
[2024-11-02 19:48] VITALS: BP 93/54
[2024-11-03] MEDS: ATIVAN 1 MG PO (00:29)
[2024-11-03] MEDS: TRANSDERM-SCOP 1 PATCH TRANSDERM (01:26)
[2024-11-03] MEDS: ROBINUL 0.2 MG IV ×3 (01:27→09:51)
[2024-11-03] MEDS: MORPHINE SULFATE 1 MG IV ×4 (02:27→08:04)
[2024-11-03] MEDS: NSS (PRESERVATIVE FREE) 0.5 ML IV (05:07)
[2024-11-03] MEDS: ATIVAN 1 MG IV ×3 (05:07→09:09)
[2024-11-03 07:20] VITALS: BP 88/51
--- NOTE | 2024-11-03 07:56 | W.PN.HOSP.TC ---
Today's Communication/Plan
-
Continue Hospice management
Assessment / Plan
Assessment / Plan
1. BEBA - HRS vs ATN or possible obstruction. Hemoglobin stable. No evidence of blood loss. No acute volume loss.
- admitted to Hospice
- abx stopped
- avoid nephrotoxins
input from Dr. Richards appreciated, she does not believe pt could tolerate dialysis
on 09/27 BUN/Creat was 50/1.9, on 10/29 was 127/5.6, 10/31 142/5.3
ESRD
Pt is obviously failing. He is Hospice appropriate. Met with nephrology, Cardio 10/31 and 11/01 and both confirmed obvious decline and poor prognosis with recommendation to transition to Hospice. Then met with Tara (Rivet Passer) who in
turn met with family. Family now in agreement, Tara contacted POA and he has been transitioned to Hospice. Paracentesis performed with drainage of 10 liters of fluid prior to going on Hospice
Patient is obviously failing. Very weak, currently unresponsive
- possible retention, CT: Large volume abdominopelvic ascites.
Small to moderate right and small left pleural effusions.
Diffuse anasarca.
Hepatic cirrhosis.
Cholelithiasis. Small calcification in the region of the distal common bile duct suspicious for choledocholithiasis. However, no significant bile duct dilatation.
Other chronic findings, as detailed above, urology consulted from ED. maintain mahoney for now
2. ASCITES - Recurrent large volume ascites, taps almost weekly. 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
- IR consulted for paracentesis which has made pt more comfortable
3. AFIB - rate controlled
- coumadin stopped
3a. Hx of Mechanical aortic Valve Replacement
4. CHF - total body volume o/d
- holding lasix
HFrEF EF 35-40%
5. UTI - + u/a, recent hospitalizations and liver failure, high risk
- urine cultures sent
- cefepime now
6. supratherapeutic INR on admission
7. Rt achilles wound
wound care consulted
8. multiple pressure wounds, present on admission
[facility] RN note: Patient admitted with acute renal failure. Patient admitted from [facility].
See H&P for complete history.
PMH: from H+P 'mechanical aortic valve replacement, atrial fibrillation, cirrhosis with 2 recurrent large-volume ascites and history of SBP, CHF with reduced EF, chronic anemia, CKD'
Wound Location and type/assessment: Patient admitted with: stage 2 sacral pressure injury along with MASD. Bruises on back. R Achilles full thickness wound to necrotic tendon with mild local erythema. +Pedal pulses heard via portable Doppler. R
heel blanchable red with small darker red area. R lateral foot stage 1 pressure injury vs DTI. 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 Perianal MASD. +Ascites.
Appetite: generally poor.
Pressure redistribution devices in place: Versacare Accumax. Foot Waffle boots. Patient immobile and knees bend, legs in frog like position.
Plan: R Achilles dressing changed. Silicone border foam dressing applied to sacrum after chrissy care (patient incontinent of soft brown stool). Waffle air overlay applied and patient turned with help from DARRELL Crow. Silicone border foam applied to R
lateral foot. Dr. Messina was in during visit and updated re: necrotic R Achilles wound, showed wound picture to hospitalist. Hospitalist approved local skin/wound care. Discussed with DARRELL Crow.
Care plan to be updated and will follow as needed.
9. Toxic Metabolic encephalopathy
Has progressed
Recent hospitalization 09/13- and prior to that 09/02-09/09/24
Met with family for [facility] meeting 10/31, Aunt Stephanie, cousin Terrance and on speaker phone Terrance High with Drs. Smith and Blanca in conference room. Explained situation extensively. They voiced their understanding, then went back and reviewed with patient.
Currently pt is felt not to have capacity to make rational decision and as such family and POA decided for him that he should go on Hospice
Unfortunately options are limited with massive ascites, acute on chronic renal failure. Met with Aunt Stephanie and cousin Terrance again on 11/01 and they are agreeable with planned transition to Hospice.
Appears comfortable. Continue current management
continue inpt Hospice
Reviewed with DARRELL Rivers
Anticipated Discharge: 24 - 48 hours
Subjective/Interval History
-
Date of Service: November 03, 2024
very weak
Objective Data
-
Vital Signs:
Vital Signs
Temp Pulse Resp BP Pulse Ox
94.4 F L 60 14 88/51 93
11/02/24 20:40 11/03/24 07:20 11/03/24 07:20 11/03/24 07:20 11/03/24 07:20
I&O
11/02/24 11/03/24 11/04/24
06:59 06:59 06:59
Intake Total 480 / 480 210 / 210
Output Total 540 / 540 325 / 325
Balance -60 / -60 -115 / -115
Review of Systems
-
History Source: Coordinated Provider
Constitutional: Reports Weakness
Respiratory: Reports Cough
Physical Exam
-
General: Well Developed, Comfortable and Appears Chronically Ill
HEENT: Normocephalic and Atraumatic
Respiratory: Rhonchi (upper airway rhonchi)
Cardiac: S1/S2, Irregular Rhythm and Murmur
GI: Soft and Other (post paracentesis)
Musculoskeletal: No Clubbing, No Cyanosis, Edema, Left Upper Extrem (2+), Edema, Right Lower Extrem (1+) and Edema, Left Lower Extrem (1+)
[2024-11-03] MEDS: MORPHINE SULFATE 2 MG IV ×3 (08:23→09:13)
[2024-11-03] MEDS: MORPHINE 100 IV (08:32)
--- NOTE | 2024-11-03 12:08 | HOSPNOTE ---
Patient unresponsive, actively dying. Flacc 0; appears very comfortable. Started on step 3 morphine drip this morning. Secretions managed with robinul and scopolomine patch. Mottled and cold upper and lower extremities, weak pulses. Breathing
nonlabored RR 13 and shallow. Emotional support provided to patients Aunt at bedside and discussed the active stage and limited life expectancy is hours/days. More family expected to arrive later on today. Patient remains GIP for management of
symptoms.
--- NOTE | 2024-11-03 13:03 | W.PN.DEATH ---
Addendum entered and electronically signed by Francisco J Messina MD 11/03/24 13:50:
Case ID:�[id number]
Original Note:
Pronouncement of
-
Called to see patient to pronounce.
No spontaneous heart tones or respirations noted.
Patient not responsive to verbal stimuli.
Patient is pronounced .
Time of : 12:50
Date of : 11/03/24
Cause of : End Stage Liver Failure
Family Notified: Yes
== END 2024-11-03 12:50 | disposition expired | DRG 951 ==
LOC: 2 NORTH 18:00
PROVIDERS: ADMITTING PHYSICIAN Internal Medicine
DX: Z51.5 Encounter for palliative care (principal); N18.6 End stage renal disease; G92.8 Other toxic encephalopathy; K65.2 Spontaneous bacterial peritonitis; I13.2 Hypertensive heart and chronic kidney disease with heart failure and with stage 5 chronic kidney disease, or end stage renal disease; I48.21 Permanent atrial fibrillation; I50.22 Chronic systolic (congestive) heart failure; N17.9 Acute kidney failure, unspecified; R18.8 Other ascites; Z95.2 Presence of prosthetic heart valve; K72.10 Chronic hepatic failure without coma; R79.1 Abnormal coagulation profile; T45.515A Adverse effect of anticoagulants, initial encounter; Z95.0 Presence of cardiac pacemaker; K74.60 Unspecified cirrhosis of liver; D63.1 Anemia in chronic kidney disease; E78.5 Hyperlipidemia, unspecified; E87.5 Hyperkalemia; L89.509 Pressure ulcer of unspecified ankle, unspecified stage; Z79.01 Long term (current) use of anticoagulants